=== PATIENT | male | born 1935 | race Caucasian/White ===

== ENCOUNTER 2022-02-28 15:23 | Emergency (ER) | payer OTHER, SELFPAY ==
[2022-02-28 15:36] VITALS: BP 168/76; PULSE 70; RESP 18; TEMP 36.5; O2SAT 95; BMI 22.2
--- NOTE | 2022-02-28 16:12 | ED.GENADULT ---
HPI - General Adult General Time Seen by Provider: 16:12 Date Seen: 02/28/22 Chief complaint: Hip Injury/Pain Stated complaint: SHARP PAIN IN LEFT HIP Time Seen by Provider: 02/28/22 15:57 Source: patient Mode of arrival: ambulatory History of Present Illness HPI narrative: Lior is a 86 year old male past medical histoyr of hypertension, diabetes, hyperlipidemia not on blood thinners presents emerged department via private car with left hip pain. Patient states he carried a ladder up some steps on Monday from the basement to the main level, he held on to it with his left arm by his side, when he got to the top of the stairs he felt a to the lateral aspect of his left hip, on Monday he states he felt well. Last night before going to bed pain progressively got worse, it is very sharp, nonradiating, worse with ambulation, pain is 10/10. Today pain has persisted worse in his left hip, he took 500 mg oral Tylenol with no relief, and then another 500 mg Tylenol. Patient denies any lower back pain, no weakness, paresthesia or tingling of his left lower extremity. No history of this in the past. No urinary or bowel incontinence or retention, he has had a cortisone shot in that left hip in the past. No other concerns at this time. Related Data Home Medications Medication Instructions Recorded Confirmed fluticasone 250 mcg-salmeterol 50 inhalation 02/28/22 mcg/dose blistr powdr for inhalation hydrochlorothiazide 25 mg tablet mg 02/28/22 levocetirizine 5 mg tablet mg 02/28/22 metformin 750 mg tablet,extended mg PO 02/28/22 release 24 hr simvastatin 40 mg tablet mg 02/28/22 Allergies Allergy/AdvReac Type Severity Reaction Status Date / Time No Known Drug Allergies Allergy Verified 02/28/22 15:41 Review of Systems Status of ROS: Reports: 10 or more systems reviewed and unremarkable except as noted in History and below [facility] Social History Smoking Status: Smoker, status unknown Second hand tobacco smoke exposure: No How often do you have a drink containing alcohol: never AUDIT-C Alcohol total score: 0 Non-prescribed substance use: denies use Exam Narrative: Exam Narrative: General: No obvious distress sitting comfortably HEENT: Pupils equal round reactive to light, extraocular muscles intact Neck: Supple full range of motion Lungs: Clear to auscultation bilaterally Heart: Normal sinus rhythm S1-S2 Abdomen: Bowel sounds present, soft nontender to palpation Muscle skeletal: Internal and external rotation of the hips normal bilaterally, +5 strength in lower extremities by, CMS intact, nontender to palpation the lower or spine, he has tenderness to palpation of the left anterior iliac crest, no step-off, no bruising or swelling. Neuro: Gait within normal limits, alert awake and oriented x3 Const: Vital Signs, click to edit/add: Vital Signs - 24 hr 02/28/22 15:36 Temperature 97.7 F Pulse Rate [Pulse Oximeter] 70 Respiratory Rate 18 Blood Pressure [Ri ght Upper Arm] 168/76 H Pulse Oximetry 95 Oxygen Delivery Me thod Room Air Course Course Hospital Course: 4:15 PM: AIDET performed. Workup will include IV peripheral, will start with the oral for his pain, which is minimal when at rest, will obtain a CT pelvis without IV contrast to rule out any occult fracture. Patient and daughter were in agreement. Differential diagnosis include fracture, dislocation, sprain, contusion, hematoma, tendinitis, diverticulitis, colitis, urolithiasis, nephrolithiasis, cancer as well as all etiologies. Reevaluation(s) Reevaluation #1: patient updated on his imaging results, No sign of acute injury to the left anterior iliac wing to do correspond to the pain in this region. No sign of any associated soft tissue injury.Decrease in size of large lobular soft tissue mass in the anterior pelvic wall extending to the left from midline consistent with the history of a desmoid tumor.Stable severe sigmoid and inferior descending colonic diverticulosis with no sign of diverticulitis. Stable changes of partial right colectomy with patent ileocolic,anastomosis.The prostate remains mildly enlarged. Patient is feeling better after above care given, he is able to ambulate to and from the bathroom, he will be given additional 1 g of Tylenol and a Lidoderm patch 5% applied to the area, he needs to continue with 1000 mg Tylenol every 4-6 hours, Lidoderm patch 4% applied to the area every 12 hours, ice alternating heat, and to follow-up with primary care provider over the next 5-7 days for ER followup and recheck. Time: 17:30 Vital Signs Vital signs: Initial Vital Signs Temperature 97.7 F 02/28/22 15:36 Temperature Source Temporal Artery Scan 02/28/22 15:36 Pulse Rate 70 02/28/22 15:36 Respiratory Rate 18 02/28/22 15:36 Blood Pressure 168/76 H 02/28/22 15:36 Blood Pressure Mean 106 02/28/22 15:36 Blood Pressure Position Supine 02/28/22 15:36 Pulse Oximetry 95 02/28/22 15:36 Oxygen Delivery Method 02/28/22 15:36 Vital Signs Temperature 97.7 F 02/28/22 15:36 Pulse Rate 70 02/28/22 15:36 Respiratory Rate 18 02/28/22 15:36 Blood Pressure 168/76 H 02/28/22 15:36 Pulse Oximetry 95 02/28/22 15:36 Oxygen Delivery Method 02/28/22 15:36 Temperature 97.7 F 02/28/22 15:36 Pulse Rate 70 02/28/22 15:36 Respiratory Rate 18 02/28/22 15:36 Blood Pressure 168/76 H 02/28/22 15:36 Pulse Oximetry 95 02/28/22 15:36 Oxygen Delivery Method 02/28/22 15:36 Discharge Plan Discharge Clinical Impression: Acute pain of left hip Patient Disposition: Home, Self-Care Condition: Improved Instructions: Hip Pain (ED), Warm Compress or Soak (ED) Additional Instructions: To apply Lidoderm patch 4% to the area every 12 hours, heat alternating with ice, Tylenol 1000 mg every 4-6 hours for pain, he should follow up with his primary care provider over the next 5-7 days for ER followup and recheck, reasons to return were given. Activity Level: Activity as Tolerated Discharge Diet: Regular Prescriptions: No Action fluticasone propion-salmeterol 250-50 mcg/dose blister with device INHALATION simvastatin 40 mg tablet hydrochlorothiazide 25 mg tablet metformin 750 mg tablet extended release 24 hr PO levocetirizine 5 mg tablet Follow Up/Referrals: Reagan Medina MD [Primary Care Provider] - Stand Alone Forms: [employer] Info Instructions
--- NOTE | 2022-02-28 16:20 | CRLHL7_ITS ---
For Patients: As a result of the 21st Century Cures Act, medical imaging exams and procedure reports are released immediately into your electronic medical record. You may view this report before your referring provider. If you have questions, please contact your health care provider. INDICATION: Left anterior iliac crest pain after lifting injury. COMPARISON: CT of the abdomen and pelvis with contrast from 08/21/2019. History of anterior abdominal wall desmoid tumor. TECHNIQUE: CT examination of the pelvis was performed with the uneventful intravenous administration of 100 cc of Omnipaque 350 while 3 mm thick axial sections were obtained from the superior iliac crest through the pubic symphysis. Oral contrast was not administered. Please note that all CT scans at this facility use dose modulation, iterative reconstruction, and/or weight-based dosing when appropriate to reduce radiation dose to as low as reasonably achievable. FINDINGS: : There has been a slight decrease in size of the lobulated mass within the central and left anterior pelvic wall in the periumbilical region, now measuring 6.8 x 9.3 centimeters in cross-section and 7.0 centimeters in length, previously 11.9 x 7.7 centimeters in cross-section and 8.8 centimeters in length. There is no sign of any abnormality of the left iliac wing, specifically with no sign of any fracture of the anterior iliac crest. There is no sign of any muscular injury or hematoma. Again seen are changes of resection of the cecum and ascending colon with a widely patent ileocolic anastomosis. There is stable severe sigmoid and inferior descending colonic diverticulosis without evidence of diverticulitis. The loops of small bowel and rectum in the pelvis are otherwise normal in appearance. The prostate remains mildly enlarged normal in appearance. The urinary bladder is normal in appearance. There is no sign of pelvic or inguinal mass or adenopathy. There is no sign of free fluid or free air in the pelvis. 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 There is no sign of fracture of the [place] osseous structures. Again seen is a lumbarized S1 segment with a well-defined, partially fused S1-2 disc space. There is no change in mild L4-5 and prominence L3-4 disc degenerative disease. There is stable grade 1 anterior subluxation of L5 on S1 from bilateral pars interarticularis defects. There is stable severe L5-S1 disc degenerative disease. IMPRESSION: No sign of acute injury to the left anterior iliac wing to do correspond to the pain in this region. No sign of any associated soft tissue injury. Decrease in size of large lobular soft tissue mass in the anterior pelvic wall extending to the left from midline consistent with the history of a desmoid tumor. Stable severe sigmoid and inferior descending colonic diverticulosis with no sign of diverticulitis. Stable changes of partial right colectomy with patent ileocolic anastomosis. The prostate remains mildly enlarged. Please note that all CT scans at this facility use dose modulation, iterative reconstruction, and/or weight-based dosing when appropriate to reduce radiation dose to as low as reasonably achievable. Dictated by Dylan Krishnan MD @ 02/28/2022 5:23:58 PM (Electronically Signed)
[2022-02-28] MEDS: KETOROLAC 15 MG/ML inj IVP (16:50)
--- OUTSIDE RECORDS SUMMARY | 2022-02-28 17:02 | XMS_ITS | Clinical Summary ---
:1935 Author Organization [employer] [facility] [place] [address] Care Team Providers Name Role Phone Stephanie De Santiago MD Unavailable Reagan Medina MD Primary Care Provider [phone] Allergies Active Allergy Reactions Severity Noted Date Comments Aspirin, Buffered Chest Pain 07/29/2009 Taking keren татьяна without concerns Tree Nut Edema 06/06/2008 Swelling in fac e Medications Medication Sig Dispensed Refills Start End Status Date Date PEAK FLOW use daily to 1 0 08/05/19 Active METERIndications: assess asthma 09 Unspecified tx. asthma(493.90) OCUVITE PRESERVISION take 2 in the 0 08/30/19 Active TAB morning and 2 09 at night lancetsIndications: As directed 2 1 box 2 11/12/19 Active Type II or unspecified times daily. 10 type diabetes mellitus without mention of complication, not stated as uncontrolled aspirin (ECOTRIN) 81 mg Take 1 tablet 0 03/08/20 Active enteric coated tablet by mouth once 17 daily with a meal. Blood-Glucose Sensor As directed. 1 Device 0 05/01/20 Active deviIndications: 18 Diabetes mellitus without complication (HC) Blood Glucose Control Use with 1 Bottle 0 08/07/19 Active High&Low glucometer 19 solnIndications: Diabetes mellitus without complication (HC) albuterol HFA (Ventolin INHALE 1 TO 2 1 Each 3 10/07/19 Active HFA) 90 mcg/actuation PUFFS EVERY 6 21 inhalerIndications: HOURS Moderate persistent NEEDED asthma without complication simvastatin (ZOCOR) 40 Take 1 Tablet 90 Tablet 3 05/19/20 Active mg tabletIndications: (40 mg) by 21 Hyperlipidemia, mouth at unspecified bedtime. hyperlipidemia type metFORMIN (GLUCOPHAGE Take 2 180 Tablet 3 05/19/20 Active XR) 750 mg Tablets 21 Extended-Release (1,500 mg) by tabletIndications: mouth once Diabetes mellitus daily with without complication evening meal. (HC) hydroCHLOROthiazide Take 1 Tablet 90 tablet. 3 05/19/20 Active (HCTZ) 25 mg (25 mg) by 21 tabletIndications: mouth once Essential hypertension daily. lancets (TRUEplus As directed. 100 Each 3 08/06/19 Active Lancets) 33 gauge Dispense 22 miscIndications: meter, test Diabetes mellitus strips, without complication lancets (HC) covered by pt ins. 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 - Test 1 time/day fluticasone Inhale 1 Puff 3 Each 2 08/25/19 Acti ve propion-salmeteroL by mouth 2 22 (Wixela Inhub) 250-50 times daily. mcg/Dose diskus inhalerIndications: Moderate persistent asthma without complication blood sugar diagnostic Dispense item 100 Each 3 11/09/19 Active (True Metrix Glucose covered by pt 22 Test Strip) ins. E11.9 stripIndications: NIDDM type II Diabetes mellitus - Test 1 without complication time/day (HC) blood-glucose Dispense 1 Each 0 11/18/19 Active meterIndications: meter covered 22 Diabetes mellitus by pt ins. 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 Patient without symptoms when taking advair once daily. Allergic rhinitis, cause unspecified 03/06/2008 Type II or unspecified type diabetes mellitus without mention of 07/21/2006 complication, not stated as uncontrolled Other and unspecified hyperlipidemia Unspecified essential hypertension Resolved Problems Problem Noted Date Resolved Date Anticoagulation management encounter 10/17/2018 Inguinal hernia without mention of obstruction or gangrene, 09/01/2005 01/01/2013 recurrent unilateral or unspecified Encounters Date Type Specialty Care Team Description 02/28/2022 Travel 02/28/2022 Nurse Triage VotelReagan MD 02/01/2022 Refill VotelReagan Refil yesy Mcqueen MD (Levocetirizine ) 12/09/2021 Orders Only Scanner <No scans attac hed> from Last 3 Months Immunizations Name Administration Dates Next Due COVID-19 vaccine ([facility] 11/23/2021 30mcg/0.3mL) 12YO+ JAYLON-SUCROSE PF, MDV COVID-19 vaccine ([facility] 05/19/2021, 08/06/2020, 30mcg/0.3mL) PF, MDV Influenza, High-dose Inactivated 05/12/2016, 05/18/2015, Influenza, IIV3 (Age >=3 years) 03/10/2009, 04/17/2007 Influenza, Inactivated AIIV4 (Age 65+ 05/19/2021, 05/14/2020 Years) Preserv Free Influenza, Inactivated IIV3 (Age 65+ 07/02/2019, 03/08/2017 Years) Preserv Free Pneumococcal Poly,23-Valent (Pneumovax) 11/11/2009 Pneumococcal conj 13-Valent (Prevnar 13) 05/18/2015, 014 Td (Age >=7 Years) 02/03/2004 Tdap 03/29/2013 Family History Medical History Relation Name Comments Stroke Father age 82 Diabetes Mother dementia. a t age 94 Allergies Son antwon allergies Relation Name Status Comments Father Mother Son Social History Tobacco Use Types Packs/Day Years Used Date Never Smoker Smokeless Tobacco: Never Used Tobacco Cessation: Counseling Given: Yes Alcohol Use Standard Drinks/Week Comments Yes 0 (1 standard drink = 0.6 oz pure alcoho l) one cocktail rarely Alcohol Habits Answer Date Recorded How often do you have a drink containing alcohol? Not asked How many drinks containing alcohol do you have on a Not aske d typical day when you are drinking? How often do you have six or more drinks on one Not asked occasion? Comment: one cocktail rarely 08/04/2008 Sex Assigned at Date Recorded Not on file COVID-19 Exposure Response Date Recorded In the last 10 days, have you been in contact with No / Unsu re 02/28/2022 1:30 PM CDT someone who was confirmed or suspected to have Coronavirus/COVID-19? 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 Oxygen Saturation 98% 11/23/2021 9:05 AM CDT Inhaled Oxygen Concentration - - Weight 70.9 kg (156 lb 3.2 oz) 11/23/2021 9:05 AM CDT Height 172.7 cm (5' 8) 11/23/2021 9:05 AM CDT Body Mass Index 23.75 11/23/2021 9:05 AM CDT Plan of Treatment Upcoming Encounters Date Type Specialty Care Team Description 05/03/2022 Office Visit Votel, Reagan delacruz MD [address] [phone] (Wo rk) Health Maintenance Due Date Last Done Comments Zoster (shingles) series for age 1003/18/1986 50+ (1 of 2) Medicare Wellness for age 65+ 03/08/2018 03/08/2017, 2015, 04/28/2014, Additional history exists Influenza for age 65+ 02/03/2022 05/19/2021, 05/14/2020, 07/02/2019, Additional history exists Depression screening for age 12+ 05/19/2022 05/19/2021, 04/2020, 05/14/2020, Additional history exists BMI (ht and wt on same day) for 11/23/2022 11/23/2021, 05/05, age 18+ 11/17/2020, Additional history exists Tetanus booster 03/29/2023 03/29/2013, 02/03/2004 Tdap Completed 03/29/2013 Pneumococcal series for age 65+ Completed 05/18/2015, 04/06, 11/11/2009 COVID-19 vaccine series Completed 11/23/2021, 05/19/2021, 08/06/2020, Additional history exists Procedures Procedure Name Priority Date/Time Associated Diagnosis Comme nts SCAN-EYE EXAM 12/09/2021 12:00 AM Results for this CDT procedure are i n the results section . from Last 3 Months Results SCAN-EYE EXAM (12/09/2021 12:00 AM CDT) Narrative This result has an attachment that is no t available. 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
--- OUTSIDE RECORDS SUMMARY | 2022-02-28 17:02 | XMS_ITS ---
:1935 Author Care Team Providers Name Role Phone Estelle Maki Primary Care Provider Unavailable Allergies None recorded. Medications Name Status Start Date Stop Date ? ? Accu-Chek Pebbles Control Soln solution Active ? Not available Accu-Chek Pebbles Plus test strips Active ? Not available albuterol sulfate Completed ? 09/23/2019 aspirin 81 mg tablet,delayed release Active ? Not available Take 1 tablet every day by oral route. ferrous sulfate 325 mg (65 mg iron) tablet Active ? Not available fluticasone 250 mcg-salmeterol 50 mcg/dose blistr powdr for inha lation Active ? Not available Inhale 1 puff twice a day by inhalation route. hydrochlorothiazide 25 mg tablet Active ? Not available levocetirizine 5 mg tablet Active ? Not a vailable metformin ER 750 mg tablet,extended release 24 hr Active ? Not available simvastatin 40 mg tablet Active ? Not deanne ilable Ventolin HFA 90 mcg/actuation aerosol inhaler Active ? Not available warfarin 2.5 mg tablet Completed ? 0 warfarin 3 mg tablet Completed ? 09/23/2019 Problems None recorded. Procedures None recorded. Results Lab Results None recorded. Past Encounters None recorded. Social History None recorded. Vaccine List None recorded. Plan of Care Reminders Provider Appointments None recorded. ? ? Lab None recorded. ? ? Referral None recorded. ? ? Procedures None recorded. ? ? Surgeries None recorded. ? ? Imaging None recorded. ? ? Vitals None recorded.
[2022-02-28] MEDS: ACETAMINOPHEN 500 MG TABLET 1000 MG PO (17:54)
[2022-02-28] MEDS: LIDOCAINE 5% PATCH 1 PATCH TRANSDERMA (18:05)
== END 2022-02-28 18:08 | disposition home or self-care (01) ==
PROVIDERS: Emergency Provider Student in an Organized Health Care Education/Training Program; PCP Family Medicine
DX: M25.552 Pain in left hip (principal)
CPT/HCPCS: 72192; 96374; 99283; 99284; A9270; J1885

== ENCOUNTER 2022-03-02 11:28 | Emergency (ER) | payer OTHER, SELFPAY ==
[2022-03-02 11:45] VITALS: BP 142/67; PULSE 69; RESP 16; TEMP 36.7; O2SAT 97; BMI 22.4
--- OUTSIDE RECORDS SUMMARY | 2022-03-02 16:31 | XMS_ITS | Encounter Summary ---
:1935 Author Organization [facility] Address [address] [place] [address] Care Team Providers Name Role Phone Unavailable Primary Care Provider Unavailable Reason for Referral Outpatient (Routine) - Closed Specialty Diagnoses / Procedures Referred By Contact Refer red To Contact Radiation Oncology Diego Ang M .D. [facility] [address] [address] Referral ID Status Reason Start Date Expiration Date Visits Requ ested Visits Authorized [id number] Closed 03/27/2020 03/27/2021 1 1 Reason for Visit Outpatient (Routine) - Closed Specialty Diagnoses / Procedures Referred By Contact Refer red To Contact [facility] [address] [address] Referral ID Status Reason Start Date Expiration Date Visits Requ ested Visits Authorized [id number] Closed 03/27/2020 03/27/2021 1 1 Encounter Details Date Type Department Care Team Description 10/09/2020 Hospital Encounter Department of Diego Ang Tumor Desmoid Radiation Oncology Irvin Ying (Primary Dx) in [address] [facility] [address] [place], [place] [phone] (Work) [phone] Social History Tobacco Use Types Packs/Day Years Used Date Smoking Tobacco: Never Assessed Sex Assigned at Date Recorded Male 09/04/2018 2:35 PM CDT documented as of this encounter Last Filed Vital Signs Vital Sign Reading Time Taken Comments Blood Pressure 112/56 10/09/2020 2:48 PM CDT Pulse 68 10/09/2020 2:48 PM CDT Temperature 36.1 ??C (97 ??F) 10/09/2020 2:48 PM CDT Respiratory Rate - - Oxygen Saturation - - Inhaled Oxygen Concentration - - Weight 72.4 kg (159 lb 9.8 oz) 10/09/2020 2:48 PM CDT Height - - Body Mass Index 23.37 03/06/2018 2:21 PM CDT documented in this encounter Medications at Time of Discharge Medication Sig Dispensed Refills Start Date End Date ADVAIR DISKUS 250-50 mcg/act 0 018 diskus inhaler albuterol (VENTOLIN HFA) 90 Inhale. 0 12/28/19 17 mcg/actuation inhaler aspirin [address] tablet Take 81 mg by 0 7 mouth. aspirin-caffeine (ANACIN) Take by mouth. 0 2007 400-32 mg per tablet blood glucose control Use with glucometer 0 08/06 high,low solution blood sugar diagnostic For Blood glucose 0 2015 strips testing once daily. blood-glucose meter kit Dispense meter, 0 019 test strips, lancets covered by pt ins. 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 fluticasone (FLONASE) 50 Administer 2 sprays 0 mcg/actuation nasal spray into affected nostril(s). hydroCHLOROthiazide 0 12/30/2017 (HYDRODIURIL) 25 mg tablet lancets As directed 2 times 0 11/11/2009 daily. levocetirizine (XYZAL) 5 mg Take by mouth. 0 02/04 tablet lisinopril Take 10 mg by 0 12/31/2015 (PRINIVIL,ZESTRIL) 10 mg mouth. tablet metFORMIN XR (GLUCOPHAGE-XR) Take 750 mg by 0 750 mg 24 hr tablet mouth. NaCl 0.9 % irrigation Irrigate 20 cc each 0 09/29 nostril QID X 2 month supply simvastatin (ZOCOR) 40 mg 0 12/30/2017 tablet vitamins A,C,F-gips-gmixbq Take by mouth. 0 08/29 (PRESERVISION AREDS) 7,160 Units-113 mg-100 Units per tablet documented as of this encounter Progress Notes Diego Ang M.D. - 10/09/2020 3:00 PM CDT PATIENT NAME: Lior Miranda [facility] #: [id number] Address: [address] [facility] [address] Age: 85 y.o. Date of Service: 10/09/20 Provider: Diego Ang M.D. 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 HISTORY OF PRESENT ILLNESS This 85 y.o. patient has the following significant history: 1. ??August 20, 2014: ??Screening colonoscopy was performed by Dr. Trey Hudson. ??There was 2 cm polyp in the proximal transverse colon with the semi pedunculated appearance with ulceration on the surface. ??Due to the broad base of the polyp in the risk of malignant invasion, the polyp was not removed. ??The polyp site was tattooed. ??The polyp was biopsied. ??There was a 3 mm polyp in the cecum, a 3 mm and a 5 mm polyp in the ascending colon, a 6 mm polyp in the descending colon, and a 4 mm polyp in the sigmoid colon that were removed. ??Pathology of the transverse colon polyp demonstrated a single focus of highly atypical glands associated with granulation tissue, suspicious for adenocarcinoma.??There was background tubulovillous adenoma with high-grade dysplasia. ??Pathology of 5 additional polyps demonstrated tubular adenoma, negative for high-grade dysplasia. 2. ??September 15, 2014: ??Laparoscopic assisted extended right colon resection was performed for multiple polyps and an unresectable polyp in the transverse colon by Dr. Hakan Foy at the [facility]. ??At the time of surgery the tattooed spot was identified in the right half of the transversecolon. ??There was no other evidence of disease in the??abdomen. ??A 5-6 cm epigastric midline incision was utilized and the bowel was exteriorized for the resection and anastomosis. 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 ??The extent of invasion was into the submucosa. ??Mucosal resection margins were free of involvement by adenoma and malignancy. ??There is no lymphovascular invasion. ??There is no evidence of malignancy in 35 mary- intestinal/pericolic lymph nodes. ??DNA mismatch repair enzymes are intact. ? ?pT1 pN0 3. ??June 22, 2015: ??Multiple abdominal wall incisional hernias from the epigastrium to the umbilicus were repaired with an open approach using a pre peritoneal/retrorectus Ventrio SR ??18 x [address] Foy. ??The fascia was closed over top of the mesh. 4. ??March 08, 2017: ??Appointment with Dr. Medina where the patient reported a lump below his midline abdominal wound. 5. ??March 08, 2017: ??CT scan of the abdomen and pelvis demonstrated a midline abdominal wall masswhich appeared to arise from the rectus sheath. ??The mass was solid in appearance measuring 7.1 x 5.7 x 5.2 cm. 6. ??March 27, 2017: ??Appointment with Dr. Will Charles who recommended proceeding with an ultrasound-guided core needle biopsy. 7. ??March 30, 2017: ??Needle core biopsy of the abdominal wall mass was performed by Dr. Charles [facility]. ??Ultrasound demonstrated a homogeneous hypoechoic mass in the abdominal wall measuring approximately 7 cm in greatest dimension. ??Eight core needle biopsy passages were obtained. ??Pathology demonstrated desmoid fibromatosis. ??Negative for malignancy. ??Observation was recommended. 8. ??Chest x-ray on January 17, 2018 shows no acute radiologic chest findings. ??The patient reportedthat he experienced reduced appetite and approximately a 10 lb weight loss. The abdominal mass has increased in size and it interferes with wearing of pants. 9. ??January 19, 2018: ??CT scan of the abdomen and pelvis demonstrated a large heterogeneous anterior abdominal wall soft tissue mass deep to the umbilicus measuring 15.8 x 11.9 x 8.7 cm. ??The mass appeared to arise from the region of the rectus muscles. ??The mass bulged anteriorly and posteriorly. ?? 10. ??January 30, 2018: ??Appointment with Dr. Foy who recommended further evaluation with a repeat ultrasound-guided core biopsy. 11. ??February 01, 2018: ??Ultrasound guided core biopsy of the anterior abdominal wall soft tissue was performed by Dr. Foy. ??Ultrasound demonstrated the abdominal wall mass was associated with therectus muscle. ??It was immediately in the subcutaneous tissue and extended down to but not through the rectus muscle. ??At least 5 passes with retrieval of satisfactory 14 gauge core specimens were obtained. ??Pathology demonstrated desmoid fibromatosis. 12. ??February 13, 2018: ??Appointment with Dr. Foy who did not feel that surgical resection was possible at this point given the large size and already performed abdominal wall hernia repair. ??Referral for medical oncology consultation. ??Repeat colonoscopy for surveillance of colorectal cancerwas scheduled. 13. ??February 21, 2018: ??Colonoscopy was performed by Dr. Foy. ??A 5 mm polyp at the ileocolonic anastomosis was identified. ??The exam was otherwise unremarkable. ??Pathology of a polyp at the ileocolonic anastomosis demonstrated an inflammatory polyp. 14. ??February 27, 2018: ??Medical Oncology consultation with Dr. Keys who would be willing to consider administration of a tyrosine kinase inhibitor/selective estrogen receptor modulator at a later stage if no other treatment options are available. ??Referral for radiation oncology consultation. ??If radiation is not an option, plan to schedule for surgical opinion at a tertiary care center after consultation with Dr. Foy. 15. ??March 19, 2018 through April 30, 2018: ??Intensity modulated radiotherapy to the abdominal wall mass to a dose of 5600 cGy in 28 fractions. 16.?August 14, 2018: ??CT scan of the abdomen and pelvis demonstrates the abdominal wall mass is reportedly stable compared to January 19, 2018. 17. ??February 15, 2019: ??CT scan of the abdomen and pelvis demonstrated decreased size of large macrolobulated soft tissue mass within the anterior abdominal wall now measuring 12.3 x 8.1 x 8.7 cm. ??No evidence of metastatic disease.? 18. ??August 21, 2019: ??CT scan of the abdomen and pelvis at [facility] shows a stable anterior abdominal wall mass with no other abnormalities. 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 This was performed by Dr. Ro on June 02, 2020. He also had an epidural steroid injection at L4-5 on June 16, 2020 for back pain which was very successful. Overall he is doing well. He thinks he is gaining weight. PATIENT REPORTED SYMPTOM SCREEN: FATIGUE (Scale: 0 = no fatigue; 10 = worst fatigue you can imagine): 0 PAIN (Scale: 0 = no pain; 10 = worst pain you can imagine): 0 OVERALL QUALITY OF LIFE (Scale: 0 = as bad as can be; 10 = as good as can be): 10 VITAL SIGNS BP 112/56 (BP Location: Left arm, Patient Position: Sitting, Cuff Size: Small) Pulse 68 Temp 36.1 ??C (Temporal) Wt 72.4 kg BMI 23.37 kg/m?? PHYSICAL EXAM Alert and oriented with no acute signs of distress. Skin: The skin of the lower abdomen has mild telangiectasia corresponding to the radiation field. Abdomen: There is an ill defined 12 x 12 cm firm soft tissue mass fixed to the abdominal wall in thelower midline of the abdomen that is nontender. The overlying skin is very mobile. 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 ??Intensity modulated radiotherapy to the abdominal wall tumor completed on April 30, 2018 Overall he is doing well at this time. On clinical exam the mass seems to be shrinking. He is havingno symptoms related to the residual mass. I recommend continued observation. I explained to the patient and his daughter that I will be retiring later this summer. We discussed options including regularly scheduled follow-up visits here or following up as needed based on self assessment. The patient prefers to follow up as needed based on self assessment. He will contact our office if he notices any change in the abdominal mass or is having any other difficulties related to the mass or his previous radiation. The patient and his daughter understand and agree with this plan. I personally spent 15 minutes in care of the patient today. Time includes both non face to face and face to face patient care. Signed by: Diego Ang M.D. 10/09/2020 3:02 PM CDT [facility] [address] [place] [address] FAX: [phone] documented in this encounter Plan of Treatment Scheduled Referrals Name Type Priority Associated Order Schedule Diagnoses Radiation Oncology Outpatient Referral Routine On ce for 1 office visit Occurrences sta rting (clinic) 10/09/2020 unti l 10/09/2020 documented as of this encounter Visit Diagnoses Diagnosis Tumor Desmoid - Primary documented in this encounter
--- OUTSIDE RECORDS SUMMARY | 2022-03-02 16:31 | XMS_ITS | Encounter Summary ---
:1935 Author Organization [facility] Address [address] [place] [address] Care Team Providers Name Role Phone Unavailable Primary Care Provider Unavailable Reason for Visit Radiation Therapy (Routine) - Closed Specialty Diagnoses / Procedures Referred By Contact Refer red To Contact Diagnoses Tumor Desmoid Diego Ang M.D. [facility] Procedures Prior Auth Rad Tx [place] IMRT COMPLEX [address] [place] [address] Referral ID Status Reason Start Date Expiration Date Visits Requ ested Visits Authorized [id number] Closed 03/06/2018 03/06/2019 30 30 Encounter Details Date Type Department Care Team Description 04/30/2018 Hospital Encounter Department of Diego Ang Tumor Desmoid Radiation Oncology Irvin Ying (Primary Dx) in [facility] [address] [place], [place] [address] [facility] [address] [place], [place] [phone] (Work) [phone] Social History Tobacco Use Types Packs/Day Years Used Date Smoking Tobacco: Never Assessed Sex Assigned at Date Recorded Male 09/04/2018 2:35 PM CDT documented as of this encounter Medications at Time of Discharge Medication Sig Dispensed Refills Start Date End Date ADVAIR DISKUS 250-50 mcg/act 0 018 diskus inhaler albuterol (VENTOLIN HFA) 90 Inhale. 0 12/28/19 17 mcg/actuation inhaler aspirin [address] tablet Take 81 mg by 0 7 mouth. aspirin-caffeine (ANACIN) Take by mouth. 0 2007 400-32 mg per tablet blood sugar diagnostic For Blood glucose 0 2015 strips testing once daily. famciclovir (FAMVIR) 500 mg 0 01/18/20 18 [...] (ZOCOR) 40 mg 0 12/30/2017 tablet vitamins A,C,F-cxyf-yfbtlx Take by mouth. 0 08/29 (PRESERVISION AREDS) 7,160 Units-113 mg-100 Units per tablet documented as of this encounter Progress Notes Umu Slater P.A.-C., M.S. - 04/30/2018 3:54 PM CST DIAGNOSIS: 1. Tumor Desmoid Attending Physician: Diego Ang M.D. ([id number]) Treatment Intent: Palliative Concomitant Therapy: None Treatment Dates: March 19, 2018 - April 30, 2018 Single Plan Course Summary 04/30/2018 Plan ID [id number] abdomen First treatment 03/19/2018 12:49 [employer] Last treatment 04/30/2018 15:37 [employer] Fractions treated to date 28 Planned total fractions 28 Dosage given to date cGy 5600 Planned dose in cGy 5600 CLINICAL SUMMARY The patient completed radiation treatment as planned. The course of treatment was tolerated well andwith anticipated side effects. Mr. Lior Miranda experienced toxicities of grade 1 diarrhea and grade 2 radiation dermatitis during radiation treatment. RECOMMENDED FOLLOW UP: Radiation Oncologist and Primary Medical Oncologist. He has an appointment with Dr. Keys tomorrow. He is scheduled for a return visit with Dr. Ang on May 28, 2018. Signed by: Umu Slater P.A.-C., M.S., 04/30/2018 3:54 PM [facility] [address] [place], [place] [id number] [place] [employer] documented in this encounter Plan of Treatment Not on filedocumented as of this encounter Visit Diagnoses Diagnosis Tumor Desmoid - Primary documented in this encounter
--- OUTSIDE RECORDS SUMMARY | 2022-03-02 16:31 | XMS_ITS | Encounter Summary ---
:1935 Author Organization [facility] Address [address] [place] [address] Care Team Providers Name Role Phone Unavailable Primary Care Provider Unavailable Reason for Referral Outpatient (Routine) - Closed Specialty Diagnoses / Procedures Referred By Contact Refer red To Contact Radiation Oncology Diego Ang M .D. [facility] [place] [facility] [address] [place] [address] Referral ID Status Reason Start Date Expiration Date Visits Requ ested Visits Authorized [id number] Closed 09/04/2018 09/04/2019 1 1 Outpatient (Routine) - Closed Specialty Diagnoses / Procedures Referred By Contact Refer red To Contact Radiation Oncology Diego Ang M .D. [facility] [place] [facility] [address] [place] [address] Referral ID Status Reason Start Date Expiration Date Visits Requ ested Visits Authorized [id number] Closed 05/28/2018 05/28/2019 1 1 Scheduling Instructions TKM pt Reason for Visit Outpatient (Routine) - Closed Specialty Diagnoses / Procedures Referred By Contact Tangela red To Contact Radiation Oncology [facility] M .D. [facility] [place] [facility] [address] [place] [address] Referral ID Status Reason Start Date Expiration Date Visits Requ ested Visits Authorized [id number] Closed 05/28/2018 05/28/2019 1 1 Encounter Details Date Type Department Care Team Description 09/04/2018 Hospital Encounter Department of Diego Ang Tumor Desmoid Radiation Oncology Irvin Ying (Primary Dx) in [address] [place] [address] [facility] [address] [place], [place] [phone] (Work) [phone] Social History Tobacco Use Types Packs/Day Years Used Date Smoking Tobacco: Never Assessed Sex Assigned at Date Recorded Male 09/04/2018 2:35 PM CDT documented as of this encounter Last Filed Vital Signs Vital Sign Reading Time Taken Comments Blood Pressure 125/51 09/04/2018 3:19 PM CDT Pulse 63 09/04/2018 3:19 PM CDT Temperature 36.5 ??C (97.7 ??F) 09/04/2018 3:19 PM CDT Respiratory Rate - - Oxygen Saturation - - Inhaled Oxygen Concentration - - Weight 68.4 kg (150 lb 12.7 oz) 09/04/2018 3:19 PM CDT Height - - Body Mass Index 22.08 03/06/2018 2:21 PM CDT documented in this [...] (ZOCOR) 40 mg 0 12/30/2017 tablet vitamins A,C,T-eqsw-escgqf Take by mouth. 0 08/29 (PRESERVISION AREDS) 7,160 Units-113 mg-100 Units per tablet blood glucose control Use with glucometer 0 08/06 high,low solution blood-glucose meter kit Dispense meter, 0 019 test strips, lancets covered by pt ins. 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 - 09/04/2018 3:48 PM CDT PATIENT NAME: Lior Miranda [facility] #: [id number] Address: [address] [place] [id number] Age: 83 y.o. Date of Service: 09/04/18 Provider: Diego Ang M.D. 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 HISTORY OF PRESENT ILLNESS This 83 y.o. patient has the following significant history: [...] colon by Dr. Hakan Foy at the [facility]. ??At the time of surgery the tattooed [...] [facility] ??[facility]trasound demonstrated a homogeneous hypoechoic [...] dose of 5600 cGy in 28 fractions. 16. August 14, 2018: CT scan of the abdomen and pelvis demonstrates the abdominal wall mass that is reportedly stable compared to January 19, 2018. To my review it is smaller. INTERVAL HISTORY This patient completed radiation therapy approximately 4 months ago. He thinks the abdominal wall mass has gotten smaller. He does not always need to wear suspenders to keep his pants up. He reports noabdominal pain. His appetite is good. He is averaging 1 bowel movement per day which is unchanged compared to prior to radiation. He saw Dr. Keys on August 21, 2018. The patient is here with his and daughter. PATIENT REPORTED SYMPTOM SCREEN: ?? FATIGUE (Scale: 0 = no fatigue; 10 = worst fatigue you can imagine): 0 ?? PAIN (Scale: 0 = no pain; 10 = worst pain you can imagine): 0 ?? OVERALL QUALITY OF LIFE (Scale: 0 = as bad as can be; 10 = as good as can be): 8 VITAL SIGNS BP (!) 125/51 (BP Location: Right arm, Patient Position: Sitting, Cuff Size: Regular) Pulse 63 Temp 36.5 ??C (Temporal) Wt 68.4 kg BMI 22.08 kg/m?? PHYSICAL EXAM There is the firm soft tissue mass in the lower midline abdomen measuring approximately 18 x 10 cm. The overlying skin is mobile and appears healthy. There is no desquamation. 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 ??Intensity modulated radiotherapy to the abdominal wall tumor completed on April 30, [address] scan of the abdomen and pelvis from August 14, 2018 and compared it to previous scans from March 08, 2018 and January 19, 2018 [id number], slice by slice. To my review the mass is slightly smaller. He is having no persistent side effects from radiation. Overall he is doing very well at this time. He will be following up with Dr. Keys in [address] Keys is planning onobtaining a CT scan of the abdomen and pelvis in 6 months. I will see him back in 6 months after theCT scan to review the results with the patient and his family and to evaluate for any persistent side effects of radiation. I instructed him to contact me in the meantime if you have any questions or concerns. The patient and his family understand and agree with this plan. I have spent 20 minutes with this patient today in which greater than 50% was spent counseling. Signed by: Diego Ang M.D. 09/04/2018 3:48 PM [facility] [address] [place] [address] FAX: [phone] PRIMARY CARE PROVIDER: Dr. Reagan Medina ?? REFERRING PROVIDERS: Dr. Keys [facility] documented in this encounter Plan of Treatment Scheduled Referrals Name Type Priority Associated Order Schedule Diagnoses Radiation Oncology Outpatient Referral Routine On ce for 1 office visit Occurrences sta rting (clinic) 09/04/2018 unti l 09/04/2018 Radiation Oncology Outpatient Referral Routine Ex pected: 03/06/2019 office visit (Approximate), (clinic) Expires: 2021 documented as of this encounter Visit Diagnoses Diagnosis Tumor Desmoid - Primary documented in this encounter
--- OUTSIDE RECORDS SUMMARY | 2022-03-02 16:31 | XMS_ITS | Encounter Summary ---
:1936 Author Organization [facility] Address [address] [place] [address] Care Team Providers Name Role Phone Unavailable Primary Care Provider Unavailable Encounter Details Date Type Department Care Team Description 02/12/2021 Orders Only RST PCP [facility] La Erickson M.D. [address] [place], [place] [phone] (Wo rk) Social History Tobacco Use Types Packs/Day Years Used Date Smoking Tobacco: Never Assessed Sex Assigned at Date Recorded Male 09/04/2018 2:35 PM CDT documented as of this encounter Plan of Treatment Not on filedocumented as of this encounter Visit Diagnoses Not on filedocumented in this encounter
--- OUTSIDE RECORDS SUMMARY | 2022-03-02 16:31 | XMS_ITS | Clinical Summary ---
:1935 Author Organization [facility] Address [address] [place] [address] Care Team Providers Name Role Phone Unavailable Primary Care Provider Unavailable Source Comments Patient records contain information from all sites at [facility]. For routine questions regarding patient records, call [phone] during business hours, M-F 8:00 AM - 5:00 PM Central Time. Record requests for emergency care only can be directed to [phone] at any time.[facility] Allergies Active Allergy Reactions Severity Noted Date Comments Aspirin Palpitations Medium 03/06/2018 Chest pain Aspirin, Buffered Other (see comments) 07/29/2009 Ta socrates anacin without concerns Pistachio Nut Anaphylaxis High 03/06/2018 Medications Medication Sig Dispensed Refills Start Date End Date Status aspirin-caffeine (ANACIN) Take by mouth. 0 8 Active 400-32 mg per tablet aspirin [address] tablet Take 81 mg by 0 03/08/2017 Active mouth. blood sugar diagnostic For Blood 0 02/12/2016 Active strips glucose testing once daily. famciclovir (FAMVIR) 500 0 01/17/2018 Active mg tablet ferrous sulfate 325 mg Take 325 mg by 0 05/10/2017 Active (65 mg iron) DR tablet mouth. fluticasone (FLONASE) 50 Administer 2 0 03/08/2017 Active mcg/actuation nasal spray sprays into affected nostril(s). ADVAIR DISKUS 250-50 0 03/06/2018 Active mcg/act diskus inhaler hydroCHLOROthiazide 0 12/30/2017 Active (HYDRODIURIL) 25 mg tablet lancets As directed 2 0 11/11/2009 Activ e times daily. levocetirizine (XYZAL) 5 Take by mouth. 0 02/22/2018 Active mg tablet lisinopril Take 10 mg by 0 12/31/2015 Acti ve (PRINIVIL,ZESTRIL) 10 mg mouth. tablet metFORMIN XR Take 750 mg by 0 02/01/2018 A ctive (GLUCOPHAGE-XR) 750 mg 24 mouth. hr tablet vitamins Take by mouth. 0 08/29/2008 Acti ve A,C,H-lcis-vdvhdq (PRESERVISION AREDS) 7,160 Units-113 mg-100 Units per tablet simvastatin (ZOCOR) 40 mg 0 12/30/2017 Active tablet NaCl 0.9 % irrigation Irrigate 20 cc 0 09/30/2011 Active each nostril QID X 2 month supply albuterol (VENTOLIN HFA) Inhale. 0 12/27/2016 Active 90 mcg/actuation inhaler blood-glucose meter kit Dispense meter, 0 08/01/2018 Active test strips, lancets covered by pt ins. 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 Social History Tobacco Use Types Packs/Day Years Used Date Smoking Tobacco: Never Assessed Sex Assigned at Date Recorded Male 09/04/2018 2:35 PM CDT Last Filed Vital Signs Vital Sign Reading Time Taken Comments Blood Pressure 112/56 10/09/2020 2:48 PM CDT Pulse 68 10/09/2020 2:48 PM CDT Temperature 36.1 ??C (97 ??F) 10/09/2020 2:48 PM CDT Respiratory Rate - - Oxygen Saturation - - Inhaled Oxygen Concentration - - Weight 72.4 kg (159 lb 9.8 oz) 10/09/2020 2:48 PM CDT Height 176 cm (5' 9.29) 03/06/2018 2:21 PM CDT Body Mass Index 23.37 03/06/2018 2:21 PM CDT Plan of Treatment Health Maintenance Due Date Last Done Comments Zoster Vaccines (1 of 2) 1986 Hepatitis B Vaccines (1 of 3 - 1996 Risk 3-dose series) Creatinine Level 05/14/2021 05/14/2020, 07/02/2019, 09/19/2018, Additional history exists Potassium Level 05/14/2021 05/14/2020, 07/02/2019, 09/19/2018, Additional history exists Sodium Level 05/14/2021 05/14/2020, 07/02/2019, 09/19/2018, Additional history exists Depression Screening (Annual 06/05/2021 PHQ-2) Fall Risk Screen (Annual) 06/05/2021 COVID-19 Vaccine (5 - Booster for 01/18/2022 11/23/2021, , Pfizer series) 08/06/2020, Additional history exists Influenza Vaccine (#1) 2022 05/19/2021, 05/14/2020, 07/02/2019, Additional history exists DTaP,Tdap,and Td Vaccines (2 - Td 03/29/2023 03/29/2013, or Tdap) Pneumococcal vaccine (65+ years) Completed 05/18/2015, , 11/11/2009
--- OUTSIDE RECORDS SUMMARY | 2022-03-02 16:31 | XMS_ITS | Encounter Summary ---
:1935 Author Organization [facility] Address [address] [place] [address] Care Team Providers Name Role Phone Unavailable Primary Care Provider Unavailable Reason for Referral Outpatient (Routine) - Closed Specialty Diagnoses / Procedures Referred By Contact Refer red To Contact Radiation Oncology Umu Slater P.A.-C., [facility].S [address] [place] [address] Referral ID Status Reason Start Date Expiration Date Visits Requ ested Visits Authorized [id number] Closed 03/04/2019 03/03/[address] abdomen/pelvis and lab work at [facility] on August 21, 2019, patient will also have an appointment with Dr. Quinones - l[facility] eduardo [facility] after imaging Outpatient (Routine) - Closed Specialty Diagnoses / Procedures Referred By Contact Refer red To Contact Radiation Oncology Diego Ang M .D. [facility] [address] [place] [address] Referral ID Status Reason Start Date Expiration Date Visits Requ ested Visits Authorized [id number] Closed 08/23/2019 08/22/2020 1 1 Reason for Visit Outpatient (Routine) - Closed Specialty Diagnoses / Procedures Referred By Contact Refer red To Contact Radiation Oncology Umu Slater P.A.-C., [facility] M.S [address] [place] [address] Referral ID Status Reason Start Date Expiration Date Visits Requ ested Visits Authorized [id number] Closed 03/04/2019 03/03/2020 1 1 Encounter Details Date Type Department Care Team Description 08/23/2019 Hospital Encounter Department of Umu Slater P.A.-C., M.S. [address] [place] [address] Tumor Desmoid Radiation Oncology Diego Ang M.D. [address] [place] [address] (Primary Dx) in [place], [place] [address] [place] [address] Social History Tobacco Use Types Packs/Day Years [...] (ZOCOR) 40 mg 0 12/30/2017 tablet vitamins A,C,F-qqcs-uwzqax Take by mouth. 0 08/29 (PRESERVISION AREDS) 7,160 Units-113 mg-100 Units per tablet documented as of this encounter Progress Notes Diego Ang M.D. - 08/23/2019 9:41 AM CDT PATIENT NAME: Lior Miranda [facility] #: [id number] Address: [address] [place] [id number] Age: 84 y.o. Date of Service: 08/23/19 Provider: Diego Ang M.D. Place of Service: [facility] Radiation Oncology [address] [place] [id number] CHIEF COMPLAINT/REASON FOR VISIT This is a telephone follow up. The patient was not seen in person. HISTORY OF PRESENT ILLNESS This 84 y.o. patient has the following significant history: [...] colon by Dr. Hakan Foy at the [facility]. ??At the time of surgery the [...] [facility] demonstrated a homogeneous hypoechoic mass in [...] stable compared to January 19, 2018. 17. February 15, 2019: CT scan of the abdomen and pelvis demonstrated decreased size of large macrolobulated soft tissue mass within the anterior abdominal wall now measuring 12.3 x 8.1 x 8.7 cm. No evidence of metastatic disease. 18. August 21, 2019: CT scan of the abdomen and pelvis at [facility] shows a stable anteriorabdominal wall mass with no other abnormalities. INTERVAL HISTORY: (Telephone follow up due to COVID-19 situation) He reports no problems with his abdomen. He thinks the abdominal mass is a little smaller. He deniesbowel problems. He reports the skin of the abdomen is normal. 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 He did not see a medical oncologist since his recent CT scan. 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 ??Intensity modulated radiotherapy to the abdominal wall tumor completed on April 30, 2018 I personally reviewed the CT images from August 21, 2019. To my review I think the mass is a little smaller compared to February 2019 scan. He is doing well at this time. He will return to see me in 6 months. I did not order a CT scan at this time. He may be seeing his medical oncologist who may ordera CT scan in the future. When I see him next time we can decide if he needs another CT scan if one has not been done. A history and physical exam may be adequate. 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 Signed by: Diego Ang M.D. 08/23/2019 8:54 AM CDT [facility] [address] [place] [address] FAX: [phone] documented in this encounter Plan of Treatment Scheduled Referrals Name Type Priority Associated Order Schedule Diagnoses Radiation Oncology Outpatient Referral Routine Ex pected: 02/23/2020 office visit (Approximate), (clinic) Expires: 2022 Radiation Oncology Outpatient Referral Routine On ce for 1 office visit Occurrences sta rting (clinic) 08/23/2019 unti l 08/23/2019 documented as of this encounter Visit Diagnoses Diagnosis Tumor Desmoid - Primary documented in this encounter
--- OUTSIDE RECORDS SUMMARY | 2022-03-02 16:31 | XMS_ITS | Encounter Summary ---
:1935 Author Organization [facility] Address [address] [place] [address] Care Team Providers Name Role Phone Unavailable Primary Care Provider Unavailable Reason for Visit Radiation Therapy (Routine) - Closed Specialty Diagnoses / Procedures Referred By Contact Refer red To Contact Diagnoses Tumor Desmoid Diego Ang M.D. [facility] Procedures Prior Auth Rad Tx [place] IMRT COMPLEX [address] [place] [address] Referral ID Status Reason Start Date Expiration Date Visits Requ ested Visits Authorized [id number] Closed 03/06/2018 03/06/2019 30 30 Encounter Details Date Type Department Care Team Description 04/25/2018 Hospital Encounter Department of Radiation Bernabe Ang, [facility] [place] [address] [facility] [address] [place] [address] [place], [place] [phone] (Wo rk) [address] [phone] Social History Tobacco Use Types Packs/Day Years [...] (ZOCOR) 40 mg 0 12/30/2017 tablet vitamins A,C,F-sfrd-wofrqn Take by mouth. 0 08/29 (PRESERVISION AREDS) 7,160 Units-113 mg-100 Units per tablet documented as of this encounter Plan of Treatment Not on filedocumented as of this encounter Visit Diagnoses Not on filedocumented in this encounter
--- OUTSIDE RECORDS SUMMARY | 2022-03-02 16:31 | XMS_ITS | Encounter Summary ---
:1935 Author Organization [facility] Address [address] [place] [address] Care Team Providers Name Role Phone Unavailable Primary Care Provider Unavailable Reason for Visit Radiation Therapy (Routine) - Closed Specialty Diagnoses / Procedures Referred By Contact Refer red To Contact Diagnoses Tumor Desmoid Diego Ang M.D. [facility] Procedures Prior Auth Rad Tx [place] IMRT COMPLEX [address] [place] [address] Referral ID Status Reason Start Date Expiration Date Visits Requ ested Visits Authorized [id number] Closed 03/06/2018 03/06/2019 30 30 Encounter Details Date Type Department Care Team Description 04/27/2018 Hospital Encounter Department of Radiation Bernabe Ang, [facility] [place] [address] [facility] [address] [place] [address] [place], [place] [phone] (Wo rk) [address] [phone] Social History Tobacco Use Types Packs/Day Years [...] (ZOCOR) 40 mg 0 12/30/2017 tablet vitamins A,C,B-tuqh-vumhwx Take by mouth. 0 08/29 (PRESERVISION AREDS) 7,160 Units-113 mg-100 Units per tablet documented as of this encounter Plan of Treatment Not on filedocumented as of this encounter Visit Diagnoses Not on filedocumented in this encounter
--- OUTSIDE RECORDS SUMMARY | 2022-03-02 16:31 | XMS_ITS | Clinical Summary ---
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 Respiratory Rate 24 06/29/2011 10:05 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 Oxygen Saturation 98% 11/23/2021 9:05 AM CDT [...] Type / Group WC WORKERS WC WORKERS [id number] 2013-Pres [phone] SUPERI OR COMP COMP ent [address] [place] [address] [employer] G[employer] CHOICE [id number] 2021-Presen [place] [id number] [place] [address] (Home) E [phone] [place] (Work) [id number] [employer]DA Workers Comp [address] (Home) E [phone] [place] (Work) [address] 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
--- OUTSIDE RECORDS SUMMARY | 2022-03-02 16:31 | XMS_ITS | Encounter Summary ---
:1935 Author Organization [facility] Address [address] [place] [address] Care Team Providers Name Role Phone Unavailable Primary Care Provider Unavailable Reason for Referral Outpatient (Routine) - Closed Specialty Diagnoses / Procedures Referred By Contact Refer red To Contact Radiation Oncology Umu Slater P.A.-C., [facility].S [address] [place] [address] Referral ID Status Reason Start Date Expiration Date Visits Requ ested Visits Authorized [id number] Closed 03/04/2019 03/03/[address] abdomen/pelvis and lab work at [facility] on August 21, 2019, patient will also have an appointment with Dr. Quinones - l[facility] after imaging Outpatient (Routine) - Closed Specialty Diagnoses / Procedures Referred By Contact Refer red To Contact Radiation Oncology Diego [facility] M .D. [facility] [place] [address] [place] [address] Referral ID Status Reason Start Date Expiration Date Visits Requ ested Visits Authorized [id number] Closed 09/04/2018 09/04/2019 1 1 Reason for Visit Outpatient (Routine) - Closed Specialty Diagnoses / Procedures Referred By Contact Refer red To Contact Radiation Oncology Diego Ang M .D. [facility] [place] [address] [place] [address] Referral ID Status Reason Start Date Expiration Date Visits Requ ested Visits Authorized [id number] Closed 09/04/2018 09/04/2019 1 1 Encounter Details Date Type Department Care Team Description 03/04/2019 Hospital Encounter Department of Diego Ang Tumor Desmoid Radiation Oncology Irvin Ying (Primary Dx) in [address] [facility] [address] [place], [place] [phone] [address] (Work) [phone] Social History Tobacco Use Types Packs/Day Years Used Date Smoking Tobacco: Never Assessed Sex Assigned at Date Recorded Male 09/04/2018 2:35 PM CDT documented as of this encounter Last Filed Vital Signs Vital Sign Reading Time Taken Comments Blood Pressure 131/60 03/04/2019 10:21 AM CDT Pulse 61 03/04/2019 10:21 AM CDT Temperature 36.4 ??C (97.5 ??F) 03/04/2019 10:21 AM CDT Respiratory Rate - - Oxygen Saturation - - Inhaled Oxygen Concentration - - Weight 71 kg (156 lb 8.4 oz) 03/04/2019 10:21 AM CDT Height - - Body Mass Index 22.92 03/06/2018 2:21 PM CDT documented in this [...] (ZOCOR) 40 mg 0 12/30/2017 tablet vitamins A,C,G-yydk-yuzkkb Take by mouth. 0 08/29 (PRESERVISION AREDS) 7,160 Units-113 mg-100 Units per tablet blood glucose control Use with glucometer 0 08/06 high,low solution blood-glucose meter kit Dispense meter, 0 019 test strips, lancets covered by pt ins. 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 - 03/04/2019 10:30 AM CDT SUBJECTIVE DIAGNOSIS 1. Tumor Desmoid SUPERVISED BY: Diego Ang M.D. ([id number]) HISTORY OF PRESENT ILLNESS Mr. Lior Miranda is an 83-year-old male with desmoid tumor. His oncologic history is as follows: 1. ??August 20, 2014: ??Screening colonoscopy was [...] colon by Dr. Hakan Foy at the [facility]. ??At the time of surgery [...] [facility]ound demonstrated a homogeneous hypoechoic mass in [...] reportedly stable compared to January 19, 2018. 17February 15, 2019: CT scan of the abdomen and pelvis demonstrated decreased size of large macrolobulated soft tissue mass within the anterior abdominal wall now measuring 12.3 x 8.1 x 8.7 cm. No evidence of metastatic disease. INTERVAL HISTORY The patient was seen and examined today with Dr. Ang. The patient reports doing well overall. He denies fatigue and reports good energy levels. He has noticed that the mass is getting smaller. He is now able to wear a belt. He is averaging one bowel movement per day. He denies rectal bleeding. He reports good urination. He denies urinary incontinence, dysuria, or hematuria. He denies any pain. He reports that his abdominal skin is well- healed. The patient had an appointment with Dr. Quinones on February 19, 2019. REVIEW OF SYSTEMS Review of systems was negative except as documented above. PATIENT REPORTED SYMPTOM SCREEN FATIGUE (Scale: 0 = no fatigue; 10 = worst fatigue you can imagine): 0 ?? PAIN (Scale: 0 = no pain; 10 = worst pain you can imagine): 0 ?? OVERALL QUALITY OF LIFE (Scale: 0 = as bad as can be; 10 = as good as can be): 10 OBJECTIVE There were no vitals taken for this visit. ?? PHYSICAL EXAM General: Patient is alert and oriented in no apparent distress. Abdomen: Abdominal mass is visually decreased in size. Abdominal skin has no desquamation. 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 ??Intensity modulated radiotherapy to the abdominal wall tumor completed on April 30, 2018 The patient is doing well overall following radiation treatment. His recent CT scan report and images were reviewed today showing decreased size of the abdominal mass. The patient is not experiencing any persistent side effects from radiation treatment at this time. The patient is scheduled for a CT scan of the abdomen and pelvis and lab work on August 21, 2019. He will have a follow-up appointment with Dr. Quinones at that time. We will also schedule a return visit here in six months. The patient was told to contact us sooner with questions or concerns. He verbally expressed his understanding of the plan. ?? EDUCATION Ready to learn, no apparent learning barriers were identified; learning preferences include listening. Explained diagnosis and treatment plan; patient expressed understanding of the content. ?? Signed by: Umu Slater P.A.-C., M.S. 03/04/2019 10:00 AM [facility] [address] [place] [address] Associated attestation - Diego Ang M.D. - 03/04/2019 11:37 AM CDT I personally met with the patient and agree with the evaluation documented by Umu Slater P.A.-C. On examination, the patient appears in no distress. The lower abdominal mass is firm and attached to theabdominal musculature. The overlying skin appears normal and is freely mobile. There is no skin erythema. Overall he is doing very well at this time. Time spent with patient was 10 minutes. Greater than 50% was spent in counseling. Diego Ang MD [facility] Radiation Therapy [place], [place] documented in this encounter Miscellaneous Notes Addendum Note - Ramila Pineda - 03/04/2019 10:30 AM CDT Encounter addended by: Ramila Pineda on: 03/04/2019 1:46 PM Actions taken: Letter saved documented in this encounter Plan of Treatment Scheduled Referrals Name Type Priority Associated Order Schedule Diagnoses Radiation Oncology Outpatient Referral Routine On ce for 1 office visit Occurrences sta rting (clinic) 03/04/2019 unti l 03/04/2019 Radiation Oncology Outpatient Referral Routine Ex pected: 09/02/2019 office visit (Approximate), (clinic) Expires: 2019 documented as of this encounter Visit Diagnoses Diagnosis Tumor Desmoid - Primary documented in this encounter
--- OUTSIDE RECORDS SUMMARY | 2022-03-02 16:31 | XMS_ITS | Encounter Summary ---
:1935 Author Organization [facility] Address [address] [place] [address] Care Team Providers Name Role Phone Unavailable Primary Care Provider Unavailable Reason for Visit Radiation Therapy (Routine) - Closed Specialty Diagnoses / Procedures Referred By Contact Refer red To Contact Diagnoses Tumor Desmoid Diego Ang M.D. [facility] Procedures Prior Auth Rad Tx [place] IMRT COMPLEX [address] [place] [address] Referral ID Status Reason Start Date Expiration Date Visits Requ ested Visits Authorized [id number] Closed 03/06/2018 03/06/2019 30 30 Encounter Details Date Type Department Care Team Description 04/16/2018 Hospital Encounter Department of Radiation Bernabe Ang, [facility] [place] [address] [facility] [address] [place] [address] [place], [place] [phone] (Wo rk) [address] [phone] Social History Tobacco Use Types Packs/Day Years [...] (ZOCOR) 40 mg 0 12/30/2017 tablet vitamins A,C,Y-wpsk-ooyskh Take by mouth. 0 08/29 (PRESERVISION AREDS) 7,160 Units-113 mg-100 Units per tablet documented as of this encounter Plan of Treatment Not on filedocumented as of this encounter Visit Diagnoses Not on filedocumented in this encounter
--- OUTSIDE RECORDS SUMMARY | 2022-03-02 16:31 | XMS_ITS | Encounter Summary ---
:1935 Author Organization [facility] Address [address] [place] [address] Care Team Providers Name Role Phone Unavailable Primary Care Provider Unavailable Reason for Referral Radiation Therapy (Routine) - Canceled Specialty Diagnoses / Procedures Referred By Contact Refer red To Contact Diagnoses Tumor Desmoid Diego Ang M.D. [facility] Procedures Management Visit [address] [place] [address] Referral ID Status Reason Start Date Expiration Date Visits V isits Requested Authorized [id number] Canceled 03/06/2018 03/06/2019 1 1 CE AIDE Reason for Visit Radiation Therapy (Routine) - Canceled Specialty Diagnoses / Procedures Referred By Contact Refer red To Contact Diagnoses Tumor Desmoid Diego Ang M.D. [facility] Procedures Management Visit [address] [place] [address] Referral ID Status Reason Start Date Expiration Date Visits V isits Requested Authorized [id number] Canceled 03/06/2018 03/06/2019 1 1 Encounter Details Date Type Department Care Team Description 04/18/2018 Hospital Encounter Department of Li Ang M.D. [address] [place] [address] Tumor Desmoid Radiation Oncology in Esteban Bahena M.D. [address] [place] [address] Muna Tian [address] [place] [address] Social History Tobacco Use Types Packs/Day Years Used Date Smoking Tobacco: Never Assessed Sex Assigned at Date Recorded Male 09/04/2018 2:35 PM CDT documented as of this encounter Last Filed Vital Signs Vital Sign Reading Time Taken Comments Blood Pressure - - Pulse - - Temperature 36.9 ??C (98.4 ??F) 04/18/2018 3:26 PM POLICE AIDE Respiratory Rate - - Oxygen Saturation - - Inhaled Oxygen Concentration - - Weight 69.9 kg (154 lb 1.6 oz) 04/18/2018 3:26 PM POLICE AIDE Height - - Body Mass Index 22.57 03/06/2018 2:21 PM CDT documented in this [...] (ZOCOR) 40 mg 0 12/30/2017 tablet vitamins A,C,B-isoj-ehpxjf Take by mouth. 0 08/29 (PRESERVISION AREDS) 7,160 Units-113 mg-100 Units per tablet documented as of this encounter Progress Notes Umu Slater P.A.-C., M.S. - 04/18/2018 3:51 PM CST SUBJECTIVE REASON FOR VISIT Evaluation for side effects while receiving radiation treatment for 1. Tumor Desmoid SUPERVISED BY: Esteban Bahena M.D. 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 ??He??is currently receiving radiation therapy to the abdominal wall mass??to a dose of 5600??cGy in 28??fractions. ??He??has received 21??of 28??fractions for a dose of 4200??cGy out of a planned total dose of 5600??cGy.??His??anticipated date of completion is April 30, 2018. He missed treatment on April 11 and due to the imaging on the treatment machine being down. The patient was seen and examined today with Dr. Bahena. The patient reports doing well overall. He rates his fatigue as 2/10 in severity. He reports increased skin redness. He denies peeling or blistering of the skin. He is applying Lubriderm lotion to the skin. He has not had recurrent diarrhea or abdominal discomfort. PATIENT REPORTED SYMPTOM SCREEN FATIGUE (Scale: 0 = no fatigue; 10 = worst fatigue you can imagine): 2 ?? PAIN (Scale: 0 = no pain; 10 = worst pain you can imagine): 0 ?? OVERALL QUALITY OF LIFE (Scale: 0 = as bad as can be; 10 = as good as can be): 8-9 OBJECTIVE Temp 36.9 ??C (Temporal) Wt 69.9 kg BMI 22.57 kg/m? PHYSICAL EXAM General: Alert and oriented in no apparent distress. Skin: Moderate erythema of the skin over the cephalad aspect of the abdominal mass. No desquamation. 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 ??Intensity modulated radiotherapy to the abdominal wall tumor initiated on March 19, 2018; anticipated completion on April 30, 2018 The patient is tolerating radiation treatment well overall. He will continue to apply Lubriderm lotion to the skin. He was also educated on the use of Aquaphor. He will contact us with any questions orconcerns. We will continue with radiation treatment as planned. Signed by: Umu Slater P.A.-C., M.S. 04/18/2018 3:51 PM CE AIDE Associated attestation - Esteban Bahena M.D. - 04/18/2018 6:07 PM POLICE AIDE I saw and evaluated the patient and participated in the eduardo portions of the service. I reviewed the documentation of Umu Slater P.A.-C. and agree with the findings and plan. The patient appears well onexam. He has moderate erythema in his abdomen in the area of the treatment field. No desquamation. He will continue with treatment as planned. documented in this encounter Plan of Treatment Scheduled Orders Name Type Priority Associated Diagnoses Order S chedule Management Visit Radiation Oncology Routine Tumor Desmoid Once for 1 Occurrences sta rting 04/18/2018 unti l 04/18/2018 documented as of this encounter Visit Diagnoses Diagnosis Tumor Desmoid documented in this encounter
--- OUTSIDE RECORDS SUMMARY | 2022-03-02 16:31 | XMS_ITS | Encounter Summary ---
:1935 Author Organization [facility] Address [address] [place] [address] Care Team Providers Name Role Phone Unavailable Primary Care Provider Unavailable Reason for Referral Outpatient (Routine) - Closed Specialty Diagnoses / Procedures Referred By Contact Refer red To Contact Radiation Oncology Diego Ang M .D. [facility] [address] [place] [address] Referral ID Status Reason Start Date Expiration Date Visits Requ ested Visits Authorized [id number] Closed 05/28/2018 05/28/2019 1 1 Scheduling Instructions TKM pt SMISSION TECHNICIAN Outpatient (Routine) - Closed Specialty Diagnoses / Procedures Referred By Contact Refer red To Contact Radiation Oncology Umu Slater P.A.-C., KENYA [facility]S [address] [place] [address] Referral ID Status Reason Start Date Expiration Date Visits Requ ested Visits Authorized [id number] Closed 04/25/2018 04/25/2019 1 1 SMISSION TECHNICIAN Reason for Visit Outpatient (Routine) - Closed Specialty Diagnoses / Procedures Referred By Contact Refer red To Contact Radiation Oncology Umu Slater P.A.-C., [facility] [place] [address] Referral ID Status Reason Start Date Expiration Date Visits Requ ested Visits Authorized [id number] Closed 04/25/2018 04/25/2019 1 1 Encounter Details Date Type Department Care Team Description 05/28/2018 Hospital Encounter Department of [place], Diego Tumor Desmoid Radiation Oncology Irvin Ying (Primary Dx) in [place], [facility] [place] [address] [facility], [place] [address] [facility] [id number] [place] [address] [phone] [address] (Work) [phone] Social History Tobacco Use Types Packs/Day Years Used Date Smoking Tobacco: Never Assessed Sex Assigned at Date Recorded Male 09/04/2018 2:35 PM CDT documented as of this encounter Last Filed Vital Signs Vital Sign Reading Time Taken Comments Blood Pressure 116/54 05/28/2018 9:44 AM TRANSMISSION TECHNICIAN Pulse 66 05/28/2018 9:44 AM TRANSMISSION TECHNICIAN Temperature 36.9 ??C (98.4 ??F) 05/28/2018 9:44 AM TRANSMISSION TECHNICIAN Respiratory Rate - - Oxygen Saturation - - Inhaled Oxygen Concentration - - Weight 68.3 kg (150 lb 9.2 oz) 05/28/2018 9:44 AM TRANSMISSION TECHNICIAN Height - - Body Mass Index 22.05 03/06/2018 2:21 PM CDT documented in this [...] (ZOCOR) 40 mg 0 12/30/2017 tablet vitamins A,C,L-ihjw-ksjtiw Take by mouth. 0 08/29 (PRESERVISION AREDS) 7,160 Units-113 mg-100 Units per tablet documented as of this encounter Progress Notes Diego Ang M.D. - 05/28/2018 10:19 AM CST SUBJECTIVE REASON FOR VISIT Follow up post radiation therapy 3 months ago to abdominal wall mass 1. ??Abdominal wall desmoid tumor SUPERVISED BY: Diego Ang M.D. ([id number]) HISTORY OF PRESENT ILLNES: ?? This 83-year-old??patient has the following significant history: 1. ??August [...] colon by Dr. Hakan Foy at the [facility]. ??At the time of surgery the [...] wall mass was performed by Dr. [facility]. ??Ultrasound demonstrated a homogeneous hypoechoic [...] dose of 5600 cGy in 28 fractions. Interval history by Promise Naranjo RN The patient reports doing well overall. He rates his fatigue as 3/10 in severity. He applies Lubriderm lotion to the skin within the treatment field on occasion. He is now averaging one to two bowel movements per day. He denies rectal bleeding, hematuria, abdominal cramping, excessive gas, fevers, chills, chest pain, shortness of breath, cough or hemoptysis. He denies diarrhea. He has only experienced diarrhea if he drinks 2% milk or is not mindful with his dietary intake. He has stopped drinking milk. PATIENT REPORTED SYMPTOM SCREEN FATIGUE (Scale: 0 = no fatigue; 10 = worst fatigue you can imagine): 3 ?? PAIN (Scale: 0 = no pain; 10 = worst pain you can imagine): 0 ?? OVERALL QUALITY OF LIFE (Scale: 0 = as bad as can be; 10 = as good as can be): 8 OBJECTIVE BP (!) 116/54 (BP Location: Right arm, Patient Position: Sitting, Cuff Size: Regular) Pulse 66 Temp 36.9 ??C (Temporal) Wt 68.3 kg BMI 22.05 kg/m? PHYSICAL EXAM General: Alert and oriented in no apparent distress. Skin: Dry flaking skin across mid abdominal area. Abdomen: abdominal tumor measuring 20 cm x 15 cm. 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 ??Intensity modulated radiotherapy to the abdominal wall tumor initiated on March 19, 2018; completed on April 30, 2018 3. Radiation dermatitis, grade 2, resolved 4. Radiation enteritis, improved Patient is doing well overall one month post completion of radiotherapy. Radiation can affect the lining of the bowel and digestive enzymes. This should improve over time. He can trial lactose free milk first but if no improvement is noted then he could also trial almond or soy milk. Lotion is to be applied a few times through out the day to help prevent radiation related dryness and pruritus. Skin around umbilicus appears to be looser. Dr. Keys has ordered ultrasound to be completed this coming July. Patient will return to Radiation Oncology in three months for another follow up visit. He will contact us sooner with any questions or concerns. He and his family verbally expressed an understanding of the plan. Signed by: Promise Naranjo R.N. 05/28/2018 2:57 PM I personally met with the patient and agree with the evaluation documented by Promise Naranjo RN. On examination, the patient appears in no distress. The abdominal wall mass appears slightly smaller thanit did prior to radiation. Time spent with patient was 15 minutes. Greater than 50% was spent in counseling. Diego Ang MD [facility] Radiation Therapy [place], [place] SMISSION TECHNICIAN documented in this encounter Miscellaneous Notes Addendum Note - Ramila Pineda - 05/28/2018 1:06 PM CSTEncounter addended by: Ramila Pineda on: 05/28/2018 1:16 PM
Actions taken: Letter status changed SMISSION TECHNICIAN documented in this encounter Plan of Treatment Scheduled Referrals Name Type Priority Associated Order Schedule Diagnoses Radiation Oncology Outpatient Referral Routine On ce for 1 office visit Occurrences sta rting (clinic) 05/28/2018 unti l 05/28/2018 Radiation Oncology Outpatient Referral Routine Ex pected: 08/26/2018 office visit (Approximate), (clinic) Expires: 2020 documented as of this encounter Visit Diagnoses Diagnosis Tumor Desmoid - Primary documented in this encounter
--- OUTSIDE RECORDS SUMMARY | 2022-03-02 16:31 | XMS_ITS | Encounter Summary ---
:1935 Author Organization [facility] Address [address] [place] [address] Care Team Providers Name Role Phone Unavailable Primary Care Provider Unavailable Reason for Referral Outpatient (Routine) - Closed Specialty Diagnoses / Procedures Referred By Contact Refer red To Contact Radiation Oncology Diego Ang M .D. [facility] [place] [facility] [address] [place] [address] Referral ID Status Reason Start Date Expiration Date Visits Requ ested Visits Authorized [id number] Closed 08/23/2019 08/22/2020 1 1 Reason for Visit Outpatient (Routine) - Closed Specialty Diagnoses / Procedures Referred By Contact Refer red To Contact Radiation Oncology Diego Ang M .D. [facility] [place] [facility] [address] [place] [address] Referral ID Status Reason Start Date Expiration Date Visits Requ ested Visits Authorized [id number] Closed 08/23/2019 08/22/2020 1 1 Encounter Details Date Type Department Care Team Description 02/21/2020 Hospital Encounter Department of Radiation Bernabe Ang, Oncology [place] [address] [id number] [place] [address] [place], [place] [phone] (Wo rk) [address] [phone] Social History Tobacco Use Types Packs/Day Years [...] (ZOCOR) 40 mg 0 12/30/2017 tablet vitamins A,C,B-auvh-uqsklk Take by mouth. 0 08/29 (PRESERVISION AREDS) 7,160 Units-113 mg-100 Units per tablet documented as of this encounter Progress Notes Diego Ang M.D. - 02/21/2020 11:00 AM CDT PATIENT NAME: Lior Miranda [facility] #: [id number] Address: [address] [facility] [address] Age: 84 y.o. Date of Service: 02/21/20 Provider: Diego Ang M.D. Place of Service: [facility] Radiation Oncology [address] [place] [address] CHIEF COMPLAINT/REASON FOR VISIT There were no encounter diagnoses. HISTORY OF PRESENT ILLNESS This patient was scheduled for a phone follow-up visit today. I tried calling him several times today however I did not receive an answer. I left a message for him to call back to reschedule a phone follow-up visit for March. Signed by: Diego Ang M.D. 02/21/2020 6:58 PM CDT [facility] [address] [place] [address] FAX: [phone] documented in this encounter Plan of Treatment Scheduled Referrals Name Type Priority Associated Order Schedule Diagnoses Radiation Oncology Outpatient Referral Routine On ce for 1 office visit Occurrences sta rting (clinic) 02/21/2020 unti l 02/21/2020 documented as of this encounter Visit Diagnoses Not on filedocumented in this encounter
--- OUTSIDE RECORDS SUMMARY | 2022-03-02 16:31 | XMS_ITS | Encounter Summary ---
:1935 Author Organization [facility] Address [address] [place] [address] Care Team Providers Name Role Phone Unavailable Primary Care Provider Unavailable Reason for Visit Radiation Therapy (Routine) - Closed Specialty Diagnoses / Procedures Referred By Contact Refer red To Contact Diagnoses Tumor Desmoid Diego Ang M.D. [facility] Procedures Prior Auth Rad Tx [place] IMRT COMPLEX [address] [place] [address] Referral ID Status Reason Start Date Expiration Date Visits Requ ested Visits Authorized [id number] Closed 03/06/2018 03/06/2019 30 30 Encounter Details Date Type Department Care Team Description 04/19/2018 Hospital Encounter Department of Radiation [facility]abe [facility] [place] [address] [place] [address] [place] [address] [place], [place] [phone] (Wo rk) [address] [phone] Social History Tobacco Use Types Packs/Day Years [...] (ZOCOR) 40 mg 0 12/30/2017 tablet vitamins A,C,L-ccqu-tppqwj Take by mouth. 0 08/29 (PRESERVISION AREDS) 7,160 Units-113 mg-100 Units per tablet documented as of this encounter Plan of Treatment Not on filedocumented as of this encounter Visit Diagnoses Not on filedocumented in this encounter
--- OUTSIDE RECORDS SUMMARY | 2022-03-02 16:31 | XMS_ITS | Encounter Summary ---
:1936 Author Organization [facility] Address [address] [place] [address] Care Team Providers Name Role Phone Unavailable Primary Care Provider Unavailable Reason for Visit Radiation Therapy (Routine) - Closed Specialty Diagnoses / Procedures Referred By Contact Refer red To Contact Diagnoses Tumor Desmoid Diego Ang M.D. [facility] Procedures Prior Auth Rad Tx [place] IMRT COMPLEX [address] [place] [address] Referral ID Status Reason Start Date Expiration Date Visits Requ ested Visits Authorized [id number] Closed 03/06/2018 03/06/2019 30 30 Encounter Details Date Type Department Care Team Description 04/20/2018 Hospital Encounter Department of Radiation Bernabe Ang, [facility] [place] [address] [facility] [address] [place] [address] [place], [place] [phone] (Wo rk) [address] [phone] Social History Tobacco Use Types Packs/Day Years [...] (ZOCOR) 40 mg 0 12/30/2017 tablet vitamins A,C,A-xume-nwpkzz Take by mouth. 0 08/29 (PRESERVISION AREDS) 7,160 Units-113 mg-100 Units per tablet documented as of this encounter Plan of Treatment Not on filedocumented as of this encounter Visit Diagnoses Not on filedocumented in this encounter
--- OUTSIDE RECORDS SUMMARY | 2022-03-02 16:31 | XMS_ITS | Encounter Summary ---
:1936 Author Organization [facility] Address [address] [place] [address] Care Team Providers Name Role Phone Unavailable Primary Care Provider Unavailable Reason for Visit Radiation Therapy (Routine) - Closed Specialty Diagnoses / Procedures Referred By Contact Refer red To Contact Diagnoses Tumor Desmoid Diego Ang M.D. [facility] Procedures Prior Auth Rad Tx [place] IMRT COMPLEX [address] [place] [address] Referral ID Status Reason Start Date Expiration Date Visits Requ ested Visits Authorized [id number] Closed 03/06/2018 03/06/2019 30 30 Encounter Details Date Type Department Care Team Description 04/18/2018 Hospital Encounter Department of Radiation Bernabe Ang, [facility] [place] [address] [facility] [address] [place] [address] [place], [place] [phone] (Wo rk) [address] [phone] Social History Tobacco Use Types Packs/Day Years [...] (ZOCOR) 40 mg 0 12/30/2017 tablet vitamins A,C,N-oebz-mwbgjm Take by mouth. 0 08/29 (PRESERVISION AREDS) 7,160 Units-113 mg-100 Units per tablet documented as of this encounter Plan of Treatment Not on filedocumented as of this encounter Visit Diagnoses Not on filedocumented in this encounter
--- OUTSIDE RECORDS SUMMARY | 2022-03-02 16:31 | XMS_ITS | Encounter Summary ---
:1936 Author Organization [facility] Address [address] [place] [address] Care Team Providers Name Role Phone Unavailable Primary Care Provider Unavailable Reason for Visit Radiation Therapy (Routine) - Closed Specialty Diagnoses / Procedures Referred By Contact Refer red To Contact Diagnoses Tumor Desmoid Diego Ang M.D. [facility] Procedures Prior Auth Rad Tx [place] IMRT COMPLEX [address] [place] [address] Referral ID Status Reason Start Date Expiration Date Visits Requ ested Visits Authorized [id number] Closed 03/06/2018 03/06/2019 30 30 Encounter Details Date Type Department Care Team Description 04/24/2018 Hospital Encounter Department of Radiation [facility]abe [facility] [place] [address] [facility] [address] [place] [address] [place], [place] [phone] (Wo rk) [address] [phone] Social History Tobacco Use Types Packs/Day Years [...] (ZOCOR) 40 mg 0 12/30/2017 tablet vitamins A,C,A-moyc-kivxtp Take by mouth. 0 08/29 (PRESERVISION AREDS) 7,160 Units-113 mg-100 Units per tablet documented as of this encounter Plan of Treatment Not on filedocumented as of this encounter Visit Diagnoses Not on filedocumented in this encounter
--- OUTSIDE RECORDS SUMMARY | 2022-03-02 16:31 | XMS_ITS | Encounter Summary ---
:1935 Author Organization [facility] Address [address] [place] [address] Care Team Providers Name Role Phone Unavailable Primary Care Provider Unavailable Reason for Referral Radiation Therapy (Routine) - Canceled Specialty Diagnoses / Procedures Referred By Contact Refer red To Contact Diagnoses Tumor Desmoid Diego Ang M.D. [facility] Procedures Management Visit [address] [place] [address] Referral ID Status Reason Start Date Expiration Date Visits V isits Requested Authorized [id number] Canceled 03/06/2018 03/06/2019 1 1 R TECH Reason for Visit Radiation Therapy (Routine) - Canceled Specialty Diagnoses / Procedures Referred By Contact Refer red To Contact Diagnoses Tumor Desmoid Diego Ang M.D. [facility] Procedures Management Visit [address] [place] [address] Referral ID Status Reason Start Date Expiration Date Visits V isits Requested Authorized [id number] Canceled 03/06/2018 03/06/2019 1 1 Encounter Details Date Type Department Care Team Description 04/30/2018 Hospital Encounter Department of Diego Ang Tu mor Desmoid Radiation Oncology in [facility] mau [address] [facility] [address] [place] [id number] [phone] Social History Tobacco Use Types Packs/Day Years Used Date Smoking Tobacco: Never Assessed Sex Assigned at Date Recorded Male 09/04/2018 2:35 PM CDT documented as of this encounter Last Filed Vital Signs Vital Sign Reading Time Taken Comments Blood Pressure 117/48 04/30/2018 2:39 PM FLOOR TECH Pulse 68 04/30/2018 2:39 PM FLOOR TECH Temperature 36.4 ??C (97.5 ??F) 04/30/2018 2:39 PM FLOOR TECH Respiratory Rate - - Oxygen Saturation - - Inhaled Oxygen Concentration - - Weight 68.9 kg (151 lb 14.4 oz) 04/30/2018 2:39 PM FLOOR TECH Height - - Body Mass Index 22.24 03/06/2018 2:21 PM CDT documented in this [...] (ZOCOR) 40 mg 0 12/30/2017 tablet vitamins A,C,X-llww-kepcbm Take by mouth. 0 08/29 (PRESERVISION AREDS) 7,160 Units-113 mg-100 Units per tablet documented as of this encounter Progress Notes Umu Slater P.A.-C., M.S. - 04/30/2018 2:57 PM CST SUBJECTIVE REASON FOR VISIT Evaluation for side effects while receiving radiation treatment for 1. Tumor Desmoid SUPERVISED BY: Diego Ang M.D. 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 ??He??completed radiation therapy to the abdominal wall mass??to a dose of 5600??cGy in 28??fractions on April 30, 2018. ??He missed treatment on April 11 and 2017 due to the imaging on the treatment machine being down. ?? This 83-year-old??patient has the following significant [...] colon by Dr. Hakan Foy at the [facility]. ??At the time of surgery the tattooed [...] wall mass was performed by Dr. Charles [facility]. ??Ultrasound demonstrated a homogeneous hypoechoic [...] dose of 5600 cGy in 28 fractions. The patient was seen and examined today with Dr. Ang. The patient reports doing well overall. He rates his fatigue as 1-2/10 in severity. He reports good energy. He is continuing to apply Lubriderm lotion to the skin within the treatment field. He is now averaging one bowel movement per day. He denies rectal bleeding. He has not had to take Imodium sinceSaturday. He has stopped drinking milk. PATIENT REPORTED SYMPTOM SCREEN FATIGUE (Scale: 0 = no fatigue; 10 = worst fatigue you can imagine): 1-2 ?? PAIN (Scale: 0 = no pain; 10 = worst pain you can imagine): 0 ?? OVERALL QUALITY OF LIFE (Scale: 0 = as bad as can be; 10 = as good as can be): 8-9 OBJECTIVE BP (!) 117/48 (BP Location: Right arm, Patient Position: Sitting, Cuff Size: Large) Pulse 68 Temp 36.4 ??C (Temporal) Wt 68.9 kg BMI 22.24 kg/m? PHYSICAL EXAM General: Alert and oriented in no apparent distress. Skin: Brisk erythema of the skin over the abdominal mass with patches of dry desquamation, especially over the cephalad and anterior aspects. 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 ??Intensity modulated radiotherapy to the abdominal wall tumor initiated on March 19, 2018; completed on April 30, 2018 3. Radiation dermatitis, grade 2 4. Radiation enteritis, improved The patient tolerated radiation treatment well overall. He experienced grade 1 diarrhea and grade 2 radiation dermatitis during treatment. His diarrhea has improved now, but he has Imodium available ifneeded should he experience diarrhea again. He has an appointment with Dr. Keys tomorrow. He is scheduled for a return visit with Dr. Ang on May 28, 2018. He will contact us sooner with any questions or concerns. He verbally expressed his understanding of the plan. Signed by: Umu Slater P.A.-C., M.S. 04/30/2018 2:57 PM R TECH Associated attestation - Diego Ang M.D. - 04/30/2018 3:50 PM FLOOR TECH I personally met with the patient and agree with the evaluation documented by Umu Slater P.A.-C. On examination, the patient appears in no distress. The abdominal wall mass is unchanged in size. The mass is slightly softer than it was prior to starting radiation. The skin over the abdominal mass has brisk erythema with dry desquamation. I explained to the patient that since this is a benign tumor, I would not expected to shrink quickly. I anticipate that this mass will either remains stable or gradually decrease in size over time. Diego Ang MD [facility] Radiation Therapy [place], [place] documented in this encounter Miscellaneous Notes Addendum Note - Ramila Pineda - 04/30/2018 3:50 PM CSTEncounter addended by: Ramila Pineda on: 05/01/2018 8:57 AM
Actions taken: Letter status changed R TECH documented in this encounter Plan of Treatment Scheduled Orders Name Type Priority Associated Diagnoses Order S chedule Management Visit Radiation Oncology Routine Tumor Desmoid Once for 1 Occurrences sta rting 04/30/2018 unti l 04/30/2018 documented as of this encounter Visit Diagnoses Diagnosis Tumor Desmoid documented in this encounter
--- OUTSIDE RECORDS SUMMARY | 2022-03-02 16:31 | XMS_ITS | Encounter Summary ---
:1935 Author Organization [facility] Address [address] [place] [address] Care Team Providers Name Role Phone Unavailable Primary Care Provider Unavailable Reason for Visit Radiation Therapy (Routine) - Closed Specialty Diagnoses / Procedures Referred By Contact Refer red To Contact Diagnoses Tumor Desmoid Diego Ang M.D. [facility] Procedures Prior Auth Rad Tx [place] IMRT COMPLEX [address] [place] [address] Referral ID Status Reason Start Date Expiration Date Visits Requ ested Visits Authorized [id number] Closed 03/06/2018 03/06/2019 30 30 Encounter Details Date Type Department Care Team Description 04/17/2018 Hospital Encounter Department of Radiation [facility] [place] [address] [facility] [address] [place] [address] [address], [place] [phone] (Wo rk) [id number] [phone] Social History Tobacco Use Types Packs/Day Years [...] (ZOCOR) 40 mg 0 12/30/2017 tablet vitamins A,C,M-cotl-sxlflo Take by mouth. 0 08/29 (PRESERVISION AREDS) 7,160 Units-113 mg-100 Units per tablet documented as of this encounter Plan of Treatment Not on filedocumented as of this encounter Visit Diagnoses Not on filedocumented in this encounter
--- OUTSIDE RECORDS SUMMARY | 2022-03-02 16:31 | XMS_ITS | Encounter Summary ---
:1935 Author Organization [facility] Address [address] [place] [address] Care Team Providers Name Role Phone Unavailable Primary Care Provider Unavailable Reason for Referral Radiation Therapy (Routine) - Canceled Specialty Diagnoses / Procedures Referred By Contact Refer red To Contact Diagnoses Tumor Desmoid Diego Ang M.D. [facility] Procedures Management Visit [address] [place] [address] Referral ID Status Reason Start Date Expiration Date Visits V isits Requested Authorized [id number] Canceled 03/06/2018 03/06/2019 1 1 R FLOOR Reason for Visit Radiation Therapy (Routine) - Canceled Specialty Diagnoses / Procedures Referred By Contact Refer red To Contact Diagnoses Tumor Desmoid Diego Ang M.D. [facility] Procedures Management Visit [address] [place] [address] Referral ID Status Reason Start Date Expiration Date Visits V isits Requested Authorized [id number] Canceled 03/06/2018 03/06/2019 1 1 Encounter Details Date Type Department Care Team Description 04/27/2018 Hospital Encounter Department of Diego Ang Tu mor Desmoid Radiation Oncology in [facility] mau [address] [facility] [address] [place] [id number] [phone] Social History Tobacco Use Types Packs/Day Years Used Date Smoking Tobacco: Never Assessed Sex Assigned at Date Recorded Male 09/04/2018 2:35 PM CDT documented as of this encounter Last Filed Vital Signs Vital Sign Reading Time Taken Comments Blood Pressure 115/56 04/27/2018 8:48 AM WAXER FLOOR Pulse 77 04/27/2018 8:48 AM [facility]AXER FLOOR Temperature 37 ??C (98.6 ??F) 04/27/2018 8:48 AM [facility]AXER FLOOR Respiratory Rate - - Oxygen Saturation - - Inhaled Oxygen Concentration - - Weight 69.3 kg (152 lb 12.5 oz) 04/27/2018 8:48 AM [facility]AX[facility] FLOOR Height - - Body Mass Index 22.37 03/06/2018 2:21 PM CDT documented in this [...] (ZOCOR) 40 mg 0 12/30/2017 tablet vitamins A,C,S-dnfc-rgvouq Take by mouth. 0 08/29 (PRESERVISION AREDS) 7,160 Units-113 mg-100 Units per tablet documented as of this encounter Progress Notes Diego Ang M.D. - 04/27/2018 9:00 AM CST SUBJECTIVE REASON FOR VISIT Evaluation for side effects while receiving radiation treatment for 1. Tumor Desmoid HISTORY OF PRESENT ILLNESS Mr. 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 ??He??is currently receiving radiation therapy to the abdominal wall mass??to a dose of 5600??cGy in 28??fractions. ??He??has received 27 of 28??fractions for a dose of 5400??cGy out of a planned total dose of 5600??cGy. ??His??anticipated date of completion is April 30, 2018. ??He missed treatment on April 11 and 2017 due to the imaging on the treatment machine being down. ?? This 82 y.o.??patient has the following significant history: 1. ??August [...] colon by Dr. Hakan Foy at the [facility]. ??At the time of surgery the [...] wall mass was performed by Dr. Charles [facility]. ??Ultrasound demonstrated a homogeneous hypoechoic mass [...] center after consultation with Dr. Foy. 15. March 19, 2018 anticipated through April 30, 2018: Intensity modulated radiotherapy to the abdominal wall mass to a dose of 5600 cGy in 28 fractions. He reports increase in stool frequency and abdominal cramps since Monday evening. He had at least3 loose stools yesterday associated with some abdominal cramping. He took 2 Imodium yesterday and 2 this morning he is also taking Pepto-Bismol twice a day. He is drinking a lot of milk. He denies vomiting. He currently denies any abdominal pain. PATIENT REPORTED SYMPTOM SCREEN FATIGUE (Scale: 0 = no fatigue; 10 = worst fatigue you can imagine): 8 ?? PAIN (Scale: 0 = no pain; 10 = worst pain you can imagine): 7 ?? OVERALL QUALITY OF LIFE (Scale: 0 = as bad as can be; 10 = as good as can be): 8-9 OBJECTIVE BP 115/56 (BP Location: Right arm, Patient Position: Sitting, Cuff Size: Small) Pulse 77 Temp 37??C (Temporal) Wt 69.3 kg BMI 22.37 kg/m? PHYSICAL EXAM General: Alert and oriented in no apparent distress. Abdomen: Soft and nontender. The abdominal mass is unchanged in size. Skin: Skin over the abdominal mass has brisk erythema with patches of dry desquamation. 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 ??Intensity modulated radiotherapy to the abdominal wall tumor initiated on March 19, 2018; anticipated completion on April 30, 2018 3. Radiation dermatitis 4. Radiation enteritis I instructed the patient to avoid dairy products for now since they might be exacerbating his diarrhea. I instructed him to increase his Imodium to 2 tablets in the morning followed by 1 tablet after each loose stool up to 10 per day. I stressed the importance of maintaining hydration with clear liquids. I instructed him to report to the emergency room if he develops vomiting and is unable to keep anything down. We will continue with radiation treatment as planned. I will see him after his last visit on Monday. Signed by: Diego Ang M.D. 04/27/2018 9:00 AM [facility] Radiation Therapy [facility] [address] [place] [address] FAX: [phone] R FLOOR documented in this encounter Plan of Treatment Scheduled Orders Name Type Priority Associated Diagnoses Order S chedule Management Visit Radiation Oncology Routine Tumor Desmoid Once for 1 Occurrences sta rting 04/27/2018 unti l 04/27/2018 documented as of this encounter Visit Diagnoses Diagnosis Tumor Desmoid documented in this encounter
--- OUTSIDE RECORDS SUMMARY | 2022-03-02 16:31 | XMS_ITS | Encounter Summary ---
:1935 Author Organization [facility] Address [address] [place] [address] Care Team Providers Name Role Phone Unavailable Primary Care Provider Unavailable Reason for Visit Radiation Therapy (Routine) - Closed Specialty Diagnoses / Procedures Referred By Contact Refer red To Contact Diagnoses Tumor Desmoid Diego Ang M.D. [facility] Procedures Prior Auth Rad Tx [place] IMRT COMPLEX [address] [place] [address] Referral ID Status Reason Start Date Expiration Date Visits Requ ested Visits Authorized [id number] Closed 03/06/2018 03/06/2019 30 30 Encounter Details Date Type Department Care Team Description 04/23/2018 Hospital Encounter Department of Radiation Bernabe Ang, [facility] [place] [facility] [place] [address] [facility] [address] [place] [address] [place], [place] [phone] (Wo rk) [phone] Social History Tobacco Use Types Packs/Day Years [...] (ZOCOR) 40 mg 0 12/30/2017 tablet vitamins A,C,V-nfqe-yumqvt Take by mouth. 0 08/29 (PRESERVISION AREDS) 7,160 Units-113 mg-100 Units per tablet documented as of this encounter Plan of Treatment Not on filedocumented as of this encounter Visit Diagnoses Not on filedocumented in this encounter
--- OUTSIDE RECORDS SUMMARY | 2022-03-02 16:31 | XMS_ITS | Encounter Summary ---
:[address] [facility] Address [address] [place] [address] Care Team Providers Name Role Phone Unavailable Primary Care Provider Unavailable Reason for Referral Outpatient (Routine) - Closed Specialty Diagnoses / Procedures Referred By Contact Refer red To Contact Radiation Oncology Diego Ang M .D. [facility] [place] [facility] [address] [place] [address] Referral ID Status Reason Start Date Expiration Date Visits Requ ested Visits Authorized [id number] Closed 03/27/2020 03/27/2021 1 1 Outpatient (Routine) - Closed Specialty Diagnoses / Procedures Referred By Contact Tangela red To Contact Diego Ang M .D. [facility] [place] [facility] [address] [place] [address] Referral ID Status Reason Start Date Expiration Date Visits Requ ested Visits Authorized [id number] Closed 02/25/2020 02/24/2021 1 1 Reason for Visit Outpatient (Routine) - Closed Specialty Diagnoses / Procedures Referred By Contact Refer red To Contact Diego Ang M .D. [facility] [place] [facility] [address] [place] [address] Referral ID Status Reason Start Date Expiration Date Visits Requ ested Visits Authorized [id number] Closed 02/25/2020 02/24/2021 1 1 Encounter Details Date Type Department Care Team Description 03/27/2020 Hospital Encounter Department of Diego Ang Tumor Desmoid Radiation Oncology [facility]vin Ying (Primary Dx) in [place] [address] [place], [place] [address] [facility] [address] [place], [place] [phone] (Work) [phone] Social History Tobacco Use Types Packs/Day Years [...] (ZOCOR) 40 mg 0 12/30/2017 tablet vitamins A,C,F-mkyo-ehgfuq Take by mouth. 0 08/29 (PRESERVISION AREDS) 7,160 Units-113 mg-100 Units per tablet documented as of this encounter Progress Notes Diego Ang M.D. - 03/27/2020 9:30 AM CDT PATIENT NAME: Lior Miranda [facility] #: [id number] Address: [address] [facility] [id number] Age: 85 y.o. Date of Service: 03/27/20 Provider: Diego Ang M.D. Place of Service: [facility] Radiation Oncology [address] [place] [id number] CHIEF COMPLAINT/REASON FOR VISIT The encounter diagnosis was Tumor Desmoid. Visit conducted via real-time audio technology by Diego Ang MD at [facility] Radiation Therapy in [place], [place] to the patient's home. HISTORY OF PRESENT ILLNESS This 85 y.o. [...] colon by Dr. Hakan Foy at the [facility]. ??At the time of surgery [...] ??March 27, 2017: ??Appointment with Dr. Will Chalres who recommended proceeding with an ultrasound-guided core needle biopsy. 7. ??March 30, 2017: ??Needle core biopsy of the abdominal wall mass was performed by Dr. Charles [facility]. ??Ultrasound demonstrated a homogeneous hypoechoic mass [...] x 8.7 cm. ??No evidence of metastatic disease. ?? 18. August 21, 2019: CT scan of the abdomen and pelvis at [facility] shows a stable anteriorabdominal wall mass with no other abnormalities. ?? INTERVAL HISTORY His daughter Lisa was on the phone today along with the patient. I had suggested earlier this week that the patient come in for a ihgo-yv-rasw visit today for a physical exam. The patient did not wantto come in for a aojo-os-icmi visit today. He prefer to phone follow-up visit. Since our last follow-up telephone visit in August he has done well. He is having no new problems. He denies pain. He does not think the lower abdominal mass has changed in size. He is wearing a belt or suspenders to hold his pants up and that does not seem to bother him. He is averaging 1 bowel movement per day with no abdominal cramps or rectal bleeding. He has nocturia x1 with no dysuria or hematuria. He has a slightly more fatigue now than he had prior to radiation. He thinks he has lost some strength. He has remainedactive. 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 ??Intensity modulated radiotherapy to the abdominal wall tumor completed on April 30, 2018 Overall he is doing well at this time. It sounds like the abdominal wall mass is stable. He is having no persistent side effects from radiation. I recommend a phone follow-up visit in 6 months. At thattime we can decide if we will obtain a CT scan of the abdomen and pelvis or of will continue to monitor him based on symptoms. I would like to do a physical exam at some point as well if he is willing. I personally spent a total of 9 minutes in non npyr-gn-gaon time performing a review of the record and/or discussion with the patient as described above. Signed by: Diego Ang M.D. 03/27/2020 9:[address] [facility] Radiation Therapy Center [address] [place], [place] [address] FAX: [phone] documented in this encounter Plan of Treatment Scheduled Referrals Name Type Priority Associated Order Schedule Diagnoses NonF2F phone visit Outpatient Referral Routine On ce for 1 Occurrences sta rting 03/27/2020 unti l 03/27/2020 Radiation Oncology Outpatient Referral Routine Ex pected: 09/25/2020 office visit (Approximate), (clinic) Expires: 2022 documented as of this encounter Visit Diagnoses Diagnosis Tumor Desmoid - Primary documented in this encounter
--- OUTSIDE RECORDS SUMMARY | 2022-03-02 16:31 | XMS_ITS | Encounter Summary ---
:1935 Author Organization [facility] Address [address] [place] [address] Care Team Providers Name Role Phone Unavailable Primary Care Provider Unavailable Reason for Referral Outpatient (Routine) - Closed Specialty Diagnoses / Procedures Referred By Contact Refer red To Contact Radiation Oncology Umu Slater P.A.-C., [facility] M[facility] [address] [place] [address] Referral ID Status Reason Start Date Expiration Date Visits Requ ested Visits Authorized [id number] Closed 04/25/2018 04/25/2019 1 1 GY ATTORNEY Radiation Therapy (Routine) - Canceled Specialty Diagnoses / Procedures Referred By Contact Refer red To Contact Diagnoses Tumor Desmoid Diego [facility]. [facility] Procedures Management Visit [address] [place] [address] Referral ID Status Reason Start Date Expiration Date Visits V isits Requested Authorized [id number] Canceled 03/06/2018 03/06/2019 1 1 GY ATTORNEY Reason for Visit Radiation Therapy (Routine) - Canceled Specialty Diagnoses / Procedures Referred By Contact Refer red To Contact Diagnoses Tumor Desmoid Diego [facility] M.D. [facility] Procedures Management Visit [address] [place] [address] Referral ID Status Reason Start Date Expiration Date Visits V isits Requested Authorized [id number] Canceled 03/06/2018 03/06/2019 1 1 Encounter Details Date Type Department Care Team Description 04/25/2018 Hospital Encounter Department of Diego Ang Tu mor Desmoid Radiation Oncology in M.[place]ah[place], [place] a [address] [facility] [address] [place] [id number] [phone] Social History Tobacco Use Types Packs/Day Years Used Date Smoking Tobacco: Never Assessed Sex Assigned at Date Recorded Male 09/04/2018 2:35 PM CDT documented as of this encounter Last Filed Vital Signs Vital Sign Reading Time Taken Comments Blood Pressure 129/57 04/25/2018 8:21 AM ENERGY ATTORNEY Pulse 74 04/25/2018 8:21 AM ENERGY ATTORNEY Temperature 36.8 ??C (98.2 ??F) 04/25/2018 8:21 AM ENERGY ATTORNEY Respiratory Rate - - Oxygen Saturation - - Inhaled Oxygen Concentration - - Weight 69.8 kg (153 lb 14.1 oz) 04/25/2018 8:21 AM ENERGY ATTORNEY Height - - Body Mass Index 22.53 03/06/2018 2:21 PM CDT documented in this [...] (ZOCOR) 40 mg 0 12/30/2017 tablet vitamins A,C,J-dyax-oacwdt Take by mouth. 0 08/29 (PRESERVISION AREDS) 7,160 Units-113 mg-100 Units per tablet documented as of this encounter Progress Notes Umu Slater P.A.-C., M.S. - 04/25/2018 8:35 AM CST SUBJECTIVE REASON FOR VISIT Evaluation for side effects while receiving radiation treatment for 1. Tumor Desmoid SUPERVISED BY: Diego Ang M.D. ([id number]) HISTORY OF PRESENT ILLNESS Mr. 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 ??He??is currently receiving radiation therapy to the abdominal wall mass??to a dose of 5600??cGy in 28??fractions. ??He??has received 26 of 28??fractions for a dose of 5200??cGy out of a planned total dose of 5600??cGy. ??His??anticipated date of completion is April 30, 2018. ??He missed treatment on April 11 and 2017 due to the imaging on the treatment machine being down. This 82 y.o. patient has the following significant history: 1. August 20, 2014: Screening colonoscopy was performed by Dr. Trey Hudson. There was 2 cm polyp in the proximal transverse colon with the semi pedunculated appearance with ulceration on the surface. Due to the broad base of the polyp in the risk of malignant invasion, the polyp was not removed. The polyp site was tattooed. The polyp was biopsied. There was a 3 mm polyp in the cecum, a 3 mm and a 5 mm polyp in the ascending colon, a 6 mm polyp in the descending colon, and a 4 mm polyp in the sigmoidcolon that were removed. Pathology of the transverse colon polyp demonstrated a single focus of highly atypical glands associated with granulation tissue, suspicious for adenocarcinoma. There was background tubulovillous adenoma with high-grade dysplasia. Pathology of 5 additional polyps demonstrated tubular adenoma, negative for high-grade dysplasia. 2. September 15, 2014: Laparoscopic assisted extended right colon resection was performed for multiple polyps and an unresectable polyp in the transverse colon by Dr. Hakan Foy at the [facility]. At the time of surgery the tattooed spot was identified in the right half of the transverse colon. There was no other evidence of disease in the abdomen. A 5-6 cm epigastric midline incision was utilized and the bowel was exteriorized for the resection and anastomosis. 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 The extent of invasion was into the submucosa. Mucosal resection margins were free of involvement by adenoma and malignancy. There is no lymphovascular invasion. There is no evidence of malignancy in 35 mary- intestinal/pericolic lymph nodes. DNA mismatch repair enzymes are intact. pT1 pN0 3. June 22, 2015: Multiple abdominal wall incisional hernias from the epigastrium to the umbilicus were repaired with an open approach using a pre peritoneal/retrorectus Ventrio SR 18 x [address] Foy. The fascia was closed over top of the mesh. 4. March 08, 2017: Appointment with Dr. Medina where the patient reported a lump below his midline abdominal wound. 5. March 08, 2017: CT scan of the abdomen and pelvis demonstrated a midline abdominal wall mass which appeared to arise from the rectus sheath. The mass was solid in appearance measuring 7.1 x 5.7 x 5.2 cm. 6. March 27, 2017: Appointment with Dr. Will Charles who recommended proceeding with an ultrasound-guided core needle biopsy. 7. March 30, 2017: Needle core biopsy of the abdominal wall mass was performed by Dr. Charles at [facility]. Ultrasound demonstrated a homogeneous hypoechoic mass in the abdominal wall measuring approximately 7 cm in greatest dimension. Eight core needle biopsy passages were obtained. Pathology demonstrated desmoid fibromatosis. Negative for malignancy. Observation was recommended. 8. Chest x-ray on January 17, 2018 shows no acute radiologic chest findings. The patient reported that he experienced reduced appetite and approximately a 10 lb weight loss. The abdominal mass has increased in size and it interferes with wearing of pants. 9. January 19, 2018: CT scan of the abdomen and pelvis demonstrated a large heterogeneous anterior abdominal wall soft tissue mass deep to the umbilicus measuring 15.8 x 11.9 x 8.7 cm. The mass appearedto arise from the region of the rectus muscles. The mass bulged anteriorly and posteriorly. 10. January 30, 2018: Appointment with Dr. Foy who recommended further evaluation with a repeat ultrasound-guided core biopsy. 11. February 01, 2018: Ultrasound guided core biopsy of the anterior abdominal wall soft tissue was performed by Dr. Foy. Ultrasound demonstrated the abdominal wall mass was associated with the rectus muscle. It was immediately in the subcutaneous tissue and extended down to but not through the rectus muscle. At least 5 passes with retrieval of satisfactory 14 gauge core specimens were obtained. Pathology demonstrated desmoid fibromatosis. 12. February 13, 2018: Appointment with Dr. Foy who did not feel that surgical resection was possible at this point given the large size and already performed abdominal wall hernia repair. Referral for medical oncology consultation. Repeat colonoscopy for surveillance of colorectal cancer was sche duled. 13. February 21, 2018: Colonoscopy was performed by Dr. Foy. A 5 mm polyp at the ileocolonic anastomosis was identified. The exam was otherwise unremarkable. Pathology of a polyp at the ileocolonic anastomosis demonstrated an inflammatory polyp. 14. February 27, 2018: Medical Oncology consultation with Dr. Keys who would be willing to consider administration of a tyrosine kinase inhibitor/selective estrogen receptor modulator at a laterstage if no other treatment options are available. Referral for radiation oncology consultation. If radiation is not an option, plan to [...] The patient reports doing well overall. He has good energy. He reports an occasional upset stomachthat he describes more as lower abdominal discomfort. He also experiences occasional diarrhea. Overall, he is averaging one to two bowel movements per day. He denies rectal bleeding. He is taking Pepto-Bismol and Imodium as needed. He reports that his symptoms are overall manageable. He is using Lubriderm and a thicker lotion on his skin. PATIENT REPORTED SYMPTOM SCREEN FATIGUE (Scale: 0 = no fatigue; 10 = worst fatigue you can imagine): 0 ?? PAIN (Scale: 0 = no pain; 10 = worst pain you can imagine): 0 ?? OVERALL QUALITY OF LIFE (Scale: 0 = as bad as can be; 10 = as good as can be): 8 OBJECTIVE BP 129/57 (BP Location: Right arm, Patient Position: Sitting, Cuff Size: Small) Pulse 74 Temp 36.8 ??C (Temporal) Wt 69.8 kg BMI 22.53 kg/m? PHYSICAL EXAM General: Alert and oriented in no apparent distress. Skin: Brisk erythema of the skin over the abdominal mass. Dry desquamation over the cephalad aspect. 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 ??Intensity modulated radiotherapy to the abdominal wall tumor initiated on March 19, 2018; anticipated completion on April 30, 2018 The patient is tolerating radiation treatment well overall. He will continue to apply lotion to his skin multiple times each day. He was educated on the use of Imodium and will continue to take that asneeded after an episode of diarrhea, up to six per day. He is scheduled for a return visit with Dr. Ang on May 28, 2018. He will contact us sooner with any questions or concerns. He verbally expressed his understanding of the plan. Signed by: Umu Slater P.A.-C., M.S. 04/25/2018 8:35 AM GY ATTORNEY Associated attestation - Diego Ang M.D. - 04/25/2018 10:20 AM ENERGY ATTORNEY I personally met with the patient and agree with the evaluation documented by Umu Slater P.A.-C. On examination, the patient appears in no distress. There is brisk erythema of the abdominal wall skin. The abdominal mass is essentially unchanged compared to prior to starting radiation. Diego Ang MD [facility] Radiation Therapy [place], [place] documented in this encounter Miscellaneous Notes Addendum Note - Ramila Pineda - 04/25/2018 10:20 AM CSTEncounter addended by: Ramila Pineda on: 04/27/2018 12:12 PM
Actions taken: Letter status changed GY ATTORNEY documented in this encounter Plan of Treatment Scheduled Orders Name Type Priority Associated Diagnoses Order S chedule Management Visit Radiation Oncology Routine Tumor Desmoid Once for 1 Occurrences sta rting 04/25/2018 unti l 04/25/2018 Scheduled Referrals Name Type Priority Associated Diagnoses Order S chedule Radiation Oncology Outpatient Referral Routine Ex pected: office visit 05/31/2018 (clinic) (Approximate), Expires: 04/25/2019 documented as of this encounter Visit Diagnoses Diagnosis Tumor Desmoid documented in this encounter
--- OUTSIDE RECORDS SUMMARY | 2022-03-02 16:32 | XMS_ITS | Encounter Summary ---
:1935 Author Organization [facility] Address [address] [place] [address] Care Team Providers Name Role Phone Unavailable Primary Care Provider Unavailable Reason for Visit Radiation Therapy (Routine) - Closed Specialty Diagnoses / Procedures Referred By Contact Refer red To Contact Diagnoses Tumor Desmoid Diego Ang M.D. [facility] Procedures Prior Auth Rad Tx [place] IMRT COMPLEX [address] [place] [address] Referral ID Status Reason Start Date Expiration Date Visits Requ ested Visits Authorized [id number] Closed 03/06/2018 03/06/2019 30 30 Encounter Details Date Type Department Care Team Description 04/02/2018 Hospital Encounter Department of Radiation [facility]abe [facility] [place] [address] [facility] [address] [place] [address] [place], [place] [phone] (Wo rk) [phone] Social History Tobacco Use Types Packs/Day Years [...] (ZOCOR) 40 mg 0 12/30/2017 tablet vitamins A,C,W-sxat-wtctxx Take by mouth. 0 08/29 (PRESERVISION AREDS) 7,160 Units-113 mg-100 Units per tablet documented as of this encounter Plan of Treatment Not on filedocumented as of this encounter Visit Diagnoses Not on filedocumented in this encounter
--- OUTSIDE RECORDS SUMMARY | 2022-03-02 16:32 | XMS_ITS | Encounter Summary ---
:1935 Author Organization [facility] Address [address] [place] [address] Care Team Providers Name Role Phone Unavailable Primary Care Provider Unavailable Reason for Visit Radiation Therapy (Routine) - Closed Specialty Diagnoses / Procedures Referred By Contact Refer red To Contact Diagnoses Tumor Desmoid Diego Ang M.D. [facility] Procedures Prior Auth Rad Tx [place] IMRT COMPLEX [address] [place] [address] Referral ID Status Reason Start Date Expiration Date Visits Requ ested Visits Authorized [id number] Closed 03/06/2018 03/06/2019 30 30 Encounter Details Date Type Department Care Team Description 03/22/2018 Hospital Encounter Department of Radiation Bernabe Ang, [facility] [place] [address] [facility] [address] [place] [address] [place], [place] [phone] (Wo rk) [phone] Social History Tobacco Use Types Packs/Day Years [...] (ZOCOR) 40 mg 0 12/30/2017 tablet vitamins A,C,D-ygsc-jxstnd Take by mouth. 0 08/29 (PRESERVISION AREDS) 7,160 Units-113 mg-100 Units per tablet documented as of this encounter Plan of Treatment Not on filedocumented as of this encounter Visit Diagnoses Not on filedocumented in this encounter
--- OUTSIDE RECORDS SUMMARY | 2022-03-02 16:32 | XMS_ITS | Encounter Summary ---
:1935 Author Organization [facility] Address [address] [place] [address] Care Team Providers Name Role Phone Unavailable Primary Care Provider Unavailable Reason for Visit Radiation Therapy (Routine) - Closed Specialty Diagnoses / Procedures Referred By Contact Refer red To Contact Diagnoses Tumor Desmoid Diego Ang M.D. [facility] Procedures Prior Auth Rad Tx [place] IMRT COMPLEX [address] [place] [address] Referral ID Status Reason Start Date Expiration Date Visits Requ ested Visits Authorized [id number] Closed 03/06/2018 03/06/2019 30 30 Encounter Details Date Type Department Care Team Description 04/09/2018 Hospital Encounter Department of Radiation Bernabe Ang, [facility] [place] [address] [facility] [address] [place] [address] [place], [place] [phone] (Wo rk) [phone] Social History Tobacco Use Types Packs/Day Years [...] (ZOCOR) 40 mg 0 12/30/2017 tablet vitamins A,C,O-nrxr-bzxmcf Take by mouth. 0 08/29 (PRESERVISION AREDS) 7,160 Units-113 mg-100 Units per tablet documented as of this encounter Plan of Treatment Not on filedocumented as of this encounter Visit Diagnoses Not on filedocumented in this encounter
--- OUTSIDE RECORDS SUMMARY | 2022-03-02 16:32 | XMS_ITS | Encounter Summary ---
:1935 Author Organization [facility] Address [address] [place] [address] Care Team Providers Name Role Phone Unavailable Primary Care Provider Unavailable Encounter Details Date Type Department Care Team Description 02/27/2018 Abstract DATA ABSTRACTION Provider, Historical Social History Tobacco Use Types Packs/Day Years Used Date Smoking Tobacco: Never Assessed Sex Assigned at Date Recorded Male 09/04/2018 2:35 PM CDT documented as of this encounter Plan of Treatment Not on filedocumented as of this encounter Visit Diagnoses Not on filedocumented in this encounter
--- OUTSIDE RECORDS SUMMARY | 2022-03-02 16:32 | XMS_ITS | Encounter Summary ---
:1935 Author Organization [facility] Address [address] [place] [address] Care Team Providers Name Role Phone Unavailable Primary Care Provider Unavailable Reason for Visit Radiation Therapy (Routine) - Closed Specialty Diagnoses / Procedures Referred By Contact Refer red To Contact Diagnoses Tumor Desmoid Diego Ang M.D. [facility] Procedures Prior Auth Rad Tx [place] IMRT COMPLEX [address] [place] [address] Referral ID Status Reason Start Date Expiration Date Visits Requ ested Visits Authorized [id number] Closed 03/06/2018 03/06/2019 30 30 Encounter Details Date Type Department Care Team Description 04/06/2018 Hospital Encounter Department of Radiation Bernabe Ang, [facility] [place] [address] [facility] [address] [place] [address] [place], [place] [phone] (Wo rk) [phone] Social History Tobacco Use Types Packs/Day Years [...] (ZOCOR) 40 mg 0 12/30/2017 tablet vitamins A,C,Q-aixg-xtjmat Take by mouth. 0 08/29 (PRESERVISION AREDS) 7,160 Units-113 mg-100 Units per tablet documented as of this encounter Plan of Treatment Not on filedocumented as of this encounter Visit Diagnoses Not on filedocumented in this encounter
--- OUTSIDE RECORDS SUMMARY | 2022-03-02 16:32 | XMS_ITS | Encounter Summary ---
:1935 Author Organization [facility] Address [address] [place] [address] Care Team Providers Name Role Phone Unavailable Primary Care Provider Unavailable Reason for Referral Outpatient (Routine) - Closed Specialty Diagnoses / Procedures Referred By Contact Refer red To Contact Diego Minor M .D. [facility] [address] [place] [address] Referral ID Status Reason Start Date Expiration Date Visits Requ ested Visits Authorized [id number] Closed 03/06/2018 03/06/2019 1 1 Reason for Visit Outpatient (Routine) - Closed Specialty Diagnoses / Procedures Referred By Contact Refer red To Contact Diego Minor M .D. [facility] [address] [place] [address] Referral ID Status Reason Start Date Expiration Date Visits Requ ested Visits Authorized [id number] Closed 03/06/2018 03/06/2019 1 1 Encounter Details Date Type Department Care Team Description 04/05/2018 Hospital Encounter Department of Diego Ang Tu mor Des[facility]oid [facility] [address] [facility] [address] [place] [id number] [phone] Social History Tobacco Use Types Packs/Day Years [...] (ZOCOR) 40 mg 0 12/30/2017 tablet vitamins A,C,O-pkxb-utmgce Take by mouth. 0 08/29 (PRESERVISION AREDS) 7,160 Units-113 mg-100 Units per tablet documented as of this encounter Consult Notes Paty Robbins - 04/05/2018 3:51 PM CDT Psychosocial Assessment SUBJECTIVE DEMOGRAPHIC INFORMATION Referral by: Diego Ang MD Person(s) present during interview: Patient Lior Miranda, unaccompanied. Primary care clinic and provider: No primary care provider on file. Primary Language: Grenadian REASON FOR CONSULT Initial social work consult for assessment of psychosocial strengths and concerns as this patient undergoes radiation therapy for an abdominal wall desmoid tumor. No past medical history on file. No past surgical history on file. SOCIAL HISTORY Early growth and development: The patient met social and developmental milestones as expected. Marital Status / Family / Household Status: Household information: Number of persons in household: 2 Relationships of persons in household: patient and spouse/SO Type of housing: [place], [place] Support Systems: Family, community. Primary caregiver: , Jana and adult children, Chanda Pandey, and Prem. We have received permission to contact them. 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 Psychosocial Risk Factors impacting the patient: None noted. Abuse, Neglect, Maltreatment, Trauma: Current: None reported. Past: None reported. ENVIRONMENTAL SUPPORTS Current Living Situation: Mr. Miranda and his Jana live on a farm outside of [place], [place]. Patient's Home Environment: No safety concerns. FUNCTIONAL STATUS (ADL's and IADL's) Patient is independent in all activities. FINANCES/INSURANCE Primary insurance: [employer] CHO[employer] Secondary insurance: N/A ADVANCE DIRECTIVES Patient states he has completed a health care directive. It is not currently on file with [facility]. OBJECTIVE MENTAL HEALTH Mental Health History: Patient reports no mental health history and no current concerns Mental Status Exam: Appearance: Dressed appropriately in street clothing. Well groomed. Good eye contact. Appears statedage. Behavior: Calm and interactive. Cooperation: Cooperative and forthcoming. Appears reliable. Consciousness/Orientation: Alert and oriented to person, place and time. Memory/Attention: Conversationally intact. Fund of knowledge: Consistent with education and experiences as evidenced by vocabulary. Insight: Good. Judgment: Good. Safety: Denies current suicidal or homicidal ideation. No safety concerns. Motivation to pursue treatment: Good. Other Mental Health Assessments PHQ 2 Score: 0 Current Stressors: Normal stressors associated with cancer diagnosis and treatment. 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 Lior Miranda met with this social services specialist today for an initial social work consult and psychosocial assessment. He shared his overall life context and current experience with radiation therapy. He and his Jana have lived on their farm near [place] for over 60 years. One of their adultchildren lives on the neighboring farm, another in [place], a third in [place] and a fourth in [place]. Mr. Miranda states he is well supported, is feeling as well as possible through his treatment, andis not currently in need of any additional resources or information. He was receptive to the packet of information offered and intends to review the materials. IMPRESSION Mr. Miranda understands his diagnosis, prognosis and recommended treatment, and demonstrates motivation to comply with his treatment plan. He is self-sufficient and able to communicate his own wishes, questions, and concerns. INTERVENTIONS Introduction to medical social work services and assessment of coping, support, and resources were provided. Patient is coping well with treatment, is well- supported by family and community resources, and identifies no gaps in resources or need for added services, assistance, or information. He is aware of the availability of social work assistance throughout radiation treatment, and is aware how to request this assistance if any needs or concerns arise. PLAN Written materials regarding medical social work services, online information and support resources, adjustment/coping with treatment, and caregiving were provided. Anticipated barriers: None Face to face time (for billing purposes) 10 minutes total time Paty Robbins 04/05/2018 documented in this encounter Plan of Treatment Scheduled Referrals Name Type Priority Associated Diagnoses Order S [facility] Social Work Outpatient Referral Routine Once for 1 office visit Occurrences sta rting (clinic) 04/05/2018 unti yesy 04/05/2018 documented as of this encounter Visit Diagnoses Diagnosis Tumor Desmoid documented in this encounter
--- OUTSIDE RECORDS SUMMARY | 2022-03-02 16:32 | XMS_ITS | Encounter Summary ---
:1935 Author Organization [facility] Address [address] [place] [address] Care Team Providers Name Role Phone Unavailable Primary Care Provider Unavailable Reason for Visit Radiation Therapy (Routine) - Closed Specialty Diagnoses / Procedures Referred By Contact Refer red To Contact Diagnoses Tumor Desmoid Diego Ang M.D. [facility] Procedures Prior Auth Rad Tx [place] IMRT COMPLEX [address] [place] [address] Referral ID Status Reason Start Date Expiration Date Visits Requ ested Visits Authorized [id number] Closed 03/06/2018 03/06/2019 30 30 Encounter Details Date Type Department Care Team Description 04/13/2018 Hospital Encounter Department of Radiation [facility] [place] [address] [facility] [address] [place] [address] [place], [place] [phone] (Wo rk) [phone] Social History Tobacco Use Types Packs/Day Years [...] (ZOCOR) 40 mg 0 12/30/2017 tablet vitamins A,C,O-epzu-ovemyn Take by mouth. 0 08/29 (PRESERVISION AREDS) 7,160 Units-113 mg-100 Units per tablet documented as of this encounter Plan of Treatment Not on filedocumented as of this encounter Visit Diagnoses Not on filedocumented in this encounter
--- OUTSIDE RECORDS SUMMARY | 2022-03-02 16:32 | XMS_ITS | Encounter Summary ---
:1935 Author Organization [facility] Address [address] [place] [address] Care Team Providers Name Role Phone Unavailable Primary Care Provider Unavailable Reason for Referral Radiation Therapy (Routine) - Canceled Specialty Diagnoses / Procedures Referred By Contact Refer red To Contact Diagnoses Tumor Desmoid Diego Ang M.D. [facility] Procedures Management Visit [address] [place] [address] Referral ID Status Reason Start Date Expiration Date Visits V isits Requested Authorized [id number] Canceled 03/06/2018 03/06/2019 1 1 Reason for Visit Radiation Therapy (Routine) - Canceled Specialty Diagnoses / Procedures Referred By Contact Refer red To Contact Diagnoses Tumor Desmoid Diego Ang M.D. [facility] Procedures Management Visit [address] [place] [address] Referral ID Status Reason Start Date Expiration Date Visits V isits Requested Authorized [id number] Canceled 03/06/2018 03/06/2019 1 1 Encounter Details Date Type Department Care Team Description 04/06/2018 Hospital Encounter Department of Diego Ang Tu mor Desmoid Radiation Oncology in [facility] mau [address] [facility] [address] [place] [phone] Social History Tobacco Use Types Packs/Day Years Used Date Smoking Tobacco: Never Assessed Sex Assigned at Date Recorded Male 09/04/2018 2:35 PM CDT documented as of this encounter Last Filed Vital Signs Vital Sign Reading Time Taken Comments Blood Pressure - - Pulse - - Temperature 37 ??C (98.6 ??F) 04/06/2018 3:09 PM CDT Respiratory Rate - - Oxygen Saturation - - Inhaled Oxygen Concentration - - Weight 69.9 kg (154 lb 1.6 oz) 04/06/2018 3:09 PM CDT Height - - Body Mass Index 22.57 [...] (ZOCOR) 40 mg 0 12/30/2017 tablet vitamins A,C,C-vzmu-ywikfz Take by mouth. 0 08/29 ([facility]) 7,160 Units-113 mg-100 Units per tablet documented as of this encounter Progress Notes Umu Slater P.A.-C., M.S. - 04/06/2018 3:05 PM CDT SUBJECTIVE REASON FOR VISIT Evaluation for side effects while receiving radiation treatment for 1. Tumor Desmoid HISTORY OF PRESENT ILLNESS Mr. 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 ??He??is currently receiving radiation therapy to the abdominal wall mass??to a dose of 5600??cGy in 28??fractions. ??He??has received 15??of 28??fractions for a dose of 3000??cGy out of a planned total dose of 5600??cGy.??His??anticipated date of completion is April 25, 2018. ?? The patient was asked to be seen today. He reports experiencing cramping and diarrhea last night around 8:30 pm. He reports that the cramping wasn't too bad and that it lasted for approximately 30 minutes and then resolved on its own. He had two episodes of diarrhea. He denies rectal bleeding. He reports drinking coffee and eating chicken wings earlier in the evening and he was wondering if his symptoms could be from the coffee. The cramping and diarrhea has not re-occurred today. He denies any other questions or concerns today. PATIENT REPORTED SYMPTOM SCREEN FATIGUE (Scale: 0 = no fatigue; 10 = worst fatigue you can imagine): 8 ?? PAIN (Scale: 0 = no pain; 10 = worst pain you can imagine): 0 ?? OVERALL QUALITY OF LIFE (Scale: 0 = as bad as can be; 10 = as good as can be): 8 OBJECTIVE Temp 37 ??C (Temporal) Wt 69.9 kg BMI 22.57 kg/m? PHYSICAL EXAM General: Alert and oriented in no apparent distress. 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 ??Intensity modulated radiotherapy to the abdominal wall tumor initiated on March 19, 2018; anticipated completion on April 25, 2018 The patient is tolerating radiation treatment well overall. He experienced cramping and diarrhea last night. I explained that it could be dietary related, but that it may also be a side effect of the radiation treatment. The patient reported that he was going to skip drinking coffee in the evening to see if that helps. Eating a more bland diet during treatment may also be beneficial. He was educated on pro-biotics for bowel regulation as well as Imodium, if needed, for diarrhea. He was recommended to start with a single dose of Imodium after an episode of diarrhea. I explained that his symptoms could potentially worsen as we continue with radiation treatment. He will contact us with any questions or concerns. We will continue with radiation treatment as planned. Signed by: Umu Slater P.A.-C., M.S. 04/06/2018 3:05 PM documented in this encounter Plan of Treatment Scheduled Orders Name Type Priority Associated Diagnoses Order S chedule Management Visit Radiation Oncology Routine Tumor Desmoid Once for 1 Occurrences sta rting 04/06/2018 unti l 04/06/2018 documented as of this encounter Visit Diagnoses Diagnosis Tumor Desmoid documented in this encounter
--- OUTSIDE RECORDS SUMMARY | 2022-03-02 16:32 | XMS_ITS | Encounter Summary ---
:1935 Author Organization [facility] Address [address] [place] [address] Care Team Providers Name Role Phone Unavailable Primary Care Provider Unavailable Reason for Visit Radiation Therapy (Routine) - Closed Specialty Diagnoses / Procedures Referred By Contact Refer red To Contact Diagnoses Tumor Desmoid Diego Ang M.D. [facility] Procedures Prior Auth Rad Tx [place] IMRT COMPLEX [address] [place] [address] Referral ID Status Reason Start Date Expiration Date Visits Requ ested Visits Authorized [id number] Closed 03/06/2018 03/06/2019 30 30 Encounter Details Date Type Department Care Team Description 03/23/2018 Hospital Encounter Department of Radiation Bernabe [facility] [place] [address] [email or web address] [address] [place] [address] [place], [place] [phone] (Wo rk) [phone] Social History Tobacco Use Types Packs/Day Years [...] (ZOCOR) 40 mg 0 12/30/2017 tablet vitamins A,C,Y-bgwe-akxear Take by mouth. 0 08/29 ([facility]) 7,160 Units-113 mg-100 Units per tablet documented as of this encounter Plan of Treatment Not on filedocumented as of this encounter Visit Diagnoses Not on filedocumented in this encounter
--- OUTSIDE RECORDS SUMMARY | 2022-03-02 16:32 | XMS_ITS | Encounter Summary ---
:1935 Author Organization [facility] Address [address] [place] [address] Care Team Providers Name Role Phone Unavailable Primary Care Provider Unavailable Reason for Visit Radiation Therapy (Routine) - Closed Specialty Diagnoses / Procedures Referred By Contact Refer red To Contact Diagnoses Tumor Desmoid Diego Ang M.D. [facility] Procedures Prior Auth Rad Tx [place] IMRT COMPLEX [address] [place] [address] Referral ID Status Reason Start Date Expiration Date Visits Requ ested Visits Authorized [id number] Closed 03/06/2018 03/06/2019 30 30 Encounter Details Date Type Department Care Team Description 03/26/2018 Hospital Encounter Department of Radiation [facility]abe [facility] [place] [address] [facility] [address] [place] [address] [place], [place] [phone] (Wo rk) [phone] Social History Tobacco Use Types Packs/Day Years [...] (ZOCOR) 40 mg 0 12/30/2017 tablet vitamins A,C,G-pdts-lepyxe Take by mouth. 0 08/29 ([facility]) 7,160 Units-113 mg-100 Units per tablet documented as of this encounter Plan of Treatment Not on filedocumented as of this encounter Visit Diagnoses Not on filedocumented in this encounter
--- OUTSIDE RECORDS SUMMARY | 2022-03-02 16:32 | XMS_ITS | Encounter Summary ---
:1935 Author Organization [facility] Address [address] [place] [address] Care Team Providers Name Role Phone Unavailable Primary Care Provider Unavailable Reason for Visit Radiation Therapy (Routine) - Closed Specialty Diagnoses / Procedures Referred By Contact Refer red To Contact Diagnoses Tumor Desmoid Diego Ang M.D. [facility] Procedures Prior Auth Rad Tx [place] IMRT COMPLEX [address] [place] [address] Referral ID Status Reason Start Date Expiration Date Visits Requ ested Visits Authorized [id number] Closed 03/06/2018 03/06/2019 30 30 Encounter Details Date Type Department Care Team Description 03/29/2018 Hospital Encounter Department of Radiation Bernabe Ang, [facility] [place] [address] [facility] [address] [place] [address] [place], [place] [phone] (Wo rk) [phone] Social History Tobacco Use Types Packs/Day Years [...] (ZOCOR) 40 mg 0 12/30/2017 tablet vitamins A,C,T-mfsg-caldle Take by mouth. 0 08/29 ([facility]) 7,160 Units-113 mg-100 Units per tablet documented as of this encounter Plan of Treatment Not on filedocumented as of this encounter Visit Diagnoses Not on filedocumented in this encounter
--- OUTSIDE RECORDS SUMMARY | 2022-03-02 16:32 | XMS_ITS | Encounter Summary ---
:1935 Author Organization [facility] Address [address] [place] [address] Care Team Providers Name Role Phone Unavailable Primary Care Provider Unavailable Reason for Visit Radiation Therapy (Routine) - Closed Specialty Diagnoses / Procedures Referred By Contact Refer red To Contact Diagnoses Tumor Desmoid Diego Ang M.D. [facility] Procedures Prior Auth Rad Tx [place] IMRT COMPLEX [address] [place] [address] Referral ID Status Reason Start Date Expiration Date Visits Requ ested Visits Authorized [id number] Closed 03/06/2018 03/06/2019 30 30 Encounter Details Date Type Department Care Team Description 03/20/2018 Hospital Encounter Department of Radiation Bernabe Ang, [facility] [place] [address] [facility] [address] [place] [address] [place], [place] [phone] (Wo rk) [phone] Social History Tobacco Use Types Packs/Day Years [...] (ZOCOR) 40 mg 0 12/30/2017 tablet vitamins A,C,T-udud-wzuwlo Take by mouth. 0 08/29 (PRESERVISION AR[facility]S) 7,160 Units-113 mg-100 Units per tablet documented as of this encounter Plan of Treatment Not on filedocumented as of this encounter Visit Diagnoses Not on filedocumented in this encounter
--- OUTSIDE RECORDS SUMMARY | 2022-03-02 16:32 | XMS_ITS | Encounter Summary ---
:1935 Author Organization [facility] Address [address] [place] [address] Care Team Providers Name Role Phone Unavailable Primary Care Provider Unavailable Reason for Referral Radiation Therapy (Routine) - Closed Specialty Diagnoses / Procedures Referred By Contact Refer red To Contact Diagnoses Tumor Desmoid Diego Ang M.D. [facility] Procedures Initial Rad Onc Treatment Planning CT Simulation [address] [place] [address] Referral ID Status Reason Start Date Expiration Date Visits Requ ested Visits Authorized [id number] Closed 03/06/2018 03/06/2019 1 1 Reason for Visit Radiation Therapy (Routine) - Closed Specialty Diagnoses / Procedures Referred By Contact Refer red To Contact Diagnoses Tumor Desmoid Diego Ang M.D. [facility] Procedures Initial Rad Onc Treatment Planning CT Simulation [address] [place] [address] Referral ID Status Reason Start Date Expiration Date Visits Requ ested Visits Authorized [id number] Closed 03/06/2018 03/06/2019 1 1 Encounter Details Date Type Department Care Team Description 03/08/2018 Hospital Encounter Department of Diego Ang Tu mor Desmoid Radiation Oncology in [facility] mau [address] [facility] [address] [place] [phone] [phone] Social History Tobacco Use Types Packs/Day Years [...] (ZOCOR) 40 mg 0 12/30/2017 tablet vitamins A,C,Z-saad-qgwwvm Take by mouth. 0 08/29 ([facility]) 7,160 Units-113 mg-100 Units per tablet documented as of this encounter Procedure Notes Diego Ang M.D. - 03/08/2018 3:59 PM CDTAssociated Order(s): INITIAL RAD ONC TREATMENT PLANNING CT SIMULATION Pre-Procedure Diagnose(s): Tumor Desmoid Post-Procedure Diagnose(s): Tumor Desmoid Initial Rad Onc Treatment Planning CT Simulation Date/Time: 03/08/2018 3:59 PM Performed by: DIEGO ANG Authorized by: DIEGO ANG SIMULATION NOTE: Simulation was initiated on March 08, 2018 based on my order, under my direct supervision in preparation for radiation therapy for desmoid tumor of the abdominal wall. The patient was placed in the treatment position using the necessary immobilization to ensure a reproducible treatment position. Set-up parameters to be used for daily treatment are outlined below. Reference patricio were placed on the patient to facilitate marking of isocenter. The procedure was performed under my personal supervision. Contrast used for the simulation procedure: None Patient position: He was initially simulated in the supine position. He was also simulated in the prone position on a belly board. Arm/Hand position: Supine position arms were above his head in a wing board and Vac-Melony immobilization device. Prone position arms were above his head adjacent to the prone pillow. Custom immobilization device: Vac-Melony immobilization devices were used for the supine position to mobilize the legs and the arms. Legs/feet position: Straight Motion management: 4D CT was performed in the supine position. In the prone position the mass did not move with respiration. Bolus: None Wires: None CT guidance: Following positioning of the patient, a series of 188 slices were obtained in a free breathing mode in the supine position through the treatment area to be utilized in treatment planning. It was noted that the abdominal wall mass did move with respiration. A 4D scan was also performed through this same volume of interest. He was then turned onto the prone position on a belly board. One hundred eighty-nine images was acquired in a free breathing mode through the same volume of interest. CT images were transferred to the Eclipse planning system, isocenter was determined and marked on thepatient with temporary patricio. Segmentation and treatment planning will take place prior to treatmentdelivery. Patient set up and imaging was appropriate and completed without incident. documented in this encounter Plan of Treatment Not on filedocumented as of this encounter Procedures Procedure Name Priority Date/Time Associated Comments Diagnosis INITIAL RAD ONC Routine 03/08/2018 3:59 PM Tumor Desmoid Resul ts for this TREATMENT PLANNING CDT procedure are in CT SIMULATION the results section. documented in this encounter Results PA NO CHARGE VISIT (03/08/2018 3:59 PM CDT) Specimen (Source) Anatomical Location Collection Method / Collectio n Time Received Time / Laterality Volume Narrative RHONDA SIMON - 03/08/2018 3:59 PM CDT Diego Ang M.D. ? 03/08/2018 ??4:02 PM Initial Rad Onc Treatment Planning CT Si mulation Date/Time: 03/08/2018 3:59 PM Performed by: DIEGO ANG Authorized by: DIEGO ANG Diego Ang M.D. RADIATION ONCOLOGY ORDERABLE S Performing Organization Address City/State/ZIP Code [facility]on [facility] Number [facility] annia documented in this encounter Visit Diagnoses Diagnosis Tumor Desmoid documented in this encounter
--- OUTSIDE RECORDS SUMMARY | 2022-03-02 16:32 | XMS_ITS | Encounter Summary ---
:1935 Author Organization [facility] Address [address] [place] [address] Care Team Providers Name Role Phone Unavailable Primary Care Provider Unavailable Reason for Visit Radiation Therapy (Routine) - Closed Specialty Diagnoses / Procedures Referred By Contact Refer red To Contact Diagnoses Tumor Desmoid Diego Ang M.D. [facility] Procedures Prior Auth Rad Tx [place] IMRT COMPLEX [address] [place] [address] Referral ID Status Reason Start Date Expiration Date Visits Requ ested Visits Authorized [id number] Closed 03/06/2018 03/06/2019 30 30 Encounter Details Date Type Department Care Team Description 03/30/2018 Hospital Encounter Department of Radiation Bernabe Ang, [facility] [place] [address] [facility] [address] [place] [address] [place], [place] [phone] (Wo rk) [phone] Social History Tobacco Use Types Packs/Day Years [...] (ZOCOR) 40 mg 0 12/30/2017 tablet vitamins A,C,L-cajg-sjhgvz Take by mouth. 0 08/29 ([facility]ERVISION AR[facility]S) 7,160 Units-113 mg-100 Units per tablet documented as of this encounter Plan of Treatment Not on filedocumented as of this encounter Visit Diagnoses Not on filedocumented in this encounter
--- OUTSIDE RECORDS SUMMARY | 2022-03-02 16:32 | XMS_ITS | Encounter Summary ---
:1935 Author Organization [facility] Address [address] [place] [address] Care Team Providers Name Role Phone Unavailable Primary Care Provider Unavailable Reason for Referral Outpatient (Routine) - Closed Specialty Diagnoses / Procedures Referred By Contact Refer red To Contact Social Work Diego Ang M .D. [facility] Region [address] [place] [address] Referral ID Status Reason Start Date Expiration Date Visits Requ ested Visits Authorized [id number] Closed 03/06/2018 03/06/2019 1 1 Radiation Therapy (Routine) - Closed Specialty Diagnoses / Procedures Referred By Contact Refer red To Contact Diagnoses Tumor Desmoid Diego Ang M.D. [facility] Procedures Prior Auth Rad Tx [place] IMRT COMPLEX [address] [place] [address] Referral ID Status Reason Start Date Expiration Date Visits Requ ested Visits Authorized [id number] Closed 03/06/2018 03/06/2019 30 30 Radiation Therapy (Routine) - Closed Specialty Diagnoses / Procedures Referred By Contact Refer red To Contact Diagnoses Tumor Desmoid Diego Ang M.D. [facility] Procedures Initial Rad Onc Treatment Planning CT Simulation [address] [place] [address] Referral ID Status Reason Start Date Expiration Date Visits Requ ested Visits Authorized [id number] Closed 03/06/2018 03/06/2019 1 1 Reason for Visit Appointment Request (Routine) - Closed Specialty Diagnoses / Procedures Referred By Contact Refer red To Contact Radiation Oncology Stoney Keys M.D. [address] [place] [address] Referral ID Status Reason Start Date Expiration Date Visits Requ ested Visits Authorized [id number] Closed 02/27/2018 02/27/2019 1 1 Encounter Details Date Type Department Care Team Description 03/06/2018 Hospital Encounter Department of [facility]Feder[facility]Diego gregg Tumor Desmoid Radiation Oncology Irvin Ying (Primary Dx) in [place] [address] [place], [place] [address] [facility] [address] [place], [place] [phone] (Work) [phone] Social History Tobacco Use Types Packs/Day Years Used Date Smoking Tobacco: Never Assessed Sex Assigned at Date Recorded Male 09/04/2018 2:35 PM CDT documented as of this encounter Last Filed Vital Signs Vital Sign Reading Time Taken Comments Blood Pressure 130/67 03/06/2018 2:21 PM CDT Pulse 73 03/06/2018 2:21 PM CDT Temperature 36.7 ??C (98.1 ??F) 03/06/2018 2:21 PM CDT Respiratory Rate - - Oxygen Saturation - - Inhaled Oxygen Concentration - - Weight 70.6 kg (155 lb 10.3 oz) 03/06/2018 2:21 PM CDT Height 176 cm (5' 9.29) 03/06/2018 2:21 PM CDT Body Mass Index 22.79 03/06/2018 2:21 PM CDT documented in this encounter Medications at Time of Discharge Medication Sig Dispensed Refills Start Date End Date albuterol (VENTOLIN HFA) 90 Inhale. 0 12/28/19 17 mcg/actuation inhaler aspirin [address] tablet Take 81 mg by 0 7 mouth. aspirin-caffeine (ANACIN) Take by mouth. 0 2007 400-32 mg per tablet blood sugar diagnostic For Blood glucose 0 2015 strips testing once daily. ferrous sulfate 325 mg (65 Take 325 mg by 0 05/10 mg iron) DR tablet mouth. fluticasone (FLONASE) 50 Administer 2 sprays 0 mcg/actuation nasal spray into affected nostril(s). lancets As directed 2 times 0 11/11/2009 daily. levocetirizine (XYZAL) 5 mg Take by mouth. 0 02/04 tablet lisinopril Take 10 mg by 0 12/31/2015 (PRINIVIL,ZESTRIL) 10 mg mouth. tablet metFORMIN XR (GLUCOPHAGE-XR) Take 750 mg by 0 750 mg 24 hr tablet mouth. NaCl 0.9 % irrigation Irrigate 20 cc each 0 09/29 nostril QID X 2 month supply vitamins A,C,X-gwpf-zxswed Take by mouth. 0 08/29 (PRESERVISION AREDS) 7,160 Units-113 mg-100 Units per tablet ADVAIR DISKUS 250-50 mcg/act 0 018 diskus inhaler famciclovir (FAMVIR) 500 mg 0 01/18/20 18 tablet hydroCHLOROthiazide 0 12/30/2017 (HYDRODIURIL) 25 mg tablet simvastatin (ZOCOR) 40 mg 0 12/30/2017 tablet documented as of this encounter Consult Notes Diego Ang M.D. - 03/06/2018 3:14 PM CDT PATIENT NAME: Lior Miranda [facility] #: [id number] Address: [address] [place] [address] Age: 82 y.o. Date of Service: 03/06/18 Provider: Diego Ang M.D. Place of Service: [facility] Radiation Oncology [address] [place] [address] REQUESTING PROVIDER Stoney Keys M.D. REASON FOR CONSULT The encounter diagnosis was Tumor Desmoid. HISTORY OF PRESENT ILLNESS This 82 y.o. patient has the following [...] colon by Dr. Hakan Foy at the [facility]. At the time of surgery the tattooed [...] mass was performed by Dr. Charles at [facility]. Ultrasound demonstrated a homogeneous hypoechoic mass in [...] care center after consultation with Dr. Foy. Was seen approximately 1 year ago for an abdominal wall mass. This has been evaluated as indicated above. He reports that the mast does not bother him other than the fact that he is unable to wear a belt. He has gone to wearing suspenders. He denies pain. He reports that his appetite now is good. He has been seen by Dr. Keys. I was asked to see the patient by Dr. Keys for consideration ofradiation therapy. The patient is here with his and 3 children. 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 Pulmonary: He denies cough or shortness of breath. Cardiac: He denies angina or palpitations. GI: He denies dysphagia, abdominal pain, melena, or hematochezia. : He denies dysuria or hematuria. Musculoskeletal: He denies bone pain. ECOG performance status: 0 PATIENT REPORTED SYMPTOM SCREEN: ?? FATIGUE (Scale: 0 = no fatigue; 10 = worst fatigue you can imagine): 0 ?? PAIN (Scale: 0 = no pain; 10 = worst pain you can imagine): 0 ?? OVERALL QUALITY OF LIFE (Scale: 0 = as bad as can be; 10 = as good as can be): 8 PAST MEDICAL HISTORY PRIOR SURGERIES: 1. Laparoscopic extended right colon resection, 2014 2. Incisional hernia repair, 2015 3. Ankle surgery, right, 1960s 4. Cataract removal, 2009 5. Hernia repair, 2005 6. Rotator cuff repair, right PAST MEDICAL HISTORY: 1. Diabetes mellitus, type 2 2. Hyperlipidemia 3. Hypertension 4. Asthma 5. Allergic rhinitis 6. Adenocarcinoma, right colon FAMILY HISTORY Brother had colorectal cancer. Maternal niece who also had a desmoid tumor in her 40s. There was genetic testing demonstrating CTNNB1 and pT41A. The niece has not had problematic colon polyps. There isno history of [place] syndrome or other soft tissue tumor abnormalities. SOCIAL HISTORY He lives in [place], [place]. He is a never smoker. 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 He drinks alcohol occasionally. PHYSICAL EXAM BP 130/67 (BP Location: Left arm, Patient Position: Sitting, Cuff Size: Regular) Pulse 73 Temp 36.7 ??C (Temporal) Ht 176 cm Wt 70.6 kg BMI 22.79 kg/m?? Neck: No neck masses. Lymphatic: No cervical, supraclavicular, axillary, or inguinal adenopathy. Heart: Normal S1 and S2 with no murmurs. Lungs: Clear to auscultation. Abdomen: Soft and nontender. There is a 10 X 20 X 11 cm mass deep to the umbilicus that is firm. Theabdominal wall skin is intact. IMPRESSION/PLAN: 1. Abdominal wall desmoid tumor I reviewed the natural history of desmoid tumors with the patient and his family. They are relatively slow growing tumors that do not metastasize. They cause morbidity by local extension. I reviewed the CT scans of the abdomen and pelvis from March 08, 2017 and January 19, 2018 with the patient and his family demonstrating the increase in size over the past year. I have discussed the case with Dr. Foy on the phone today. Options were discussed with the patient and his family including observation, surgical resection, radiation therapy, or for some form of systemic therapy. Pros and cons of various options were discussed. The morbidity of radiation would likely be significantly less then surgical resection. The family is concerned about possible prolonged recovery time if he were to have surgery. We talked about going to [place] for surgical opinion to get a better understanding of what surgery would entail in terms of extent of resection, reconstruction of the abdominal wall, and anticipated length of recovery. The proposed radiation dimas were reviewed using the January 19, 2018 CT scanas a guide. The goal of radiation is to prevent further growth of the tumor. Radiation would not likely resultant tumor shrinkage. It is possible that the tumor would continue to grow despite radiation. Side effects of radiation were reviewed including fatigue, skin burn, as well as possible bowel damage with diarrhea, cramps, scarring, or bleeding. I discussed the case with Dr. Neeraj Chappell. Weboth feel radiation would be a reasonable option. The patient and his family had questions were answered. I offered to schedule a surgical consultation in [place] however the patient declined. The patient would like to proceed with radiation therapy. His family is in agreement. He will return in thenear future for simulation. EDUCATION Ready to learn, no apparent learning barriers were identified; learning preferences include listening. Explained diagnosis and treatment plan; patient expressed understanding of the content. CONSENT Discussed the risks, benefits, alternatives, and the necessity of other members of the healthcare team participating in the procedure. All questions answered and consent given. I spent 45 minutes with the patient, greater than 50% was spent counseling. Signed by: Diego Ang M.D. 03/06/2018 3:14 PM [facility] [address] [place] [address] FAX: [phone] PRIMARY CARE PROVIDER: Dr. Reagan Medina REFERRING PROVIDERS: Dr. Keys [facility] Dr. Hakan Foy [facility] documented in this encounter Miscellaneous Notes Addendum Note - Ramila Pineda - 03/06/2018 3:39 PM CDTEncounter addended by: Ramila Pineda on: 03/07/2018 3:09 PM
Actions taken: Letter status changed documented in this encounter Plan of Treatment Scheduled Orders Name Type Priority Associated Diagnoses Order S chedule Prior Auth Rad Tx Radiation Oncology Routine Tumor Desmoid Ord ered: 03/06/2018 Scheduled Referrals Name Type Priority Associated Diagnoses Order S chedule Social Work Outpatient Referral Routine Expected : office visit 03/22/2018 (clinic) (Approximate), Expires: 03/06/2021 documented as of this encounter Results MA NO CHARGE VISIT (03/08/2018 3:59 PM CDT) [...] Organization Address City/State/ZIP Code Phon e Number [facility] documented in this encounter Visit Diagnoses Diagnosis Tumor Desmoid - Primary Tumor Desmoid documented in this encounter
--- OUTSIDE RECORDS SUMMARY | 2022-03-02 16:32 | XMS_ITS | Encounter Summary ---
:1935 Author Organization [facility] Address [address] [place] [address] Care Team Providers Name Role Phone Unavailable Primary Care Provider Unavailable Reason for Visit Radiation Therapy (Routine) - Closed Specialty Diagnoses / Procedures Referred By Contact Refer red To Contact Diagnoses Tumor Desmoid Diego Ang M.D. [facility] Procedures Prior Auth Rad Tx [place] IMRT COMPLEX [address] [place] [address] Referral ID Status Reason Start Date Expiration Date Visits Requ ested Visits Authorized [id number] Closed 03/06/2018 03/06/2019 30 30 Encounter Details Date Type Department Care Team Description 03/27/2018 Hospital Encounter Department of Radiation [facility]abe [facility] [place] [address] [facility] [address] [place] [address] [place], [place] [phone] (Wo rk) [phone] Social History Tobacco Use Types Packs/Day Years [...] (ZOCOR) 40 mg 0 12/30/2017 tablet vitamins A,C,M-mbsy-rwcjxx Take by mouth. 0 08/29 (PRESERVISION AREDS) 7,160 Units-113 mg-100 Units per tablet documented as of this encounter Plan of Treatment Not on filedocumented as of this encounter Visit Diagnoses Not on filedocumented in this encounter
--- OUTSIDE RECORDS SUMMARY | 2022-03-02 16:32 | XMS_ITS | Encounter Summary ---
:1935 Author Organization [facility] Address [address] [place] [address] Care Team Providers Name Role Phone Unavailable Primary Care Provider Unavailable Reason for Visit Radiation Therapy (Routine) - Closed Specialty Diagnoses / Procedures Referred By Contact Refer red To Contact Diagnoses Tumor Desmoid Diego Ang M.D. [facility] Procedures Prior Auth Rad Tx [place] IMRT COMPLEX [address] [place] [address] Referral ID Status Reason Start Date Expiration Date Visits Requ ested Visits Authorized [id number] Closed 03/06/2018 03/06/2019 30 30 Encounter Details Date Type Department Care Team Description 04/05/2018 Hospital Encounter Department of Radiation Bernabe Ang, [facility] [place] [address] [facility] [address] [place] [address] [place], [place] [phone] (Wo rk) [phone] Social History Tobacco Use Types Packs/Day Years [...] (ZOCOR) 40 mg 0 12/30/2017 tablet vitamins A,C,H-ncah-icpaew Take by mouth. 0 08/29 (PRESERVISION AREDS) 7,160 Units-113 mg-100 Units per tablet documented as of this encounter Plan of Treatment Not on filedocumented as of this encounter Visit Diagnoses Not on filedocumented in this encounter
--- OUTSIDE RECORDS SUMMARY | 2022-03-02 16:32 | XMS_ITS | Encounter Summary ---
:1935 Author Organization [facility] Address [address] [place] [address] Care Team Providers Name Role Phone Unavailable Primary Care Provider Unavailable Reason for Referral Radiation Therapy (Routine) - Canceled Specialty Diagnoses / Procedures Referred By Contact Refer red To Contact Diagnoses Tumor Desmoid Diego [facility] M.D. 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 [facility] Procedures Management Visit [address] [place] [address] Referral ID Status Reason Start Date Expiration Date Visits V isits Requested Authorized [id number] Canceled 03/06/2018 03/06/2019 1 1 Encounter Details Date Type Department Care Team Description 04/13/2018 Hospital Encounter Department of Radiation Kale Bahena, Tumor Desmoid [facility] [place] [address] [facility] [address] [place] [id number] [phone] Social History Tobacco Use Types Packs/Day Years Used Date Smoking Tobacco: Never Assessed Sex Assigned at Date Recorded Male 09/04/2018 2:35 PM CDT documented as of this encounter Last Filed Vital Signs Vital Sign Reading Time Taken Comments Blood Pressure 111/55 04/13/2018 3:11 PM 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 0 08/29 (PRESERVISION AREDS) 7,160 Units-113 mg-100 Units per tablet documented as of this encounter Progress Notes Umu Slater P.A.-C., M.S. - 04/13/2018 4:07 PM CST SUBJECTIVE REASON FOR VISIT Evaluation for side effects while receiving radiation treatment for 1. Tumor Desmoid SUPERVISED BY: Esteban Bahena M.D. ([id number]) HISTORY OF PRESENT ILLNESS Mr. 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 ??He??is currently receiving radiation therapy to the abdominal wall mass??to a dose of 5600??cGy in 28??fractions. ??He??has received 18??of 28??fractions for a dose of 3600??cGy out of a planned total dose of 5600??cGy.??His??anticipated date of completion is April 30, 2018. He missed treatment on April 11 and due to the imaging on the treatment machine being down. The patient was seen and examined today with Dr. Bahena. The patient reports doing well overall. He reports good energy. He experienced an upset stomach and diarrhea after eating too much soup. He took Imodium one tablet followed by a second tablet a few hours later with good benefit. He has not had recurrent diarrhea or abdominal discomfort. He reports increased skin redness. He is applying Lubriderm lotion twice daily. He denies peeling of the skin. Hewears suspenders at home instead of a belt to avoid extra pressure. He has not noticed a change in the size of the abdominal mass. PATIENT REPORTED SYMPTOM SCREEN FATIGUE (Scale: 0 = no fatigue; 10 = worst fatigue you can imagine): 0 ?? PAIN (Scale: 0 = no pain; 10 = worst pain you can imagine): 0 ?? OVERALL QUALITY OF LIFE (Scale: 0 = as bad as can be; 10 = as good as can be): 8 OBJECTIVE BP 111/55 (BP Location: Left arm, Patient Position: Sitting, Cuff Size: Regular) Pulse 68 Temp 36.5 ??C (Temporal) Wt 69.5 kg BMI 22.44 kg/m? PHYSICAL EXAM General: Alert and oriented in no apparent distress. Skin: Moderate erythema of the skin over the cephalad aspect of the abdominal mass. 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 ??Intensity modulated radiotherapy to the abdominal wall tumor initiated on March 19, 2018; anticipated completion on April 25, 2018 The patient is tolerating radiation treatment well overall. He does have increased radiation dermatitis. He will apply Lubriderm lotion twice daily and Vaseline prior to bed. He was recommended to eat smaller more frequent meals. He will contact us with any questions or concerns. We will continue withradiation treatment as planned. Signed by: Umu Slater P.A.-C., M.S. 04/13/2018 4:07 PM OLL AND BENEFITS MANAGER Associated attestation - Esteban Bahena M.D. - 04/13/2018 5:03 PM PAYROLL AND BENEFITS MANAGER I saw and evaluated the patient and participated in the eduardo portions of the service. I reviewed the documentation of Umu Slater P.A.-C. and agree with the findings and plan. The patient appears well onexam. He has moderate erythema in the area the treatment field. No desquamation. He will add topicalVaseline at bedtime and continue with twice daily Lubriderm applications. He will continue with treatment as planned. documented in this encounter Plan of Treatment Scheduled Orders Name Type Priority Associated Diagnoses Order S chedule Management Visit Radiation Oncology Routine Tumor Desmoid Once for 1 Occurrences sta rting 04/13/2018 unti l 04/13/2018 documented as of this encounter Visit Diagnoses Diagnosis Tumor Desmoid documented in this encounter
--- OUTSIDE RECORDS SUMMARY | 2022-03-02 16:32 | XMS_ITS | Encounter Summary ---
:1935 Author Organization [facility] Address [address] [place] [address] Care Team Providers Name Role Phone Unavailable Primary Care Provider Unavailable Reason for Visit Radiation Therapy (Routine) - Closed Specialty Diagnoses / Procedures Referred By Contact Refer red To Contact Diagnoses Tumor Desmoid Diego Ang M.D. [facility] Procedures Prior Auth Rad Tx [place] IMRT COMPLEX [address] [place] [address] Referral ID Status Reason Start Date Expiration Date Visits Requ ested Visits Authorized [id number] Closed 03/06/2018 03/06/2019 30 30 Encounter Details Date Type Department Care Team Description 04/03/2018 Hospital Encounter Department of Radiation [facility]abe Ang, [facility] [place] [address] [facility] [address] [place] [address] [place], [place] [phone] (Wo rk) [phone] Social History Tobacco Use Types Packs/Day Years [...] (ZOCOR) 40 mg 0 12/30/2017 tablet vitamins A,C,I-rgfx-lmepsn Take by mouth. 0 08/29 (PRESERVISION AREDS) 7,160 Units-113 mg-100 Units per tablet documented as of this encounter Plan of Treatment Not on filedocumented as of this encounter Visit Diagnoses Not on filedocumented in this encounter
--- OUTSIDE RECORDS SUMMARY | 2022-03-02 16:32 | XMS_ITS | Encounter Summary ---
:1935 Author Organization [facility] Address [address] [place] [address] Care Team Providers Name Role Phone Unavailable Primary Care Provider Unavailable Reason for Referral Radiation Therapy (Routine) - Canceled Specialty Diagnoses / Procedures Referred By Contact Refer red To Contact Diagnoses Tumor Desmoid Diego Ang M.D. [facility] Procedures Management Visit [address] [place] [address] Referral ID Status Reason Start Date Expiration Date Visits V isits Requested Authorized [id number] Canceled 03/06/2018 03/06/2019 1 1 Reason for Visit Radiation Therapy (Routine) - Canceled Specialty Diagnoses / Procedures Referred By Contact Refer red To Contact Diagnoses Tumor Desmoid [facility].D. [facility] Procedures Management Visit [address] [place] [address] Referral ID Status Reason Start Date Expiration Date Visits V isits Requested Authorized [id number] Canceled 03/06/2018 03/06/2019 1 1 Encounter Details Date Type Department Care Team Description 03/21/2018 Hospital Encounter Department of Li Ang M.D. [address] [place] [address] Tumor Desmoid Radiation Oncology in [place] M.D. [address] [place] [address] Muna Tian [address] [place] [address] Social History Tobacco Use Types Packs/Day Years Used Date Smoking Tobacco: Never Assessed Sex Assigned at Date Recorded Male 09/04/2018 2:35 PM CDT documented as of this encounter Last Filed Vital Signs Vital Sign Reading Time Taken Comments Blood Pressure 126/59 03/21/2018 5:11 PM CDT Pulse 62 03/21/2018 5:11 PM CDT Temperature 36.8 ??C (98.2 ??F) 03/21/2018 5:11 PM CDT Respiratory Rate - - Oxygen Saturation - - Inhaled Oxygen Concentration - - Weight 71 kg (156 lb 8.4 oz) 03/21/2018 5:11 PM CDT Height - - Body Mass Index 22.92 03/06/2018 2:21 PM CDT documented in this encounter Medications at Time of Discharge Medication Sig Dispensed Refills Start Date End Date ADVAIR DISKUS 250-50 mcg/act 0 018 diskus inhaler albuterol (VENTOLIN HFA) 90 Inhale. 0 12/28/19 17 mcg/actuation inhaler aspirin [address] tablet Take 81 mg by 0 7 mouth. blood sugar diagnostic For Blood glucose 0 [...] simvastatin (ZOCOR) 40 mg 0 12/30/2017 tablet aspirin-caffeine (ANACIN) Take by mouth. 0 2007 400-32 mg per tablet famciclovir (FAMVIR) 500 mg 0 01/18/20 18 tablet vitamins A,C,J-jwst-msbono Take by mouth. 0 08/29 (PRESERVISION AREDS) 7,160 Units-113 mg-100 Units per tablet documented as of this encounter Progress Notes Esteban Bahena M.D. - 03/21/2018 5:11 PM CDT SUBJECTIVE REASON FOR VISIT Evaluation for side effects while receiving radiation treatment for 1. 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 He is currently receiving radiation therapy to the abdominal wall mass to a dose of 5600 cGy in 28 fractions. He has received 3 of 28 fractions for a dose of 600 cGy out of a planned total dose of 5600 cGy. His anticipated date of completion is April 25, 2018. The patient reports that he is feeling well. He has no pain. His bowel movements are normal as is his urination. He denies any nausea or vomiting. He is not utilizing a lotion on his skin as yet. PATIENT REPORTED SYMPTOM SCREEN FATIGUE (Scale: 0 = no fatigue; 10 = worst fatigue you can imagine): 0 ?? PAIN (Scale: 0 = no pain; 10 = worst pain you can imagine): 0 ?? OVERALL QUALITY OF LIFE (Scale: 0 = as bad as can be; 10 = as good as can be): 8 OBJECTIVE BP 126/59 (BP Location: Right arm, Patient Position: Sitting, Cuff Size: Small) Pulse 62 Temp 36.8 ??C (Temporal) Wt 71 kg BMI 22.92 kg/m? PHYSICAL EXAM General: Alert and oriented in no apparent distress. He is here today with his , Jana. Abdomen: There is an approximately 20 cm mass in the umbilical region of the abdomen. Overlying skinhas no erythema or desquamation. ASSESSMENT / PLAN 1. Abdominal wall desmoid tumor 2. Intensity modulated radiotherapy to the abdominal wall tumor initiated on March 19, 2018; anticipated completion on April 25, 2018 The patient is tolerating radiation treatment well overall. I asked him to begin using topical moisturizing lotion on the treatment area twice daily. He agreed to do so. He will contact us with any questions or concerns. He will continue with radiation treatment as planned. Signed by: Esteban Bahena M.D. 03/21/2018 5:27 PM documented in this encounter Plan of Treatment Scheduled Orders Name Type Priority Associated Diagnoses Order S chedule Management Visit Radiation Oncology Routine Tumor Desmoid Once for 1 Occurrences sta rting 03/21/2018 unti l 03/21/2018 documented as of this encounter Visit Diagnoses Diagnosis Tumor Desmoid documented in this encounter
--- OUTSIDE RECORDS SUMMARY | 2022-03-02 16:32 | XMS_ITS | Encounter Summary ---
:1935 Author Organization [facility] Address [address] [place] [address] Care Team Providers Name Role Phone Unavailable Primary Care Provider Unavailable Reason for Visit Radiation Therapy (Routine) - Closed Specialty Diagnoses / Procedures Referred By Contact Refer red To Contact Diagnoses Tumor Desmoid Diego Ang M.D. [facility] Procedures Prior Auth Rad Tx [place] IMRT COMPLEX [address] [place] [address] Referral ID Status Reason Start Date Expiration Date Visits Requ ested Visits Authorized [id number] Closed 03/06/2018 03/06/2019 30 30 Encounter Details Date Type Department Care Team Description 03/28/2018 Hospital Encounter Department of Radiation [facility]abe [facility] [place] [address] [facility] [address] [place] [address] [place], [place] [phone] (Wo rk) [address] [phone] Social History Tobacco Use Types Packs/Day Years [...] (ZOCOR) 40 mg 0 12/30/2017 tablet vitamins A,C,E-mvqv-orzzws Take by mouth. 0 08/29 (PRESERVISION AREDS) 7,160 Units-113 mg-100 Units per tablet documented as of this encounter Plan of Treatment Not on filedocumented as of this encounter Visit Diagnoses Not on filedocumented in this encounter
--- OUTSIDE RECORDS SUMMARY | 2022-03-02 16:32 | XMS_ITS | Encounter Summary ---
:1935 Author Organization [facility] Address [address] [place] [address] Care Team Providers Name Role Phone Unavailable Primary Care Provider Unavailable Reason for Referral Radiation Therapy (Routine) - Canceled Specialty Diagnoses / Procedures Referred By Contact Refer red To Contact Diagnoses Tumor Desmoid Diego Ang M.D. [facility] Procedures Management Visit [address] [place] [address] Referral ID Status Reason Start Date Expiration Date Visits V isits Requested Authorized [id number] Canceled 03/06/2018 03/06/2019 1 1 Reason for Visit Radiation Therapy (Routine) - Canceled Specialty Diagnoses / Procedures Referred By Contact Refer red To Contact Diagnoses Tumor Desmoid Diego Ang M.D. [facility] Procedures Management Visit [address] [place] [address] Referral ID Status Reason Start Date Expiration Date Visits V isits Requested Authorized [id number] Canceled 03/06/2018 03/06/2019 1 1 Encounter Details Date Type Department Care Team Description 04/04/2018 Hospital Encounter Department of Diego Ang Tu mor Desmoid Radiation Oncology in [place] [facility] mau [address] [facility] [address] [place] [id number] [phone] Social History Tobacco Use Types Packs/Day Years Used Date Smoking Tobacco: Never Assessed Sex Assigned at Date Recorded Male 09/04/2018 2:35 PM CDT documented as of this encounter Last Filed Vital Signs Vital Sign Reading Time Taken Comments Blood Pressure 116/57 04/04/2018 3:17 PM CDT Pulse 76 04/04/2018 3:17 PM CDT Temperature 36.7 ??C (98.1 ??F) 04/04/2018 3:17 PM CDT Respiratory Rate - - Oxygen Saturation - - Inhaled Oxygen Concentration - - Weight 69.3 kg (152 lb 12.5 oz) 04/04/2018 3:17 PM CDT Height - - Body Mass Index 22.37 [...] mg Take by mouth. 0 02/04 tablet metFORMIN XR (GLUCOPHAGE-XR) Take 750 mg by 0 750 mg 24 hr tablet mouth. NaCl 0.9 % irrigation Irrigate 20 cc each 0 09/29 nostril QID X 2 month supply simvastatin (ZOCOR) 40 mg 0 12/30/2017 tablet vitamins A,C,M-hdss-vhivyh Take by mouth. 0 08/29 (PRESERVISION AREDS) 7,160 Units-113 mg-100 Units per tablet famciclovir (FAMVIR) 500 mg 0 01/18/20 18 tablet lisinopril Take 10 mg by 0 12/31/2015 (PRINIVIL,ZESTRIL) 10 mg mouth. tablet documented as of this encounter Progress Notes Nohemy, Umu R, P.A.-C., M.S. - 04/04/2018 3:35 PM CDT SUBJECTIVE REASON FOR VISIT Evaluation for side effects while receiving radiation treatment for 1. Tumor Desmoid SUPERVISED BY: Diego Ang M.D. ([id number]) HISTORY OF PRESENT ILLNESS Mr. 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 ??He??is currently receiving radiation therapy to the abdominal wall mass??to a dose of 5600??cGy in 28??fractions. ??He??has received 13??of 28??fractions for a dose of 2600??cGy out of a planned total dose of 5600??cGy.??His??anticipated date of completion is April 25, 2018. The patient was seen and examined today with Dr. Ang. The patient reports doing well overall. He reports good energy levels. He did have an upset stomach yesterday with nausea and diarrhea. He had three episodes of diarrhea. He reports feeling better today. He had a formed bowel movement today and he now denies nausea. He denies rectal bleeding. He reports eating well overall, but he does have decreased appetite. He reports increased redness of the skin. He is applying Lubriderm lotion twice daily. PATIENT REPORTED SYMPTOM SCREEN FATIGUE (Scale: 0 = no fatigue; 10 = worst fatigue you can imagine): 0 ?? PAIN (Scale: 0 = no pain; 10 = worst pain you can imagine): 0 ?? OVERALL QUALITY OF LIFE (Scale: 0 = as bad as can be; 10 = as good as can be): 8 OBJECTIVE BP 116/57 (BP Location: Right arm, Patient Position: Sitting, Cuff Size: Small) Pulse 76 Temp 36.7 ??C (Temporal) Wt 69.3 kg BMI 22.37 kg/m? PHYSICAL EXAM General: Alert and oriented in no apparent distress. Skin: Mild erythema of the skin over the cephalad aspect of the abdominal mass. 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 ??Intensity modulated radiotherapy to the abdominal wall tumor initiated on March 19, 2018; anticipated completion on April 25, 2018 The patient is tolerating radiation treatment well overall. He will continue applying lotion twice daily to his skin. We will continue to monitor for recurrent nausea or diarrhea. He will contact us with any questions or concerns. We will continue with radiation treatment as planned. Signed by: Umu Slater P.A.-C., M.S. 04/04/2018 3:35 PM Associated attestation - Diego Ang M.D. - 04/04/2018 5:50 PM CDT I personally met with the patient and agree with the evaluation documented by Umu Slater P.A.-C. On examination, the patient appears in no distress. Diego Ang MD [facility] Radiation Therapy [place], [place] documented in this encounter Plan of Treatment Scheduled Orders Name Type Priority Associated Diagnoses Order S chedule Management Visit Radiation Oncology Routine Tumor Desmoid Once for 1 Occurrences sta rting 04/04/2018 unti l 04/04/2018 documented as of this encounter Visit Diagnoses Diagnosis Tumor Desmoid documented in this encounter
--- OUTSIDE RECORDS SUMMARY | 2022-03-02 16:32 | XMS_ITS | Encounter Summary ---
:1935 Author Organization [facility] Address [address] [place] [address] Care Team Providers Name Role Phone Unavailable Primary Care Provider Unavailable Encounter Details Date Type Department Care Team Description 03/08/2018 Ancillary Procedure Department of Oncology Social History Tobacco Use Types Packs/Day Years Used Date Smoking Tobacco: Never Assessed Sex Assigned at Date Recorded Male 09/04/2018 2:35 PM CDT documented as of this encounter Plan of Treatment Not on filedocumented as of this encounter Procedures Procedure Name Priority Date/Time Associated Diagnosis Comme nts ONCOLOGY IMAGE EXAM Routine 03/08/2018 1:40 PM Re sults for this CDT procedure are i n the results section. documented in this encounter Results ONCOLOGY IMAGE EXAM (03/08/2018 1:40 PM CDT) Specimen (Source) Anatomical Collection Method Collection Time Re ceived Time Location / / Volume Laterality 03/08/2018 1:38 PM CDT Narrative [facility] - 03/08/2018 1:40 PM CDT This order has been created and auto-finalized to support the import of images acquired without order. The clini alta documentation to support these images can be found on the encounter siobhan t produced images. Provider Not In System IMG NON RAD IMAGING PROCEDUR ES Performing Organization Address City/State/ZIP Code Phon e Number [facility] NA documented in this encounter Visit Diagnoses Not on filedocumented in this encounter
--- OUTSIDE RECORDS SUMMARY | 2022-03-02 16:32 | XMS_ITS | Encounter Summary ---
:1935 Author Organization [facility] Address [address] [place] [address] Care Team Providers Name Role Phone Unavailable Primary Care Provider Unavailable Reason for Visit Radiation Therapy (Routine) - Closed Specialty Diagnoses / Procedures Referred By Contact Refer red To Contact Diagnoses Tumor Desmoid Diego Ang M.D. [facility] Procedures Prior Auth Rad Tx [place] IMRT COMPLEX [address] [place] [address] Referral ID Status Reason Start Date Expiration Date Visits Requ ested Visits Authorized [id number] Closed 03/06/2018 03/06/2019 30 30 Encounter Details Date Type Department Care Team Description 04/10/2018 Hospital Encounter Department of Radiation Brenabe Ang, [facility] [place] [address] [facility] [address] [place] [address] [place], [place] [phone] (Wo rk) [phone] [phone] Social History Tobacco Use Types Packs/Day Years [...] (ZOCOR) 40 mg 0 12/30/2017 tablet vitamins A,C,W-gtmo-wqciim Take by mouth. 0 08/29 (PRESERVISION AREDS) 7,160 Units-113 mg-100 Units per tablet documented as of this encounter Plan of Treatment Not on filedocumented as of this encounter Visit Diagnoses Not on filedocumented in this encounter
--- OUTSIDE RECORDS SUMMARY | 2022-03-02 16:32 | XMS_ITS | Encounter Summary ---
:1935 Author Organization [facility] Address [address] [place] [address] Care Team Providers Name Role Phone Unavailable Primary Care Provider Unavailable Reason for Visit Radiation Therapy (Routine) - Closed Specialty Diagnoses / Procedures Referred By Contact Refer red To Contact Diagnoses Tumor Desmoid Diego nAg M.D. [facility] Procedures Prior Auth Rad Tx [place] IMRT COMPLEX [address] [place] [address] Referral ID Status Reason Start Date Expiration Date Visits Requ ested Visits Authorized [id number] Closed 03/06/2018 03/06/2019 30 30 Encounter Details Date Type Department Care Team Description 03/19/2018 Hospital Encounter Department of Radiation Bernabe Ang, [facility] [place] [address] [facility] [address] [place] [address] [place], [place] [phone] (Wo rk) [phone] Social History Tobacco Use Types Packs/Day Years [...] (ZOCOR) 40 mg 0 12/30/2017 tablet vitamins A,C,W-dbpv-dgjzyx Take by mouth. 0 08/29 (PRESERVISION AREDS) 7,160 Units-113 mg-100 Units per tablet documented as of this encounter Plan of Treatment Not on filedocumented as of this encounter Visit Diagnoses Not on filedocumented in this encounter
--- OUTSIDE RECORDS SUMMARY | 2022-03-02 16:32 | XMS_ITS | Encounter Summary ---
:1935 Author Organization [facility] Address [address] [place] [address] Care Team Providers Name Role Phone Unavailable Primary Care Provider Unavailable Reason for Visit Radiation Therapy (Routine) - Closed Specialty Diagnoses / Procedures Referred By Contact Refer red To Contact Diagnoses Tumor Desmoid Diego Ang M.D. [facility] Procedures Prior Auth Rad Tx [place] IMRT COMPLEX [address] [place] [address] Referral ID Status Reason Start Date Expiration Date Visits Requ ested Visits Authorized [id number] Closed 03/06/2018 03/06/2019 30 30 Encounter Details Date Type Department Care Team Description 03/21/2018 Hospital Encounter Department of Radiation [facility]abe [facility] [place] [address] [facility] [address] [place] [address] [place], [place] [phone] (Wo rk) [phone] Social History Tobacco Use Types Packs/Day Years [...] (ZOCOR) 40 mg 0 12/30/2017 tablet vitamins A,C,L-dnwu-anvikz Take by mouth. 0 08/29 (PRESERVISION AREDS) 7,160 Units-113 mg-100 Units per tablet documented as of this encounter Plan of Treatment Not on filedocumented as of this encounter Visit Diagnoses Not on filedocumented in this encounter
--- OUTSIDE RECORDS SUMMARY | 2022-03-02 16:32 | XMS_ITS | Encounter Summary ---
:1935 Author Organization [facility] Address [address] [place] [address] Care Team Providers Name Role Phone Unavailable Primary Care Provider Unavailable Reason for Visit Radiation Therapy (Routine) - Closed Specialty Diagnoses / Procedures Referred By Contact Refer red To Contact Diagnoses Tumor Desmoid Diego Ang M.D. [facility] Procedures Prior Auth Rad Tx [place] IMRT COMPLEX [address] [place] [address] Referral ID Status Reason Start Date Expiration Date Visits Requ ested Visits Authorized [id number] Closed 03/06/2018 03/06/2019 30 30 Encounter Details Date Type Department Care Team Description 04/04/2018 Hospital Encounter Department of Radiation Bernabe Ang[facility] [place] [address] [facility] [address] [place] [address] [place], [place] [phone] (Wo rk) [phone] Social History Tobacco Use Types Packs/Day Years [...] (ZOCOR) 40 mg 0 12/30/2017 tablet vitamins A,C,G-jpul-fjftlj Take by mouth. 0 08/29 (PRESERVISION AREDS) 7,160 Units-113 mg-100 Units per tablet documented as of this encounter Plan of Treatment Not on filedocumented as of this encounter Visit Diagnoses Not on filedocumented in this encounter
--- OUTSIDE RECORDS SUMMARY | 2022-03-02 16:32 | XMS_ITS | Encounter Summary ---
:1935 Author Organization [facility] Address [address] [place] [address] Care Team Providers Name Role Phone Unavailable Primary Care Provider Unavailable Reason for Referral Radiation Therapy (Routine) - Canceled Specialty Diagnoses / Procedures Referred By Contact Refer red To Contact Diagnoses Tumor Desmoid Diego Ang M.D. [facility] Procedures Management Visit [address] [place] [address] Referral ID Status Reason Start Date Expiration Date Visits V isits Requested Authorized [id number] Canceled 03/06/2018 03/06/2019 1 1 Reason for Visit Radiation Therapy (Routine) - Canceled Specialty Diagnoses / Procedures Referred By Contact Refer red To Contact Diagnoses Tumor Desmoid Diego Ang M.D. [facility] Procedures Management Visit [address] [place] [address] Referral ID Status Reason Start Date Expiration Date Visits V isits Requested Authorized [id number] Canceled 03/06/2018 03/06/2019 1 1 Encounter Details Date Type Department Care Team Description 03/28/2018 Hospital Encounter Department of Diego Ang Tu mor Desmoid Radiation Oncology in [place] [facility] mau [address] [facility] [address] [place] [phone] [phone] Social History Tobacco Use Types Packs/Day Years Used Date Smoking Tobacco: Never Assessed Sex Assigned at Date Recorded Male 09/04/2018 2:35 PM CDT documented as of this encounter Last Filed Vital Signs Vital Sign Reading Time Taken Comments Blood Pressure 112/63 03/28/2018 9:56 AM CDT Pulse 60 03/28/2018 9:56 AM CDT Temperature 36.4 ??C (97.5 ??F) 03/28/2018 9:56 AM CDT Respiratory Rate - - Oxygen Saturation - - Inhaled Oxygen Concentration - - Weight 70.2 kg (154 lb 12.2 oz) 03/28/2018 9:56 AM CDT Height - - Body Mass Index 22.66 03/06/2018 2:21 PM CDT documented in this [...] (ZOCOR) 40 mg 0 12/30/2017 tablet vitamins A,C,C-uaot-eadatb Take by mouth. 0 08/29 (PRESERVISION AREDS) 7,160 Units-113 mg-100 Units per tablet documented as of this encounter Progress Notes Diego Ang M.D. - 03/28/2018 11:20 AM CDT SUBJECTIVE REASON FOR VISIT Evaluation for side effects while receiving radiation treatment for 1. 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 He is currently receiving radiation therapy to the abdominal wall mass to a dose of 5600 cGy in 28 fractions. He has received 7 of 28 fractions for a dose of 1400 cGy out of a planned total dose of 5600 cGy. His anticipated date of completion is April 25, 2018. He experienced diarrhea after eating a pickle on Monday. Other than that he has had no GI problems. He denies abdominal cramps. He is averaging 1 bowel movement per day. PATIENT REPORTED SYMPTOM SCREEN FATIGUE (Scale: 0 = no fatigue; 10 = worst fatigue you can imagine): 0 ?? PAIN (Scale: 0 = no pain; 10 = worst pain you can imagine): 0 ?? OVERALL QUALITY OF LIFE (Scale: 0 = as bad as can be; 10 = as good as can be): 8 OBJECTIVE BP 112/63 (BP Location: Right arm, Patient Position: Sitting, Cuff Size: Regular) Pulse 60 Temp 36.4 ??C (Temporal) Wt 70.2 kg BMI 22.66 kg/m? PHYSICAL EXAM General: Alert and oriented in no apparent distress. Abdomen: The abdominal soft tissue mass is unchanged. Skin: The skin of the abdomen has a hint of erythema over the cephalad aspect of the abdominal mass. 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 Intensity modulated radiotherapy to the abdominal wall tumor initiated on March 19, 2018; anticipated completion on April 25, 2018 The patient is tolerating radiation treatment well overall. He is having no significant acute toxicity. He will contact us with any questions or concerns. We will continue with radiation treatment as planned. Signed by: Diego Ang M.D. 03/28/2018 11:20 AM [facility] [address] [place] [address] FAX: [phone] documented in this encounter Plan of Treatment Scheduled Orders Name Type Priority Associated Diagnoses Order S chedule Management Visit Radiation Oncology Routine Tumor Desmoid Once for 1 Occurrences sta rting 03/28/2018 unti l 03/28/2018 documented as of this encounter Visit Diagnoses Diagnosis Tumor Desmoid documented in this encounter
--- NOTE | 2022-03-02 16:43 | ED.NURSE ---
dr zamora in room explaining plan.
[2022-03-02 17:07] VITALS: BP 182/92; PULSE 73; RESP 18; TEMP 36.6; O2SAT 97
--- NOTE | 2022-03-02 21:30 | ED.GENADULT ---
HPI - General Adult General Date Seen: 03/02/22 Chief complaint: Back Injury/Pain Stated complaint: sharp pain below ribs on left side Time Seen by Provider: 03/02/22 16:04 Source: patient and family History of Present Illness HPI narrative: Patient is an 86-year-old male who is here with his daughter for re-evaluation after being seen here few days ago with pain in the posterior left pelvic area. He was caring a ladder he says which rubbed against his pelvis posteriorly. Since then he has had pain in this 1 spot. He was seen here, had a CT scan which was unrevealing. He was given lidocaine patches and has been using Tylenol, but his daughter says he has been complaining of pretty severe pain. He tells me when he is standing or walking he really does not have a lot of pain at all but when he sitting it seems to hurt quite a bit. It is a very isolated spot of point tenderness. His daughter says that somebody mentioned that maybe it was a bladder infection so she thought she better come back and have him checked out, but he tells me that he does not have any bladder symptoms at all. No dysuria, frequency, urgency, no hematuria. No fevers, abdominal pain or flank pain. Related Data Home Medications Medication Instructions Recorded Confirmed fluticasone 250 mcg-salmeterol 50 1 inh inhalation Q12H 02/28/22 03/02/22 mcg/dose blistr powdr for inhalation hydrochlorothiazide 25 mg tablet 25 mg PO DAILY 02/28/22 03/02/22 levocetirizine 5 mg tablet 5 mg PO DAILY 02/28/22 03/02/22 metformin 750 mg tablet,extended 1,500 mg PO DAILY 02/28/22 03/02/22 release 24 hr simvastatin 40 mg tablet 40 mg PO DAILY 02/28/22 03/02/22 Allergies Allergy/AdvReac Type Severity Reaction Status Date / Time No Known Drug Allergies Allergy Verified 02/28/22 15:41 Review of Systems Status of ROS: Reports: 10 or more systems reviewed and unremarkable except as noted in History and below [facility] Social History Smoking Status: Smoker, status unknown Second hand tobacco smoke exposure: No How often do you have a drink containing alcohol: never AUDIT-C Alcohol total score: 0 Non-prescribed substance use: denies use service: No Exam Narrative: Exam Narrative: Vital signs reviewed In general, an alert, nontoxic elderly male. Looks comfortable at this time. Heart regular rate and rhythm Lungs clear. No CVA tenderness. Abdomen, soft nontender. Extremities: Well perfused. Point tenderness over the posterior aspect of the iliac spine on the left. No overlying erythema or rash. Does not seem to align exactly with the SI joint. Free range of motion of the hips. Gait is normal. No trochanteric bursa tenderness. Skin: Warm and dry. No rash or lesion. Const: Vital Signs, click to edit/add: Vital Signs - 24 hr 03/02/22 11:45 03/02/22 17:07 Temperature 98.1 F 97.8 F Pulse Rate [Right Pulse Oximeter] 69 73 Respiratory Rate 16 18 Blood Pressure [Ri ght Upper Arm] 142/67 H 182/92 H Pulse Oximetry 97 97 Oxygen Delivery Me thod Room Air Room Air Documenting provider has reviewed patient's vital signs: yes Course Course Hospital Course: Discussed with them that we could certainly do a urinalysis here but I think in all honesty that any abnormalities would be incidental and not related to his current symptoms. He has very easily reproducible pain in 1 spot right over the bony pelvis. He did have a lidocaine patch in place at the time of my exam, but I noted that it was well away from the spot of his pain, so not sure how much relief it would have been providing. He says that he put in place himself any really could not see where he was putting it. He lives at home with his , his daughter seems to suggest that she isn't entirely reliable in terms of helping with that sort of thing. They both seem to feel that Tylenol just is an adequately covering his pain and while they did not want to use narcotics last time they were here, seem to feel that he needs something more than what he has right now. In terms of the cause of his pain, this seems to be entirely musculoskeletal. There seems to be something inflammatory going on. I did review his CT scan, and I do not see anything wearing the abnormal over that part of the pelvis although there is 1 cut were there is a tiny chip which may be could represent some sort of avulsion. I am going to put him on a few days of prednisone, and I have given him oxycodone to be used for uncontrolled pain. I have asked him to continue with Tylenol, 1000 mg 3 times daily and then try a half tablet of oxycodone for uncontrolled pain. We reviewed how to take this, and if he is having significant side effects that he should not continue to take it. I wrote out clear instructions for both the prednisone and the oxycodone so that he does not get confused between the 2. If no improvement over the next few days to week, they could follow up with Orthopedics to see if there is any kind of injection that might be helpful. Vital Signs Vital signs: Initial Vital Signs Temperature 98.1 F 03/02/22 11:45 Temperature Source Temporal Artery Scan 03/02/22 11:45 Pulse Rate 69 03/02/22 11:45 Pulse Rhythm 03/02/22 11:45 Respiratory Rate 16 03/02/22 11:45 Blood Pressure 142/67 H 03/02/22 11:45 Blood Pressure Mean 92 03/02/22 11:45 Blood Pressure Position Sitting 03/02/22 11:45 Pulse Oximetry 97 03/02/22 11:45 Oxygen Delivery Method 03/02/22 11:45 Vital Signs Temperature 98.1 F 03/02/22 11:45 Pulse Rate 69 03/02/22 11:45 Respiratory Rate 16 03/02/22 11:45 Blood Pressure 142/67 H 03/02/22 11:45 Pulse Oximetry 97 03/02/22 11:45 Oxygen Delivery Method 03/02/22 11:45 Temperature 97.8 F 03/02/22 17:07 Pulse Rate 73 03/02/22 17:07 Respiratory Rate 18 03/02/22 17:07 Blood Pressure 182/92 H 03/02/22 17:07 Pulse Oximetry 97 03/02/22 17:07 Oxygen Delivery Method 03/02/22 17:07 Discharge Plan Discharge Clinical Impression: Bony pelvic pain Patient Disposition: Home, Self-Care Condition: Stable Instructions: Acute Low Back Pain (ED) Additional Instructions: Prednisone: 2 20 mg tablets once a day for 5 days Tylenol: 2 500 mg tablets 3 times daily Oxycodone: 1/2 of a 5 mg tablet up to 3 times daily as needed for uncontrolled pain. If you tolerate this does without significant symptoms, but continued to have uncontrolled pain, you can try taking a full 5 mg tablet. If you have significant symptoms of dizziness, lightheadedness, balance problems, confusion, excessive sleepiness with the 2.5 mg dose, you should not take this medication. In that case, follow-up with orthopedics or primary care for additional help. Prescriptions: No Action fluticasone propion-salmeterol 250-50 mcg/dose blister with device 1 inh INHALATION Q12H simvastatin 40 mg tablet 40 mg PO DAILY hydrochlorothiazide 25 mg tablet 25 mg PO DAILY metformin 750 mg tablet extended release 24 hr 1,500 mg PO DAILY levocetirizine 5 mg tablet 5 mg PO DAILY Follow Up/Referrals: Reagan Medina MD [Primary Care Provider] - Stand Alone Forms: [employer] Info Instructions
== END 2022-03-02 17:08 | disposition home or self-care (01) ==
PROVIDERS: Emergency Provider Emergency Medicine; PCP Family Medicine
DX: R10.2 Pelvic and perineal pain (principal)
CPT/HCPCS: 99283; 99284

== ENCOUNTER 2022-05-03 09:00 | Outpatient (RCR) | payer OTHER, SELFPAY | END 2022-09-23 09:55 | disposition home or self-care (01) | PROVIDERS: PCP Family Medicine; Visit Provider Family Medicine | DX: M25.552 Pain in left hip (principal); Z51.89 Encounter for other specified aftercare | CPT/HCPCS: 97110; 97140; 97162 ==

== ENCOUNTER 2024-01-04 12:42 | Emergency (ER) | payer MEDICARE, SELFPAY ==
[2024-01-04 12:47] VITALS: BP 124/74; PULSE 77; RESP 20; TEMP 36.4; O2SAT 96
--- NOTE | 2024-01-04 13:13 | ED_ITS ---
HPI - General Adult General Chief complaint: Fall/Minor Trauma Stated complaint: fell last night in bathroom, left eye irritated Time Seen by Provider: 01/04/24 12:46 History of Present Illness HPI narrative: This 88-year-old male comes in with his son. He states that he was harvesting some raspberries about a week ago and then developed irritation in his eyes. He has been taking Benadryl since then and now notices some episodes of dizziness. He did fall yesterday as a result of this. He states that he is taking 2 Benadryl tablets at a time and it makes him feel off balance temporarily. He does reports some purulent discharge from both eyes and has to clean his eyes in the morning in order to open them. Yesterday he fell but did not have loss of consciousness. He has an abrasion on the left side of his face and some skin tears on his left arm. He does not report any headache. He is able to get up and ambulate normally. He is not on any anticoagulants. Related Data Home Medications ?Medication ?Instructions ?Recorded ?Confirmed fluticasone 250 mcg-salmeterol 50 1 inh inhalation Q12H 02/28/22 03/02/22 mcg/dose blistr powdr for inhalation hydrochlorothiazide 25 mg tablet 25 mg PO DAILY 02/28/22 03/02/22 levocetirizine 5 mg tablet 5 mg PO DAILY 02/28/22 03/02/22 metformin 750 mg tablet,extended 1,500 mg PO DAILY 02/28/22 03/02/22 release 24 hr simvastatin 40 mg tablet 40 mg PO DAILY 02/28/22 03/02/22 Previous Rx's ?Medication ?Instructions ?Recorded Test Strips #1 ea 01/04/24 polymyxin B sulfate 10,000 1 drp ophthalmic (eye) Q3H 7 days 01/04/24 unit-trimethoprim 1 mg/mL eye drops #10 mL Allergies Allergy/AdvReac Type Severity Reaction Status Date / Time pistachio nut Allergy Unknown Verified 01/04/24 12:57 raspberry Allergy Unknown Verified 01/04/24 12:57 Review of Systems Status of ROS: Reports: 10 or more systems reviewed and unremarkable except as noted in History and below Narrative: Constitutional: No fevers, no weight gain or loss. Eyes: Bilateral eye discharge and irritation with blurry vision at times. HENT: No congestion, no sore throat, no ear pain. Cardiovascular: No chest pain, no palpitations. Respiratory: No shortness of breath, no wheezes, no cough. Gastrointestinal: No abdominal pain, no vomiting, no diarrhea. Genitourinary: No dysuria, no hematuria. Musculoskeletal: Normal range of motion. Skin: No rashes, no pruritis. Neurological: No weakness, sensory change, speech change. Dizziness episodes as described above. Endo/Heme/Allergies: No bruising or bleeding. No polydipsia. Pysch: no suicidality, no anxiety, no insomnia. All other systems reviewed and are negative. [facility] Social History Smoking Status: Smoker, status unknown Second hand tobacco smoke exposure: No How often do you have a drink containing alcohol: never AUDIT-C Alcohol total score: 0 Non-prescribed substance use: denies use service: No Exam Narrative: Exam Narrative: Constitutional: Well-developed, well-nourished, no acute distress. HEENT: Superficial abrasion on the left cheek. No swelling. Eyes bilaterally are injected with increased tearing and some purulence. Neck: Normal range of motion. Nontender. Supple. Heart: Regular. No murmurs. Normal rate. Intact distal pulses. Lungs: Clear to auscultation. No chest discomfort. No wheezes, rhonchi, or rales. Abdomen: Normal bowel sounds. Nontender. No rebound tenderness. Genitalia: Deferred. Back: No midline tenderness. Normal range of motion. Extremities: Normal range of motion. Two skin tears on the left forearm. Skin: Intact. No rash. Warm. No erythema or pallor. Neurologic: No altered sensation. No weakness. Alert and oriented. Psychiatric: No suicidality. No anxiety or depression. No insomnia. Nursing notes and vitals signs are reviewed. Const: Vital Signs, click to edit/add: Vital Signs - 24 hr 01/04/24 12:47 Temperature 97.6 F Pulse Rate [Pulse Oximeter] 77 Respiratory Rate 20 Blood Pressure [Le ft Upper Arm] 124/74 Pulse Oximetry 96 Oxygen Delivery Me thod Room Air Course Vital Signs Vital signs: Initial Vital Signs Temperature 97.6 F 01/04/24 12:47 Temperature Source Temporal Artery Scan 01/04/24 12:47 Pulse Rate 77 01/04/24 12:47 Respiratory Rate 20 01/04/24 12:47 Blood Pressure 124/74 01/04/24 12:47 Blood Pressure Mean 90 01/04/24 12:47 Blood Pressure Position Supine 01/04/24 12:47 Pulse Oximetry 96 01/04/24 12:47 Oxygen Delivery Method Room Air 01/04/24 12:47 Vital Signs Temperature 97.6 F 01/04/24 12:47 Pulse Rate 77 01/04/24 12:47 Respiratory Rate 20 01/04/24 12:47 Blood Pressure 124/74 01/04/24 12:47 Pulse Oximetry 96 01/04/24 12:47 Oxygen Delivery Method Room Air 01/04/24 12:47 Temperature 97.6 F 01/04/24 12:47 Pulse Rate 77 01/04/24 12:47 Respiratory Rate 20 01/04/24 12:47 Blood Pressure 124/74 01/04/24 12:47 Pulse Oximetry 96 01/04/24 12:47 Oxygen Delivery Method Room Air 01/04/24 12:47 Medical Decision Making MDM Narrative Medical decision making narrative: This patient is reporting some episodes of dizziness after taking Benadryl. He was thinking that he is having an allergic reaction to some encounter with raspberries about a week ago. He is having matting and purulent discharge from both eyes more typical of a bacterial conjunctivitis. The patient's exam is oth erwise reassuring except for some superficial abrasions on his left cheek and 2 skin tears on his forearm that are not in need of any repair. I advised him to discontinue Benadryl and use [id number] medicines such as Claritin, Zyrtec, or Betsey instead. He received a prescription for Polytrim ophthalmic solution. His son states that they switched insurance and are having a hard time filling prescriptions with delays involved so he has not had any test strips for about 3 weeks. His glucose reading today he is 218. Lab Data Labs: Lab Results 01/04/24 Range/Units 13:12 POC Glucose 218 H (60-115) mg/dl Discharge Plan Discharge Clinical Impression: Conjunctivitis, Skin tear of left upper extremity Patient Disposition: Home w/ Parent or Adult Condition: Stable Additional Instructions: Take medicine as prescribed. Follow up with MD or return if worsening. Prescriptions: New (DME) Test Strips Misc See Rx Instructions .Route Qty: 1 0RF Rx Instructions: As directed polymyxin B sulf-trimethoprim 10,000 unit- 1 mg/mL drops 1 drp ophthalmic (eye) Q3H 7 Days Qty: 10 0RF Rx Instructions: while awake; do not exceed 6 doses in 24 hours No Action fluticasone propion-salmeterol 250-50 mcg/dose blister with device 1 inh INHALATION Q12H simvastatin 40 mg tablet 40 mg PO DAILY hydrochlorothiazide 25 mg tablet 25 mg PO DAILY metformin 750 mg tablet extended release 24 hr 1,500 mg PO DAILY levocetirizine 5 mg tablet 5 mg PO DAILY Follow Up/Referrals: Reagan Medina MD [Primary Care Provider] - Stand Alone Forms: [employer] Info Instructions
[2024-01-04 13:26] LABS: Glucose, Point-of-Care* 218 mg/dl (60-115)
--- OUTSIDE RECORDS SUMMARY | 2024-01-04 14:02 | XMS_ITS | Clinical Summary ---
Author Organization [facility] Address [place], [place] [address] Care Team Providers Care [employer] Name Role Phone Stephanie De Santiago MD Unavailable VoReagan li MD Primary Care Provider + Allergies Active Allergy Reactions Criticality Noted Date Comments Aspirin, Buffered Chest Pain 07/29/2009 Taking anacin without concerns Tree Nut Edema 06/06/2008 Swelling in face Medications Medication Sig Dispensed Refills Start Date End Date Status PEAK FLOW METERIndications:Un specified asthma(493.90) use daily to assess asthma tx. 1 0 9 Active OCUVITE PRESERVISION TAB take 2 in the morning and 2 at night 0 9 Active aspirin (ECOTRIN) 81 mg enteric coated tablet Take 1 tablet by mouth once daily with a meal. 0 7 Active Blood-Glucose Sensor deviIndications:Ayaka betes mellitus without complication (HC) As directed. 1 Device 8 Active Blood Glucose Control High&Low solnIndications:Ayaka betes mellitus without complication (HC) Use with glucometer 1 Bottle 9 Active TRUEplus Lancets 33 gauge miscIndications:Ayaka betes mellitus without complication (HC) TEST BLOOD SUGAR ONE TIME DAILY DIRECTED 100 Each 3 3 Active True Metrix Air Glucose MeterIndications:Di abetes mellitus without complication (HC) USE DIRECTED 1 Kit 3 4 Active levocetirizine (XYZAL) 5 mg tab tabletIndications:N on-seasonal allergic rhinitis due to pollen,Intermittent asthma, unspecified asthma severity, unspecified whether complicated Take 1 Tablet (5 mg) by mouth once daily in the evening. 90 Tablet 1 4 Active metFORMIN (GLUCOPHAGE XR) 750 mg Extended-Release tabletIndications:D iabetes mellitus without complication (HC) TAKE 2 TABLETS (1,500 MG) ONE TIME DAILY WITH EVENING MEAL 180 Tablet 1 4 Active blood sugar diagnostic (True Metrix Glucose Test Strip) stripIndications:Di abetes mellitus without complication (HC) TEST BLOOD SUGAR ONE TIME DAILY 100 Each 3 4 Active albuterol HFA (PRO-AIR; VENTOLIN; PROVENTIL) 90 mcg/actuation inhalerIndications: Moderate persistent asthma without complication INHALE 1 TO 2 PUFFS EVERY 6 HOURS NEEDED 8.5 Each 4 Active simvastatin (ZOCOR) 40 mg tabletIndications:H yperlipidemia, unspecified hyperlipidemia type TAKE 1 TABLET BY MOUTH AT BEDTIME 30 Tablet 4 Active hydroCHLOROthiazide 25 mg tabletIndications:E ssential hypertension TAKE 1 TABLET BY MOUTH EVERY DAY 30 Tablet 4 Active fluticasone propion-salmeteroL (ADVAIR) 250-50 mcg/Dose diskus inhalerIndications: Moderate persistent asthma without complication INHALE 1 PUFF BY MOUTH TWO TIMES DAILY. 60 Each 4 Active simvastatin (ZOCOR) 40 mg tabletIndications:H yperlipidemia, unspecified hyperlipidemia type Take 1 Tablet (40 mg) by mouth at bedtime. 90 Tablet 4 12/27/19 24 Discontinued fluticasone propion-salmeteroL (ADVAIR) 250-50 mcg/Dose diskus inhalerIndications: Moderate persistent asthma without complication Inhale 1 Puff by mouth two times daily. 180 Each 4 01/01/20 24 Discontinued hydroCHLOROthiazide 25 mg tabletIndications:E ssential hypertension Take 1 Tablet (25 mg) by mouth once daily. 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 Patient without symptoms when taking advair once daily. Allergic rhinitis, cause unspecified 03/06/2008 Type II or unspecified type diabetes mellitus without mention of complication, not stated as uncontrolled 07/21/2006 Other and unspecified hyperlipidemia Unspecified essential hypertension Resolved Problems Problem Noted Date Diagnosed Date Resolved Date Anticoagulation management encounter 10/17/2018 11/17/2020 Inguinal hernia without ment ion of obstruction or gangrene, recurrent unilateral or unspecified 09/01/2005 01/01/2013 Encounters Date Type Department Care Team Description 01/04/2024 Nurse Triage [facility] [address] [place] [address] Reagan Medina MD Dizzy 12/30/2023 Refill [facility] [address] [place] [address] Reagan Medina MD Refill Request (Hydrochlorothiazide , Fluticasone Propion-salmeterol) 12/25/2023 Refill [facility] [address] [place] [address] Reagan Medina MD Refill Request (Simvastatin) 11/23/2023 Patient Outreach [facility] Care Management - Care Management Navigation/[facility] [address] [place] [id number] [address] [facility] (Care Guide Annual Medicare Wellness Visit outreach/) 10/26/2023 Refill [facility] [address] [place] [address] Reagan Medina MD Refill Request (Albuterol Hfa) 10/20/2023 Refill [facility] [address] [place] [address] Reagan Medina MD Refill Request (True Metrix Air Glucose Meter) from Last 3 Months Immunizations Name Administration Dates Next Due COVID-19 vaccine ([employer] NTech 30mcg/0.3mL) 12YO+ JAYLON-SUCROSE PF, MDV 11/23/2021 COVID-19 vaccine ([employer] NTech 30mcg/0.3mL) PF, MDV 05/19/2021,08/06/2020,07/16/2020 Influenza, High-dose Inactivated 05/12/2016,05/05,04/28/2014 Influenza, IIV3 (Age >=3 years) 03/10/2009,04/17 Influenza, Inactivated AIIV4 (Age 65+ Years) Preserv Free 05/19/2021,05/14/2020 Influenza, Inactivated IIV3 (Age 65+ Years) Preserv Free 07/02/2019,03/08/2017 Pneumococcal Poly,23-Valent (Pneumovax) 11/12/19 10 Pneumococcal conj 13-Valent (Prevnar 13) 015,04/28/2014 Td (Age >=7 Years) 02/03/2004 Tdap 03/29/2013 Family History Medical History Relation Name Comments Stroke Father age 82 Diabetes Mother dementia. at age 94 Allergies Son antwon jj s Relation Name Status Comments Father Mother Son Social History Tobacco Use Types Packs/Day Years Used Date Smoking Tobacco: Never Smokeless Tobacco: Never Tobacco Cessation:Counseling Given: Yes Alcohol Use Standard Drinks/Week Comments Yes 0 (1 standard drink = 0.6 oz pur e alcohol) one cocktail rarely PHQ-2 Answer Date Recorded PHQ-2 TOTAL SCORE 0 05/19/2021 Social Connections Answer Date Recorded Frequency of Communication with Friends and Fami ly 0 02/06/2023 Financial Resource Strain Answer Date R ecorded Difficulty of Paying Living Expenses 3 02/06/2023 Difficulty of Paying Living Expenses Not on file 02/06/2023 Food Insecurity Answer Date Recorded Worried About Running Out of Food in the Last Ye ar 1 02/06/2023 Transportation Needs Answer Date Record ed Lack of Transportation (Medical) 1 02/06/2023 Housing Stability Answer Date Recorded Unable to Pay for Housing in the Last Year 1 02/06/2023 Sex and Gender Information Value Date Recorded Sex Assigned at Not on file Gender Identity Not on file Sexual Orientation Not on file Obstetrics History Last Filed Vital Signs Vital Sign Reading Time Taken Comments Blood Pressure 125/54 02/07/2023 4:36 PM CDT Pulse 79 02/07/2023 4:36 PM CDT Temperature 37.7 ??C (99.8 ??F) 06/23/2022 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 Respiratory Rate 24 06/23/2022 10:5 9 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 Oxygen Saturation 96% 02/07/2023 4:36 PM CDT Inhaled Oxygen Concentration - - Weight 63.8 kg (140 lb 11.2 oz) 02/07/2023 4:36 PM CDT Height 172.7 cm (5' 8) 02/07/2023 4:36 PM CDT Body Mass Index 21.39 02/07/2023 4:36 PM CDT Plan of Treatment Upcoming Encounters Date Type Department Care Team (Late st Contact Info) Description 01/23/2024 4:10 PM CDT Office Visit [facility] [address] [place] [address] Reagan Medina MD [address] [place] [address] Health Maintenance Due Date Last Done Comments Zoster (shingles) series for age 50+ (1 of 2) 1986 Medicare Wellness for age 65+ 03/09/2018, 12/31/2015, 04/28/2014, Additional history exists Depression screening for age 12+ 05/19/2022 05/19/2021, 05/15/2020, 05/14/2020, Additional history exists COVID-19 vaccine series ( season) 2023 11/23/2021, 05/19/2021, 08/06/2020, Additional history exists Tetanus booster 03/29/2023 03/29/2013, 02/03/2004 Influenza for age 65+ 02/04/2024 05/19/2021 , 05/14/2020, 07/02/2019, Additional history exists BMI (ht and wt on same day) for age 18+ 02/08/2024 02/07/2023, 03/16/2022, 03/07/2022, Additional history exists Tdap Completed 03/29/2013 Pneumococcal series for age 65+ Completed 05/18/2015, 04/28/2014, 11/11/2009 Care Teams [employer] Relationship Specialty Start Date End Date Votel, Reagan Page MD [address] [place] [address] PCP - General Family Practice 12/25/12 Stephanie De Santiago MD Ophthalmology Surgery 12/28/11
== END 2024-01-04 14:07 | disposition home or self-care (01) ==
PROVIDERS: Emergency Provider Emergency Medicine Emergency Medical Services; PCP Family Medicine
DX: B30.9 Viral conjunctivitis, unspecified (principal); S51.812A Laceration without foreign body of left forearm, initial encounter; W19.XXXA Unspecified fall, initial encounter
CPT/HCPCS: 82947; 99283; 99284

== ENCOUNTER 2025-03-05 16:47 | Inpatient (IN) | payer MEDICARE, SELFPAY ==
[2025-03-05] VITALS (7 sets, daily range): BP systolic 108–145; BP diastolic 76–97; PULSE 72–98; RESP 16–18; TEMP 36.2–36.8; O2SAT 95–100; BMI 20.9; BMI 18.1
--- NOTE | 2025-03-05 | CRLHL7_ITS ---
For Patients: As a result of the Cures Act, medical imaging exams and procedure reports are released immediately into your electronic medical record. You may view this report before your referring provider. If you have questions, please contact your health care provider. INDICATION: Fall, chest injury-TODAY TECHNIQUE: Chest radiograph 1 view COMPARISON: None FINDINGS: Mediastinum: The mediastinum is normal in appearance. The heart silhouette is normal in size and morphology. Lung: Both lungs are unremarkable in appearance. No sign of pleural effusion seen. No pneumothorax is identified. Bone and Soft tissue: Unremarkable for age. IMPRESSION: 1. No acute cardiopulmonary disease is seen. If there is a high clinical index of suspicion for rib injury, dedicated rib series radiographs are recommended. Dictated by: Butch Qiu MD @ 03/05/2025 18:22:47 (Electronically Signed)
--- OUTSIDE RECORDS SUMMARY | 2025-03-05 16:55 | XMS_ITS | Clinical Summary ---
Author Organization [place] Address [facility] [place] [address] Care Team Providers Care Certified Substance Abuse Counselor Name Role Phone [facility], [facility] Primary Care Provider Allergies Active Allergy Reactions Criticality Noted Date Comments Nuts 07/19/2024 Social History Tobacco Use Types Packs/Day Years Used Date Smoking Tobacco: Never Assessed Sex and Gender Information Value Date Recorded Sex Assigned at Not on file Legal Sex Male 1:20 PM HEALTH AND SAFETY SPECIALIST Gender Identity Not on file Sexual Orientation Not on file Last Filed Vital Signs Vital Sign Reading Time Taken Comments Blood Pressure 124/72 07/19/2024 4:15 PM HEALTH AND SAFETY SPECIALIST Pulse 75 07/19/2024 4:15 PM HEALTH AND SAFETY SPECIALIST Temperature 36.3 C (97.4 F) 07/19/2024 11:43 AM HEALTH AND SAFETY SPECIALIST Respiratory Rate 18 07/19/2024 4:15 PM HEALTH AND SAFETY SPECIALIST Oxygen Saturation 95% 07/19/2024 4:15 PM HEALTH AND SAFETY SPECIALIST Inhaled Oxygen Concentration - - Weight 58.3 kg (128 lb 8.5 oz) 07/19/2024 11:43 AM HEALTH AND SAFETY SPECIALIST Height 180.3 cm (5' 11) 07/19/2024 11:43 AM HEALTH AND SAFETY SPECIALIST Body Mass Index 17.93 07/19/2024 11:43 AM HEALTH AND SAFETY SPECIALIST Plan of Treatment Health Maintenance Due Date Last Done Comments ADVANCE CARE PLANNING 1935 ANNUAL REVIEW OF HM ORDERS 1935 ZOSTER VACCINE (1 of 2) 1986 FALL RISK ASSESSMENT 2001 RSV VACCINE (1 - 1-dose 75+ series) 2011 DTAP/TDAP/TD VACCINE (2 - Td or Tdap) 03/29/2023 03/29/2013, 02/03/2004 PHQ-2 (once per calendar year) 2024 MEDICARE ANNUAL WELLNESS VISIT 01/22/2025 01/23/2024 COVID-19 VACCINE ( season) 2025 11/23/2021, 05/19/2021, 08/06/2020, Additional history exists INFLUENZA VACCINE (#1) 2025 , 05/14/2020, 07/02/2019, Additional history exists PNEUMOCOCCAL VACCINE 50+ YEARS Completed 05/18/2015, 04/28/2014, 11/11/2009 HPV VACCINE (No Doses Required) Completed MENINGITIS VACCINE Aged Out No longer eligible based on patient's age to complete this topic Insurance UCARE MEDICARE [facility] [place], [place] Address: [address] [address] MEDICARE Care Teams Certified Substance Abuse Counselor Relationship Specialty Start Date End Date [facility], [address] [address] PCP - General 07/19/24
--- OUTSIDE RECORDS SUMMARY | 2025-03-05 16:55 | XMS_ITS | Clinical Summary ---
Author Organization [facility] Address [address] [place] [id number] Care Team Providers Care Industrial Cafeteria Manager Name Role Phone Stephanie De Santiago MD Unavailable VotelReagan MD Primary Care Provider + Allergies Active Allergy Reactions Criticality Noted Date Comments Aspirin, Buffered Chest Pain 07/29/2009 Taking anacin without concerns Tree Nut Edema 06/06/2008 Swelling in face Medications PEAK FLOW METERIndications:U nspecified asthma(493.90) use daily to assess asthma tx. 1 0 9 Active OCUVITE PRESERVISION TAB take 2 in the morning and 2 at night 0 9 Active aspirin (ECOTRIN) 81 mg enteric coated tablet Take 1 tablet by mouth once daily with a meal. 0 7 Active Blood-Glucose Sensor deviIndications:Di abetes mellitus without complication (HC) As directed. 1 Device 8 Active Blood Glucose Control High&Low solnIndications:Di abetes mellitus without complication (HC) Use with glucometer 1 Bottle 9 Active TRUEplus Lancets 33 gauge miscIndications:Di abetes mellitus without complication (HC) TEST BLOOD SUGAR ONE TIME DAILY DIRECTED 100 Each 3 3 Active True Metrix Air Glucose MeterIndications:D iabetes mellitus without complication (HC) USE DIRECTED 1 Kit 3 4 Active metFORMIN (GLUCOPHAGE XR) 750 mg Extended-Release tabletIndications: Diabetes mellitus without complication (HC) TAKE 2 TABLETS (1,500 MG) ONE TIME DAILY WITH EVENING MEAL 180 Tablet 3 4 Active albuterol HFA (PRO-AIR; VENTOLIN; PROVENTIL) 90 mcg/actuation inhalerIndications :Moderate persistent asthma without complication (HC) INHALE 1 TO 2 PUFFS EVERY 6 HOURS NEEDED 8.5 Each 2 4 Active lancets (OneTouch Delica Plus Lancet) 30 gauge miscIndications:Di abetes mellitus without complication (HC) As directed. Dispense item covered by pt ins. 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 - Check blood sugar 1 time daily 200 Each 2 4 Active blood sugar diagnostic (True Metrix Glucose Test Strip) stripIndications:D iabetes mellitus without complication (HC) True Metrix test strips 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 - Test 1 time/day 100 Each 5 5 Active fluticasone propion-salmeteroL 250-50 mcg/Dose diskus inhalerIndications :Moderate persistent asthma without complication (HC) INHALE 1 PUFF BY MOUTH TWO TIMES DAILY. 180 Each 3 5 Active hydroCHLOROthiazid e 25 mg tabletIndications: Essential hypertension TAKE 1 TABLET BY MOUTH EVERY DAY 90 Tablet 5 Active simvastatin (ZOCOR) 40 mg tabletIndications: Hyperlipidemia, unspecified hyperlipidemia type TAKE 1 TABLET BY MOUTH AT BEDTIME 90 Tablet 5 Active levocetirizine (XYZAL) 5 mg tab tabletIndications: Non-seasonal allergic rhinitis due to pollen,Intermitten t asthma, unspecified asthma severity, unspecified whether complicated (HC) Take 0.5 Tablets (2.5 mg) by mouth once daily in the evening. 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 Patient without [...] Encounters Date Type Department Care Team Description 01/18/2025 Refill [facility] [address] [place] [address] Reagan Medina MD Refill Request (Hydrochlorothiazide, Simvastatin, Levocetirizine) 12/23/2024 Telephone [facility] [address] [place] [address] Reagan Medina MD from Last 3 Months Immunizations Immunization Administration Dates Next Due COVID-19 vaccine (DataSphere-Bio NTech 30mcg/0.3mL) 12YO+ JAYLON-SUCROSE AISHWARYA MDV 11/23/2021 COVID-19 vaccine (DataSphere-Bio NTech 30mcg/0.3mL) PF, MDV 05/19/2021,08/06/2020,07/16/2020 Influenza, High-dose [...] dementia. at age 89 Allergies Son antwon gaona Relation Name Status Comments Father Mother Son Social History Tobacco Use Types Packs/Day Years Used Date Smoking Tobacco: Never Smokeless Tobacco: Never Tobacco Cessation:Counseling Given: Yes Alcohol Use Standard Drinks/Week Comments Not Currently 0 (1 standard drink = 0.6 oz pur e alcohol) PHQ-2 Answer Date Recorded PHQ-2 TOTAL SCORE 0 01/23/2024 Social Connections Answer Date Recorded Do you often feel lonely or isolated from those around you? 4 07/19/2024 Financial Resource Strain Answer Date R ecorded Difficulty of Paying Living Expenses 3 07/19/2024 Difficulty of Paying Living Expenses Not on file 07/19/2024 Food Insecurity Answer Date Recorded Do you worry your food will run out before you are able to buy more? 1 07/19/2024 Transportation Needs Answer Date Record ed Does lack of transportation keep you from medica l appointments? 1 07/19/2024 Does lack of transportation keep you from work, meetings or getting things that you need? 1 07/19/2024 Housing Stability Answer Date Recorded What is your housing situation today? 1 07/19/2024 Utilities Answer Date Recorded Do you have trouble paying f or utilities (for example, heat, electricity, water, phone)? 1 07/19/2024 Sex and Gender Information Value Date Recorded Sex Assigned at Not on file Legal Sex Male 6:31 AM DOLL WIG MAKER Gender Identity Not on file Sexual Orientation Not on file Occupation Industry Job Start Date Job End Date [employer] Not on file Not on file Not on file Obstetrics History Last Filed Vital Signs Vital Sign Reading Time Taken Comments Blood Pressure 142/81 07/19/2024 10:23 AM DOLL WIG MAKER Pulse 80 07/19/2024 10:23 AM DOLL WIG MAKER Temperature 36.4 C (97.6 F) 07/19/2024 10:23 AM DOLL WIG MAKER Respiratory Rate 18 07/19/2024 10:23 AM DOLL WIG MAKER Oxygen Saturation 97% 07/19/2024 10:23 AM DOLL WIG MAKER Inhaled Oxygen Concentration - - Weight 58.7 kg (129 lb 6.4 oz) 01/23/2024 4:23 P M CDT Height 172.7 cm (5' 8) 01/23/2024 4:23 PM CDT Body Mass Index 19.68 01/23/2024 4:23 PM CDT Plan of Treatment Health Maintenance Due Date Last Done Comments Zoster (shingles) series for age 50+ (1 of 2) 1986 RSV vaccine for adults or (1 - 1-dose 75+ series) 2011 Tetanus booster 03/29/2023 03/29/2013, 02/03/2004 BMI (ht and wt on same day) for age 18+ 01/22/2025 01/23/2024, 02/07/2023, 03/16/2022, Additional history exists Depression screening for age 12+ 01/22/2025 01/23/2024, 05/19/2021, 05/15/2020, Additional history exists Medicare Wellness for age 65+ 01/23/2025 01/23/2024, 03/08/2017, 12/31/2015, Additional history exists COVID-19 vaccine series ( season) 2025 11/23/2021, 05/19/2021, 08/06/2020, Additional history exists Influenza Vaccine (#1) 2025 , 05/14/2020, 07/02/2019, Additional history exists Pneumococcal series for age 50+ Completed 05/18/2015, 04/28/2014, 11/11/2009 Hepatitis B series for 19+ Aged Out N o longer eligible based on patient's age to complete this topic Insurance [facility] MEDICARE ADVANTAGE MR * Guarantor: CHRISSIE MIRANDA Account Type Relation to Patient Date of Phone Billing Address [facility] 1935 [address] [place] [address] [employer] Care Teams Industrial Cafeteria Manager Relationship Specialty Start Date End Date VotelReagan MD [address] [place] [address] PCP - General Family Practice 12/25/12 Stephanie De Santiago MD Ophthalmology Surgery 12/28/11
--- NOTE | 2025-03-05 17:12 | CRLHL7_ITS ---
For Patients: As a result of the Cures Act, medical imaging exams and procedure reports are released immediately into your electronic medical record. You may view this report before your referring provider. If you have questions, please contact your health care provider. INDICATION: Pelvic hip injury from Fall TECHNIQUE: Pelvis radiograph, Hip radiograph 3 views left COMPARISON: 02/28/2022 FINDINGS: Bone: Severe diffuse osteopenia is noted. Heterotopic bone formation is seen along the superolateral aspect of the right hip joint. A comminuted fracture in the left intertrochanteric hip is present with severe varus angulation. Severe degenerative disc disease is seen at L4-5. Joint: A right hip arthroplasty is partially visualized. The visualized sacroiliac joints are unremarkable in appearance. The pubic symphysis is normal in appearance. Soft tissue: Unremarkable. No radiopaque foreign bodies are seen. IMPRESSION: 1. A comminuted fracture in the left intertrochanteric hip is present with severe varus angulation. Dictated by Butch Qiu MD @ 03/05/2025 6:17:39 PM Dictated by: Butch Qiu MD @ 03/05/2025 18:17:40 (Electronically Signed)
[2025-03-05] MEDS: ONDANSETRON 2 MG/ML inj 4 MG IVP (17:25)
[2025-03-05 18:02] LABS: Hematocrit* 37.8 % (37.0-53.0); Hemoglobin* 12.3 gm/dL (13.5-17.5); Immature Granulocytes Abs Auto 0.03 K/uL (0.00-0.30); Immature Granulocytes Pct Auto 0.3 %; Mean Corpuscular HGB Conc 33 gm/dL (32-36); Mean Corpuscular Hemoglobin 31 pg (26-34); Mean Corpuscular Volume 94 fL (80-100); RDW Coefficient of Variation % 13.5 % (11.5-15.5); Red Blood Count* 4.01 m/uL (4.30-5.90); White Blood Count* 8.74 K/uL (4.50-11.00)
[2025-03-05 18:09] LABS: Lymphocytes Absolute Auto 0.60 K/uL (0.90-2.90); Slide Review Reflex No
[2025-03-05 18:14] LABS: Albumin* 3.8 g/dL (3.3-5.0); Chloride* 100 mmol/L (96-114); Sodium* 135 mmol/L (135-149)
[2025-03-05 18:15] LABS: Potassium* 3.9 mmol/L (3.6-5.1)
[2025-03-05 18:16] LABS: INR 1.03 (0.91-1.10); Prothrombin Time 14.3 Seconds
[2025-03-05 18:17] LABS: Alanine Aminotransferase* 12 U/L (4-50); Alkaline Phosphatase* 138 U/L (40-150); Anion Gap 7 mEq/L (7-15); Aspartate Amino Transferase* 22 U/L (12-35); Bilirubin Total* 0.4 mg/dL (0.1-1.5); Blood Urea Nitrogen* 25 mg/dL (7-30); Carbon Dioxide* 28 mmol/L (20-32); Creatinine* 0.9 mg/dL (0.5-1.5); Est. Creatinine Clearance* 49.14; Estimated Glomerular Filt Rate 82 ml/min; Total Protein* 6.5 g/dL (6.0-8.3)
[2025-03-05 18:18] LABS: Calcium* 9.3 mg/dL (8.4-10.6); Glucose* 147 mg/dL (60-115)
--- NOTE | 2025-03-05 18:22 | ED_ITS ---
HPI - General Adult General Date Seen: 03/05/25 Chief complaint: Hip Injury/Pain Stated complaint: fell, injured hip Time Seen by Provider: 03/05/25 16:54 History of Present Illness HPI narrative: Patient is an 89-year-old brought in by his son after a fall at home. He says that he was working on his lawnmower, slipped on some loose gravel and fell landing on it sounds like a part of the lawnmower. He had a family member who was nearby and heard him calling for help. He says he was laying on the ground no for maybe 45 minutes. He denies hitting his head, has no neck or back pain. Was unable to bear any weight on his leg. Is unsure of his medications, reviewing the chart shows that he takes medications for diabetes and hypertension, may have mild COPD although he has never been a smoker. No anticoagulation. Related Data Home Medications ?Medication ?Instructions ?Recorded ?Confirmed fluticasone 250 mcg-salmeterol 50 1 inh inhalation Q12 H 02/28/22 03/05/25 mcg/dose blistr powdr for inhalation hydrochlorothiazide 25 mg tablet 25 mg PO DAILY 03/05/25 levocetirizine 5 mg tablet 5 mg PO DAILY 02/28/2206/29 metformin 750 mg tablet,extended 1,500 mg PO DAILY 03/05/25 release 24 hr simvastatin 40 mg tablet 40 mg PO DAILY 02/28/2206/29 Previous Rx's ?Medication ?Instructions ?Recorded Test Strips #1 ea 01/04/24 Allergies Allergy/AdvReac Type Severity Reaction Status Date / Time pistachio nut Allergy Unknown Verified 03/05/25 17:03 raspberry Allergy Unknown Verified 03/05/25 17:03 Review of Systems Status of ROS: Reports: 10 or more systems reviewed and unremarkable except as noted in History and below [facility] Medical History (Updated 03/05/25 @ 21:02 by Radha Dsouza MD) 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 - Desmoid tumor of other site (ICD-10) Underweight (BMI < 18.5) ?R63.6 - Underweight (ICD-10) ?Z68.1 - Body mass index [BMI] 19.9 or less, adult (ICD-10) Macular degeneration ?H35.30 - Unspecified macular degeneration (ICD-10) Cognitive impairment ?R41.89 - Other symptoms and signs involving cognitive functions and awareness (ICD-10) Hyperlipidemia ?E78.5 - Hyperlipidemia, unspecified (ICD-10) Moderate persistent asthma ?J45.40 - Moderate persistent asthma, uncomplicated (ICD-10) Colon cancer ?C18.9 - Malignant neoplasm of colon, unspecified (ICD-10) Essential hypertension ?I10 - Essential (primary) hypertension (ICD-10) Non-insulin dependent diabetes mellitus Surgical History (Updated 03/05/25 @ 20:20 by Radha Dsouza MD) History of ankle surgery ?Z98.890 - Other specified postprocedural states (ICD-10) Cataract (lens) fragments in eye following cataract surgery, unspecified eye ?H59.029 - Cataract (lens) fragments in eye following cataract surgery, unspecified eye (ICD-10) H/O ventral hernia repair ?Z98.890 - Other specified postprocedural states (ICD-10) ?Z87.19 - Personal history of other diseases of the digestive system (ICD-10) H/O right hemicolectomy ?Z90.49 - Acquired absence of other specified parts of digestive tract (ICD- 10) History of right hip replacement ?Z96.641 - Presence of right artificial hip joint (ICD-10) Social History (Updated 03/05/25 @ 21:00 by Radha Dsouza MD) Narrative: Currently [place] independently with [place] [address] [facility]; family believes he could use more assistance. Nonsmoker, no concerning ETOH use. Daughter Neelam would be MDM. DNR What is your current living situation?: I presently have a place to live Problems where you live: no known problems In the past 12 months, utilities in danger of being shut off: no In past 12 months, lack of transportation kept you from medical appts, meetings, work, or getting things needed for daily living: no In the past 12 mos, have been you worried that your food would run out before you had money to buy more?: never true In the past 12 mos, the food you bought just didn't last and you didn't have money to buy more?: never true Smoking Status: Never smoker Second hand tobacco smoke exposure: No How often do you have a drink containing alcohol: never AUDIT-C Alcohol total score: 0 Non-prescribed substance use: denies use How often does anyone, including family, friends and others, physically hurt you : never How often does anyone, including family, friends and others, insult or talk down to you: never How often does anyone, including family, friends and others, threaten you with harm: never How often does anyone, including family, friends and others, scream or curse at you: never service: No Exam Narrative: Exam Narrative: Vital signs reviewed In general, alert, nontoxic elderly male. Looks uncomfortable. Head: Normocephalic, atraumatic. Eyes: Sclera clear. Pupils equal and reactive. ENT: Mucous membranes moist. Neck: Supple without adenopathy. No posterior midline tenderness. Heart: Regular rate and rhythm without murmur. Lungs: Clear. No increased work of breathing, crackles or wheezes. Chest wall nontender. Abdomen: Soft, nontender to palpation. Extremities: Deformity noted at the left hip, no erythema, no bruising. No fluctuance. Distal CMS intact. Tenderness throughout. Upper extremities are atraumatic. Neurologic: Alert, conversant. Speech fluent, face symmetric. Moves all extremities equally. Skin: Warm, dry well perfused. Affect: Normal. Const: Vital Signs, click to edit/add: Vital Signs - 24 hr 03/05/25 16:55 Temperature 97.3 F L Pulse Rate [Pulse Oximeter] 82 Respiratory Rate 16 Blood Pressure [Le ft Upper Arm] 145/81 H Pulse Oximetry 98 Oxygen Delivery Me thod Room Air Course Course ED Course: Patient had an IV placed was given 0.5 mg of Dilaudid. X-rays by my review show a comminuted, angulated, fracture of the left hip. Radiology report reviewed in agreement. I ordered routine labs, an EKG was done which by my review shows a sinus rhythm, ventricular rate of 69, no acute ST segment changes, unremarkable indices and normal QT. labs pending at the time of discharge to the floor, subsequently reviewed and unremarkable. Reviewed with Orthopedics, admitted to hospitalist service with planned operative repair tomorrow. He had a 2nd dose of Dilaudid for pain control prior to leaving to floor. Vital Signs Vital signs: Initial Vital Signs Temperature 97.3 F L 03/05/25 16:55 Temperature Source Temporal Artery Scan 03/05/25 16:55 Pulse Rate 82 03/05/25 16:55 Respiratory Rate 16 03/05/25 16:55 Blood Pressure 145/81 H 03/05/25 16:55 Blood Pressure Mean 102 03/05/25 16:55 Blood Pressure Position Sitting 03/05/25 16:55 Pulse Oximetry 98 03/05/25 16:55 Oxygen Delivery Method Room Air 03/05/25 16:55 Vital Signs Temperature 97.3 F L 03/05/25 16:55 Pulse Rate 82 03/05/25 16:55 Respiratory Rate 16 03/05/25 16:55 Blood Pressure 145/81 H 03/05/25 16:55 Pulse Oximetry 98 03/05/25 16:55 Oxygen Delivery Method Room Air 03/05/25 16:55 Temperature 97.1 F L 03/05/25 20:09 Pulse Rate 98 03/05/25 20:09 Respiratory Rate 18 03/05/25 20:09 Blood Pressure 110/78 03/05/25 20:09 Pulse Oximetry 100 03/05/25 20:09 Oxygen Delivery Method Room Air 03/05/25 20:09 Medications Administered Medications: Generic Name Dose Route Start Last Admin Trade Name Freq PRN Reason Stop Dose Admin Acetaminophen 975 mg 03/05/25 21:00 03/05/25 20:39 Acetaminophen 325 Mg Tablet PO 975 mg Q6H DEBBY Administration Sodium Chloride 5 ml 03/05/25 21:00 03/05/25 20:40 Sodium Chloride 0.9 % (Flush) 10 Ml Syringe IVF 5 ml BID DEBBY Administration Discontinued Medications Generic Name Dose Route Start Last Admin Trade Name Freq PRN Reason Stop Dose Admin Hydromorphone HCl 0.5 mg 03/05/25 17:12 03/05/25 17:25 Hydromorphone 0.5 Mg/0.5 Ml Inj IVP 03/05/25 17:13 0.5 mg ONCE ONE Administration Ondansetron HCl 4 mg 03/05/25 17:12 03/05/25 17:25 Ondansetron 2 Mg/Ml Inj IVP 03/05/25 17:13 4 mg ONCE ONE Administration Medical Decision Making Lab Data Lab results reviewed: Yes I reviewed the patient's lab results Labs: Lab Results 03/05/25 Range/Units 17:20 WBC 8.74 (4.50-11.00) K/uL RBC 4.01 L (4.30-5.90) m/uL Hgb 12.3 L (13.5-17.5) gm/dL Hct 37.8 (37.0-53.0) % MCV 94 (80-100) fL MCH 31 (26-34) pg MCHC 33 (32-36) gm/dL RDW Coeff of Aisha 13.5 (11.5-15.5) % Plt Count 229 (140-440) K/uL Neut % (Auto) 83.7 H (42.0-72.0) % Lymph % (Auto) 7.3 L (20-44) % [place] % (Auto) 5.4 (0.0-11.0) % Eos % (Auto) 3.0 (0.0-7.0) % Baso % (Auto) 0.3 (0.0-3.0) % Neut # (Auto) 7.30 H (1.7-7.0) K/uL Lymph # (Auto) 0.60 L (0.90-2.90) K/uL [place] # (Auto) 0.50 (0.00-0.90) K/UL Eos # (Auto) 0.26 (0.00-0.50) K/uL Baso # (Auto) 0.03 (0.00-0.30) K/uL Abs Immat Gran (auto) 0.03 (0.00-0.30) K/uL Imm/Tot Granulo (auto) 0.3 % INR 1.03 (0.91-1.10) APTT 33 (23-33) Seconds Sodium 135 (135-149) mmol/L Potassium 3.9 (3.6-5.1) mmol/L Chloride 100 (96-114) mmol/L Carbon Dioxide 28 (20-32) mmol/L Anion Gap 7 (7-15) mEq/L BUN 25 (7-30) mg/dL Creatinine 0.9 (0.5-1.5) mg/dL Estimated Creat Clear 49.14 Estimated GFR 82 ml/min Glucose 147 H (60-115) mg/dL Hemoglobin A1c 6.6 H (0-5.6) % Calcium 9.3 (8.4-10.6) mg/dL Total Bilirubin 0.4 (0.1-1.5) mg/dL AST 22 (12-35) U/L ALT 12 (4-50) U/L Alkaline Phosphatase 138 (40-150) U/L Total Protein 6.5 (6.0-8.3) g/dL Albumin 3.8 (3.3-5.0) g/dL Imaging Data Hip x-ray: Attestation: I have reviewed the pertinent imaging results. Radiologist's impression: Patient: CHRISSIE CARTER Facility: [facility] RIS Site . Site : 1935 Study: XRay-Hip Left 2V WITH PELVIS-03/05/2025 5:42:32 PM Ordering Physician: Rj Moreland Final Report: INDICATION: Pelvic hip injury from Fall TECHNIQUE: Pelvis radiograph, Hip radiograph 3 views left COMPARISON: 02/28/2022 FINDINGS: Bone: Severe diffuse osteopenia is noted. Heterotopic bone formation is seen along the superolateral aspect of the right hip joint. A comminuted fracture in the left intertrochanteric hip is present with severe varus angulation. Severe degenerative disc disease is seen at L4-5. Joint: A right hip arthroplasty is partially visualized. The visualized sac roiliac joints are unremarkable in appearance. The pubic symphysis is normal in appearance. Soft tissue: Unremarkable. No radiopaque foreign bodies are seen. IMPRESSION: 1. A comminuted fracture in the left intertrochanteric hip is present with severe varus angulation. Dictated by Butch Qiu MD @ 03/05/2025 6:17:39 PM Discharge Plan Discharge Clinical Impression: Closed fracture of left hip Patient Disposition: Admitted As Inpatient Condition: Stable
--- NOTE | 2025-03-05 19:34 | PM.IMHP1 ---
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 - last colonoscopy was in 2017, has deferred since then Status: Acute (4) Moderate persistent asthma: Problem comment: - quiescent, reassuring exam and CXR 03/05/25 - never hospitalized or intubated Status: Acute (5) Underweight (BMI < 18.5): Problem comment: - lost approximately 30 pounds from 2022->2023; has remained relatively stable since then with baseline appetite per his report - PCP had ordered a C/A/P CT to evaluate weight loss in 2023, patient did not have the test Status: Acute (6) Cognitive impairment: Problem comment: - possible; Mini-Cog score of 0 during annual exam 01/2024 Status: Acute (7) Normocytic anemia: Problem comment: - Hgb 12.3 03/05/25 (was 14.8 in July 2024), MCV normal - no evidence of acute bleeding, will follow Hgb during stay Status: Acute Plan - per above - will likely require SNF placement postoperatively - daughter and son updated bedside, questions answered Hospitalist- H&P: HPI History of Present Illness Date Seen: 03/05/25 Chief complaint: fell, injured hip Narrative: Lior Miranda is a 89 year old male who presented to the ER this evening after a mechanical fall at home. He was outside working on his zero turn lawnmower, slipped and fell onto the mower, had pain in L hip immediately. No preceding dizziness or lightheadedness, didn't hit his head. Not anticoagulated. Wasn't able to get up on his own. Son-in-law happened to be outside and found Ray. ER: - L intertrochanteric hip fracture - reassuring labs, CXR, and EKG - Orthopedic Surgery consulted from ER; plan to take Ray to OR in the morning - given IV Dilaudid for pain with + relief Upon arrival to the floor, Ray has no concerns for hospitalist team. Son and daughter in room for H&P. Histories reviewed and updated below, Dr. Medina at [facility] is PCP. Adonis has had multiple surgeries, no history of operative or anesthetic complications. 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 - Desmoid tumor of other site (ICD-10) Underweight (BMI < 18.5) ?R63.6 - Underweight (ICD-10) ?Z68.1 - Body mass index [BMI] 19.9 or less, adult (ICD-10) Macular degeneration ?H35.30 - Unspecified macular degeneration (ICD-10) Cognitive impairment ?R41.89 - Other symptoms and signs involving cognitive functions and awareness (ICD-10) Hyperlipidemia ?E78.5 - Hyperlipidemia, unspecified (ICD-10) Moderate persistent asthma ?J45.40 - Moderate persistent asthma, uncomplicated (ICD-10) Colon cancer ?C18.9 - Malignant neoplasm of colon, unspecified (ICD-10) Essential hypertension ?I10 - Essential (primary) hypertension (ICD-10) Non-insulin dependent diabetes mellitus Surgical History (Updated 03/05/25 @ 20:20 by Radha Dsouza MD) History of ankle surgery ?Z98.890 - Other specified postprocedural states (ICD-10) Cataract (lens) fragments in eye following cataract surgery, unspecified eye ?H59.029 - Cataract (lens) fragments in eye following cataract surgery, unspecified eye (ICD-10) H/O ventral hernia repair ?Z98.890 - Other specified postprocedural states (ICD-10) ?Z87.19 - Personal history of other diseases of the digestive system (ICD-10) H/O right hemicolectomy ?Z90.49 - Acquired absence of other specified parts of digestive tract (ICD-10) History of right hip replacement ?Z96.641 - Presence of right artificial hip joint (ICD-10) Social History (Updated 03/05/25 @ 21:00 by Radha Dsouza MD) Narrative: Currently [place] independently with [place]; family believes he could use more assistance. Nonsmoker, no concerning ETOH use. Daughter Neelam would be MDM. DNR What is your current living situation?: I presently have a place to live Problems where you live: no known problems In the past 12 months, utilities in danger of being shut off: no In past 12 months, lack of transportation kept you from medical appts, meetings, work, or getting things needed for daily living: no In the past 12 mos, have been you worried that your food would run out before you had money to buy more?: never true In the past 12 mos, the food you bought just didn't last and you didn't have money to buy more?: never true Smoking Status: Never smoker Second hand tobacco smoke exposure: No How often do you have a drink containing alcohol: never AUDIT-C Alcohol total score: 0 Non-prescribed substance use: denies use How often does anyone, including family, friends and others, physically hurt you: never How often does anyone, including family, friends and others, insult or talk down to you: never How often does anyone, including family, friends and others, threaten you with harm: never How often does anyone, including family, friends and others, scream or curse at you: never service: No Meds Home Medications and Allergies Home Medications ?Medication ?Instructions ?Recorded ?Confirmed ?Type fluticasone 250 mcg-salmeterol 50 1 inh inhalation Q12H 02/28/22 03/05/25 History mcg/dose blistr powdr for inhalation hydrochlorothiazide 25 mg tablet 25 mg PO DAILY 02/28/22 03/05/25 History levocetirizine 5 mg tablet 5 mg PO DAILY 02/28/22 03/05/25 History metformin 750 mg tablet,extended 1,500 mg PO DAILY 02/28/22 03/05/25 History release 24 hr simvastatin 40 mg tablet 40 mg PO DAILY 02/28/22 03/05/25 History Test Strips #1 ea 08/01/24 02/22/25 Rx Allergies Allergy/AdvReac Type Severity Reaction Status Date / Time pistachio nut Allergy Unknown Verified 03/05/25 17:03 raspberry Allergy Unknown Verified 03/05/25 17:03 Exam Narrative: Exam Narrative: GEN: Alert and laying comfortably in bed HEENT: EOMIs bilaterally, no scleral icterus CV: RRR, No concerning murmurs, rubs, or gallops R: LCTA bilaterally without concerning wheezing Ab: Soft and nontender, tolerates palpation. Desmoid tumor palpated in left lower quadrant, slightly larger than a golf ball Ext: No concerning ankle edema Skin: Scattered AKs and SKs of extremities Neuro: No focal deficits Psych: Appropriate, answering questions appropriately Const: Vital Signs, click to edit/add: Vital Signs - 24 hr 03/05/25 16:55 03/05/25 18:46 03/05/25 18:50 Temperature 97.3 F L 98 F 98.3 F Pulse Rate [Pulse Oximeter] 82 Pulse Rate [Right Pulse Oximeter] 91 72 Respiratory Rate 16 18 18 Blood Pressure [Le ft Upper Arm] 145/81 H Blood Pressure [Ri ght Arm] 135/81 126/97 H Pulse Oximetry 98 96 95 Oxygen Delivery Me thod Room Air Room Air Room Air Hospitalist - H&P: Result Labs Labs: Short CBC 03/05/25 Range/Units 17:20 WBC 8.74 (4.50-11.00) K/uL Hgb 12.3 L (13.5-17.5) gm/dL Hct 37.8 (37.0-53.0) % Plt Count 229 (140-440) K/uL BMP 03/05/25 17:20 Sodium 135 Potassium 3.9 Chloride 100 Carbon Dioxide 28 BUN 25 Creatinine 0.9 Glucose 147 H Calcium 9.3 Liver Function 03/05/25 Range/Units 17:20 Total Bilirubin 0.4 (0.1-1.5) mg/dL AST 22 (12-35) U/L ALT 12 (4-50) U/L Alkaline Phosphatase 138 (40-150) U/L Albumin 3.8 (3.3-5.0) g/dL
[2025-03-05] MEDS: ACETAMINOPHEN 325 MG TABLET 975 MG PO (20:39)
[2025-03-05] MEDS: SODIUM CHLORIDE 0.9 % (FLUSH) 10 ML SYRINGE 5 ML IVF (20:40)
[2025-03-06] VITALS (23 sets, daily range): BP systolic 81–132; BP diastolic 41–90; PULSE 51–115; RESP 12–18; TEMP 35.9–36.7; O2SAT 94–99
[2025-03-06] MEDS: ACETAMINOPHEN 325 MG TABLET 975 MG PO ×3 (03:28→21:21)
--- NOTE | 2025-03-06 06:36 | PC.NURSE ---
End of shift: Pt pleasant, alert and oriented. NPO at midnight. Uses bedside urinal. Pain rated 2-3/10, tolerated with scheduled Tylenol. Pt bedrest tolerated it well. Denies nausea. Pt in bed, appears to be resting call light within reach. ?
[2025-03-06] MEDS: SODIUM CHLORIDE 0.9 % (FLUSH) 10 ML SYRINGE 5 ML IVF (09:20)
--- NOTE | 2025-03-06 09:53 | PM.IMPN1 ---
Assessment and Plan Assessment and plan (1) Closed fracture of left hip: Problem comment: - mechanical fall 03/05/25 - no history of previous anesthetic or surgical complications in the past - comorbidities currently optimized for urgent repair - to OR 03/06 - PT/OT postoperatively. 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 - last colonoscopy was in 2017, has deferred since then Status: Acute (4) Moderate persistent asthma: Problem comment: - quiescent, reassuring exam and CXR 03/05/25 - never hospitalized or intubated - encourage perioperative pulmonary hygiene, incentive spirometry Status: Acute (5) Underweight (BMI < 18.5): Problem comment: - lost approximately 30 pounds from 2022->2023; has remained relatively stable since then with baseline appetite per his report - PCP had ordered a C/A/P CT to evaluate weight loss in 2023, patient did not have the test Status: Acute (6) Cognitive impairment: Problem comment: - possible; Mini-Cog score of 0 during annual exam 01/2024 Status: Acute (7) Normocytic anemia: Problem comment: - Hgb 12.3 03/05/25 (was 14.8 in July 2024), MCV normal - no evidence of acute bleeding, will follow Hgb during stay Status: Acute Plan To OR on 03/06/2025 late afternoon, PT OT to follow tomorrow, social services designee to assist with placement needs Total Time Spent Total Time Spent: Today I spent 45 minutes seeing the patient, reviewing Expanse and EPIC notes/diagnostics, discussing the care plan with our care time that includes social work, PT/OT, pharmacy, RT, [place] [facility] and documenting my impressions and plan in the medical record. Subjective Date Seen: 03/06/25 Interval history: Admitted last night with left hip fracture following mechanical fall. Reports pain is currently appropriately managed with Tylenol and rest. Denies headache or dizziness. Denies chest pain or shortness of breath. No nausea. Remains NPO for surgery today. Will likely need SNF placement following surgery. Previously at [facility] in [place] and would not mind going back there. He and his live on their farm. Exam Narrative: Exam Narrative: PHYSICAL EXAM General: Pleasant, conversant, NAD HEENT: Normocephalic, atraumatic, sclera white, EOMI, oral mucosa moist Cardiovascular: RRR, S1S2. No pitting edema Pulmonary: CTA bilaterally without rhonchi, rales, expiratory wheezes. No dyspnea on room air Abdominal: Soft, nondistended, NTTP Neurological: Alert, answering questions appropriately, cranial nerves intact, no focal findings Extremities: LLE shortened, externally rotated, good pulses Skin: Warm, dry. Const: Vital Signs, click to edit/add: Vital Signs - 24 hr 03/05/25 16:55 03/05/25 18:46 03/05/25 18:50 Temperature 97.3 F L 98 F 98.3 F Pulse Rate [Pulse Oximeter] 82 Pulse Rate [Right Pulse Oximeter] 91 72 Respiratory Rate 16 18 18 Blood Pressure [Le ft Upper Arm] 145/81 H Blood Pressure [Ri ght Arm] 135/81 126/97 H Pulse Oximetry 98 96 95 Oxygen Delivery Me thod Room Air Room Air Room Air 03/05/25 20:01 03/05/25 20:09 03/05/25 23:00 Temperature 97.1 F L Pulse Rate [Pulse Oximeter] Pulse Rate [Right Pulse Oximeter] 98 79 Respiratory Rate 18 18 16 Blood Pressure [Le ft Upper Arm] Blood Pressure [Ri ght Arm] 110/78 Pulse Oximetry 95 100 Oxygen Delivery Me thod Room Air Room Air 03/05/25 23:21 03/06/25 03:27 03/06/25 07:38 Temperature 97.9 F 98.1 F 98.1 F Pulse Rate [Pulse Oximeter] Pulse Rate [Right Pulse Oximeter] 79 60 76 Respiratory Rate 16 18 18 Blood Pressure [Le ft Upper Arm] Blood Pressure [Ri ght Arm] 108/76 108/76 115/70 Pulse Oximetry 95 98 94 Oxygen Delivery Me thod Room Air Room Air Room Air Labs Labs: Laboratory Results - last 24 hr 03/05/25 03/05/25 17:20 18:56 WBC 8.74 RBC 4.01 L Hgb 12.3 L Hct 37.8 MCV 94 MCH 31 MCHC 33 RDW Coeff of Aisha 13.5 Plt Count 229 Neut % (Auto) 83.7 H Lymph % (Auto) 7.3 L Borden % (Auto) 5.4 Eos % (Auto) 3.0 Baso % (Auto) 0.3 Neut # (Auto) 7.30 H Lymph # (Auto) 0.60 L Borden # (Auto) 0.50 Eos # (Auto) 0.26 Baso # (Auto) 0.03 Abs Immat Gran (auto) 0.03 Imm/Tot Granulo (auto) 0.3 INR 1.03 APTT 33 Sodium 135 Potassium 3.9 Chloride 100 Carbon Dioxide 28 Anion Gap 7 BUN 25 Creatinine 0.9 Estimated Creat Clear 49.14 Estimated GFR 82 Glucose 147 H Hemoglobin A1c 6.6 H Calcium 9.3 Total Bilirubin 0.4 AST 22 ALT 12 Alkaline Phosphatase 138 Total Protein 6.5 Albumin 3.8 Lab Acknowledgement Test Added
--- NOTE | 2025-03-06 12:09 | PC.SOCIAL ---
Addendum entered by VICKI Delacruz 03/06/25 16:18: Discharge planning: hair worker heard from Kennedi at [facility] that the pt actually has [employer] for insurance, which she will still need to submit the prior authorization for. Kennedi has placed the prior auth. Social work to follow-up as needed. Addendum entered by VICKI Delacruz 03/06/25 15:36: Discharge planning: hair worker spoke with Kennedi Sterling in admissions at [facility] and she stated she has male TCU availability. hair worker secure emailed the referral over to Kennedi without the PT/OT notes. Kennedi replied back stating she could take him and would start the prior authorization process with [employer], which she said can sometimes take 1-4 days. Social work to follow-up as needed. Original Note: Discharge planning: hair worker met with the pt to discuss early discharge planning before his surgery today at 2pm. hair worker explained that it is anticipated that the pt will need short-term rehab after this hospital stay. Pt states that he has been to [facility] in [place] before and would like to return there if able. Pt also lives in [place]. hair worker reached out to Jsoy in admissions at [facility] and they will not have any TCU beds until Monday or Monday of next week. Pt has a Medicare Advantage Plan with [facility]. hair worker provided the pt with the list of [facility] that are contracted with [facility]. Pt stated that this worker could check on availability with [facility]. hair worker sent an email to Kennedi in admissions at [facility] on availability. Social work to follow-up as needed.
--- NOTE | 2025-03-06 14:00 | CRLHL7_ITS ---
For Patients: As a result of the Cures Act, medical imaging exams and procedure reports are released immediately into your electronic medical record. You may view this report before your referring provider. If you have questions, please contact your health care provider. Indication: ORIF Technique: Three fluoroscopic images of the left proximal femur. Fluoroscopic time 1 minute 17 seconds. IMPRESSION: Fluoroscopic guidance for open reduction internal fixation of proximal left femoral fracture. Dictated by Antwan Barrera MD @ 03/07/2025 11:06:23 AM (Electronically Signed)
[2025-03-06] MEDS: LACTATED RINGERS 1000 ML 1,000 ML 100 ML IV ×3 (14:44→17:11)
[2025-03-06] MEDS: TRANEXAMIC ACID 100 MG/ML INJ 1000 MG IV (15:16)
--- NOTE | 2025-03-06 15:22 | W.PM.NB ---
Nerve Block Nerve Block Time Seen by Provider: 15:15 Date Seen: 03/06/25 Type of block requested by surgeon for post-operative analgesia: interscalene and RUDDY/LFCN Side: left Time out performed: Yes Verification of patient name: Yes Verification of date of : Yes Site marking: site marked Name of person performing procedure: Alex Continuous monitoring Was continuous monitoring of O2 sat, B/P, satellite project site monitor, recorded every 15 minutes?: Yes Procedure Checklist: sterile prep, needles and gloves Ultrasound guided. Images saved: Yes Medications given in 5ml increments after negative aspiration: Ropivicaine %: 0.5 mL: 30 Needle gauge: 20 Precedex (mcg): 25 Patient tolerated procedure well: Yes Additional comments: Needle noted below psoas tendon needle noted adjacent to LFCN Block Charges Block Charge (with Pro Fee): Other Periph Nerve Block Use of Ultrasound Machine for Block: Yes- US Guidance/pain block
--- NOTE | 2025-03-06 15:29 | PC.NURSE ---
End of shift [id number]: Pt AxOx3, cooperative, and pleasant with cares. Repo q2h. Pt continent of the bladder, using urinal at bedside. Pain well managed with scheduled medication and inactivity. Scheduled sx at 1400, Pt off the unit at 1405.
--- NOTE | 2025-03-06 16:21 | P.ANES_ITS ---
Anesthesia Charges Start Date/Time Anesthesia Start Date: 03/06/25 Anesthesia Start Time: 14:44 Stop Date/Time Anesthesia Stop Date: 03/06/25 Anesthesia Stop Time: 16:50 Summary Extremes of Age - Over 70 or under 1: MDA Coding CPT Codes CPT Codes: ANESTH SURGERY OF FEMUR - 91806 ([id number]) P3 - PATIENT W/SEVERE SYS DISEASE, QK - PLAYER DEVELOPMENT MANAGER 2-4 CNCRNT ANES PROC, QX - INSPECTOR TOYS SVC W/ MD MED DIRECTION Additional Codes: Summary - Extremes of Age - Over 70 or under 1: MDA ([id number])
--- NOTE | 2025-03-06 16:21 | W.ANESCHARGE ---
Anesthesia Charges Start Date/Time Anesthesia Start Date: 03/06/25 Anesthesia Start Time: 14:44 Stop Date/Time Anesthesia Stop Date: 03/06/25 Anesthesia Stop Time: 16:50 Summary Extremes of Age - Over 70 or under 1: MDA Coding CPT Codes CPT Codes: ANESTH SURGERY OF FEMUR - 05453 ([id number]) P3 - PATIENT W/SEVERE SYS DISEASE, QK - SANDBLAST OPERATOR 2-4 CNCRNT ANES PROC, QX - FINANCIAL SPECIALIST SVC W/ MD MED DIRECTION Additional Codes: Summary - Extremes of Age - Over 70 or under 1: MDA ([id number])
--- NOTE | 2025-03-06 16:25 | PM.ORCN ---
History of Present Illness HPI Date Seen: 03/06/25 Chief complaint: fell, injured hip Narrative: Patient is an 89-year-old community ambulator, without assist. He fell sustaining a left hip intertrochanteric fracture. He has never injured this hip had surgery on it previously. He has been medically cleared for surgery. 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 - Desmoid tumor of other site (ICD-10) Underweight (BMI < 18.5) ?R63.6 - Underweight (ICD-10) ?Z68.1 - Body mass index [BMI] 19.9 or less, adult (ICD-10) Macular degeneration ?H35.30 - Unspecified macular degeneration (ICD-10) Cognitive impairment ?R41.89 - Other symptoms and signs involving cognitive functions and awareness (ICD-10) Hyperlipidemia ?E78.5 - Hyperlipidemia, unspecified (ICD-10) Moderate persistent asthma ?J45.40 - Moderate persistent asthma, uncomplicated (ICD-10) Colon cancer ?C18.9 - Malignant neoplasm of colon, unspecified (ICD-10) Essential hypertension ?I10 - Essential (primary) hypertension (ICD-10) Non-insulin dependent diabetes mellitus Surgical History History of ankle surgery ?Z98.890 - Other specified postprocedural states (ICD-10) Cataract (lens) fragments in eye following cataract surgery, unspecified eye ?H59.029 - Cataract (lens) fragments in eye following cataract surgery, unspecified eye (ICD-10) H/O ventral hernia repair ?Z98.890 - Other specified postprocedural states (ICD-10) ?Z87.19 - Personal history of other diseases of the digestive system (ICD-10) H/O right hemicolectomy ?Z90.49 - Acquired absence of other specified parts of digestive tract (ICD-10) History of right hip replacement ?Z96.641 - Presence of right artificial hip joint (ICD-10) Social History Narrative: Currently [place] independently [place]; family believes he could use more assistance. Nonsmoker, no concerning ETOH use. Daughter Neelam would be MDM. DNR What is your current living situation?: I presently have a place to live Problems where you live: no known problems In the past 12 months, utilities in danger of being shut off: no In past 12 months, lack of transportation kept you from medical appts, meetings, work, or getting things needed for daily living: no In the past 12 mos, have been you worried that your food would run out before you had money to buy more?: never true In the past 12 mos, the food you bought just didn't last and you didn't have money to buy more?: never true Smoking Status: Never smoker Second hand tobacco smoke exposure: No How often do you have a drink containing alcohol: never AUDIT-C Alcohol total score: 0 Non-prescribed substance use: denies use How often does anyone, including family, friends and others, physically hurt you: never How often does anyone, including family, friends and others, insult or talk down to you: never How often does anyone, including family, friends and others, threaten you with harm: never How often does anyone, including family, friends and others, scream or curse at you: never service: No Meds Home Medications and Allergies Home Medications ?Medication ?Instructions ?Recorded ?Confirmed ?Type fluticasone 250 mcg-salmeterol 50 1 inh inhalation BID 02/28/22 03/06/25 History mcg/dose blistr powdr for inhalation hydrochlorothiazide 25 mg tablet 25 mg PO DAILY 02/28/22 03/05/25 History levocetirizine 5 mg tablet 2.5 mg PO HS 02/28/22 03/06/25 History metformin 750 mg tablet,extended 1,500 mg PO QPM 02/28/22 03/06/25 History release 24 hr simvastatin 40 mg tablet 40 mg PO HS 02/28/22 03/06/25 History Test Strips #1 ea 01/04/24 07/27/24 Rx albuterol sulfate 90 mcg/actuation 1 - 2 puff inhalation Q6H PRN 03/06/25 03/06/25 History aerosol inhaler aspirin 81 mg tablet,delayed 81 mg PO DAILY 03/06/25 03/06/25 History release ([place] Low Dose Aspirin) vitamins A,C,N-ncpj-ymtehd 2,148 1 - 2 tab PO BID 03/06/25 03/06/25 History mcg-113 mg-45 mg-17.4 mg tablet (Eye Multivitamin) Allergies Allergy/AdvReac Type Severity Reaction Status Date / Time pistachio nut Allergy Unknown Verified 03/05/25 17:03 raspberry Allergy Unknown Verified 03/05/25 17:03 Ortho Exam Narrative Exam Narrative: The patient is alert and oriented x3, in no acute distress, they are able to converse in a normal speaking voice without obvious hearing loss and with nonlabored breathing. The patient is examined supine in a hospital bed. The skin about the hip is intact, no surgical scars, no swelling or ecchymosis. CMS to the foot is normal. Const Vital Signs, click to edit/add: Vital Signs - 24 hr 03/05/25 16:55 03/05/25 18:46 03/05/25 18:50 Temperature 97.3 F L 98 F 98.3 F Pulse Rate [Pulse Oximeter] 82 Pulse Rate [Right Pulse Oximeter] 91 72 Respiratory Rate 16 18 18 Blood Pressure [Left Upper Arm] 145/81 H Blood Pressure [Right Arm] 135/81 126/97 H Pulse Oximetry 98 96 95 Oxygen Delivery Method Room Air Room Air Room Air 03/05/25 20:01 03/05/25 20:09 03/05/25 23:00 Temperature 97.1 F L Pulse Rate [Pulse Oximeter] Pulse Rate [Right Pulse Oximeter] 98 79 Respiratory Rate 18 18 16 Blood Pressure [Left Upper Arm] Blood Pressure [Right Arm] 110/78 Pulse Oximetry 95 100 Oxygen Delivery Method Room Air Room Air 03/05/25 23:21 03/06/25 03:27 03/06/25 07:38 Temperature 97.9 F 98.1 F 98.1 F Pulse Rate [Pulse Oximeter] Pulse Rate [Right Pulse Oximeter] 79 60 76 Respiratory Rate 16 18 18 Blood Pressure [Left Upper Arm] Blood Pressure [Right Arm] 108/76 108/76 115/70 Pulse Oximetry 95 98 94 Oxygen Delivery Method Room Air Room Air Room Air 03/06/25 10:26 Temperature 98 F Pulse Rate [Pulse Oximeter] Pulse Rate [Right Pulse Oximeter] 72 Respiratory Rate 16 Blood Pressure [Left Upper Arm] Blood Pressure [Right Arm] 106/68 Pulse Oximetry 96 Oxygen Delivery Method Room Air Results Labs Labs: Laboratory Results - last 48 hr 03/05/25 03/05/25 17:20 18:56 WBC 8.74 RBC 4.01 L Hgb 12.3 L Hct 37.8 MCV 94 MCH 31 MCHC 33 RDW Coeff of Aisha 13.5 Plt Count 229 Neut % (Auto) 83.7 H Lymph % (Auto) 7.3 L [place] % (Auto) 5.4 Eos % (Auto) 3.0 Baso % (Auto) 0.3 Neut # (Auto) 7.30 H Lymph # (Auto) 0.60 L [place] # (Auto) 0.50 Eos # (Auto) 0.26 Baso # (Auto) 0.03 Abs Immat Gran (auto) 0.03 Imm/Tot Granulo (auto) 0.3 INR 1.03 APTT 33 Sodium 135 Potassium 3.9 Chloride 100 Carbon Dioxide 28 Anion Gap 7 BUN 25 Creatinine 0.9 Estimated Creat Clear 49.14 Estimated GFR 82 Glucose 147 H Hemoglobin A1c 6.6 H Calcium 9.3 Total Bilirubin 0.4 AST 22 ALT 12 Alkaline Phosphatase 138 Total Protein 6.5 Albumin 3.8 Lab Acknowledgement Test Added Diagnostic results Additional Comments: An AP pelvis, AP and cross-table lateral view of the left hip show a 2 part intertrochanteric fracture with marked varus malalignment. There is no pre-existing hip joint arthritis. There is no obvious fracture or pathologic lesion. There is a cemented bipolar hemiarthroplasty on the right. Assessment and Plan Assessment and plan (1) Closed fracture of left hip: Problem comment: - mechanical fall 03/05/25 - no history of previous anesthetic or surgical complications in the past - comorbidities currently optimized for urgent repair - to OR 03/06 - PT/OT postoperatively. 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 - last colonoscopy was in 2018, has deferred since then Status: Acute Total time spent: Total time spent is greater than 50% in coordination of care (as documented) at patient's floor/unit and/or counseling patient: (4) Moderate persistent asthma: Problem comment: - quiescent, reassuring exam and CXR 03/05/25 - never hospitalized or intubated - encourage perioperative pulmonary hygiene, incentive spirometry Status: Acute Total time spent: Total time spent is greater than 50% in coordination of care (as documented) at patient's floor/unit and/or counseling patient: (5) Underweight (BMI < 18.5): Problem comment: - lost approximately 30 pounds from 2022->2023; has remained relatively stable since then with baseline appetite per his report - PCP had ordered a C/A/P CT to evaluate weight loss in 2023, patient did not have the test Status: Acute Total time spent: Total time spent is greater than 50% in coordination of care (as documented) at patient's floor/unit and/or counseling patient: (6) Cognitive impairment: Problem comment: - possible; Mini-Cog score of 0 during annual exam 01/2024 Status: Acute Total time spent: Total time spent is greater than 50% in coordination of care (as documented) at patient's floor/unit and/or counseling patient: (7) Normocytic anemia: Problem comment: - Hgb 12.3 03/05/25 (was 14.8 in July 2024), MCV normal - no evidence of acute bleeding, will follow Hgb during stay Status: Acute Total time spent: Total time spent is greater than 50% in coordination of care (as documented) at patient's floor/unit and/or counseling patient: Plan Assessment: Two part left hip intertrochanteric fracture Plan: He has been medically cleared for surgery. Therefore, we will plan to take him to the operating today for ORIF.
--- NOTE | 2025-03-06 16:28 | PM.ORPRC ---
Procedure Note Date of procedure: 03/06/25 Procedure: PREOPERATIVE DIAGNOSIS: Left hip 2 part intertrochanteric fracture POSTOPERATIVE DIAGNOSIS: Left hip 2 part intertrochanteric fracture NAME OF OPERATION: Left hip fracture ORIF SURGEON: Migue De Santiago MD CHIEF DIGITAL MEDIA OFFICER: Arlet Gomez PA-C IMPLANTS: Synthes intramedullary hip screw 10 mm x 170 mm with a 100 mm lag screw and a 36 mm distal interlocking screw ANESTHESIA: Spinal ESTIMATED BLOOD LOSS: 25 mL COMPLICATIONS: None SPECIMENS: None DRAINS: None PREOPERATIVE ANTIBIOTICS: Ancef 1 gram INDICATIONS: The patient is a 89-year-old who fell yesterday sustaining a 2 part intertrochanteric fracture of the left hip. They were admitted for workup and care. They have been medically cleared for surgery. The risks, benefits and expected outcomes were discussed in detail. These included but were not limited to: Infection, bleeding, injury to blood vessel or nerve, venous thromboembolism. All questions were answered to their satisfaction. Use of an bindery library technical assistant was necessary for patient positioning and safety, soft tissue retraction and closure, dressing application, and transfer of the patient to and from the hospital bed to the fracture table. PROCEDURE: Spinal anesthesia was administered. The patient was placed supine on the fracture table. The left lower extremity was prepped and draped in the usual sterile fashion. The limb was placed in longitudinal traction. Our provisional reduction was confirmed with the C-arm. The guide pin was placed percutaneously to the tip of the greater trochanter. It was advanced into the canal. Its placement was confirmed with the image intensifier in both AP and lateral views. We then made a stab incision around the guide pin. The soft tissue sleeve was advanced to the tip of the trochanter. The opening reamer was used. The intramedullary nail was placed. The guide pin was taken to the subchondral bone of the femoral head on both the AP and lateral views. It was placed in the posterior, inferior aspect of the head. The drill and the tap were used. We placed the 100 mm lag screw. Our reduction remains anatomic. Traction was released. The fracture was compressed. The lag screw was set to dynamic mode. That is it was not locked. We placed the distal interlocking screw. This construct was imaged in the AP and lateral views and was felt to be well placed with an anatomic reduction. The wounds were irrigated with normal saline. They were closed with Vicryl deep and Monocryl in the skin. A dry dressing was applied. Sponge and needle counts were correct x2. The patient tolerated the procedure well. There were no apparent complications. They were carefully transferred to the hospital bed and taken to the postanesthesia care unit in satisfactory condition. PLAN: The patient will be mobilized with physical therapy. They [may weightbear as tolerates on the left lower extremity. Xarelto will be used for DVT prophylaxis. They will be discharged to a senior living once medically appropriate.
--- NOTE | 2025-03-06 16:33 | SUR.OPER ---
Patient has red/raised area on l buttock/glute with slight exudate drainage. 3 x 3 mepilex in placed. Patient was incontinent of urine, gown and complete bed change done and skin cleansed.
--- NOTE | 2025-03-06 17:03 | P.ANES_ITS ---
Anesthesia Charges Start Date/Time Anesthesia Start Date: 03/06/25 Anesthesia Start Time: 14:44 Stop Date/Time Anesthesia Stop Date: 03/06/25 Anesthesia Stop Time: 16:50 Summary Extremes of Age - Over 70 or under 1: CYCLE LIAISON Coding CPT Codes CPT Codes: ANESTH SURGERY OF FEMUR - 33289 ([id number]) P3 - PATIENT W/SEVERE SYS DISEASE, QX - CYCLE LIAISON SVC W/ MD MED DIRECTION, QK - BREAD SUPERVISOR 2-4 CNCRNT ANES PROC Additional Codes: Summary - Extremes of Age - Over 70 or under 1: CYCLE LIAISON ([id number])
--- NOTE | 2025-03-06 17:03 | W.ANESCHARGE ---
Anesthesia Charges Start Date/Time Anesthesia Start Date: 03/06/25 Anesthesia Start Time: 14:44 Stop Date/Time Anesthesia Stop Date: 03/06/25 Anesthesia Stop Time: 16:50 Summary Extremes of Age - Over 70 or under 1: TURBINE INSPECTOR Coding CPT Codes CPT Codes: ANESTH SURGERY OF FEMUR - 63002 ([id number]) P3 - PATIENT W/SEVERE SYS DISEASE, QX - TURBINE INSPECTOR SVC W/ MD MED DIRECTION, QK - POOL ATTENDANT 2-4 CNCRNT ANES PROC Additional Codes: Summary - Extremes of Age - Over 70 or under 1: TURBINE INSPECTOR ([id number])
[2025-03-06] MEDS: PHENYLEPHRINE 100 MCG/ML SYRINGE IVP (17:12)
--- NOTE | 2025-03-06 18:06 | CRLHL7_ITS ---
For Patients: As a result of the Century Cures Act, medical imaging exams and procedure reports are released immediately into your electronic medical record. You may view this report before your referring provider. If you have questions, please contact your health care provider. INDICATION: mass RUE, swelling/lump of posterior right forearm, check for hematoma TECHNIQUE: TECHNIQUE:Sonographic images of the right upper extremity were obtained using corona-scale and color Doppler images. COMPARISON: None. FINDINGS: Targeted ultrasound of the right upper extremity demonstrates a predominantly anechoic collection with internal debris at the site of concern measuring 4.9 x 1.5 x 3.3 cm. There is no internal vascularity. Differential includes evolving hematoma versus a cystic mass. If clinically warranted, fluid sampling can be performed for further evaluation versus short interval follow-up in 4-6 weeks. Dictated by Carlie Leroy MD @ 03/06/2025 7:10:24 PM (Electronically Signed)
[2025-03-06] MEDS: 0.9 % SODIUM CHLORIDE 500 ML IV (18:18)
[2025-03-06] MEDS: SIMVASTATIN 40 MG TABLET PO (21:22)
[2025-03-06] MEDS: INSULIN ASPART 100 UNIT/ML SUBCUT (21:22)
[2025-03-06] MEDS: SENNOSIDES 1 TAB TABLET 2 TAB PO (21:22)
[2025-03-06] MEDS: CEFAZOLIN 1 GM in 0.9 % SODIUM CHLORIDE Mini-bag 100 ML IVPB (22:02)
--- NOTE | 2025-03-07 00:01 | PC.NURSE ---
end of shift: Pt. AOx4. Hypotensive, notified; see orders. Fluids given; see EMAR. O2 on RA. Tolerated dinner and oral fluids. Up to commode x2 assist; weak. Urinal bedside. Denies N/V. Three dressings on hip C/D/I. Denies dizziness and lightheadedness.
[2025-03-07 03:23] VITALS: BP 113/70; PULSE 90; RESP 20; TEMP 36.8; O2SAT 97
[2025-03-07] MEDS: ACETAMINOPHEN 325 MG TABLET 975 MG PO ×3 (03:41→14:42)
[2025-03-07] MEDS: CEFAZOLIN 1 GM in 0.9 % SODIUM CHLORIDE Mini-bag 100 ML IVPB (06:50)
--- NOTE | 2025-03-07 06:54 | PC.NURSE ---
End of shift ([id number]): Pt pleasant, alert and oriented to self, though not place or situation. Pt impulsive, bed alarm in use. VSS. Uses bedside urinal. Pain unable to be rated, seemingly tolerated with scheduled Tylenol, though did provide pt with oxy because behavior indicated.?Unsteady gait, 2a. Pt discontinued IV in LAC, replaced for antibiotic in RAC, staff stayed with pt to complete infusion. Pt in bed, appears to be resting call light within reach.??
[2025-03-07 07:00] VITALS: RESP 20; O2SAT 91
[2025-03-07 07:50] LABS: Hemoglobin* 10.7 gm/dL (13.5-17.5)
--- NOTE | 2025-03-07 07:51 | P.ORPN_ITS ---
Subjective Subjective Time Seen by Provider: 07:51 Date Seen: 03/07/25 Principal diagnosis: Status post left IM nail for intertrochanteric fracture Interval history: Lior is comfortable. No nausea or vomiting. He is eating breakfast. He will be discharging to a retirement Ortho Exam Narrative Exam Narrative: Alert and oriented x3. Patient is in no acute distress. Converses without labored breathing. Hearing is grossly intact. Examination of the left hip shows no significant edema. Dressings are intact. No erythema or warmth or sign of infection. He is sitting on the edge of the bed, having breakfast without nausea or vomiting. He is able to straight leg raise while sitting. CMS intact left lower extremity. Calves are soft and nontender. Const Vital Signs, click to edit/add: Vital Signs - 24 hr 03/06/25 10:26 03/06/25 16:45 03/06/25 16:50 Temperature 98 F 97.7 F Pulse Rate 57 L 59 L Pulse Rate [Right Pulse Oximeter] 72 Respiratory Rate 16 14 14 Blood Pressure 83/56 L 115/80 Blood Pressure [Right Arm] 106/68 Pulse Oximetry 96 98 96 Oxygen Delivery Method Room Air Room Air Room Air 03/06/25 16:55 03/06/25 17:00 03/06/25 17:05 Temperature Pulse Rate 53 L 54 L 55 L Pulse Rate [Right Pulse Oximeter] Respiratory Rate 12 12 14 Blood Pressure 112/76 96/55 L 90/57 L Blood Pressure [Right Arm] Pulse Oximetry 98 98 96 Oxygen Delivery Method Room Air Room Air Room Air 03/06/25 17:10 03/06/25 17:12 03/06/25 17:17 Temperature Pulse Rate 60 59 L 51 L Pulse Rate [Right Pulse Oximeter] Respiratory Rate 12 12 12 Blood Pressure 81/55 L 107/75 124/68 Blood Pressure [Right Arm] Pulse Oximetry 94 95 94 Oxygen Delivery Method Room Air Room Air Room Air 03/06/25 17:25 03/06/25 17:25 03/06/25 17:40 Temperature 96.8 F L 96.8 F L Pulse Rate Pulse Rate [Right Pulse Oximeter] 54 L Respiratory Rate 12 12 12 Blood Pressure Blood Pressure [Right Arm] 86/54 L 91/41 L Pulse Oximetry 94 94 Oxygen Delivery Method Room Air Room Air 03/06/25 18:05 03/06/25 18:20 03/06/25 18:35 Temperature 96.8 F L 97.0 F L 96.9 F L Pulse Rate Pulse Rate [Right Pulse Oximeter] 53 L 62 77 Respiratory Rate 12 14 16 Blood Pressure Blood Pressure [Right Arm] 96/55 L 104/62 103/71 Pulse Oximetry 96 96 Oxygen Delivery Method Room Air Room Air 03/06/25 19:00 03/06/25 19:30 03/06/25 20:30 Temperature 97.0 F L 96.7 F L 97.8 F Pulse Rate Pulse Rate [Right Pulse Oximeter] 78 65 63 Respiratory Rate 16 18 18 Blood Pressure Blood Pressure [Right Arm] 119/87 91/61 120/68 Pulse Oximetry 99 98 Oxygen Delivery Method Room Air Room Air 03/06/25 21:30 03/06/25 22:30 03/06/25 23:00 Temperature 98.1 F Pulse Rate Pulse Rate [Right Pulse Oximeter] 78 115 H Respiratory Rate 18 18 Blood Pressure Blood Pressure [Right Arm] 124/49 L 132/90 H Pulse Oximetry 98 98 95 Oxygen Delivery Method Room Air Room Air Room Air 03/06/25 23:00 03/06/25 23:30 03/07/25 03:23 Temperature 98.1 F 98.2 F Pulse Rate Pulse Rate [Right Pulse Oximeter] 87 87 90 Respiratory Rate 18 18 20 Blood Pressure Blood Pressure [Right Arm] 117/71 113/70 Pulse Oximetry 96 97 Oxygen Delivery Method Room Air Room Air Assessment and Plan Assessment and plan (1) Status post-operative repair of closed fracture of left hip: Problem details: IM rodding for intertrochanteric fracture on 03/06/2025, Dr. De Santiago Status: Acute Assessment and Plan: Plan for discharge is to a retirement facility when they meets discharge criteria. DVT prophylaxis upon discharge includes Xarelto 10mg daily for a total of 35 days, Remove dressings in 2 weeks. Observe wound and phone Orthopedics with any questions or concerns Use Ice on operative hip unrestricted. Return to clinic in 6 weeks with surgeon Minimize narcotic use. Wean off and discontinue soon as possible. Weightbear as tolerated left lower extremity Attend occupational therapy and physical therapy at retirement [facility]
[2025-03-07] MEDS: SENNOSIDES 1 TAB TABLET 2 TAB PO (07:54)
[2025-03-07] MEDS: RIVAROXABAN 10 MG TABLET PO (07:54)
[2025-03-07] MEDS: LACTATED RINGERS 1000 ML 1,000 ML 75 ML IV (07:54)
[2025-03-07 08:15] VITALS: BP 93/80; PULSE 92; RESP 20; TEMP 36.6; O2SAT 91
--- NOTE | 2025-03-07 10:20 | P.DS_ITS ---
DS: Providers Provider Date Seen: 03/07/25 Date of admission: 03/05/25 18:36 Primary care physician: Reagan Medina MD Admitting Clinician: Radha Dsouza MD Consults: 03/05/25 21:13 Consult to Occupational Therapy [CONS] Routine Comment: Reason(s) for OT Consult:: Evaluate and Treat Any Restrictions?:: No Restrictions Comment: having hip surgery 03/06 Consult to Physical Therapy [CONS] Routine Comment: Reason(s) for PT Consult:: Evaluate and Treat Any Restrictions?:: No Restrictions 03/05/25 21:14 Consult to Replenishment Associate [CONS] Routine Comment: Reason for Consult:: Discharge Planning Needs 03/06/25 17:44 Consult to Occupational Therapy [CONS] Routine Comment: Reason(s) for OT Consult:: Evaluate and Treat Any Restrictions?:: See Comment Comment: evaluate and treat Consult to Physical Therapy [CONS] Routine Comment: Reason(s) for PT Consult:: Evaluate and Treat Any Restrictions?:: See Comment Comment: Weightbear as tolerates Consult to Replenishment Associate [CONS] Routine Comment: Reason for Consult:: Discharge Planning Needs Attending Physician on discharge: Radha Dsouza MD DS: Diagnosis Discharge Diagnosis (1) Closed fracture of left hip: Status: Acute Problem details: - mechanical fall 03/05/25 - no history of previous anesthetic or surgical complications in the past - comorbidities currently optimized for urgent repair - to OR 03/06 - PT/OT postoperatively. consulting services manager to assist with discharge needs/placement (2) Status post-operative repair of closed fracture of left hip: Status: Acute Problem details: IM rodding for intertrochanteric fracture on 03/06/2025, Dr. De Santiago (3) Non-insulin dependent diabetes mellitus: Status: Acute Problem details: - controlled on metformin, current A1C 6.6 (4) Colon cancer: Status: Acute Problem details: - s/p R hemicolectomy for moderately differentiated adenocarcinoma in 2015 with tumor invasion into submucosa - last colonoscopy was in 2018, has deferred since then (5) Moderate persistent asthma: Status: Acute Problem details: - quiescent, reassuring exam and CXR 03/05/25 - never hospitalized or intubated - encourage perioperative pulmonary hygiene, incentive spirometry (6) Underweight (BMI < 18.5): Status: Acute Problem details: - lost approximately 30 pounds from 2022->2023; has remained relatively stable since then with baseline appetite per his report - PCP had ordered a C/A/P CT to evaluate weight loss in 2023, patient did not have the test (7) Cognitive impairment: Status: Acute Problem details: - possible; Mini-Cog score of 0 during annual exam 01/2024 (8) Normocytic anemia: Status: Acute Problem details: - Hgb 12.3 03/05/25 (was 14.8 in July 2024), MCV normal - no evidence of acute bleeding, will follow Hgb during stay DS: Summary Hospital Course Hospital Course: Pt w/ PMHx of dementia and DM presents w/ Lt hip fracture after a fall. ORIF on 03/06. PT/OT postoperatively , DC to a SNF. F/up w/ ortho and PCP. Time Spent with Patient Time attestation: Total time spent providing and/or coordinating discharge services: Exam Narrative: Exam Narrative: Physical exam GENERAL: Comfortable, no acute distress. HEAD AND NECK: Atraumatic, normocephalic CARDIOVASCULAR: RRR. Normal S1, S2. No murmurs. RESPIRATORY: Clear to auscultation B/L. Good air entry B/L. No wheezes or rhonchi. NEUROLOGY: Alert, awake. Normal speech. PSYCH: Normal mood, normal affect. Const: Vital Signs, click to edit/add: Vital Signs - 24 hr 03/06/25 10:26 03/06/25 16:45 03/06/25 16:50 Temperature 98 F 97.7 F Pulse Rate 57 L 59 L Pulse Rate [Right Pulse Oximeter] 72 Respiratory Rate 16 14 14 Blood Pressure 83/56 L 115/80 Blood Pressure [Ri ght Arm] 106/68 Pulse Oximetry 96 98 96 Oxygen Delivery Me thod Room Air Room Air Room Air 03/06/25 16:55 03/06/25 17:00 03/06/25 17:05 Temperature Pulse Rate 53 L 54 L 55 L Pulse Rate [Right Pulse Oximeter] Respiratory Rate 12 12 14 Blood Pressure 112/76 96/55 L 90/57 L Blood Pressure [Ri ght Arm] Pulse Oximetry 98 98 96 Oxygen Delivery Me thod Room Air Room Air Room Air 03/06/25 17:10 03/06/25 17:12 03/06/25 17:17 Temperature Pulse Rate 60 59 L 51 L Pulse Rate [Right Pulse Oximeter] Respiratory Rate 12 12 12 Blood Pressure 81/55 L 107/75 124/68 Blood Pressure [Ri ght Arm] Pulse Oximetry 94 95 94 Oxygen Delivery Me thod Room Air Room Air Room Air 03/06/25 17:25 03/06/25 17:25 03/06/25 17:40 Temperature 96.8 F L 96.8 F L Pulse Rate Pulse Rate [Right Pulse Oximeter] 54 L Respiratory Rate 12 12 12 Blood Pressure Blood Pressure [Ri ght Arm] 86/54 L 91/41 L Pulse Oximetry 94 94 Oxygen Delivery Me thod Room Air Room Air 03/06/25 18:05 03/06/25 18:20 03/06/25 18:35 Temperature 96.8 F L 97.0 F L 96.9 F L Pulse Rate Pulse Rate [Right Pulse Oximeter] 53 L 62 77 Respiratory Rate 12 14 16 Blood Pressure Blood Pressure [Ri ght Arm] 96/55 L 104/62 103/71 Pulse Oximetry 96 96 Oxygen Delivery Me thod Room Air Room Air 03/06/25 19:00 03/06/25 19:30 03/06/25 20:30 Temperature 97.0 F L 96.7 F L 97.8 F Pulse Rate Pulse Rate [Right Pulse Oximeter] 78 65 63 Respiratory Rate 16 18 18 Blood Pressure Blood Pressure [Ri ght Arm] 119/87 91/61 120/68 Pulse Oximetry 99 98 Oxygen Delivery Me thod Room Air Room Air 03/06/25 21:30 03/06/25 22:30 03/06/25 23:00 Temperature 98.1 F Pulse Rate Pulse Rate [Right Pulse Oximeter] 78 115 H Respiratory Rate 18 18 Blood Pressure Blood Pressure [Ri ght Arm] 124/49 L 132/90 H Pulse Oximetry 98 98 95 Oxygen Delivery Me thod Room Air Room Air Room Air 03/06/25 23:00 03/06/25 23:30 03/07/25 03:23 Temperature 98.1 F 98.2 F Pulse Rate Pulse Rate [Right Pulse Oximeter] 87 87 90 Respiratory Rate 18 18 20 Blood Pressure Blood Pressure [Ri ght Arm] 117/71 113/70 Pulse Oximetry 96 97 Oxygen Delivery Me thod Room Air Room Air 03/07/25 08:15 Temperature 97.9 F Pulse Rate Pulse Rate [Right Pulse Oximeter] 92 Respiratory Rate 20 Blood Pressure Blood Pressure [Ri ght Arm] 93/80 Pulse Oximetry 91 Oxygen Delivery Me thod Room Air DS: Data Data Completed and Pending Labs on day of discharge: Labs from last 24 hours 03/07/25 07:40 Hgb 10.7 L Discharge Plan Discharge Disposition: [facility] Date of Admission: 03/05/25 18:36 Attending Provider on Discharge: Fátima Cristina Primary Care Provider: Reagan Medina Condition: Stable Discharge Medications: New sennosides [Senna Lax] 8.6 mg Tablet 17.2 mg PO BID PRN (Reason: constipation) Qty: 100 0RF acetaminophen 500 mg capsule 500 - 1,000 mg PO Q6H MDD 4000mg per day PRN (Reason: pain) Qty: 100 0RF oxycodone 5 mg Tablet 2.5 - 5 mg PO Q4-6H MDD 6 tabs per day PRN (Reason: Pain) Qty: 40 0RF Rx Instructions: Minimize. Discontinue as soon as possible Xarelto 10 mg tablet 10 mg PO DAILY Qty: 34 0RF Rx Instructions: for 34 days Continued albuterol sulfate 90 mcg/actuation HFA aerosol inhaler 1 - 2 puff inhalation Q6H PRN Eye Multivitamin 2,148 mcg-113 mg-45 mg-17.4mg tablet 1 - 2 tab PO BID Rx Instructions: administer with AM and PM meals 2 IN AM 1 IN PM fluticasone propion-salmeterol 250-50 mcg/dose blister with device 1 inh INHALATION BID simvastatin 40 mg tablet 40 mg PO HS metformin 750 mg tablet extended release 24 hr 1,500 mg PO QPM levocetirizine 5 mg tablet 2.5 mg PO HS (DME) Test Strips Misc See Rx Instructions .Route Qty: 1 0RF Rx Instructions: As directed Held aspirin [Abbey Low Dose Aspirin] 81 mg tablet,delayed release (DR/EC) 81 mg PO DAILY Hold Instructions: Resume on 04/10/25. Hold aspirin while you are on Xarelto, resume after 34 days hydrochlorothiazide 25 mg tablet 25 mg PO DAILY Hold Instructions: Resume on 03/21/25. Resume after meeting with your primary care physician as your blood pressure was low during admission Discharge Orders: Discharge Order (Routine); Ordered 03/07/25 Ordered By: Fátima Cristina Additional Instructions: Make appointment with Dr. De Santiago 4-6 weeks post surgery, [facility] Appointment with primary care physician to follow up his chronic medical conditions and re-evaluate the need for hypertension medications. Activity Detail: Weightbear as tolerated left lower extremity Keep dressings on for 2 weeks. Change if needed. Dressings are waterproof. May shower. Attend physical therapy and occupational therapy. Ice and elevate operative extremity without restriction. Swelling and bruising will worsen within the first week. When swelling occurs, elevate the extremity above heart level several times a day and gently massage/pull soft tissue swelling toward hip. This allows gravity to assist in eliminating the swelling/edema. Wear compression stockings/hakan bandages as needed for swelling. If you drive, Do not drive while taking narcotic pain medication. Do not drink alcohol while taking narcotic pain medication. May drive when safe to do so and have full function of the extremities, this may take 6 weeks or more. Notify Orthopedics with any questions or concerns. (phone: [phone]) Discharge Diet: Diabetic Follow Up Appointments: Reagan Medina MD [Primary Care Provider, [facility]] Referral Note: Forms: Patient Belongings, [facility] Info Instructions Admit to: SNF Discharge Potential: Fair Length of Stay: <30 days Can use facility standing orders?: Yes Code Status: DNR/DNI Rehab Potential: Fair Therapy: Physical Therapy and Occupational Therapy Therapy Orders: Evaluate and Treat Oxygen: No
--- NOTE | 2025-03-07 11:46 | PC.SOCIAL ---
Addendum entered by VICKI Delacruz 03/07/25 15:50: Discharge planning: telephone worker spoke to pt's daughter, Neelam, over the phone and discussed The Important Message from Medicare and the right to appeal pt's discharge and she had no concerns or plans to appeal. Social work to follow-up as needed. Addendum entered by VICKI Delacruz 03/07/25 14:03: Discharge planning: Pt's discharge orders with diagnosis for each medication were secure emailed to Kennedi in admissions at [facility] at 12:49pm. Social work to follow-up as needed. Addendum entered by VICKI Delacruz 03/07/25 12:15: Discharge planning: [id number]. Social work to follow-up as needed. Addendum entered by VICKI Delacruz 03/07/25 12:10: Discharge planning/addition to original note: PT notes were secure emailed to Kennedi in admissions at [facility] earlier this morning to confirm that the pt indeed needed short-term rehab. Social work to follow-up as needed. Original Note: Discharge planning: Pt has been accepted to [facility] for short-term rehab today. Pt's daughter can transport him at 4-4:30pm. Pt needs to be to [facility] by no later than 7pm. [facility] needs the orders by 2pm at the latest. telephone worker notified the charge nurse on duty of this time frame. Pre-admission screening was completed and sent to Kennedi Sterling in admissions at [facility] via secure email. Social work to follow-up as needed.
[2025-03-07 12:00] VITALS: BP 111/67; PULSE 78; RESP 18; TEMP 36.6; O2SAT 97
[2025-03-07] MEDS: INSULIN ASPART 100 UNIT/ML SUBCUT (12:00)
[2025-03-07 14:57] VITALS: RESP 18; O2SAT 98
[2025-03-07 15:45] VITALS: BP 107/66; PULSE 91; RESP 18; TEMP 36.3; O2SAT 98
--- NOTE | 2025-03-07 18:35 | PC.NURSE ---
Discharge - Pt alert, oriented to self only. Pleasant and redirectable. Noted to be impulsive r/t getting up from bed and chair without assistance and without using call light. RN provided frequent reminders and reoriented often. Pt comprehension not shown. Up with x1 assist, needed verbal directions to ambulate safely. Tolerating RA and regular diet/fluids. Reported pain in surgical hip but was unable to rate 1-10. Refused medication and ice pack offered by RN. Pt behavior indicated comfort. Nurse to Nurse report given to Eliud at [facility]. IV removed with catheter intact, pt d/c to [facility] via family transport with daughter at approximately 1740.
== END 2025-03-07 17:40 | DRG 481 ==
LOC: ED 18:26 → MEDSURG 18:37
PROVIDERS: Orthopaedic Surgery; Student in an Organized Health Care Education/Training Program; Admitting Provider Family Medicine; Emergency Provider Emergency Medicine; PCP Family Medicine; Visit Provider Family Medicine
PROC: 0QS706Z Reposition Left Upper Femur with Intramedullary Internal Fixation Device, Open Approach (ICD-10-PCS; CPT 27245; principal; 2025-03-06 14:00)
DX: S72.142A Displaced intertrochanteric fracture of left femur, initial encounter for closed fracture (principal); C18.9 Malignant neoplasm of colon, unspecified; Z68.1 Body mass index [BMI] 19.9 or less, adult; G89.18 Other acute postprocedural pain; W01.198A Fall on same level from slipping, tripping and stumbling with subsequent striking against other object, initial encounter; Y93.H9 Activity, other involving exterior property and land maintenance, building and construction; Y92.018 Other place in single-family (private) house as the place of occurrence of the external cause; R63.6 Underweight; J45.40 Moderate persistent asthma, uncomplicated; G31.84 Mild cognitive impairment of uncertain or unknown etiology; E11.9 Type 2 diabetes mellitus without complications; Z79.84 Long term (current) use of oral hypoglycemic drugs; D64.9 Anemia, unspecified; I10 Essential (primary) hypertension; Z96.641 Presence of right artificial hip joint; E78.5 Hyperlipidemia, unspecified
CPT/HCPCS: 01230; 36415; 64450; 71045; 73502; 73551; 76882; 76942; 80053; 82962; 83036; 85018; 85025; 85610; 85730; 93005; 97110; 97116; 97161; 97165; 97535; 99100; 99284; 99285; A9270; C1713; J0690; J1100; J1171; J2250; J2371; J2405; J2704; J2795; J3010; J7030; J7120

== ENCOUNTER 2025-04-17 13:24 | Emergency (ER) | payer MEDICARE, SELFPAY ==
--- OUTSIDE RECORDS SUMMARY | 2025-03-10 10:30 | XMS_ITS | Encounter Summary ---
Author Organization [facility] Address [address] [place] [id number] Care Team Providers Care Cap Sewer Name Role Phone Selene, Katherine Tian Primary Care Provider Promise Latif PA-C Unavailable [phone] TcShakila lopez [facility] Unavailable Reason for Visit * Reason Comments Hospital F/U Encounter Details Date Type Department Care Team (Latest Contact Info) Description 03/10/2025 11:30 AM CDT Transitional Care Unit Visit [facility] [address] [place] [phone] Promise Latif PA-C [address] [place] [id number] Closed displaced intertrochanteric fracture of left femur with routine healing, subsequent encounter (Primary Dx); Diabetes mellitus without complication (H); ABLA (acute blood loss anemia); History of hypertension; Cognitive impairment; Delirium; Uncomplicated asthma, unspecified asthma severity, unspecified whether persistent; Mixed hyperlipidemia Social History Tobacco Use Types Packs/Day Years Used Date Smoking Tobacco: Never Assessed Sex and Gender Information Value Date Recorded Sex Assigned at Not on file Legal 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 Gender Identity Not on file Sexual Orientation Not on file documented as of this encounter Last Filed Vital Signs Vital Sign Reading Time Taken Comments Blood Pressure 119/63 03/10/2025 2:44 PM CDT Pulse 66 03/10/2025 2:44 PM CDT Temperature 36.2 C (97.2 F) 03/10/2025 2:44 PM CDT Respiratory Rate 17 03/10/2025 2:44 PM CDT Oxygen Saturation 96% 03/10/2025 2:44 PM CDT Inhaled Oxygen Concentration - - Weight 57.6 kg (127 lb) 03/10/2025 2:44 PM CDT Height 180.3 cm (5' 11) 03/10/2025 2:44 PM CDT Body Mass Index 17.71 03/10/2025 2:44 PM CDT documented in this encounter Progress Notes * Promise Latif PA-C - 03/10/2025 11:30 AM CDT Images from the original note were not included. [facility] PRIMARY CARE PROVIDER AND CLINIC: [facility], [address] [place] [address] Chief Complaint Patient presents with Hospital F/U [facility] of Service where encounter took place: [facility]) [[id number]] Lior Miranda is a 89 year old (1935), admitted to the above facility from [facility] . Hospital stay 03/05/25 through 03/07/25.. HPI: Notes from hospitalization reviewed including H&P Ortho consult and D/c summary Lior Miranda is a very pleasant 89-year-old male with a past medical history of colon cancer, type 2 diabetes, hypertension, cognitive impairment with recent hospitalization in [facility]. Presented after evaluation of a fall. Found to have a left intertrochanteric hip fracture. Underwent operative repair. Now discharged to [facility] Facility notes reviewed and spoke with nursing staff. Increase restlessness/agitation over the weekend. Trialed hydroxyzine with some improvement. Did intermittently require 1:1. Seems much improved today Lior is evaluated in his room. Overall doing well. Denies significant pain related to left hip fracture. Notes it is getting much better. Does recall being in the hospital. States he fell off of his lawnmower. Lives independently with his . Does not use an assistive device at baseline. Denies constipation. No dizziness or lightheadedness. His hydrochlorothiazide was discontinued in the hospital due to soft BPs. Does note some mild GI upset. Mentions he takes his metformin twice a day individed doses versus once daily. Daughter updated via phone x 10 min. Introduced self and role. Discussed delirium and plan of care CODE STATUS/ADVANCE DIRECTIVES DISCUSSION: No Order DNR / DNI ALLERGIES: Allergies Allergen Reactions Pistachio Nut Extract Anaphylaxis Aspirin Other (See Comments) Taking anacin without concerns Pistachios [Nuts] Raspberry PAST MEDICAL HISTORY: Past Medical History: Diagnosis Date Acquired absence of other specified parts of digestive tract Allergic rhinitis due to pollen Anemia, unspecified Constipation, unspecified Displaced intertrochanteric fracture of left femur, subsequent encounter for closed fracture with routine healing Encounter for change or removal of surgical wound dressing Encounter for prophylactic measures, unspecified DVI Encounter for screening for respiratory tuberculosis Essential (primary) hypertension Hyperlipidemia, unspecified Insomnia, unspecified FDC (current) use of aspirin FDC (current) use of oral hypoglycemic drugs 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 SOCIAL HISTORY: Patient's living condition: Lives with spouse but per daughter spouse has own impairments and is not able to assist patient Post Discharge Medication Reconciliation Status: MED REC REQUIRED Post Medication Reconciliation Status: discharge medications reconciled and changed, per note/orders Current Outpatient Medications Medication Sig Dispense Refill acetaminophen 500 MG CAPS Take 1,000 mg by mouth 3 times daily. pain albuterol (PROAIR HFA/PROVENTIL HFA/VENTOLIN HFA) 108 (90 Base) MCG/ACT inhaler Inhale 1-2 puffs into the lungs every 6 hours as needed for shortness of breath or wheezing. aspirin (ASA) 81 MG EC tablet Take 81 mg by mouth daily. Special Instructions: Hold instructions: Resume on 04/10/25. Hold aspirin while you are on Xarelto, resume after 34 days Monitor for bruising/bleeding, notify MD/HOOP CUTTER of concerns. cholecalciferol (RA VITAMIN D-3) 50 MCG (2000 UT) CAPS Take 1 tablet by mouth daily. fluticasone-salmeterol (ADVAIR) 250-50 MCG/ACT inhaler Inhale 1 puff into the lungs 2 times daily. hydrochlorothiazide (HYDRODIURIL) 25 MG tablet Take 25 mg by mouth daily. Special Instructions: Hold instructions: resume on 03/21/25. Resume after meeting with your primary care physician as your blood pressure was low during admission. levocetirizine (XYZAL) 5 MG tablet Take 2.5 mg by mouth every evening. melatonin 3 MG tablet Take 3 mg by mouth at bedtime. metFORMIN (GLUCOPHAGE-XR) 750 MG 24 hr tablet Take 750 mg by mouth 2 times daily (with meals). Withmeals Multiple Vitamins-Minerals (EYE MULTIVITAMIN/SODIUM) TABS Take 1-2 tablets by mouth 2 times daily. Special Instructions: administer with AM and PM meals, 2 in AM, 1 in PM oxyCODONE (ROXICODONE) 5 MG tablet Take 2.5 mg by mouth every 6 hours as needed for severe pain. rivaroxaban ANTICOAGULANT (XARELTO ANTICOAGULANT) 10 MG TABS tablet Take 10 mg by mouth daily. senna (SENOKOT) 8.6 MG tablet Take 1 tablet by mouth daily. constipation simvastatin (ZOCOR) 40 MG tablet Take 40 mg by mouth at bedtime. No current facility-administered medications for this visit. ROS: 10 point ROS of systems including Constitutional, Eyes, Respiratory, Cardiovascular, Gastroenterology, Genitourinary, Integumentary, Musculoskeletal, Psychiatric were all negative except for pertinent positives noted in my HPI. Vitals: BP 119/63 Pulse 66 Temp 97.2 ??F (36.2 ??C) Resp 17 Ht 1.803 m (5' 11) Wt 57.6 kg (127 lb) SpO2 96% BMI 17.71 kg/m?? Exam: Physical Exam Vitals (In facility EMR) reviewed. HENT: Head: Normocephalic and atraumatic. Eyes: General: No scleral icterus. Cardiovascular: Rate and Rhythm: Normal rate and regular rhythm. Pulmonary: Effort: Pulmonary effort is normal. Abdominal: General: There is no distension. Musculoskeletal: Right lower leg: No edema. Left lower leg: No edema. Comments: Dressing in place to left hip Skin: General: Skin is warm and dry. Findings: No rash. Neurological: Mental Status: He is alert. Mental status is at baseline. Psychiatric: Behavior: Behavior normal. Lab/Diagnostic data: Labs in CareEverywhere reviewed ASSESSMENT/PLAN: Acute left intertrochanteric hip fracture: Status post surgical repair 03/06 Adjust Tylenol to 1000 mg 3 times daily scheduled Oxycodone 2.5 mg available every 6 hours as needed start vitamin D 2000 units daily Check vitamin D level Xarelto for DVT prophylaxis WBAT PT/OT Follow-up with orthopedics ABLA: Discharge Hgb 10.7 CBC 03/11 Cognitive impairment Delirium, improved: Some baseline cognitive impairment. Had what sounds like delirium over the weekend and required 1:1. Now improved. UA negative Minimize narcotics Continue melatonin Discontinue hydroxyzine OT/social work consulted H/o HTN: Historically on hydrochlorothiazide. SBPs soft throughout hospital stay so discontinued onhospital discharge Monitor blood pressure Resume as indicated Type 2 diabetes, A1C 6.6: Metformin adjusted to 75 mg twice daily versus 150 mg daily per patient request to limit GI AE Monitor blood glucoses twice daily Asthma Allergic rhinitis Continue Advair and albuterol Continue Xyzal Hyperlipidemia Continue simvastatin This note was completed in part using [employer] voice recognition software. Although reviewed after completion, some word and grammatical errors may occur. A total 48 min were spent on this hospital follow up visit including review of outside records, medication reconciliation, evaluating patient discussing plan of care, coordinating with facility staff, separate phone call to patient's family member, writing orders and documenting. All services performed on day of visit. Electronically signed by: Promise Latif PA-C documented in this encounter Plan of Treatment Not on file documented as of this encounter Visit Diagnoses Diagnosis Closed displaced intertrochanteric fracture of left femur with routine healing, subsequent encounter- Primary Diabetes mellitus without complication (H) Type II or unspecified type diabetes mellitus without mention of complication, not stated as uncontrolled ABLA (acute blood loss anemia) History of hypertension Personal history of other diseases of circulatory system Cognitive impairment Unspecified persistent mental disorders due to conditions classified elsewhere Delirium Other alteration of consciousness Uncomplicated asthma, unspecified asthma severity, unspecified whether persistent Mixed hyperlipidemia documented in this encounter Care Teams Cap Sewer Relationship Specialty Start Date End Date [facility], [address] [address] ([place]gny) PCP - General 07/19/24 03/19/25 Promise Latif PA-C [address] [place] [address] Physician High Lead Yarder Physician High Lead Yarder - Medical 03/10/25 04/15/25 Shakila Fajardo [address] [phone] 03/10/25 04/15/25 documented as of this encounter
--- OUTSIDE RECORDS SUMMARY | 2025-03-13 07:30 | XMS_ITS | Encounter Summary ---
Author Organization [place] Address [address] [place] [address] Care Team Providers Care Polls Or Surveys Interviewer Name Role Phone Selene, Katherine Tian Primary Care Provider Promise Latif PA-C Unavailable [phone] [facility] Unavailable Reason for Visit * Reason Comments Retirement Acute Encounter Details Date Type Department Care Team (Latest Contact Info) Description 03/13/2025 8:30 AM CDT Transitional Care Unit Visit [facility] [address] [place] [phone] Promise Latif PA-C [address] [place] [phone] Closed displaced intertrochanteric fracture of left femur with routine healing, subsequent encounter (Primary Dx); ABLA (acute blood loss anemia); Cognitive impairment; Diabetes mellitus without complication (H); History of hypertension; Vitamin D deficiency Social History Tobacco Use Types Packs/Day Years Used Date Smoking Tobacco: Never Assessed Sex and Gender Information Value Date Recorded Sex Assigned at Not on file 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 Gender Identity Not on file Sexual Orientation Not on file documented as of this encounter Last Filed Vital Signs Vital Sign Reading Time Taken Comments Blood Pressure 125/56 03/13/2025 6:30 AM CDT Pulse 73 03/13/2025 6:30 AM CDT Temperature 36.6 C (97.8 F) 03/13/2025 6:30 AM CDT Respiratory Rate 17 03/13/2025 6:30 AM CDT Oxygen Saturation 96% 03/13/2025 6:30 AM CDT Inhaled Oxygen Concentration - - Weight 61.1 kg (134 lb 9.6 oz) 03/13/2025 6:30 A M CDT Height 180.3 cm (5' 11) 03/13/2025 6:30 AM CDT Body Mass Index 18.77 03/13/2025 6:30 AM CDT documented in this encounter Progress Notes * Promise Latif PA-C - 03/13/2025 8:30 AM CDT Images from the original note were not included. Chief Complaint Patient presents with Retirement Acute HPI: Lior Miranda is a 89 year old (1935), who is being seen today for an episodic care visit at: [facility] [[id number]]. Brief summary: Lior Miranda is a very pleasant 89-year-old male with a past medical historyof colon cancer, type 2 diabetes, hypertension, cognitive impairment with recent hospitalization [facility]. Presented after evaluation of a fall. Found to have a left intertrochanteric hip fracture. Underwent operative repair. Now discharged to [facility] Today's concern is Spoke with therapy. Doing well. Walking up to 45 feet with a 4 wheeled walker. SLUMS Lior is evaluated in his room. Doing well. Does note some mild ache in his hip. Tolerable. Participating with therapy. No constipation. Review of alf EMR:SBP 116-125, Wt 134, BG 143-239 Allergies, and PMH/PSH reviewed in EPIC today. REVIEW OF SYSTEMS: 4 point ROS including Respiratory, CV, GI and , other than that noted in the HPI, is negative Objective: BP 125/56 Pulse 73 Temp 97.8 ??F (36.6 ??C) Resp 17 Ht 1.803 m (5' 11) Wt 61.1 kg (134 lb 9.6 oz) SpO2 96% BMI 18.77 kg/m?? Physical Exam Vitals (In facility EMR) reviewed. HENT: Head: Normocephalic and atraumatic. Eyes: General: No scleral icterus. Cardiovascular: Rate and Rhythm: Normal rate and regular rhythm. Pulmonary: Effort: Pulmonary effort is normal. Abdominal: General: There is no distension. Musculoskeletal: Right lower leg: No edema. Left lower leg: No edema. Skin: General: Skin is warm and dry. Findings: No rash. Neurological: Mental Status: He is alert. Mental status is at baseline. Psychiatric: Behavior: Behavior normal. MED REC REQUIRED Post Medication Reconciliation Status: discharge medications reconciled and changed, per note/orders Recent labs in [facility] reviewed by me today. and Most Recent 3 CBC's: Recent Labs Lab Test 03/11/25 0546 07/19/24 1156 10/11/18 0545 WBC 5.83 8.3 5.2 HGB 8.4* 14.8 11.1* MCV 95.7 95 98 PLT 216 242 330 Most Recent 3 BMP's: Recent Labs Lab Test 03/11/25 0546 07/19/24 1156 10/11/18 0545 NA 138 140 139 POTASSIUM 4.1 4.1 4.4 CHLORIDE 104 100 103 CO2 23 28 28 BUN 20.5 17.2 21 CR 0.65* 0.82 0.74 ANIONGAP 11 12 8 KAYLA 9.6 10.3 10.0 GLC 120* 131* 100 Most Recent 2 LFT's:No lab results found. Component Ref Range & Units 3 d ago Vitamin D, Total (25-Hydroxy) 20 - 50 ng/mL 11 Low Assessment/Plan: Acute left intertrochanteric hip fracture Vitamin D deficiency: Status post surgical repair 03/06 Continue scheduled Tylenol No oxycodone usage over the past week. Family had previously requested they be discontinued. Will discontinue today Vitamin D level low at TCU. Start D3 50,000 units weekly Follow-up with PCP Broderick for DVT prophylaxis WBAT PT/OT Follow-up with orthopedics 4-6 weeks from surgical date ABLA: Discharge Hgb 10.7 CBC 03/11 with Hgb 8.4 No active signs of bleeding. Does Chems continue on Xarelto for DVT prophylaxis Repeat CBC 03/17 Cognitive impairment Delirium, improved: Some baseline cognitive impairment. Had what sounds like delirium over the weekend and required 1:1. Now improved. UA negative Continue melatonin OT/social work following. SLUMS 13/30 H/o HTN: Historically on hydrochlorothiazide. SBPs soft throughout hospital stay so discontinued onhospital discharge BP reviewed and appropriate. Continue off hydrochlorothiazide Resume as indicated Type 2 diabetes, A1C 6.6: Metformin 750 mg twice daily Blood glucoses reviewed and appropriate Asthma Allergic rhinitis Continue Advair and albuterol Continue Xyzal Hyperlipidemia Continue simvastatin Orders: As above Electronically signed by: Promise Latif PA-C documented in this encounter Plan of Treatment Not on file documented as of this encounter Visit Diagnoses Diagnosis Closed displaced intertrochanteric fracture of left femur with routine healing, subsequent encounter- Primary ABLA (acute blood loss anemia) Cognitive impairment Unspecified persistent mental disorders due to conditions classified elsewhere Diabetes mellitus without complication (H) Type II or unspecified type diabetes mellitus without mention of complication, not stated as uncontrolled History of hypertension Personal history of other diseases of circulatory system Vitamin D deficiency Unspecified vitamin D deficiency documented in this encounter Care Teams Polls Or Surveys Interviewer Relationship Specialty Start Date End Date [facility], [address] [address] PCP - General 07/19/24 03/19/25 Promise Latif PA-C [address] [place] [address] Physician Multimedia Project Manager Physician Multimedia Project Manager - Medical 03/10/25 04/15/[address] [facility] [id number] [place] [phone] 03/10/25 04/15/25 documented as of this encounter
--- OUTSIDE RECORDS SUMMARY | 2025-03-18 07:30 | XMS_ITS | Encounter Summary ---
Author Organization [place] Address [address] [place] [address] Care Team Providers Care Senior Ssis Developer Name Role Phone Selene, Katherine Tian Primary Care Provider Promise Latif PA-C Unavailable [phone] TcShakila lopez [facility] Unavailable Reason for Visit * Reason Comments Fpc Acute Encounter Details Date Type Department Care Team (Latest Contact Info) Description 2025 8:30 AM CDT Transitional Care Unit Visit [facility] [address] [place] [phone] Promise Latif PA-C [address] [place] [address] Closed displaced intertrochanteric fracture of left femur with routine healing, subsequent encounter (Primary Dx); Diabetes mellitus without complication (H); ABLA (acute blood loss anemia); History of hypertension Social History Tobacco Use Types Packs/Day Years Used Date Smoking Tobacco: Never Assessed Sex and Gender Information Value Date Recorded Sex Assigned at Not on file 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 Gender Identity Not on file Sexual Orientation Not on file documented as of this encounter Last Filed Vital Signs Vital Sign Reading Time Taken Comments Blood Pressure 123/57 2025 7:12 AM CDT Pulse 78 2025 7:12 AM CDT Temperature 36.9 C (98.4 F) 2025 7:12 AM CDT Respiratory Rate 17 2025 7:12 AM CDT Oxygen Saturation 92% 2025 7:12 AM CDT Inhaled Oxygen Concentration - - Weight 61.2 kg (135 lb) 2025 7:12 AM CDT Height 180.3 cm (5' 11) 2025 7:12 AM CDT Body Mass Index 18.83 2025 7:12 AM CDT documented in this encounter Progress Notes * Promise Latif PA-C - 2025 8:30 AM CDT Chief Complaint Patient presents with Fpc Acute HPI: Lior Miranda is a 89 year old (1935), who is being seen today for an episodic care visit at: [facility] [[id number]]. Brief summary: Lior Miranda is a very pleasant 89-year-old male with a past medical historyof colon cancer, type 2 diabetes, hypertension, cognitive impairment with recent hospitalization [facility]. Presented after evaluation of a fall. Found to have a left intertrochanteric hip fracture. Underwent operative repair. Now discharged to [facility] Today's concern is: Doing well. Left lower extremity pain improving. Still feels weak. Denies dizziness No constipation Review of care home EMR:SBP 105-123, Wt 135, BG 107-234 Allergies, and PMH/PSH reviewed in [facility] today. REVIEW OF SYSTEMS: 4 point ROS including Respiratory, CV, GI and , other than that noted in the HPI, is negative Objective: BP 123/57 Pulse 78 Temp 98.4 ??F (36.9 ??C) Resp 17 Ht 1.803 m (5' 11) Wt 61.2 kg (135 lb) SpO2 92% BMI 18.83 kg/m?? Physical Exam Vitals (In facility EMR) reviewed. HENT: Head: Normocephalic and atraumatic. Eyes: General: No scleral icterus. Cardiovascular: Rate and Rhythm: Normal rate and regular rhythm. Pulmonary: Effort: Pulmonary effort is normal. Breath sounds: No wheezing. Abdominal: General: There is no distension. Musculoskeletal: Right lower leg: No edema. Left lower leg: No edema. Comments: Left hip surgical dressings removed today. Incisions well-healed. Skin: General: Skin is warm and dry. Findings: No rash. Neurological: Mental Status: He is alert. Mental status is at baseline. Psychiatric: Behavior: Behavior normal. MED REC REQUIRED Post Medication Reconciliation Status: discharge medications reconciled and changed, per note/orders Recent labs in [facility] reviewed by me today. Assessment/Plan: Acute left intertrochanteric hip fracture Vitamin D deficiency: Status post surgical repair 03/06 Continue scheduled Tylenol Surgical dressings removed today. Incision healing well. Okay to leave open to air. Vitamin D level low at TCU. Start D3 50,000 units weekly and follow up with PCP Broderick for DVT prophylaxis WBAT PT/OT Follow-up with orthopedics 4-6 weeks from surgical date ABLA: Discharge Hgb 10.7 CBC 03/11 with Hgb 8.4 No active signs of bleeding. Does continue on Xarelto for DVT prophylaxis CBC 03/17 improved to 9.0 Monitor as clinically appropriate Cognitive impairment Delirium, improved: Some baseline cognitive impairment. Increased confusion at TCU admission, now improved. Continue melatonin OT/social work following. BRIANNE CPT 3.9/5.6 H/o HTN: Historically on hydrochlorothiazide. SBPs soft throughout hospital stay so discontinued onhospital discharge BP reviewed and appropriate. Continue off hydrochlorothiazide Resume as indicated Type 2 diabetes, A1C 6.6: Metformin 750 mg twice daily Blood glucoses reviewed and appropriate Asthma Allergic rhinitis Continue Advair and albuterol Continue Xyzal Hyperlipidemia Continue simvastatin Orders: NNO Electronically signed by: Promise Latif PA-C documented [...] history of other diseases of circulatory system documented in this encounter Care Teams Senior Ssis Developer Relationship Specialty Start Date End Date [facility], [address] [address] PCP - General 07/19/24 03/19/25 Promise Latif PA-C [address] [place] [address] Physician Landscape Architecture Professor Physician Landscape Architecture Professor - Medical 03/10/25 04/15/25 Shakila Fajardo [facility] [id number] [place] [phone] 03/10/25 04/15/25 documented as of this encounter
--- OUTSIDE RECORDS SUMMARY | 2025-03-24 07:00 | XMS_ITS | Encounter Summary ---
Author Organization [facility] Address [facility] [place] [address] Care Team Providers Care Utility Hand Name Role Phone Promise Latif PA-C Unavailable [phone] Shakila Fajardo [facility] Unavailable Reagan Infante Primary Care Provider [phone] Reason for Visit * Reason Comments Hospital F/U Encounter Details Date Type Department Care Team (Latest Contact Info) Description 03/24/2025 8:00 AM CDT Transitional Care Unit Visit [facility] [address] [place] [phone] Mallory Suggs, [address] [address] Fall, subsequent encounter (Primary Dx); Closed displaced intertrochanteric fracture of left femur with routine healing, subsequent encounter; Osteoporosis, unspecified osteoporosis type, unspecified pathological fracture presence; Vitamin D deficiency; ABLA (acute blood loss anemia); History of delirium; Cognitive impairment; Diabetes mellitus without complication (H); Malignant neoplasm of colon, unspecified part of colon (H) Social History Tobacco Use Types Packs/Day Years Used Date Smoking Tobacco: Never Assessed Sex and Gender Information Value Date Recorded Sex Assigned at Not on file 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 Gender Identity Not on file Sexual Orientation Not on file documented as of this encounter Last Filed Vital Signs Vital Sign Reading Time Taken Comments Blood Pressure 104/55 03/24/2025 9:29 AM CDT Pulse 76 03/24/2025 9:29 AM CDT Temperature 36.6 C (97.8 F) 03/24/2025 9:29 AM CDT Respiratory Rate 17 03/24/2025 9:29 AM CDT Oxygen Saturation 95% 03/24/2025 9:29 AM CDT Inhaled Oxygen Concentration - - Weight 62.1 kg (137 lb) 03/24/2025 9:29 AM CDT Height 180.3 cm (5' 11) 03/24/2025 9:29 AM CDT Body Mass Index 19.11 03/24/2025 9:29 AM CDT documented in this encounter Progress Notes * Mallory Suggs, DO - 03/24/2025 8:00 AM CDT [facility] PHYSICIAN NOTE PRIMARY CARE PROVIDER AND CLINIC: [facility], [address] [place] [address] / [facility] [id number] Chief Complaint Patient presents with Hospital F/U [facility] where encounter took [facility]: [facility]) [[id number]] Lior Miranda is a 89 year old (1935), admitted to the above facility from [facility]. Hospital stay 03/05/25 through 03/07/25. Admitted to this facility for rehab, medical management, and nursing care. HPI: HPI information obtained from: facility chart records, facility staff, patient report, and [facility] chart review. 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 Per facility scanned in H&P, he did not have prodromal symptoms prior to fall nor head injury or LOC. Was a slip and fall and family was able to get him help quite quickly. Does have underlying h/o cognitive impairment with outpatient MiniCog 0/5 per notes during annual visit in Jan 2024 as well as h/o DM2 on Metformin, frailty, asthma and colon cancer s/p R hemicolectomy in 2014 with colonoscopy in 2017 and per notes he's deferred since then. Discharged to [facility] for rehab/care postoperatively with new Xarelto for VTE prophy per ortho. Updates on status since [facility] admission: Recent vitals: Afebrile, BP 96-123/50-70, HR 60-80 and weight in 120-130# range. Cognitive scores: SLUMS 13/30 and CPT 3.9/5.6. Adonis is seen in his room today and welcome to visit. He had therapy earlier today including walking in the hallway and using the NuStep. Per nursing staff he's been in good spirits and no longer has the delirium that he had when he first came to the TCU. Adonis says that he occasionally has some mild pain and aches but that's to be expected - he actually says that he likes to walk as it feels good. Otherwise no symptoms of acute concern. He's previously had his sutures removed and allows a wound check today. CODE STATUS/ADVANCE DIRECTIVES DISCUSSION: DNR / DNI Patient's living condition: lives with spouse ALLERGIES: Pistachio nut extract, Aspirin, Pistachios [nuts], and Raspberry Past Medical History: Diagnosis Date Allergic rhinitis due to pollen Anemia, unspecified Cognitive impairment Constipation, unspecified Displaced intertrochanteric fracture of left femur, subsequent encounter for closed fracture with routine healing Encounter for prophylactic measures, unspecified DVI Essential (primary) hypertension Hyperlipidemia, unspecified Insomnia, unspecified Moderate persistent asthma, uncomplicated Personal history of fall 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 pain albuterol (PROAIR HFA/PROVENTIL HFA/VENTOLIN HFA) 108 (90 Base) MCG/ACT inhaler Inhale 1-2 puffs into the lungs every 6 hours as needed for shortness of breath or wheezing. cholecalciferol (VITAMIN D3) 1.25 MG (04561 UT) capsule Take 1,250 mcg by mouth every 7 days. fluticasone-salmeterol (ADVAIR) 250-50 MCG/ACT inhaler Inhale 1 puff into the lungs 2 times daily. levocetirizine (XYZAL) 5 MG tablet Take 2.5 [...] meals, 2 in AM, 1 in PM rivaroxaban ANTICOAGULANT (XARELTO ANTICOAGULANT) 10 MG TABS tablet Take 10 mg by mouth daily. senna (SENOKOT) 8.6 MG tablet Take 1 tablet by mouth daily. constipation simvastatin (ZOCOR) 40 MG tablet Take 40 mg by mouth at bedtime. aspirin (ASA) 81 MG EC tablet Take 81 mg by mouth daily. Special Instructions: Hold instructions: Resume on 04/10/25. Hold aspirin while you are on Xarelto, resume after 34 days Monitor for bruising/bleeding, notify MD/SUPERVISOR WOOD ROOM of concerns. (Patient not taking: Reported on 03/24/2025) ROS: Limited secondary to cognitive impairment but today pt reports as above in HPI Exam: BP 104/55 Pulse 76 Temp 97.8 ??F (36.6 ??C) Resp 17 Ht 1.803 m (5' 11) Wt 62.1 kg (137 lb) SpO2 95% BMI 19.11 kg/m?? Alert, pleasant, casually dressed, sitting up in a wheelchair in no acute distress No scleral icterus Heart tones regular without murmur rub or gallop Breathing nonlabored on room air, no cough, clear posteriorly Abdomen thin Able to stand up easily with assist of one and hold on to a walker to examine his left hip Left lateral hip with 2 incisions that are clean dry and intact without any erythema or drainage with sutures previously removed Left buttock has Mepilex in place that was removed noting a small superficial abrasion without signs of infection Normal speech, no tremor Mood euthymic and motivated Lab/Diagnostic data: Most Recent 3 CBC's: Recent Labs Lab Test 03/17/25 0447 03/11/25 0546 07/19/24 1156 10/11/18 0545 WBC -- 5.83 8.3 5.2 HGB 9.0* 8.4* 14.8 11.1* MCV 100.0 95.7 95 98 PLT -- 216 242 330 Most Recent 3 BMP's: Recent Labs Lab Test 03/11/25 0546 07/19/24 1156 10/11/18 0545 NA 138 140 139 POTASSIUM 4.1 4.1 4.4 CHLORIDE 104 100 103 CO2 23 28 28 BUN 20.5 17.2 21 CR 0.65* 0.82 0.74 ANIONGAP 11 12 8 KAYLA 9.6 10.3 10.0 GLC 120* 131* 100 Jan 2024 HgbA1c 6.7% per CareEverywhere Mar 2025: Vitamin D low at 11 subsequently started on high dose weekly Vitamin D supplementation here at [facility] Recent imagin03/05/25 Xray L hip and pelvis: A comminuted fracture in the left intertrochanteric hip is present with severe varus angulation. ASSESSMENT/PLAN: Fall, subsequent encounter Closed displaced intertrochanteric fracture of left femur with routine healing, subsequent encounter Osteoporosis, unspecified osteoporosis type, unspecified pathological fracture presence Vitamin D deficiency ABLA (acute blood loss anemia) Continue on site nursing, therapy and criminal justice social worker support He's coming along nicely well with rehab and is motivated Can WBAT LLE Pain well controlled without opiate therapy Incisions healing well Hgb low but trending up when last checked 8.4 --> 9.0 On Xarelto for VTE prophy per ortho; then back to ASA 81 mg maintenance per PCP Due to vitamin D deficiency is on high dose weekly supplementation appropriately; future osteoporosis management per PCP To follow up with Jaylan Velez 4-6 weeks postop History of delirium Cognitive impairment H/o outpatient MiniCog 0/5 per notes during annual visit in Jan 2024 Cognitive scores: SLUMS 13/30 and CPT 3.9/5.6 here at [facility] concerning for dementia Had some delirium initially as transitioned to TCU but now lifted Keep in mind with care conferences and dispo planning; does sound to have family involved in life and considering [facility] Diabetes mellitus without complication (H) Jan 2024 HgbA1c 6.7% per CareEverywhere BID POC glucose range 100 in AM and 100-200 in PM on Metformin alone which is satisfactory Malignant neoplasm of colon, unspecified part of colon (H) H/o colon cancer s/p R hemicolectomy in 2014 with colonoscopy in 2017 and per notes he's deferred since then Keep in mind if Hgb slow to recover documented in this encounter Plan of Treatment Not on file documented as of this encounter Visit Diagnoses Diagnosis Fall, subsequent encounter- Primary Closed displaced intertrochanteric fracture of left femur with routine healing, subsequent encounter Osteoporosis, unspecified osteoporosis type, unspecified pathological fracture presence Vitamin D deficiency Unspecified vitamin D deficiency ABLA (acute blood loss anemia) History of delirium Cognitive impairment Unspecified persistent mental disorders due to conditions classified elsewhere Diabetes mellitus without complication (H) Type II or unspecified type diabetes mellitus without mention of complication, not stated as uncontrolled Malignant neoplasm of colon, unspecified part of colon (H) documented in this encounter Care Teams Utility Hand Relationship Specialty Start Date End Date [facility] [address] [place] [address] PCP - General Family Medicine 03/20/25 Promise Latif PA-C [address] [place] [phone] Physician Mobile Solutions Architect Physician Mobile Solutions Architect - Medical 03/10/25 04/15/25 Shakila Fajardo [facility] [address] [place] [phone] 03/10/25 04/15/25 documented as of this encounter
--- OUTSIDE RECORDS SUMMARY | 2025-04-01 09:30 | XMS_ITS | Encounter Summary ---
Author Organization [facility] Address [address] [place] [address] Care Team Providers Care Senior Tax Manager Name Role Phone Promise Latif PA-C Unavailable [phone] Shakila Fajardo [facility] Unavailable Reagan Medina Primary Care Provider [phone] Reason for Visit * Reason Comments Prison Acute Encounter Details Date Type Department Care Team (Latest Contact Info) Description 04/01/2025 10:30 AM CDT Transitional Care Unit Visit [facility] [address] [place] [phone] Promise Latif PA-C [address] [place] [phone] Closed displaced intertrochanteric fracture of left femur with routine healing, subsequent encounter (Primary Dx); Cognitive impairment; Diabetes mellitus without complication (H); History of hypertension Social History Tobacco Use Types Packs/Day Years Used Date Smoking Tobacco: Never Assessed Sex and Gender Information Value Date Recorded Sex Assigned at Not on file Legal Sex Male 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 Gender Identity Not on file Sexual Orientation Not on file documented as of this encounter Last Filed Vital Signs Vital Sign Reading Time Taken Comments Blood Pressure 112/56 04/01/2025 8:57 AM CDT Pulse 70 04/01/2025 8:57 AM CDT Temperature 36.4 C (97.5 F) 04/01/2025 8:57 AM CDT Respiratory Rate 17 04/01/2025 8:57 AM CDT Oxygen Saturation 94% 04/01/2025 8:57 AM CDT Inhaled Oxygen Concentration - - Weight 62.4 kg (137 lb 9.6 oz) 04/01/2025 8:57 A M CDT Height 180.3 cm (5' 11) 04/01/2025 8:57 AM CDT Body Mass Index 19.19 04/01/2025 8:57 AM CDT documented in this encounter Progress Notes * Promise Latif PA-C - 04/01/2025 10:30 AM CDT Chief Complaint Patient presents with Prison Acute HPI: Lior Miranda is a 89 year old (1935), who is being seen today for an episodic care visit at: [facility] ([facility]) [[id number]]. Brief summary: Lior Miranda is a very pleasant 89-year-old male with a past medical historyof colon cancer, type 2 diabetes, hypertension, cognitive impairment with recent hospitalization [facility]. Presented after evaluation of a fall. Found to have a left intertrochanteric hip fracture. Underwent operative repair. Now discharged to [facility] Today's concern is: Doing well Denies pain. Left LE still feels weak Denies dizziness SW following. Referrals out to [facility] Review of [facility]itentiary EMR:SBP 99-120, Wt 137 Allergies, and PMH/PSH reviewed in [facility] today. REVIEW OF SYSTEMS: 4 point ROS including Respiratory, CV, GI and , other than that noted in the HPI, is negative Objective: BP 112/56 Pulse 70 Temp 97.5 ??F (36.4 ??C) Resp 17 Ht 1.803 m (5' 11) Wt 62.4 kg (137 lb 9.6 oz) SpO2 94% BMI 19.19 kg/m?? Physical Exam Vitals (In facility EMR) reviewed. HENT: Head: Normocephalic and atraumatic. Eyes: General: No scleral icterus. Cardiovascular: Rate and Rhythm: Normal rate and regular rhythm. Pulmonary: Effort: Pulmonary effort is normal. Breath sounds: No wheezing. Abdominal: General: There is no distension. Musculoskeletal: Comments: Mild LE edema Skin: General: Skin is warm and dry. Findings: No rash. Neurological: Mental Status: He is alert. Mental status is at baseline. Psychiatric: Behavior: Behavior normal. MED REC REQUIRED Post Medication Reconciliation Status: discharge medications reconciled and changed, per note/orders Recent labs in [facility] reviewed by me today. and Most Recent [...] Most Recent 2 LFT's:No lab results found. Assessment/Plan: Acute left intertrochanteric hip fracture Vitamin D deficiency: Status post surgical repair 03/06 Continue scheduled Tylenol Vitamin D level low at TCU. Start D3 50,000 units weekly and follow up with PCP Broderick for DVT prophylaxis through 04/09 WBAT PT/OT Follow-up with orthopedics 4-6 weeks from surgical date ABLA: Discharge Hgb 10.7 CBC 03/11 with Hgb 8.4 No active signs of bleeding. Does continue on Xarelto for DVT prophylaxis CBC 03/17 improved to 9.0 Monitor as clinically appropriate Cognitive impairment Delirium, improved: Some baseline cognitive impairment. Increased confusion at TCU admission, now improved. Continue melatonin OT/social work following. SLUMS CPT 3.9/5.6. Looking into [facility] H/o HTN: Historically on hydrochlorothiazide. SBPs soft [...] femur with routine healing, subsequent encounter- Primary Cognitive impairment Unspecified persistent mental disorders due to conditions classified elsewhere Diabetes mellitus without complication (H) Type II or unspecified type diabetes mellitus without mention of complication, not stated as uncontrolled History of hypertension Personal history of other diseases of circulatory system documented in this encounter Care Teams Senior Tax Manager Relationship Specialty Start Date End Date Votel, Reagan Chaney [address] [place] [address] PCP - General Family Medicine 03/20/25 Promise Latif PA-C [address] [place] [phone] Physician Fixer Supervisor Physician Fixer Supervisor - Medical 03/10/25 04/15/25 Shakila Fajardo [facility] [address] [place] [phone] 03/10/25 04/15/25 documented as of this encounter
--- OUTSIDE RECORDS SUMMARY | 2025-04-07 10:00 | XMS_ITS | Encounter Summary ---
Author Organization [facility] Address [facility] [place] [address] Care Team Providers Care Last Scourer Name Role Phone Salomon Promisejudi Rivas PA-C Unavailable [phone] Shakila Fajardo [facility] Unavailable Reagan Medina Primary Care Provider [phone] Reason for Visit * Reason Comments [facility] Acute Encounter Details Date Type Department Care Team (Latest Contact Info) Description 04/07/2025 10:00 AM TILE AND MARBLE SETTER Transitional Care Unit Visit [facility] [address] [place] [phone] Mallory Suggs, DO [address] [place] [phone] Urinary frequency (Primary Dx); Acute cystitis without hematuria; Closed displaced intertrochanteric fracture of left femur with routine healing, subsequent encounter; Cognitive impairment Social History Tobacco Use Types Packs/Day Years Used Date Smoking Tobacco: Never Assessed Sex and Gender Information Value Date Recorded Sex Assigned at Not on file Legal Sex Male 1:20 PM TILE AND MARBLE 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 Gender Identity Not on file Sexual Orientation Not on file documented as of this encounter Last Filed Vital Signs Vital Sign Reading Time Taken Comments Blood Pressure 116/63 04/07/2025 10:07 AM TILE AND MARBLE SETTER Pulse 86 04/07/2025 10:07 AM TILE AND MARBLE SETTER Temperature 36.4 C (97.6 F) 04/07/2025 10:07 AM TILE AND MARBLE SETTER Respiratory Rate 18 04/07/2025 10:07 AM TILE AND MARBLE SETTER Oxygen Saturation 94% 04/07/2025 10:07 AM TILE AND MARBLE SETTER Inhaled Oxygen Concentration - - Weight 60.5 kg (133 lb 6.4 oz) 04/07/2025 10:07 AM TILE AND MARBLE SETTER Height 180.3 cm (5' 11) 04/07/2025 10:07 AM TILE AND MARBLE SETTER Body Mass Index 18.61 04/07/2025 10:07 AM TILE AND MARBLE SETTER documented in this encounter Progress Notes * Ifeanyi Mallory Linda, DO - 04/07/2025 10:00 AM CST [facility] PHYSICIAN NOTE Chief Complaint Patient presents with [facility] Acute HPI: Lior Miranda is a 89 year old (1935), who is being seen today for an acute TCU visit at [facility]. Seen today regarding urine sample collected over theeke. Adonis is seen today in his room prior to going to therapy and welcome to visit. It is noted over the weekend that he had complained of some urinary frequency getting up to use the restroom several times in the morning by nursing staff. Staff noted his urine looked cloudy. A UA was collected he says via clean catch. However, today he denies any symptoms at all. He recalls the urinary frequency that occurred yesterday but verifies its resolved. Denies any abdominal pain, fever or symptoms of feeling generally unwell. Is willing to participate in therapy. We did discuss that his UA looked positivebut we're still awaiting culture. He does have an appointment for orthopedic follow-up this afternoon that he plans to attend with his daughter Neelam. Past Medical History: Diagnosis Date Allergic rhinitis [...] without complications (H) Underweight Unspecified macular degeneration CODE STATUS: DNR/I ALLERGIES: Pistachio nut extract, Aspirin, Nuts, and Raspberry MEDICATIONS: Reviewed and updated in [facility] according to facility MAR Current Outpatient Medications Medication Sig Dispense Refill [...] after 34 days Monitor for bruising/bleeding, notify MD/MOLD FILLER of concerns. (Patient not taking: Reported on 03/24/2025) cholecalciferol (VITAMIN D3) 1.25 MG (48455 UT) capsule Take 1,250 mcg by mouth [...] Take 40 mg by mouth at bedtime. ROS: 4 point ROS including Respiratory, CV, GI and , other than that noted in the HPI, is negative Exam: BP 116/63 Pulse 86 Temp 97.6 ??F (36.4 ??C) Resp 18 Ht 1.803 m (5' 11) Wt 60.5 kg (133 lb 6.4 oz) SpO2 94% BMI 18.61 kg/m?? Alert, pleasant, casually dressed, no acute distress, sitting up in a wheelchair that he's able to self propel No diaphoresis Breathing non labored on room air Mood euthymic, normal speech Lab/Diagnostic Data: Most Recent 3 CBC's: Recent Labs Lab [...] 9.6 10.3 10.0 GLC 120* 131* 100 Estimated Creatinine Clearance: 65.9 mL/min (A) (based on SCr of 0.65 mg/dL (L)). Most Recent Urinalysis: Recent Labs Lab Test 04/06/25 1014 COLOR Yellow APPEARANCE Slightly Cloudy* URINEGLC Negative URINEBILI Negative URINEKETONE Negative SG 1.025 UBLD Moderate* URINEPH 6.0 PROTEIN 100* NITRITE Negative LEUKEST Large* RBCU 25* WBCU >182* UCx >100K Gram negative bacilli (Proteus) ASSESSMENT/PLAN: Urinary frequency Had self-limited urinary frequency with some nursing report of cloudy urine over the weekend for which UA as noted above is positive Today he denies any symptoms at all however UA very positive and UCx growing preliminary >100K Gram negative bacilli (Proteus) He does not have any antibiotic allergies His creatinine had recently been satisfactory when last checked At risk for delirium if progressive infection and was indeed seemingly quite symptomatic yesterday so will elect to treat Start Keflex 500 mg BID x 5 days; BMP and CBC tomorrow 04/08/25 ADDENDUM: Was able to share this information with daughter Neelam on the phone too the subsequent day and re: stable Cr and improving ABLA; she is glad he was on antibiotics as recognized over the weekend the very symptomatic symptoms he had with urinary frequency Closed displaced intertrochanteric fracture of left femur with routine healing, subsequent encounter Outpatient follow up at [facility] this afternoon at 1 o'clock Continue therapies and nursing support here at TCU ADDENDUM: Spoke with him and his daughter Neelam; this appointment went well showing signs of healing Continues to work with on site therapy to gain strength and stability as he recovers as is still frail and at risk for falls (in fact did have a non- injurious fall today too after his ortho appointment attempting self transfer forgetting to lock his WC brakes) Cognitive impairment H/o outpatient MiniCog 0/5 per notes during annual visit in Jan 2024 Cognitive scores: SLUMS 13/30 and CPT 3.9/5.6 here at TCU concerning for dementia Had some delirium initially as transitioned to TCU but now lifted Spoke with his daughter Neelam who is aware of his memory loss; as TCU wraps up may stay here for LTC a few days or so while awaiting eventual transition to a new RODNEY AND MARBLE SETTER documented in this encounter Plan of Treatment Not on file documented as of this encounter Visit Diagnoses Diagnosis Urinary frequency- Primary Acute cystitis without hematuria Acute cystitis Closed displaced intertrochanteric fracture of left femur with routine healing, subsequent encounter Cognitive impairment Unspecified persistent mental disorders due to conditions classified elsewhere documented in this encounter Care Teams Last Scourer Relationship Specialty Start Date End Date VotelReagan [address] [place] [address] PCP - General Family Medicine 03/20/25 Promise Latif PA-C [address] [place] [phone] Physician 2Nd Pressman Physician 2Nd Pressman - Medical 03/10/25 04/15/25 Shakila lopez [facility] [id number] [place] [phone] 03/10/25 04/15/25 documented as of this encounter
--- OUTSIDE RECORDS SUMMARY | 2025-04-11 11:30 | XMS_ITS | Encounter Summary ---
Author Organization [facility] Address [address] [place] [address] Care Team Providers Care Land Economist Name Role Phone Promise Latif PA-C Unavailable [phone] Shakila Fajardo [facility] Unavailable Reagan Infante Primary Care Provider [phone] Reason for Visit * Reason Comments Discharge Summary Prison Encounter Details Date Type Department Care Team (Late st Contact Info) Description 04/11/2025 11:30 AM U.S. COMMISSIONER Discharge Summary Prison [facility] [address] [place] [phone] Promise Latif PA-C [address] [place] [phone] Discharge Summary Prison Social History Tobacco Use Types Packs/Day Years Used Date Smoking Tobacco: Never Assessed Sex and Gender Information Value Date Recorded Sex Assigned at Not on file Legal Sex Male 1:20 PM U.S. COMMISSIONER Gender Identity Not on file Sexual Orientation Not on file documented as of this encounter Last Filed Vital Signs Vital Sign Reading Time Taken Comments Blood Pressure 116/65 04/11/2025 12:13 PM U.S. COMMISSIONER Pulse 71 04/11/2025 12:13 PM U.S. COMMISSIONER Temperature 36.6 C (97.9 F) 04/11/2025 12:13 PM U.S. COMMISSIONER Respiratory Rate 18 04/11/2025 12:13 PM U.S. COMMISSIONER Oxygen Saturation 92% 04/11/2025 12:13 PM U.S. COMMISSIONER Inhaled Oxygen Concentration - - Weight 60.5 kg (133 lb 6.4 oz) 04/11/2025 12:13 PM U.S. COMMISSIONER Height 180.3 cm (5' 11) 04/11/2025 12:13 PM U.S. COMMISSIONER Body Mass Index 18.61 04/11/2025 12:13 PM U.S. COMMISSIONER documented in this encounter Progress Notes * Promise Latif PA-C - 04/11/2025 11:30 AM CST Images from the original note were not included. [facility] DISCHARGE SUMMARY PATIENT'S NAME: Lior Miranda DATE OF : 1935 Place of Service where encounter took place: [facility] [[id number]] PRIMARY CARE PROVIDER AND CLINIC RESPONSIBLE AFTER TRANSFER: [facility] [address] [place] [address] / [facility] [id number] [facility] Provider Transferring providers: Promise Latif PA-C, Dr. Mallory Suggs MD Recent Hospitalization/ED: [facility] stay 03/05/25 to 03/07/25. Date of SNF Admission: March 07, 2025 Date of SNF (anticipated) Discharge: April 15, 2025 Discharged to: [facility] Cognitive Scores: SLUMS: and CPT: 3.9/5.6 Physical Function: Ambulating 150 ft with FWW DME: NNO CODE STATUS/ADVANCE DIRECTIVES DISCUSSION: No Order Tanika ruth but that ALLERGIES: Pistachio nut extract, Aspirin, Nuts, and Raspberry NURSING FACILITY COURSE Lior Miranda is a very pleasant 89-year-old male with a past medical history of colon cancer, type 2 diabetes, hypertension, cognitive impairment with recent hospitalization in [facility]. Presented after evaluation of a fall. Found to have a left intertrochanteric hip fracture. Underwent operative repair. Now discharged to U Admitted to U. Participated with therapies. Cognition scores low. Family has elected to transition patient discussed to more supportive living environment. Will be discharged to [facility]. Adonis is evaluated in his room. Doing well. Understands plan for discharge next week. Started on antibiotics for UTI earlier this week. Denies urgency, frequency or burning. No GI symptoms related to p.o. antibiotic Acute left intertrochanteric hip fracture Vitamin D deficiency: Status post surgical repair 03/06 Continue scheduled Tylenol Vitamin D level low at TCU. Start D3 50,000 units weekly and follow up with PCP WBAT Proteus UTI: Continue Keflex to 04/12 Urinary symptoms resolved ABLA: Discharge Hgb 10.7 CBC 04/08 stable at 9.6 Cognitive impairment Delirium, improved: Some baseline cognitive impairment. Increased confusion at TCU admission, now improved. Continue melatonin OT/social work following. SLUMS CPT 3.9/5.6. Looking into [facility] H/o HTN: Historically on hydrochlorothiazide. SBPs soft throughout hospital stay so discontinued onhospital discharge BP reviewed and appropriate. Continue off hydrochlorothiazide Resume as indicated Type 2 diabetes, A1C 6.6: Metformin 750 mg twice daily Blood glucoses reviewed and appropriate Asthma Allergic rhinitis Continue Advair and albuterol Continue Xyzal Hyperlipidemia Continue simvastatin Discharge Medications: MED REC REQUIRED Post Medication Reconciliation Status: [...] after 34 days Monitor for bruising/bleeding, notify MD/EFFERVESCENT SALTS COMPOUNDER of concerns. cephALEXin (KEFLEX) 500 MG capsule Take 1 capsule (500 mg) by mouth 2 times daily for 5 days. 10 capsule 0 cholecalciferol (VITAMIN D3) 1.25 MG (05828 UT) capsule Take 1,250 mcg by mouth [...] meals, 2 in AM, 1 in PM senna (SENOKOT) 8.6 MG tablet Take 1 tablet by mouth daily. constipation simvastatin (ZOCOR) 40 MG tablet Take 40 mg by mouth at bedtime. Controlled medications: not applicable/none Past Medical History: Past Medical History: Diagnosis Date Allergic rhinitis [...] without complications (H) Underweight Unspecified macular degeneration Physical Exam: Vitals: BP 116/65 Pulse 71 Temp 97.9 ??F (36.6 ??C) Resp 18 Ht 1.803 m (5' 11) Wt 60.5 kg (133 lb 6.4 oz) SpO2 92% BMI 18.61 kg/m?? BMI: Body mass index is 18.61 kg/m??. Physical Exam Vitals (In facility EMR) reviewed. HENT: Head: Normocephalic and atraumatic. Eyes: General: No scleral icterus. Cardiovascular: Rate and Rhythm: Normal rate and regular rhythm. Pulmonary: Effort: Pulmonary effort is normal. Abdominal: General: There is no distension. Musculoskeletal: Comments: Trace edema Skin: General: Skin is warm and dry. Findings: No rash. Neurological: Mental Status: He is alert. Mental status is at baseline. Gait: Gait normal. Psychiatric: Behavior: Behavior normal. SNF labs: Recent labs in [facility] reviewed by me today. and Most Recent 3 CBC's: Recent Labs Lab Test 04/08/2544803/17/25 0447 03/11/2546 07/19/24 1156 WBC 6.28 -- 5.83 8.3 HGB 9.6* 9.0* 8.4* 14.8 MCV 99.4 100.0 95.7 95 PLT 227 -- 216 242 Most Recent 3 BMP's: Recent Labs Lab Test 04/08/2544803/11/25 0546 07/19/24 1156 NA 140 138 140 POTASSIUM 4.1 4.1 4.1 CHLORIDE 105 104 100 CO2 25 23 28 BUN 25.2* 20.5 17.2 CR 0.73 0.65* 0.82 ANIONGAP 10 11 12 KAYLA 9.6 9.6 10.3 GLC 97 120* 131* Order Tracking Lab Initiated 04/06 3:49 PM Collected 04/06 10:14 AM Received in Lab 04/06 4:34 PM UUIDLB Final Result 04/07 9:41 PM Contains abnormal data Urine Culture Order: [id number] Collected 04/06/2025 10:14 AM Status: Final result Dx: Frequency of micturition Test Result Released: No (inaccessible in orangutrans) Specimen Information: Urine, NOS 4 Result Notes View Follow-Up Encounter Culture >100,000 CFU/mL Proteus mirabilis Abnormal Resulting Agency: [facility] Susceptibility Proteus mirabilis SID Ampicillin <=2 ug/mL Susceptible Ampicillin/ Sulbactam <=2 ug/mL Susceptible Cefazolin 4 ug/mL Susceptible Cefepime <=0.12 ug/mL Susceptible Ceftazidime <=0.5 ug/mL Susceptible Ceftriaxone <=0.25 ug/mL Susceptible Ciprofloxacin <=0.06 ug/mL Susceptible Gentamicin <=1 ug/mL Susceptible Levofloxacin <=0.12 ug/mL Susceptible Nitrofurantoin 128 ug/mL Resistant 1 Piperacillin/Tazobactam <=4 ug/mL Susceptible Trimethoprim/Sulfamethoxazole <=1/19 ug/mL Susceptible Most Recent 2 LFT's:No lab results found. Most Recent TSH and T4:No lab results found. Most Recent Hemoglobin A1c:No lab results found. DISCHARGE PLAN: Follow up labs: No labs orders/due Medical Follow Up: Follow up with primary care provider in 1 weeks Current [facility] scheduled appointments: Appointments in Next Year No future appts. Discharge Services: Home Care: Occupational Therapy and Physical Therapy Discharge Instructions Verbalized to Patient at Discharge: Weight bearing restrictions: Weight bearing as tolerated. TOTAL DISCHARGE TIME: Greater than 30 minutes Electronically signed by: Promise Latif PA-C Documentation of Face to Face and Certification for Home Health Services I certify that services are/were furnished while this patient was under the care of a physician andthat a physician or an allowed non-physician practitioner (NPP), had a uuzy-ke-jjic encounter that meets the physician [id number] encounter requirements. The encounter was in whole, or in part, related to the primary reason for home health. The patient is confined to his/her home and needs intermittent chcf, physical therapy, speech-language pathology, or the continued need for occupational therapy. A plan of care has been established by a physician and is periodically reviewed by a physician. Date of [id number]-[id number] Encounter: 04/11/2025. I certify that, based on my findings, the following services are medically necessary home health services: Occupational Therapy and Physical Therapy. My clinical findings support the need for the above skilled services because: Requires assistance of another person or specialized equipment to access medical services because patient: Requires supervision of another for safe transfer... Patient to re-establish plan of care with their PCP within 7-10 days after leaving the facility to reestablish care. Medicare certified [place] provider: Promise Latif PA-C Date: April 11, 2025 U.S. COMMISSIONER documented in this encounter Plan of Treatment Not on file documented as of this encounter Visit Diagnoses Diagnosis Acute cystitis without hematuria- Primary Acute cystitis Closed displaced intertrochanteric fracture of left femur with routine healing, subsequent encounter Cognitive impairment Unspecified persistent mental disorders due to conditions classified elsewhere Diabetes mellitus without complication (H) Type II or unspecified type diabetes mellitus without mention of complication, not stated as uncontrolled Vitamin D deficiency Unspecified vitamin D deficiency ABLA (acute blood loss anemia) documented in this encounter Care Teams Land Economist Relationship Specialty Start Date End Date VotelReagan [address] [place] [address] PCP - General Family Medicine 03/20/25 Promise Latif PA-C [address] [place] [phone] Physician Conference Specialist Physician Conference Specialist - Medical 03/10/25 04/15/[address] [phone] 03/10/25 04/15/25 documented as of this encounter
[2025-04-17 13:27] VITALS: BP 142/73; PULSE 86; RESP 18; TEMP 36.8; O2SAT 98
--- OUTSIDE RECORDS SUMMARY | 2025-04-17 13:27 | XMS_ITS | Continuity of Care Document ---
Author Organization [facility] Address [address] [place] [id number] Care Team Providers Care Tissue Specialist Name Role Phone Mallory Suggs DO Attending Physician [phone] Medications Medication Frequency Instructions Diagnosis Start Date End Date Last Administered acetaminophen 500 mg tablet Three Times A Day 1,000 mg, oral, Three Times A Day, not to exceed 4000 mg per day R52 : Pain, unspecified 202403/18/2025 08:32 AM albuterol sulfate 90 mcg/actuation HFA aerosol inhaler Every 6 Hours - PRN 1-2 puffs, inhalation, Every 6 Hours - PRN J45.40 : Moderate persistent asthma, uncomplicated 2024 Eye Multivitamin (vitamins a,c,m-zjax-dacbt r) 2,148 mcg-113 mg-45 mg-17.4mg tablet Twice A Day 1-2 tabs, oral, Twice A Day, administer with AM and PM meals, 2 in AM, 1 in PM H35.30 : Unspecified macular degeneration 202403/18/2025 08:32 AM fluticasone propion-salmeter ol 250-50 mcg/dose blister with device Twice A Day 1 inhalation, inhalation, Twice A Day, *Rinse mouth after use to prevent thrush* J45.40 : Moderate persistent asthma, uncomplicated 202403/18/2025 08:32 AM levocetirizine 5 mg tablet Once A Day 2.5 mg, oral, Once A Day J30.1 : Allergic rhinitis due to pollen 202403/17/2025 07:07 PM melatonin 3 mg tablet Once A Day 3 mg, oral, Once A Day G47.00 : Insomnia, unspecified 202403/17/2025 07:07 PM metformin 750 mg tablet Twice A Day 750 mg, oral, Twice A Day, with meals E11.9 : Type 2 diabetes mellitus without complications 202403/18/2025 08:32 AM sennosides 8.6 mg tablet Once A Day 1 tablet, oral, Once A Day K59.00 : Constipation, unspecified 202403/17/2025 07:07 PM simvastatin 40 mg tablet Once A Day 40 mg, oral, Once A Day E78.5 : Hyperlipidemia, unspecified 202403/17/2025 07:07 PM Vitamin D3 (cholecalciferol (vitamin d3)) 50,000 units tablet Once A Day on Mon 50,000 units, oral, Once A Day on Mon, x 8 weeks E55.9 : Vitamin D deficiency, unspecified 05/0203/14/2025 08:06 AM Xarelto (rivaroxaban) 10 mg tablet Once A Day 10 mg, oral, Once A Day, Monitor for bruising/bleedi ng, notify MD/VIDEOTAPE SALES REPRESENTATIVE of concerns. Z29.9 : Encounter for prophylactic measures, unspecified 04/0903/18/2025 08:32 AM acetaminophen 500 mg tablet Every 6 Hours 500-1,000 mg, oral, Every 6 Hours, not to exceed 4000 mg per day N.O. Non-Pharmacolog ical Interventions: 1=Warm blanket 2=Re-position 3=Ice pack 4=Warm pack. R52 : Pain, unspecified 03/1003/10/2025 06:04 AM fluticasone propion-salmeter ol 250-50 mcg/dose blister with device Twice A Day 1 inhalation, inhalation, Twice A Day J45.40 : Moderate persistent asthma, uncomplicated 03/1103/11/2025 04:00 PM hydroxyzine HCl 25 mg tablet Every 6 Hours - PRN 25, oral, Every 6 Hours - PRN, For anxiety 03/10 metformin 750 mg tablet Once A Day 1,500 mg, oral, Once A Day E11.9 : Type 2 diabetes mellitus without complications 03/1003/09/2025 03:54 PM oxycodone 5 mg tablet Every 6 Hours - PRN 2.5-5 mg, oral, Every 6 Hours - PRN, Q 4-6 hours not to exceed 6 tabs per day N.O. Non-Pharmacolog ical Interventions: 1=Warm blanket 2=Re-position 3=Ice pack 4=Warm pack. R52 : Pain, unspecified 03/1003/07/2025 10:46 PM oxycodone 5 mg tablet Every 6 Hours - PRN 2.5 mg, oral, Every 6 Hours - PRN, Q 6 hours not to exceed 6 tabs per day N.O. Non-Pharmacolog ical Interventions: 1=Warm blanket 2=Re-position 3=Ice pack 4=Warm pack. R52 : Pain, unspecified 03/13 sennosides 8.6 mg tablet Twice A Day - PRN 17.2 mg, oral, Twice A Day - PRN, N.O. Non-Pharmacolog ical Interventions 1=Additional fluids 2=Prune Juice 3=Increase exercise K59.00 : Constipation, unspecified 03/10 Vitamin D3 (cholecalciferol (vitamin d3)) 50 mcg (2,000 unit) capsule Once A Day 2,000 units, oral, Once A Day S72.142D : Displaced intertrochanteric fracture of left femur, subsequent encounter for closed fracture with routine healing 03/1103/11/2025 08:25 AM Problems Code Type Problem ICD Code Effective Date Status ICD-10 Displaced intertroch anteric fracture of left femur, subsequent encounter for closed fracture with routine healing S72.142D 03/07/2025 Active ICD-10 Unspecified protein-calorie malnutrition E46 03/12/2025 Active ICD-10 Vitamin D deficiency, unspecified E55.9 Active ICD-10 Insomnia, unspecified G47.00 03/10/2025 Act nyasia ICD-10 Urinary tract infection, site not specified N39 .0 03/08/2025 Active ICD-10 Encounter for change or removal of surgical wound dressing Z48.01 03/07/2025 Active ICD-10 Underweight R63.6 03/07/2025 Active ICD-10 Unspecified macular degeneration H35.30 08/2024 Active ICD-10 Other symptoms and s igns involving cognitive functions and awareness R41.89 03/07/2025 Active ICD-10 Hyperlipidemia, unspecified E78.5 03/07/20 25 Active ICD-10 Moderate persistent asthma, uncomplicated J45.4 0 03/07/2025 Active ICD-10 Essential (primary) hypertension I10 08/2024 Active ICD-10 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 03/07/2025 Active ICD-10 History of falling Z91.81 03/07/2025 Active ICD-10 Type 2 diabetes pippa itus without complications E11.9 03/07/2025 Active ICD-10 Acquired absence of other specified parts of digestive tract Z90.49 03/07/2025 Active ICD-10 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 03/07/2025 Active ICD-10 Anemia, unspecified D64.9 03/07/2025 Activ e ICD-10 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 Z79.0 1 03/07/2025 Active ICD-10 termite exterminator (current) use of oral hypoglycemic drugs Z79.84 03/07/2025 Active ICD-10 prison (current) use of aspirin Z79.82 1 Active ICD-10 Encounter for screen ing for respiratory tuberculosis Z11.1 03/07/2025 Active ICD-10 Pain, unspecified R52 03/07/2025 Active ICD-10 Encounter for prophy lactic measures, unspecified Z29.9 03/07/2025 Active ICD-10 Constipation, unspecified K59.00 03/07/2025 Active ICD-10 Allergic rhinitis due to pollen J30.1 1008/2024 Active Current Allergies and Intolerances Category Substance Type Reaction Severity Begin Date Status Food allergy Pistachios Allergy 03/07/2025 Activ e Vital Signs Height: 71.0 in Date / Time Temperature Pulse (per minute) Respirations (per minute) Systolic BP (mmHg) Diastolic BP (mmHg) O2 Saturation (%) Weight BMI 2024 09:16 AM 97.7 F 72 17 111 76 95.0 2024 09:25 AM 98.4 F 78 17 123 57 92.0 2024 01:27 PM 135.0 lbs 18.8 3 2024 10:50 AM 97.8 F 68 15 108 59 97.0 2024 12:17 PM 97.8 F 69 14 105 62 99.0 2024 09:12 AM 97.5 F 71 17 131 62 95.0 2024 08:57 AM 97.5 F 71 18 115 62 92.0 2024 08:16 AM 97.8 F 73 17 125 56 96.0 2024 01:50 PM 98.0 F 69 17 121 68 95.0 2024 10:17 AM 134.6 lbs 18.7 7 2024 01:09 AM 98.2 F 65 17 117 62 96.0 2024 09:55 PM 97.8 F 62 18 116 68 98.0 2024 02:13 PM 127.0 lbs 17.7 1 2024 01:38 PM 127.0 lbs 17.7 1 2024 01:25 PM 128.1 lbs 17.8 6 Advance Directives Directive Note Do Not Resuscitate (DNR) Do Not Intubate (DNI) Insurance Providers Payer Policy type Group Name Group number Policy ID Address Ph one [employer] Med Adv + 2% Like Medicare Part A [id number] Phone: Fax: Part B Insurance - [employer] Like Medicare Part B [id number] Phone: Fax: Private Pay Coins A Private Phon e: Fax: Private Pay Coins B Private Phon e: Fax: Private Pay Private Phone: Fax: Immunizations Vaccine Converter Operator Date Status Dose Series Complete COVID-19 Vaccine Sharypic 11/23/2021 Completed [place] [facility] 2 - Monovalent COVID-19 Vaccine Pfizer-BioNTech 05/19/2021 Completed [place] ster 1 - Monovalent COVID-19 Vaccine Pfizer-BioNTech 08/06/2020 Completed 2 COVID-19 Vaccine Pfizer-BioNTech 07/16/2020 Completed 1 COVID-19 Vaccine 03/10/2025 Refused Influenza Vaccine 03/10/2025 Refused Pneumococcal Vaccine 05/18/2015 Completed Pneumococcal Vaccine 04/28/2014 Completed Pneumococcal Vaccine 11/11/2009 Completed Pneumococcal Vaccine 03/10/2025 Refused RSV Vaccine 03/10/2025 Refused Tetanus Vaccine 03/29/2013 Completed Procedures Not available for this record Results Name Date Time Positive/Negative Value Unit Range Blood Sugar 2025 08:26 AM 113.0 mg/dL Blood Sugar 03/17/2025 05:00 PM 162.0 mg/dL Blood Sugar 03/17/2025 07:41 AM 119.0 mg/dL Blood Sugar 03/16/2025 05:53 PM 234.0 mg/dL Blood Sugar 03/16/2025 07:46 AM 120.0 mg/dL Blood Sugar 03/15/2025 05:18 PM 162.0 mg/dL Blood Sugar 03/15/2025 08:36 AM 107.0 mg/dL Blood Sugar 03/14/2025 04:47 PM 189.0 mg/dL Blood Sugar 03/14/2025 09:27 AM 136.0 mg/dL Blood Sugar 03/13/2025 05:26 PM 155.0 mg/dL Blood Sugar 03/13/2025 08:25 AM 135.0 mg/dL Blood Sugar 03/12/2025 05:43 PM 158.0 mg/dL Blood Sugar 03/11/2025 09:57 PM 239.0 mg/dL Blood Sugar 03/11/2025 04:35 PM 195.0 mg/dL Blood Sugar 03/11/2025 01:50 PM 155.0 mg/dL Blood Sugar 03/11/2025 09:45 AM 143.0 mg/dL Blood Sugar 03/11/2025 08:25 AM 143.0 mg/dL Blood Sugar 03/10/2025 09:52 PM 240.0 mg/dL Blood Sugar 03/10/2025 05:27 PM 234.0 mg/dL Blood Sugar 03/10/2025 10:10 AM 181.0 mg/dL Blood Sugar 03/09/2025 08:57 PM 201.0 mg/dL Blood Sugar 03/09/2025 08:56 PM 174.0 mg/dL Blood Sugar 03/09/2025 08:00 PM 201.0 mg/dL Goals Goal Date Resident will participate in activities of choice. 05/10/2025 Pt. will remain safe when go ing outdoors evidenced by no accidents or injuries in the process. 05/10/2025 Skin will remain intact through 90 days. 06/07/2025 The left hip incision will show signs of healing by 90 days. 06/07/2025 Resident will regain ability to complete ADLs. 06/07/2025 Resident will be free from injury due to falls through the next 90 days 06/07/2025 Will remain safe and free from abuse thr ough 90 days. 06/07/2025 Resident will remain free from behaviora l symptoms for the next 90 days. 06/07/2025 Resident will maintain highest level of cognition for the next 90 days. 06/07/2025 Resident will remain free from mood symp toms over the next 90 days. 06/07/2025 Establish discharge plan with resident a nd sales representative trainee 06/07/2025 Encounters Admission Date Discharge Date Description MRN Visit Count 03/07/2025 18:20 LTPAC Admission [id number]
--- OUTSIDE RECORDS SUMMARY | 2025-04-17 13:28 | XMS_ITS | Encounter Summary ---
Author Organization [facility] Address [facility] [place] [address] Care Team Providers Care Quarter Lining Smoother Name Role Phone Promise Latif PA-C Unavailable [phone] Shakila Fajardo [facility] Unavailable VoteReagan hayward Primary Care Provider [phone] Encounter Details Date Type Department Care Team (Latest Contact Info) Description 04/01/2025 Travel Social History Tobacco Use Types Packs/Day Years Used Date Smoking Tobacco: Never Assessed Sex and Gender Information Value Date Recorded Sex Assigned at Not on file Legal Sex Male 1:20 PM OUTSIDE ENERGY SALES REPRESENTATIVES Gender Identity Not on file Sexual Orientation Not on file documented as of this encounter Plan of Treatment Not on file documented as of this encounter Visit Diagnoses Not on filedocumented in this encounter Care Teams Quarter Lining Smoother Relationship Specialty Start Date End Date VoteReagan hayward [address] [place] [address] PCP - General Family Medicine 03/20/25 Promise Latif PA-C [address] [place] [address] Physician Superintendent Electric Power Physician Superintendent Electric Power - Medical 03/10/25 04/15/25 Shakila Fajardo [facility] [address] [place] [phone] 03/10/25 04/15/25 documented as of this encounter
--- OUTSIDE RECORDS SUMMARY | 2025-04-17 13:28 | XMS_ITS | Encounter Summary ---
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 Gender Identity Not on file Sexual Orientation Not on file documented as of this encounter Plan of Treatment Not on file documented as of this encounter Visit Diagnoses Not on filedocumented in this encounter Care Teams Storm Sash Maker Relationship Specialty Start Date End Date VoteReagan hayward [address] [place] [address] PCP - General Family Medicine 03/20/25 Promise Latif PA-C [address] [place] [address] Physician Rn Care Manager Physician Rn Care Manager - Medical 03/10/25 04/15/25 Shakila Fajardo [facility] [address] [place] [phone] 03/10/25 04/15/25 documented as of this encounter
--- OUTSIDE RECORDS SUMMARY | 2025-04-17 13:28 | XMS_ITS | Encounter Summary ---
Author Organization [facility] Address [facility] [place] [address] Care Team Providers Care Switchboard And Control Room Operator Name Role Phone Promise Latif PA-C Unavailable [phone] Shakila Fajardo [facility] Unavailable VoteReagan hayward Primary Care Provider [phone] Encounter Details Date Type Department Care Team (Latest Contact Info) Description 04/07/2025 Travel Social History Tobacco Use Types Packs/Day Years Used Date Smoking Tobacco: Never Assessed Sex and Gender Information Value Date Recorded Sex Assigned at Not on file Legal Sex Male 1:20 PM FOUNDER Gender Identity Not on file Sexual Orientation Not on file documented as of this encounter Plan of Treatment Not on file documented as of this encounter Visit Diagnoses Not on filedocumented in this encounter Care Teams Switchboard And Control Room Operator Relationship Specialty Start Date End Date VoteReagan hayward [address] [place] [address] PCP - General Family Medicine 03/20/25 Promise Latif PA-C [address] [place] [address] Physician Shoe Stitcher Odd Physician Shoe Stitcher Odd - Medical 03/10/25 04/15/25 Shakila Fajardo [facility] [address] [place] [phone] 03/10/25 04/15/25 documented as of this encounter
--- OUTSIDE RECORDS SUMMARY | 2025-04-17 13:28 | XMS_ITS | Encounter Summary ---
Author Organization [facility] Address [address] [place] [address] Care Team Providers Care Kinder Teacher Name Role Phone Promise Latif PA-C Unavailable [phone] Shakila Fajardo [facility] Unavailable VoteReagan hayward Primary Care Provider [phone] Encounter Details Date Type Department Care Team (Late st Contact Info) Description 04/07/2025 Results Follow-Up [facility] Geriatrics [address] [place] [phone] April Julien, KARAN Social History Tobacco Use Types Packs/Day Years Used Date Smoking Tobacco: Never Assessed Sex and Gender Information Value Date Recorded Sex Assigned at Not on file Legal Sex Male 1:20 PM DIRECTOR STYLE Gender Identity Not on file Sexual Orientation Not on file documented as of this encounter Plan of Treatment Not on file documented as of this encounter Visit Diagnoses Not on filedocumented in this encounter Care Teams Kinder Teacher Relationship Specialty Start Date End Date BishnuteReagan hayward [address] [place] [address] PCP - General Family Medicine 03/20/25 Promise Latif PA-C [address] [place] [address] Physician Retail Sales Merchandiser Physician Retail Sales Merchandiser - Medical 03/10/25 04/15/25 Shakila Fajardo [facility] [address] [place] [address] 03/10/25 04/15/25 documented as of this encounter
--- OUTSIDE RECORDS SUMMARY | 2025-04-17 13:28 | XMS_ITS | Encounter Summary ---
Author Organization [place] Address [facility] [place] [address] Care Team Providers Care Planimeter Operator Name Role Phone Promise Latif PA-C Unavailable [phone] Shakila Fajardo [facility] Unavailable VoteReagan hayward Primary Care Provider [phone] Encounter Details Date Type Department Care Team (Latest Contact Info) Description 04/15/2025 Travel Social History Tobacco Use Types Packs/Day Years Used Date Smoking Tobacco: Never Assessed Sex and Gender Information Value Date Recorded Sex Assigned at Not on file Legal Sex Male 1:20 PM APPLICATION INTEGRATOR Gender Identity Not on file Sexual Orientation Not on file documented as of this encounter Plan of Treatment Not on file documented as of this encounter Visit Diagnoses Not on filedocumented in this encounter Care Teams Planimeter Operator Relationship Specialty Start Date End Date VoteReagan hayward [address] [place] [address] PCP - General Family Medicine 03/20/25 Promise Latif PA-C [address] [place] [address] Physician Glue Wheel Operator Physician Glue Wheel Operator - Medical 03/10/25 04/15/25 Shakila Fajardo [facility] [address] [place] [address] 03/10/25 04/15/25 documented as of this encounter
--- OUTSIDE RECORDS SUMMARY | 2025-04-17 13:29 | XMS_ITS | Encounter Summary ---
Author Organization [facility] Address [facility] [place] [address] Care Team Providers Care Digital Media Intern Name Role Phone [facility], [facility] Primary Care Provider Reason for Visit * Reason Onset Date Comments Agitation 03/08/2025 Encounter Details Date Type Department Care Team (Late st Contact Info) Description 03/08/2025 Telephone [facility] [address] [place] [phone] Sandra Giron APRN CNP [address] [place] [address] Agitation Social History Tobacco Use Types Packs/Day Years Used Date Smoking Tobacco: Never Assessed Sex and Gender Information Value Date Recorded Sex Assigned at Not on file Legal Sex Male 1:20 PM 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 Very agitated and can hear him in the background and argumentive. Gave orders for Hydroxyzine 25mg po every 6 hours prn for anxiety. If not effective can call back for lorazepam. Sandra Giron APRN CNP documented in this encounter Plan of Treatment Not on file documented as of this encounter Visit Diagnoses Not on filedocumented in this encounter Care Teams Digital Media Intern Relationship Specialty Start Date End Date [facility], [place] [phone] PCP - General 07/19/24 03/19/25 documented as of this encounter
--- OUTSIDE RECORDS SUMMARY | 2025-04-17 13:29 | XMS_ITS | Encounter Summary ---
Author Organization [facility] Address [address] [place] [address] Care Team Providers Care Analytical Chemistry Teacher Name Role Phone [facility] Primary Care Provider Promise Latif PA-C Unavailable [phone] Shakila Fajardo [facility] Unavailable Reagan Medina Primary Care Provider [phone] Reason for Visit * Reason Comments Geriatrics Tracker Encounter Details Date Type Department Care Team (Late st Contact Info) Description 03/07/2025 Documentation Only [facility] Geriatrics [address] [place] [phone] Rosie Lizarraga MA [address] [place] [address] Geriatrics Tracker Social History Tobacco Use Types Packs/Day Years Used Date Smoking Tobacco: Never Assessed Sex and Gender Information Value Date Recorded Sex Assigned at Not on file Legal Sex Male 1:20 PM ACTIVITY MANAGER Gender Identity Not on file Sexual Orientation Not on file documented as of this encounter Plan of Treatment Not on file documented as of this encounter Visit Diagnoses Not on filedocumented in this encounter Care Teams Analytical Chemistry Teacher Relationship Specialty Start Date End Date [facility], [facility] [address] [place] [address] PCP - General 07/19/24 03/19/25 Reagan Medina [address] [place] [phone] PCP - General Family Medicine 03/20/25 Promise Latif PA-C [address] [place] [address] Physician Operater Physician Operater - Medical 03/10/25 04/15/25 Shakila Fajardo [facility] [id number] [place] [phone] 03/10/25 04/15/25 documented as of this encounter
--- OUTSIDE RECORDS SUMMARY | 2025-04-17 13:30 | XMS_ITS | Encounter Summary ---
Author Organization [facility] Address [address] [place] [address] Care Team Providers Care Franchise Sales Representative Name Role Phone [facility] Provider Promise Latif PA-C Unavailable [phone] Shakila Fajardo [facility] Unavailable Reagan Medina Primary Care Provider [phone] Encounter Details Date Type Department Care Team (Late st Contact Info) Description 03/11/2025 Results Follow-Up [facility] Geriatrics [address] [place] [address] Promise Latif PA-C [address] [place] [address] Social History Tobacco Use Types Packs/Day Years Used Date Smoking Tobacco: Never Assessed Sex and Gender Information Value Date Recorded Sex Assigned at Not on file Legal Sex Male 1:20 PM MEDIC TECHNICIAN Gender Identity Not on file Sexual Orientation Not on file documented as of this encounter Plan of Treatment Not on file documented as of this encounter Visit Diagnoses Not on filedocumented in this encounter Care Teams Franchise Sales Representative Relationship Specialty Start Date End Date [facility] [place] [address] [place] [address] PCP - General 07/19/24 03/19/25 Reagan eMdina [address] [place] [address] PCP - General Family Medicine 03/20/25 Promise Latif PA-C [address] [place] [address] Physician Parking Inspector Physician Parking Inspector - Medical 03/10/25 04/15/25 Shakila Fajardo [facility] [address] [place] [phone] 03/10/25 04/15/25 documented as of this encounter
--- OUTSIDE RECORDS SUMMARY | 2025-04-17 13:30 | XMS_ITS | Encounter Summary ---
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 Gender Identity Not on file Sexual Orientation Not on file documented as of this encounter Plan of Treatment Not on file documented as of this encounter Visit Diagnoses Not on filedocumented in this encounter Care Teams Inventory Control Planner Relationship Specialty Start Date End Date [facility], [address] [address] PCP - General 07/19/24 03/19/25 Promise Latif PA-C [address] [place] [address] Physician Metal Fabricator Welder Physician Metal Fabricator Welder - Medical 03/10/25 04/15/25 Shakila Fajardo [facility] [address] [place] [phone] 03/10/25 04/15/25 documented as of this encounter
--- OUTSIDE RECORDS SUMMARY | 2025-04-17 13:30 | XMS_ITS | Encounter Summary ---
Author Organization [place] Address [facility] [place] [address] Care Team Providers Care Cane Cutter Name Role Phone [facility] Primary Care Provider Promise Latif PA-C Unavailable [phone] Shakila Fajardo [facility] Unavailable Encounter Details Date Type Department Care Team (Latest Contact Info) Description 03/10/2025 Travel Social History Tobacco Use Types Packs/Day Years Used Date Smoking Tobacco: Never Assessed Sex and Gender Information Value Date Recorded Sex Assigned at Not on file Legal Sex Male 1:20 PM CHHA Gender Identity Not on file Sexual Orientation Not on file documented as of this encounter Plan of Treatment Not on file documented as of this encounter Visit Diagnoses Not on filedocumented in this encounter Care Teams Cane Cutter Relationship Specialty Start Date End Date [facility], [address] [address] PCP - General 07/19/24 03/19/25 Promise Latif PA-C [address] [place] [id number] Physician Instructor Dramatic Arts Physician Instructor Dramatic Arts - Medical 03/10/25 04/15/25 Shakila Fajardo [facility] [address] [place] [phone] 03/10/25 04/15/25 documented as of this encounter
--- OUTSIDE RECORDS SUMMARY | 2025-04-17 13:30 | XMS_ITS | Encounter Summary ---
Author Organization [place] Address [facility] [place] [address] Care Team Providers Care Dam Tender Assistant Name Role Phone [facility] Primary Care Provider Promise Latif PA-C Unavailable [phone] Shakila Fajardo 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 [address] [place] [phone] 03/10/25 04/15/25 documented as of this encounter
--- OUTSIDE RECORDS SUMMARY | 2025-04-17 13:30 | XMS_ITS | Encounter Summary ---
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 Gender Identity Not on file Sexual Orientation Not on file documented as of this encounter Plan of Treatment Not on file documented as of this encounter Visit Diagnoses Not on filedocumented in this encounter Care Teams Corner Former Relationship Specialty Start Date End Date VoteReagan hayward [address] [place] [address] PCP - General Family Medicine 03/20/25 Promise Latif PA-C [address] [place] [address] Physician Digital Forensics Investigator Physician Digital Forensics Investigator - Medical 03/10/25 04/15/25 Shakila Fajardo [facility] [address] [place] [address] 03/10/25 04/15/25 documented as of this encounter
--- OUTSIDE RECORDS SUMMARY | 2025-04-17 13:34 | XMS_ITS | Data Portability ---
Author Organization [facility], Main Office Address [address] [place] [address] Assessment Encounter Date Assessment Date Assessment LastModified by Organization Details LastModified Time 09/23/2019 09/23/2019 1. Large basal carcinoma right lower eyelid. Here for Mohs surgery. We discussed the goals of cure, maintaining functionality minimizing any risk of ectropion, and then cosmetics in that order. He understands if there may be some cosmetic compromise to maintain functionality. Discussed bleeding, bruising, the swelling that will be incurred, 2% to 3% chance of infection, pain, sutures, and scarring. We originally had reviewed the potential of an advancement flap based laterally, but is a defect approached more of the medial canthus this would be almost unviable without extension to the lateral face in my experience. Written and verbal informed consent obtained. Mohs case number [id number] Cleansed with Betadine followed by alcohol. Anesthetized 1% lidocaine with epinephrine. Stage I: Curette debulking performed. 2 mm margins taken down to the subcutis revealing basaloid islands in the deep area and what would be the inferior lateral aspect approximately 6:00 in reference to the notch. Stage II: No debulking. Entire subcutis and part of the muscularis was taken including the epidermis from 4:00 to 8:00 through 6:00. No residual basal carcinoma. Total stages 2, total sections 2 final defect measured over 3.2 x 1.8 cm. See photograph. Because of the oblong tangential nature and advancement flap would be difficult. We chose to perform an island pedicle flap inferior based, taking advantage of the large facial artery and the upper labial artery and its branches. The flap was excised along the nasal sidewall cosmetic line into the alar crease. Advanced superiorly. Hemostasis obtained electrocautery. Secondary defect closed advancing the flap upward. Sutured in place with 4-0 Vicryl and 4-0 nylon. With undermined primary secondary defect flap encompassed almost 17 squared centimeters. Pressure dressing applied cell phone numbers given wound care instructions given. Recommend ice on and off for 24 hours. Hand written and verbal instructions given to him and his son. Follow-up in [place] in 8 days. [email or web address] Not available 09/23/2019 23:03:10 Plan of Treatment Reminders Order Date Submit Date Provider Last Modified By Organization Details Last Modified Time Details Appointments None record ed. Lab None record ed. Referral None record ed. Procedures None record ed. Surgeries None record ed. Imaging None record ed. Medication Orders None record ed. Patient TargetsNo targets recorded. Patient InstructionsNo instructions recorded. Reason for Referral None Reported. Medical Equipment None Reported. Medications Name Sig Start Date Stop Date Status Note LastModified by Organization Details LastModified Time fluticasone 250 mcg-salmete rol 50 mcg/dose blistr powdr for inhalation Inhale 1 puff twice a day by inhalatio n route. active Not Available Not Available No t Available warfarin 2.5 mg tablet 09/22 completed Not Available Not Available Not Available aspirin 81 mg tablet,zuleyka yed release Take 1 tablet every day by oral route. active Not Available Not Available No t Available simvastatin 40 mg tablet active Not Available Not Available Not Available warfarin 3 mg tablet 09/22 completed Not Available Not Available Not Available ferrous sulfate 325 mg (65 mg iron) tablet active Not Available Not Available Not Available hydrochloro thiazide 25 mg tablet active Not Available Not Available No t Available Ventolin HFA 90 mcg/actuati on aerosol inhaler active Not Available Not Available Not Available metformin ER 750 mg tablet,exte nded release 24 hr active Not Available Not Available Not Available Accu-Chek Pebbles Control Soln solution active Not Available Not Available Not Available albuterol sulfate 09/22 completed Not Available Not Available Not Available levocetiriz ine 5 mg tablet active Not Available Not Available Not Available Accu-Chek Pebbles Plus test strips active Not Available Not Available Not Available Vitals None Recorded Social History None recorded. Functional Status None recorded. Mental Status None recorded. Family History Nothing Reported. Medical History No medical history recorded. Past Encounters Encounter ID Performer Location Encounter Start Date Encounter Closed Date Diagnosis/Indication Diagnosis SNOMED-CT Code Diagnosis ICD10 Code Diagnosis IMO Codes Diagnosis Note [id number] Estelle Maki MD Main Office [address] [place] [address] 09/23/2019 11:58:10 10/02/2019 23:42:26 Basal cell carcinoma of lower eyelid 454406831 C44.111 Health Concerns Section Related Observation LastModified by Organization Detai ls LastModified Time None Recorded Concern Status LastModified by Organization Details LastModified Time None Recorded Advance Directives Directive None Recorded Payers Insurance Date Sequence Insurance Name Policy Number Policy Lawrence Covered Member ID Lawrence Member ID Guarantor Name 10/03/2019 1 [employer] (MEDICARE REPLACEMENT/A DVANTAGE - PPO) Lior Miranda [id number] Lior Miranda Notes Date Note Type Note Provider Name and Address Organization Details Recorded Time 09/23/2019 text/html ROS as noted in the HPI 84-year-old patient presents today with his son for evaluation and Mohs treatment of a biopsy-proven large basal carcinoma right lower eyelid. His past medical history social history and family history are reviewed from prior notes in [place]. He did stop his aspirin but only 2 days ago. His review of systems reveals no fevers no chills no cough no shortness of breath. No difficulty healing, no bleeding or clotting issues. Estelle Maki MD [address] [place], [address], [facility] 11/17/2019 09:15:11
--- OUTSIDE RECORDS SUMMARY | 2025-04-17 13:37 | XMS_ITS | Clinical Summary ---
Author Organization [place] Address [address] [place] [address] Care Team Providers Care Pole Framer Machine Name Role Phone Adam Reagan Chaney Primary Care Provider [phone] Allergies Active Allergy Reactions Criticality Noted Date Comments Aspirin Other (See Comments) 07/29/2009 Taking anacin without concerns Nuts 06/06/2008 Other Reaction(s): Edema Swelling in face Pistachio Nut Extract Anaphylaxis High 03/06/2018 Raspberry 03/07/2025 Medications acetaminophen 500 MG CAPS Take 1,000 mg by mouth 3 times daily. pain Active albuterol (PROAIR HFA/PROVENTIL HFA/VENTOLIN HFA) 108 (90 Base) MCG/ACT inhaler Inhale 1-2 puffs into the lungs every 6 hours as needed for shortness of breath or wheezing. Active aspirin (ASA) 81 MG EC tablet Take 81 mg by mouth daily. Special Instructions: Hold instructions: Resume on 04/10/25. Hold aspirin while you are on Xarelto, resume after 34 days Monitor for bruising/bleedi rolan, notify MD/FINGERNAIL TECHNICIAN of concerns. Active Multiple Vitamins-Mineral s (EYE MULTIVITAMIN/SOD IUM) TABS Take 1-2 tablets by mouth 2 times daily. Special Instructions: administer with AM and PM meals, 2 in AM, 1 in PM Active fluticasone-salm eterol (ADVAIR) 250-50 MCG/ACT inhaler Inhale 1 puff into the lungs 2 times daily. 025 Active levocetirizine (XYZAL) 5 MG tablet Take 2.5 mg by mouth every evening. Active melatonin 3 MG tablet Take 3 mg by mouth at bedtime. Active metFORMIN (GLUCOPHAGE-XR) 750 MG 24 hr tablet Take 750 mg by mouth 2 times daily (with meals). With meals Active senna (SENOKOT) 8.6 MG tablet Take 1 tablet by mouth daily. constipation Active simvastatin (ZOCOR) 40 MG tablet Take 40 mg by mouth at bedtime. Active cholecalciferol (VITAMIN D3) 1.25 MG (64765 UT) capsule Take 1,250 mcg by mouth every 7 days. Active rivaroxaban ANTICOAGULANT (XARELTO ANTICOAGULANT) 10 MG TABS tablet Take 10 mg by mouth daily. 2024 Discontinued cephALEXin (KEFLEX) 500 MG capsuleIndicatio ns:Acute cystitis without hematuria Take 1 capsule (500 mg) by mouth 2 times daily for 5 days. 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 Encounters Date Type Department Care Team Description 04/15/2025 Travel 04/11/2025 11:30 AM BARREL RIBS SOLDERER [facility] [address] [place] [phone] Promise Latif PA-C Discharge Summary Custodial 04/11/2025 Travel 04/07/2025 10:00 AM BARREL RIBS SOLDERER Transitional Care Unit Visit [address] [address] Mallory Suggs DO Urinary frequency (Primary Dx); Acute cystitis without hematuria; Closed displaced intertrochanteric fracture of left femur with routine healing, subsequent encounter; Cognitive impairment 04/07/2025 Travel 04/07/2025 Results Follow-Up [address] [phone] April Julien RN 04/01/2025 10:30 AM CDT Transitional Care Unit Visit [address] [address] Promise Latif PA-C Closed displaced intertrochanteric fracture of left femur with routine healing, subsequent encounter (Primary Dx); Cognitive impairment; Diabetes mellitus without complication (H); History of hypertension 04/01/2025 Travel 03/24/2025 8:00 AM CDT Transitional Care Unit Visit [address] [phone] Mallory Suggs, DO Fall, subsequent encounter (Primary Dx); Closed displaced intertrochanteric fracture of left femur with routine healing, subsequent encounter; Osteoporosis, unspecified osteoporosis type, unspecified pathological fracture presence; Vitamin D deficiency; ABLA (acute blood loss anemia); History of delirium; Cognitive impairment; Diabetes mellitus without complication (H); Malignant neoplasm of colon, unspecified part of colon (H) 03/24/2025 Travel 2025 8:30 AM CDT Transitional Care Unit Visit [address] [phone] Promise Latif PA-C Closed displaced intertrochanteric fracture of left femur with routine healing, subsequent encounter (Primary Dx); Diabetes mellitus without complication (H); ABLA (acute blood loss anemia); History of hypertension 2025 Travel 03/13/2025 8:30 AM CDT Transitional Care Unit Visit [address] [phone] Promise Latif PA-C Closed displaced intertrochanteric fracture of left femur with routine healing, subsequent encounter (Primary Dx); ABLA (acute blood loss anemia); Cognitive impairment; Diabetes mellitus without complication (H); History of hypertension; Vitamin D deficiency 03/13/2025 Travel 03/11/2025 Results Follow-Up [facility] [address] [phone] Promise Latif PA-C 03/10/2025 11:30 AM CDT Transitional Care Unit Visit [address] [address] Promise Latif PA-C Closed displaced intertrochanteric fracture of left femur with routine healing, subsequent encounter (Primary Dx); Diabetes mellitus without complication (H); ABLA (acute blood loss anemia); History of hypertension; Cognitive impairment; Delirium; Uncomplicated asthma, unspecified asthma severity, unspecified whether persistent; Mixed hyperlipidemia 03/10/2025 Travel 03/08/[address] [phone] Sandra Giron, BRAKE RIDER JOINER Agitation 03/07/2025 Documentation Only [address] [phone] Rosie Lizarraga, FRANK Geriatrics Tracker from Last 3 Months Immunizations Immunization Administration Dates Next Due COVID-19 Vaccine, Unspecified 11/23/2021 ,11/23/2021,05/19/2021,05/19/2021,,08/06/2020,07/16/2020,07/16/2020 Influenza Vaccine 65+ (FLUAD) 05/19/2021, 020 Pneumo Conj 13-V (2010&after) 05/18/2015, 014 Pneumococcal 23 valent 11/11/2009 TDAP (Adacel,Boostrix) 03/29/2013 Family History Relation Status Comments Son Alive Social History Tobacco Use Types Packs/Day Years Used Date Smoking Tobacco: Never Assessed Sex and Gender Information Value Date Recorded Sex Assigned at Not on file Legal Sex Male 1:20 PM BARREL RIBS SOLDERER Gender Identity Not on file Sexual Orientation Not on file Last Filed Vital Signs Vital Sign Reading Time Taken Comments Blood Pressure 116/65 04/11/2025 12:13 PM BARREL RIBS SOLDERER Pulse 71 04/11/2025 12:13 PM BARREL RIBS SOLDERER Temperature 36.6 C (97.9 F) 04/11/2025 12:13 PM BARREL RIBS SOLDERER Respiratory Rate 18 04/11/2025 12:13 PM BARREL RIBS SOLDERER Oxygen Saturation 92% 04/11/2025 12:13 PM BARREL RIBS SOLDERER Inhaled Oxygen Concentration - - Weight 60.5 kg (133 lb 6.4 oz) 04/11/2025 12:13 PM BARREL RIBS SOLDERER Height 180.3 cm (5' 11) 04/11/2025 12:13 PM BARREL RIBS SOLDERER Body Mass Index 18.61 04/11/2025 12:13 PM BARREL RIBS SOLDERER Plan of Treatment Health Maintenance Due Date Last Done Comments A1C 1936 ADVANCE CARE PLANNING 1936 ANNUAL REVIEW OF HM ORDERS 1936 ASTHMA ACTION PLAN 1936 ASTHMA CONTROL TEST 1936 DIABETIC FOOT EXAM 1936 EYE EXAM 1936 LIPID 1936 MICROALBUMIN 1936 ZOSTER VACCINE (1 of 2) 1986 FALL RISK ASSESSMENT 2001 RSV VACCINE (1 - 1-dose 75+ series) 2011 DTAP/TDAP/TD VACCINE (2 - Td or Tdap) 03/29/2023 03/29/2013 PHQ-2 (once per calendar year) 2024 MEDICARE ANNUAL WELLNESS VISIT 01/22/2025 01/23/2024 COVID-19 VACCINE ( - 2024- season) 2025 INFLUENZA VACCINE (#1) 2025 05/19/2021, 2019 BMP 04/08/2026 04/08/2025, 1012/2024, 07/19/2024, Additional history exists PNEUMOCOCCAL VACCINE 50+ YEARS Completed 05/18/2015, 04/28/2014, 11/11/2009 HPV VACCINE (No Doses Required) Completed MENINGITIS VACCINE Aged Out No longer eligible based on patient's age to complete this topic Procedures Procedure Name Priority Date/Time Associated Diagnosis Comments BASIC METABOLIC PANEL (OUTREACH) Routine 04/08/2025 4:49 AM BARREL RIBS SOLDERER Urinary tract infection, site not specified TRIP CHARGE - LAB ONLY Routine 04/08/2025 4:49 AM BARREL RIBS SOLDERER Urinary tract infection, site not specified BASIC METABOLIC PANEL NO GLUCOSE (OUTREACH) Routine 04/08/2025 4:49 AM BARREL RIBS SOLDERER Urinary tract infection, site not specified GLUCOSE (OUTREACH) Routine 04/08/2025 4: 49 AM BARREL RIBS SOLDERER Urinary tract infection, site not specified CBC WITH PLATELETS Routine 04/08/2025 4: 49 AM BARREL RIBS SOLDERER Urinary tract infection, site not specified URINE CULTURE Routine 04/06/2025 10:14 AM BARREL RIBS SOLDERER Frequency of micturition ROUTINE UA WITH MICROSCOPIC REFLEX TO CULTURE Routine 04/06/2025 10:14 AM BARREL RIBS SOLDERER Frequency of micturition TRIP CHARGE - LAB ONLY Routine 03/17/2025 4:47 AM CDT Anemia, unspecified HEMOGLOBIN Routine 03/17/2025 4:47 AM CDT Anemia, unspecified BASIC METABOLIC PANEL (OUTREACH) Routine 03/11/2025 5:46 AM CDT Displaced intertrochanteric fracture of left femur, subsequent encounter for closed fracture with routine healing Type 2 diabetes mellitus without complications (H) Anemia, unspecified TRIP CHARGE - LAB ONLY Routine 03/11/2025 5:46 AM CDT Displaced intertrochanteric fracture of left femur, subsequent encounter for closed fracture with routine healing Type 2 diabetes mellitus without complications (H) Anemia, unspecified BASIC METABOLIC PANEL NO GLUCOSE (OUTREACH) Routine 03/11/2025 5:46 AM CDT Displaced intertrochanteric fracture of left femur, subsequent encounter for closed fracture with routine healing Type 2 diabetes mellitus without complications (H) Anemia, unspecified GLUCOSE (OUTREACH) Routine 03/11/2025 5: 46 AM CDT Displaced intertrochanteric fracture of left femur, subsequent encounter for closed fracture with routine healing Type 2 diabetes mellitus without complications (H) Anemia, unspecified CBC WITH PLATELETS Routine 03/11/2025 5: 46 AM CDT Displaced intertrochanteric fracture of left femur, subsequent encounter for closed fracture with routine healing Type 2 diabetes mellitus without complications (H) Anemia, unspecified VITAMIN D DEFICIENCY SCREENING Routine 03/11/2025 5:46 AM CDT Displaced intertrochanteric fracture of left femur, subsequent encounter for closed fracture with routine healing Type 2 diabetes mellitus without complications (H) Anemia, unspecified QUANTIFERON-TB GOLD PLUS Routine 03/10/2025 4:46 AM CDT Encounter for screening for respiratory tuberculosis TRIP CHARGE - LAB ONLY Routine 03/10/2025 4:46 AM CDT Encounter for screening for respiratory tuberculosis QUANTIFERON TB GOLD PLUS Routine 03/10/2025 4:46 AM CDT Encounter for screening for respiratory tuberculosis QUANTIFERON TB GOLD PLUS PURPLE TUBE Routine 03/10/2025 4:46 AM CDT Encounter for screening for respiratory tuberculosis QUANTIFERON TB GOLD PLUS YELLOW TUBE Routine 03/10/2025 4:46 AM CDT Encounter for screening for respiratory tuberculosis QUANTIFERON TB GOLD PLUS GREEN TUBE Routine 03/10/2025 4:46 AM CDT Encounter for screening for respiratory tuberculosis QUANTIFERON TB GOLD PLUS JACKSON TUBE Routine 03/10/2025 4:46 AM CDT Encounter for screening for respiratory tuberculosis QUANTIFERON TB GOLD PLUS PRIMARY Routine 03/10/2025 4:46 AM CDT Encounter for screening for respiratory tuberculosis QUANTIFERON TB GOLD PLUS COLLECTION Routine 03/10/2025 4:46 AM CDT Encounter for screening for respiratory tuberculosis ROUTINE UA WITH MICROSCOPIC REFLEX TO CULTURE Routine 03/08/2025 12:15 PM CDT Urinary tract infection, site not specified from Last 3 Months Results * Trip Charge - LAB ONLY (04/08/2025 4:49 AM BARREL RIBS SOLDERER) Only the most recent of4 resultswithin the time period is included. Other TOPOGRAPHY UNKNOWN / Unknown Billing only / Unknown 04/08/2025 4:49 AM BARREL RIBS SOLDERER 04/08/2025 7:35 AM BARREL RIBS SOLDERER us Promise Latif PA-C LAB CHARGE PERFORMABLES Final Result [facility] [address] * (ABNORMAL) Basic Metabolic Panel No Glucose (OUTREACH) (04/08/2025 4:49 AM BARREL RIBS SOLDERER) Only the most recent of2 resultswithin the time period is included. Sodium 140 135 - 145 mmol/L 04/08/2025 10:21 AM BARREL RIBS SOLDERER [facility] Potassium 4.1 3.4 - 5.3 mmol/L 04/08/2025 10:21 AM BARREL RIBS SOLDERER [facility] Chloride 105 98 - 107 mmol/L 04/08/2025 10:21 AM BARREL RIBS SOLDERER [facility] Carbon Dioxide (CO2) 25 22 - 29 mmol/L 04/08/2025 10:21 AM BARREL RIBS SOLDERER [facility] Anion Gap 10 7 - 15 mmol/L 04/08/2025 10:21 AM BARREL RIBS SOLDERER [facility] Urea Nitrogen 25.2(H) 8.0 - 23.0 mg/dL 04/08/2025 10:21 AM BARREL RIBS SOLDERER [facility] Creatinine 0.73 0.67 - 1.17 mg/dL 04/08/2025 10:21 AM BARREL RIBS SOLDERER [facility] GFR Estimate 87 >60 mL/min/1.7 3m2 04/08/2025 10:21 AM BARREL RIBS SOLDERER [facility] Comment:eGFR calculated 2020 CKD-EPI equation. Calcium 9.6 8.8 - 10.4 mg/dL 04/08/2025 10:21 AM BARREL RIBS SOLDERER [facility] Blood STRUCTURE OF RIGHT UPPER LIMB / Unknown Venipuncture / Unknown 04/08/2025 4:49 AM BARREL RIBS SOLDERER 04/08/2025 7:35 AM BARREL RIBS SOLDERER us Promise Latif PA-C LAB - BLOOD ORDERABLES F inal Result [facility] [place] [facility] [address] [facility] [address], [address] [phone] * Glucose (OUTREACH) (04/08/2025 4:49 AM BARREL RIBS SOLDERER) Only the most recent of2 resultswithin the time period is included. Glucose 97 70 - 99 mg/dL 04/08/2025 10:35 AM BARREL RIBS SOLDERER [facility] Blood STRUCTURE OF RIGHT UPPER LIMB / Unknown Venipuncture / Unknown 04/08/2025 4:49 AM BARREL RIBS SOLDERER 04/08/2025 7:35 AM BARREL RIBS SOLDERER us Promise Latif PA-C LAB - BLOOD ORDERABLES F inal Result [facility] [place] [facility] [address] [facility], [address] [place] [address] * (ABNORMAL) CBC with platelets (04/08/2025 4:49 AM BARREL RIBS SOLDERER) Only the most recent of2 resultswithin the time period is included. WBC Count 6.28 4.00 - 11.00 10e3/uL 04/08/2025 10:24 AM BARREL RIBS SOLDERER [facility] RBC Count 3.22(L) 4.40 - 5.90 10e6/uL 04/08/2025 10:24 AM BARREL RIBS SOLDERER [facility] Hemoglobin 9.6(L) 13.3 - 17.7 g/dL 04/08/2025 10:24 AM BARREL RIBS SOLDERER [facility] Hematocrit 32.0(L) 40.0 - 53.0 % 04/08/2025 10:24 AM BARREL RIBS SOLDERER [facility] MCV 99.4 78.0 - 100.0 fL 04/08/2025 10:24 AM BARREL RIBS SOLDERER [facility] MCH 29.8 26.5 - 33.0 pg 04/08/2025 10:24 AM BARREL RIBS SOLDERER [facility] MCHC 30.0(L) 31.5 - 36.5 g/dL 04/08/2025 10:24 AM BARREL RIBS SOLDERER [facility] RDW 14.5 10.0 - 15.0 % 04/08/2025 10:24 AM BARREL RIBS SOLDERER [facility] Platelet Count 227 150 - 450 10e3/uL 04/08/2025 10:24 AM BARREL RIBS SOLDERER [facility] Blood STRUCTURE OF RIGHT UPPER LIMB / Unknown Venipuncture / Unknown 04/08/2025 4:49 AM BARREL RIBS SOLDERER 04/08/2025 7:35 AM BARREL RIBS SOLDERER us Promise Latif PA-C LAB - BLOOD ORDERABLES F inal Result [facility] [place] [facility] [address] [facility] [address], [address] [phone] * (ABNORMAL) UA with Microscopic reflex to Culture (04/06/2025 10:14 AM BARREL RIBS SOLDERER) Only the most recent of2 resultswithin the time period is included. Color Urine Yellow Colorless, Straw, Light Yellow, Yellow 04/06/2025 3:49 PM BARREL RIBS SOLDERER [facility] Appearance Urine Slightly Cloudy(A) Clear 04/06/2025 3:49 PM BARREL RIBS SOLDERER [facility] Glucose Urine Negative Negative mg/dL 04/06/2025 3:49 PM BARREL RIBS SOLDERER [facility] Bilirubin Urine Negative Negative 3:49 PM BARREL RIBS SOLDERER [facility] Ketones Urine Negative Negative mg/dL 04/06/2025 3:49 PM BARREL RIBS SOLDERER [facility] Specific Ephraim Urine 1.025 1.003 - 1.035 04/06/2025 3:49 PM BARREL RIBS SOLDERER [facility] Blood Urine Moderate(A) Negative 04/06/2025 3:49 PM BARREL RIBS SOLDERER [facility] pH Urine 6.0 5.0 - 7.0 04/06/2025 3:49 PM BARREL RIBS SOLDERER [facility] Protein Albumin Urine 100(A) Negative mg/dL 04/06/2025 3:49 PM BARREL RIBS SOLDERER [facility] Urobilinogen Urine Normal Normal mg/dL 04/06/2025 3:49 PM BARREL RIBS SOLDERER [facility] Nitrite Urine Negative Negative 04/06/2025 3:49 PM BARREL RIBS SOLDERER [facility] Leukocyte Esterase Urine Large(A) Negative 04/06/2025 3:49 PM BARREL RIBS SOLDERER [facility] Bacteria Urine Few(A) None Seen /HPF 04/06/2025 3:49 PM BARREL RIBS SOLDERER [facility] WBC Clumps Urine Present(A) None Seen /HPF 04/06/2025 3:49 PM BARREL RIBS SOLDERER [facility] Mucus Urine Present(A) None Seen /LPF 04/06/2025 3:49 PM BARREL RIBS SOLDERER [facility] RBC Urine 25(H) <=2 /HPF 04/06/2025 3:49 PM BARREL RIBS SOLDERER [facility] WBC Urine >182(H) <=5 /HPF 04/06/2025 3:49 PM BARREL RIBS SOLDERER [facility] Urine URINE SPECIMEN / Unknown Non-blood Collection / Unknown 04/06/2025 10:14 AM BARREL RIBS SOLDERER 04/06/2025 2:59 PM BARREL RIBS SOLDERER Narrative [facility] - 04/06/2025 3:49 PM BARREL RIBS SOLDERER Urine Culture ordered based on laboratory criteria us Mallory Suggs DO LAB - URINE ORDERABLES Final Result [facility] [place] [facility] [address] [facility], [address] [place] [phone] * (ABNORMAL) Urine Culture (04/06/2025 10:14 AM BARREL RIBS SOLDERER) Culture >100,000 CFU/mL Proteus mirabilis(A) 04/07/2025 9:41 PM BARREL RIBS SOLDERER [facility] Urine URINE SPECIMEN / Unknown Non-blood Collection / Unknown 04/06/2025 10:14 AM BARREL RIBS SOLDERER 04/06/2025 3:49 PM BARREL RIBS SOLDERER Narrative Organism Antibiotic Method Susceptibility Proteus mirabilis Ampicillin SID <=2 ug/mL: Susceptible Proteus mirabilis Ampicillin/ Sulbactam SID <=2 ug/mL: Susceptible Proteus mirabilis Piperacillin/Tazobactam SID <=4 ug/mL: Susceptible Proteus mirabilis Cefazolin SID 4 ug/mL: Susceptible Proteus mirabilis Ceftazidime SID <=0.5 ug/mL: Susceptible Proteus mirabilis Ceftriaxone SID <=0.25 ug/mL: Susceptible Proteus mirabilis Cefepime SID <=0.12 ug/mL: Susceptible Proteus mirabilis Gentamicin SID <=1 ug/mL: Susceptible Proteus mirabilis Ciprofloxacin SID <=0.06 ug/mL: Susceptible Proteus mirabilis Levofloxacin SID <=0.12 ug/mL: Susceptible Proteus mirabilis Nitrofurantoin SID 128 ug/mL: Resistant Comment:Intrinsicall y Resistant Proteus mirabilis Trimethoprim/Sulfamethoxazole SID <=1/19 ug/mL: Susceptible us Mallory Suggs DO LAB - MICRO GENERAL ORDERABL ES Final Result [facility] Inf. Diseases Diag. Lab [address] [facility], [address] [place] [phone] * (ABNORMAL) Hemoglobin (03/17/2025 4:47 AM CDT) Hemoglobin 9.0(L) 13.3 - 17.7 g/dL 03/17/2025 9:51 AM CDT [facility] MCV 100.0 78.0 - 100.0 fL 03/17/2025 9:51 AM CDT [facility] Blood STRUCTURE OF RIGHT UPPER LIMB / Unknown Venipuncture / Unknown 03/17/2025 4:47 AM CDT 03/17/2025 8:25 AM CDT us Mallory Suggs DO LAB - BLOOD ORDERABLES Final Result Performing Organization Address City/[facility]/ZIP Co de Phone Number [facility] [place] [facility] [address] [facility], [address] [place] [phone] [place] [address] * (ABNORMAL) Vitamin D Deficiency (03/11/2025 5:46 AM CDT) Vitamin D, Total (25-Hydroxy) 11(L) 20 - 50 ng/mL 03/11/2025 10:39 AM CDT [facility] Comment:mild to moderate def iciency Blood STRUCTURE OF RIGHT UPPER LIMB / Unknown Venipuncture / Unknown 03/11/2025 5:46 AM CDT 03/11/2025 8:22 AM CDT Narrative [facility] - 03/11/2025 10:39 AM CDT Season, race, dietary intake, and treatment affect the concentration of [id number] D. Values may decrease during winter months and increase during summer months. Vitamin D determination is routinely performed by an immunoassay specific for 25 hydroxyvitamin D3. If an individual is on vitamin D2(ergocalciferol) supplementation, please specify 25 [place] vitamin D2 and D3 level determination by LCMSMS test [id number]. us Promise Latif PA-C LAB - BLOOD ORDERABLES F inal Result [facility] [place] [facility] [address] [facility] [address], [address] [place] [address], [facility] * Quantiferon TB Gold Plus (03/10/2025 4:46 AM CDT) Pathologist [facility] Quantiferon-TB Gold Plus Negative Negative 03/11/2025 2:14 PM CDT SPECIALTY CORE/PROT/END O Comment: No interferon gamma response to M.tuberculosis antigens was detected. Infection with M.tuberculosis is unlikely, however a single negative result does not exclude infection. In patients at high risk for infection, a second test should be considered in accordance with the 2017 ATS/IDSA/CDC Clinical Pract ice Guidelines for Diagnosis of Tuberculosis in Adults and Children TB1 Ag minus Nil Value 0.00 IU/mL 03/11/2025 2:14 PM CDT SPECIALTY CORE/PROT/END O TB2 Ag minus Nil Value 0.00 IU/mL 03/11/2025 2:14 PM CDT SPECIALTY CORE/PROT/END O Mitogen minus Nil Result 9.97 IU/mL 03/11/2025 2:14 PM CDT SPECIALTY CORE/PROT/END O Nil Result 0.03 IU/mL 03/11/2025 2:14 PM CDT SPECIALTY CORE/PROT/END O Blood STRUCTURE OF RIGHT UPPER LIMB / Unknown Venipuncture / Unknown 03/10/2025 4:46 AM CDT 03/10/2025 10:43 AM CDT us Promise Latif PA-C LAB - MICRO GENERAL ORDE RABLES Final Result SPECIALTY CORE/PROT/ENDO Specialty Core/Prot/Endo [address] [facility] [address] Building, [address] * Quantiferon TB Gold Plus Purple Tube (03/10/2025 4:46 AM CDT) Quantiferon Mitogen 10.00 IU/mL 03/11/2025 11:49 AM CDT [facility] SPECIALTY CORE/PROT/ENDO Blood STRUCTURE OF RIGHT UPPER LIMB / Unknown Venipuncture / Unknown 03/10/2025 4:46 AM CDT 03/10/2025 10:43 AM CDT Promise Latif PA-C LAB - MICRO GENERAL ORDE RABGALO Final Result [facility] SPECIALTY CORE/PROT/ENDO [facility] Specialty Core/Prot/Endo [address] [facility], [address] * Quantiferon TB Gold Plus Yellow Tube (03/10/2025 4:46 AM CDT) Quantiferon TB2 Tube 0.03 03/11/2025 11:50 AM CDT SPECIALTY CORE/PROT/ENDO Blood STRUCTURE OF RIGHT UPPER LIMB / Unknown Venipuncture / Unknown 03/10/2025 4:46 AM CDT 03/10/2025 10:43 AM CDT Promise Latif PA-C LAB - MICRO GENERAL ORDE ANNEMARIE Final Result Performing Organization Address City/[facility] Co de Phone Number SPECIALTY CORE/PROT/ENDO Specialty Core/Prot/Endo [address] [facility], [address] * Quantiferon TB Gold Plus Green Tube (03/10/2025 4:46 AM CDT) Quantiferon TB1 Tube 0.03 IU/mL 03/11/2025 11:50 AM CDT [facility] SPECIALTY CORE/PROT/ENDO Blood STRUCTURE OF RIGHT UPPER LIMB / Unknown Venipuncture / Unknown 03/10/2025 4:46 AM CDT 03/10/2025 10:43 AM CDT Promise Latif PA-C LAB - MICRO GENERAL ORDE RABGALO Final Result [facility] SPECIALTY CORE/PROT/ENDO [facility] Specialty Core/Prot/Endo [address] [facility] [address] [facility], [address] * Quantiferon TB Gold Plus Jackson Tube (03/10/2025 4:46 AM CDT) Quantiferon Nil Tube 0.03 IU/mL 03/11/2025 11:52 AM CDT [facility] SPECIALTY CORE/PROT/ENDO Blood STRUCTURE OF RIGHT UPPER LIMB / Unknown Venipuncture / Unknown 03/10/2025 4:46 AM CDT 03/10/2025 10:43 AM CDT us Promise Latif PA-C LAB - MICRO GENERAL ORDE ANNEMARIE Final Result Performing Organization Address City/[facility]/ZIP Co de Phone Number UM SPECIALTY CORE/PROT/ENDO UM Specialty Core/Prot/Endo [address] [facility] [address] [facility], [address] * Quantiferon TB Gold Plus Collection (03/10/2025 4:46 AM CDT) Blood STRUCTURE OF RIGHT UPPER LIMB / Unknown Venipuncture / Unknown 03/10/2025 4:46 AM CDT 03/10/2025 8:49 AM CDT us Promise Latif PA-C LAB - MICRO GENERAL ORDE ANNEMARIE Final Result UM SPECIALTY CORE/PROT/ENDO UM Specialty Core/Prot/Endo [address] [facility] [address] [facility], [address] * Quantiferon TB Gold Plus Primary (03/10/2025 4:46 AM CDT) Blood STRUCTURE OF RIGHT UPPER LIMB / Unknown Venipuncture / Unknown 03/10/2025 4:46 AM CDT 03/10/2025 10:43 AM CDT us Promise Latif PA-C LAB - MICRO GENERAL ORDE ANNEMARIE Final Result UM SPECIALTY CORE/PROT/ENDO UM Specialty Core/Prot/Endo [address] [facility] [address], [address] [place] [address], [facility] from Last 3 Months Insurance [employer] MED[employer]ARE [facility] MEDICARE [employer]ARE Care Teams Pole Framer Machine Relationship Specialty Start Date End Date Votel, Reagan Chaney [address] [place] [address] PCP - General Family Medicine 03/20/25
--- OUTSIDE RECORDS SUMMARY | 2025-04-17 13:37 | XMS_ITS | Continuity of Care Document ---
Author Organization [facility] Address [address] [place] [address] Insurance Providers Payer Plan Claims Address Claims Phone Policy Number Group Number Relation Employer Guarantor Name Guarantor Guarantor Address Guarantor Phone Human mau Knapp [id number] Self Lior Miranda [birth year] [address] [place] [address] Ucare Medic are Plans Retired Self Lior Miranda 1935 [address] [place] [address] [employer] ARE ADVAN [address]UPAMA MR [address], [place] [address] [id number] Self Lior Miranda [birth year] [address] [place] [address] Problems Condition ICD9 code ICD10 code SNOMED code Start Date End Date S tatus Displaced intertrochanteric fracture of left femur, subsequent encounter for closed fracture with routine healing S72.142D 03/07/2025 Active Encounter for change or removal of surgical wound dressing Z48.01 03/07/2025 Active Underweight R63.6 03/07/2025 Active Unspecified macular degeneration H35.30 03/07/2025 Active Other symptoms and signs involving cognitive functions and awareness R41.89 03/07/2025 A ctive Hyperlipidemia, unspecified E78.5 03/07/2025 Active Moderate persistent asthma, uncomplicated J45.40 03/07/2025 Act nyasia Essential (primary) hypertension I10 03/07/2025 Active 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 03/07/2025 Active History of falling Z91.81 03/07/2025 Ac tive Type 2 diabetes mellitus without complications E11.9 03/07/2025 Act nyasia Acquired absence of other specified parts of digestive tract Z90.49 03/07/2025 Active 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 03/07/2025 Acti ve Anemia, unspecified D64.9 03/07/2025 A ctive ferry terminal agent (current) use of anticoagulants Z79.01 03/07/2025 Active ferry terminal agent (current) use of oral hypoglycemic drugs Z79.84 03/07/2025 Active nursing home (current) use of aspirin Z79.82 03/07/2025 Active Encounter for screening for respiratory tuberculosis Z11.1 03/07/2025 Active Pain, unspecified R52 03/07/2025 Act nyasia Encounter for prophylactic measures, unspecified Z29.9 03/07/2025 Active Constipation, unspecified K59.00 03/07/2025 Active Allergic rhinitis due to pollen J30.1 03/07/2025 Active Urinary tract infection, site not specified N39.0 03/08/2025 Active Insomnia, unspecified G47.00 03/10/2025 Active Vitamin D deficiency, unspecified E55.9 03/11/2025 Active Unspecified protein-calorie malnutrition E46 03/12/2025 Active Delusional disorders F22 03/07/2025 Active Urinary tract infection, site not specified N39.0 03/07/2025 Active Cataract (lens) fragments in eye following cataract surgery, unspecified eye H59.029 03/07/2025 Active 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 Refere nce Range Blood chemistry[[id number]] Glucose [Mass/volume] in Serum or Plasma [2345-7] 04/15/2025 02:49 PM 120 mg/dL N Blood chemistry[[id number]] Glucose [Mass/volume] in Serum or Plasma [2345-7] 04/14/2025 11:56 AM 140 mg/dL N Blood chemistry[[id number]] Glucose [Mass/volume] in Serum or Plasma [2345-7] 04/14/2025 02:05 PM 129 mg/dL N Blood chemistry[[id number]] Glucose [Mass/volume] in Serum or Plasma [2345-7] 04/13/2025 02:12 PM 156 mg/dL N Blood chemistry[[id number]] Glucose [Mass/volume] in Serum or Plasma [2345-7] 04/13/2025 02:48 PM 163 mg/dL N Blood chemistry[[id number]] Glucose [Mass/volume] in Serum or Plasma [2345-7] 04/12/2025 11:43 AM 250 mg/dL N Blood chemistry[[id number]] Glucose [Mass/volume] in Serum or Plasma [2345-7] 04/12/2025 02:22 PM 150 mg/dL N Blood chemistry[[id number]] Glucose [Mass/volume] in Serum or Plasma [2345-7] 04/11/2025 12:22 PM 165 mg/dL N Blood chemistry[[id number]] Glucose [Mass/volume] in Serum or Plasma [2345-7] 04/11/2025 01:34 PM 107 mg/dL N Blood chemistry[[id number]] Glucose [Mass/volume] in Serum or Plasma [2345-7] 04/10/2025 11:09 AM 182 mg/dL N Blood chemistry[[id number]] Glucose [Mass/volume] in Serum or Plasma [2345-7] 04/10/2025 01:26 PM 113 mg/dL N Blood chemistry[[id number]] Glucose [Mass/volume] in Serum or Plasma [2345-7] 04/09/2025 11:34 AM 278 mg/dL N Blood chemistry[[id number]] Glucose [Mass/volume] in Serum or Plasma [2345-7] 04/09/2025 02:04 PM 113 mg/dL N Blood chemistry[[id number]] Glucose [Mass/volume] in Serum or Plasma [2345-7] 04/08/2025 10:56 AM 152 mg/dL N Blood chemistry[[id number]] Glucose [Mass/volume] in Serum or Plasma [2345-7] 04/08/2025 01:57 PM 110 mg/dL N Blood chemistry[[id number]] Glucose [Mass/volume] in Serum or Plasma [2345-7] 04/07/2025 11:07 AM 191 mg/dL N Blood chemistry[[id number]] Glucose [Mass/volume] in Serum or Plasma [2345-7] 04/07/2025 01:42 PM 113 mg/dL N Blood chemistry[[id number]] Glucose [Mass/volume] in Serum or Plasma [2345-7] 04/06/2025 11:03 AM 156 mg/dL N Blood chemistry[[id number]] Glucose [Mass/volume] in Serum or Plasma [2345-7] 04/06/2025 01:43 PM 103 mg/dL N Blood chemistry[[id number]] Glucose [Mass/volume] in Serum or Plasma [2345-7] 04/05/2025 11:00 AM 120 mg/dL N Blood chemistry[[id number]] Glucose [Mass/volume] in Serum or Plasma [2345-7] 04/05/2025 01:21 PM 104 mg/dL N Blood chemistry[[id number]] Glucose [Mass/volume] in Serum or Plasma [2345-7] 04/04/2025 10:53 AM 187 mg/dL N Blood chemistry[[id number]] Glucose [Mass/volume] in Serum or Plasma [2345-7] 04/04/2025 01:11 PM 118 mg/dL N Blood chemistry[[id number]] Glucose [Mass/volume] in Serum or Plasma [2345-7] 04/03/2025 10:54 AM 199 mg/dL N Blood chemistry[[id number]] Glucose [Mass/volume] in Serum or Plasma [2345-7] 04/03/2025 12:27 PM 117 mg/dL N Blood chemistry[[id number]] Glucose [Mass/volume] in Serum or Plasma [2345-7] 04/02/2025 10:12 AM 134 mg/dL N Blood chemistry[[id number]] Glucose [Mass/volume] in Serum or Plasma [2345-7] 04/02/2025 12:25 PM 112 mg/dL N Blood chemistry[[id number]] Glucose [Mass/volume] in Serum or Plasma [2345-7] 04/01/2025 09:44 AM 145 mg/dL N Blood chemistry[[id number]] Glucose [Mass/volume] in Serum or Plasma [2345-7] 04/01/2025 12:54 PM 120 mg/dL N Blood chemistry[[id number]] Glucose [Mass/volume] in Serum or Plasma [2345-7] 03/31/2025 11:04 AM 194 mg/dL N Blood chemistry[[id number]] Glucose [Mass/volume] in Serum or Plasma [2345-7] 03/31/2025 12:40 PM 116 mg/dL N Blood chemistry[[id number]] Glucose [Mass/volume] in Serum or Plasma [2345-7] 03/30/2025 09:22 AM 180 mg/dL N Blood chemistry[[id number]] Glucose [Mass/volume] in Serum or Plasma [2345-7] 03/30/2025 12:29 PM 113 mg/dL N Blood chemistry[[id number]] Glucose [Mass/volume] in Serum or Plasma [2345-7] 03/29/2025 11:02 AM 190 mg/dL N Blood chemistry[[id number]] Glucose [Mass/volume] in Serum or Plasma [2345-7] 03/29/2025 01:03 PM 113 mg/dL N Blood chemistry[[id number]] Glucose [Mass/volume] in Serum or Plasma [2345-7] 03/28/2025 12:06 PM 166 mg/dL N Blood chemistry[[id number]] Glucose [Mass/volume] in Serum or Plasma [2345-7] 03/28/2025 12:07 PM 112 mg/dL N Blood chemistry[[id number]] Glucose [Mass/volume] in Serum or Plasma [2345-7] 03/27/2025 10:43 AM 147 mg/dL N Blood chemistry[[id number]] Glucose [Mass/volume] in Serum or Plasma [2345-7] 03/27/2025 12:32 PM 108 mg/dL N Blood chemistry[[id number]] Glucose [Mass/volume] in Serum or Plasma [2345-7] 03/26/2025 09:27 AM 130 mg/dL N Blood chemistry[[id number]] Glucose [Mass/volume] in Serum or Plasma [2345-7] 03/26/2025 12:51 PM 113 mg/dL N Blood chemistry[[id number]] Glucose [Mass/volume] in Serum or Plasma [2345-7] 03/25/2025 07:59 AM 219 mg/dL N Blood chemistry[[id number]] Glucose [Mass/volume] in Serum or Plasma [2345-7] 03/25/2025 11:52 AM 118 mg/dL N Blood chemistry[[id number]] Glucose [Mass/volume] in Serum or Plasma [2345-7] 03/24/2025 09:02 AM 236 mg/dL N Blood chemistry[[id number]] Glucose [Mass/volume] in Serum or Plasma [2345-7] 03/24/2025 01:02 PM 125 mg/dL N Blood chemistry[[id number]] Glucose [Mass/volume] in Serum or Plasma [2345-7] 03/23/2025 09:27 AM 185 mg/dL N Blood chemistry[[id number]] Glucose [Mass/volume] in Serum or Plasma [2345-7] 03/23/2025 12:49 PM 110 mg/dL N Blood chemistry[[id number]] Glucose [Mass/volume] in Serum or Plasma [2345-7] 03/22/2025 10:37 AM 177 mg/dL N Blood chemistry[[id number]] Glucose [Mass/volume] in Serum or Plasma [2345-7] 03/22/2025 12:34 PM 143 mg/dL N Blood chemistry[[id number]] Glucose [Mass/volume] in Serum or Plasma [2345-7] 03/21/2025 10:33 AM 166 mg/dL N Blood chemistry[[id number]] Glucose [Mass/volume] in Serum or Plasma [2345-7] 03/21/2025 12:15 PM 143 mg/dL N Blood chemistry[[id number]] Glucose [Mass/volume] in Serum or Plasma [2345-7] 03/20/2025 11:20 AM 169 mg/dL N Blood chemistry[[id number]] Glucose [Mass/volume] in Serum or Plasma [2345-7] 03/20/2025 12:46 PM 112 mg/dL N Blood chemistry[[id number]] Glucose [Mass/volume] in Serum or Plasma [2345-7] 03/19/2025 09:14 AM 155 mg/dL N Blood chemistry[[id number]] Glucose [Mass/volume] in Serum or Plasma [2345-7] 03/19/2025 01:30 PM 121 mg/dL N Blood chemistry[[id number]] Glucose [Mass/volume] in Serum or Plasma [2345-7] 2025 10:19 AM 184 mg/dL N Tuberculosis reaction wheal[ 66888-9] Tuberculosis reaction wheal [39501-7] 03/10/2025 05:00 PM See note NEG TB test Blood chemistry[[id number]] Glucose [Mass/volume] in Serum or Plasma [2345-7] 2025 01:26 PM 113 mg/dL N Blood chemistry[[id number]] Glucose [Mass/volume] in Serum or Plasma [2345-7] 03/17/2025 10:00 AM 162 mg/dL N Blood chemistry[[id number]] Glucose [Mass/volume] in Serum or Plasma [2345-7] 03/17/2025 12:41 PM 119 mg/dL N Blood chemistry[[id number]] Glucose [Mass/volume] in Serum or Plasma [2345-7] 03/16/2025 10:53 AM 234 mg/dL N Blood chemistry[[id number]] Glucose [Mass/volume] in Serum or Plasma [2345-7] 03/16/2025 12:46 PM 120 mg/dL N Blood chemistry[[id number]] Glucose [Mass/volume] in Serum or Plasma [2345-7] 03/15/2025 10:18 AM 162 mg/dL N Blood chemistry[[id number]] Glucose [Mass/volume] in Serum or Plasma [2345-7] 03/15/2025 01:36 PM 107 mg/dL N Blood chemistry[[id number]] Glucose [Mass/volume] in Serum or Plasma [2345-7] 03/14/2025 09:47 AM 189 mg/dL N Blood chemistry[[id number]] Glucose [Mass/volume] in Serum or Plasma [2345-7] 03/14/2025 02:27 PM 136 mg/dL N Blood chemistry[[id number]] Glucose [Mass/volume] in Serum or Plasma [2345-7] 03/13/2025 10:26 AM 155 mg/dL N Blood chemistry[[id number]] Glucose [Mass/volume] in Serum or Plasma [2345-7] 03/13/2025 01:25 PM 135 mg/dL N Blood chemistry[[id number]] Glucose [Mass/volume] in Serum or Plasma [2345-7] 03/12/2025 10:43 AM 158 mg/dL N Blood chemistry[[id number]] Glucose [Mass/volume] in Serum or Plasma [2345-7] 03/11/2025 02:57 PM 239 mg/dL N Blood chemistry[[id number]] Glucose [Mass/volume] in Serum or Plasma [2345-7] 03/11/2025 09:35 AM 195 mg/dL N Blood chemistry[[id number]] Glucose [Mass/volume] in Serum or Plasma [2345-7] 03/11/2025 06:50 AM 155 mg/dL N Blood chemistry[[id number]] Glucose [Mass/volume] in Serum or Plasma [2345-7] 03/11/2025 02:45 PM 143 mg/dL N Blood chemistry[[id number]] Glucose [Mass/volume] in Serum or Plasma [2345-7] 03/11/2025 01:25 PM 143 mg/dL N Blood chemistry[[id number]] Glucose [Mass/volume] in Serum or Plasma [2345-7] 03/10/2025 02:52 PM 240 mg/dL N Blood chemistry[[id number]] Glucose [Mass/volume] in Serum or Plasma [2345-7] 03/10/2025 10:27 AM 234 mg/dL N Blood chemistry[[id number]] Glucose [Mass/volume] in Serum or Plasma [2345-7] 03/10/2025 03:10 PM 181 mg/dL N Blood chemistry[[id number]] Glucose [Mass/volume] in Serum or Plasma [2345-7] 03/09/2025 01:57 PM 201 mg/dL N Blood chemistry[[id number]] Glucose [Mass/volume] in Serum or Plasma [2345-7] 03/09/2025 01:56 PM 174 mg/dL N Blood chemistry[[id number]] Glucose [Mass/volume] in Serum or Plasma [2345-7] 03/09/2025 01:00 PM 201 mg/dL N Allergies, adverse reactions, alerts Substance Reaction Date Status Type No allergies have been recorded Non Drug Raspberries 03/07/2025 Non Drug Pistachios 03/07/2025 Non Drug Immunizations Vaccine Route Date Status COVID-19 Vaccine Unassigned Route of Administration Completed COVID-19 Vaccine Unassigned Route of Administration Completed COVID-19 Vaccine Unassigned Route of Administration Completed COVID-19 Vaccine Unassigned Route of Administration Completed Pneumococcal Vaccine Unassigned Route of Administratio n 11/11/2009 Completed Pneumococcal Vaccine Unassigned Route of Administratio n 04/28/2014 Completed Pneumococcal Vaccine Unassigned Route of Administratio n 05/18/2015 Completed Tetanus Vaccine Unassigned Route of Administration Completed COVID-19 Vaccine Unassigned Route of Administration Refused Medications Medication Instructions Route Dosage Frequency Start Date Stop Date Indications Status acetaminophen 500 mg tablet (acetaminophen ) 500-1,000 mg, oral, Every 6 Hours, not to exceed 4000 mg per dayN.O. Non-Pharmacol ogical Interventions :1=Warm blanket 2=Re-position 3=Ice pack 4=Warm pack. oral 1.0 6.0 h 03/10 Pain, unspecified Active albuterol sulfate 90 mcg/actuation HFA aerosol inhaler (albuterol sulfate) 1-2 puffs, inhalation, Every 6 Hours - PRN inhalatio n 1.0 6.0 h 04/15 Moderate persistent asthma, uncomplicated Active Eye Multivitamin (vitamins a,c,e-zinc-endoscopy specialty technician per) 2,148 mcg-113 mg-45 mg-17.4mg tablet (Eye Multivitamin (vitamins a,c,e-zinc-endoscopy specialty technician per)) 1-2 tabs, oral, Twice A Day, administer with AM and PM meals, 2 in AM, 1 in PM oral 1.0 12.0 h 04/15 Unspecified macular degeneration Active fluticasone propion-salmet mima 250-50 mcg/dose blister with device (fluticasone propion-salmet mima) 1 inhalation, inhalation, Twice A Day inhalatio n 1.0 12.0 h 03/11 Moderate persistent asthma, uncomplicated Active levocetirizine 5 mg tablet (levocetirizin e) 2.5 mg, oral, Once A Day oral 1.0 1.0 d 04/15 Allergic rhinitis due to pollen Active metformin 750 mg tablet (metformin) 1,500 mg, oral, Once A Day oral 1.0 1.0 d 03/10 Type 2 diabetes mellitus without complications Active oxycodone 5 mg tablet (oxycodone) 2.5-5 mg, oral, Every 6 Hours - PRN, Q 4-6 hours not to exceed 6 tabs per dayN.O. Non-Pharmacol ogical Interventions :1=Warm blanket 2=Re-position 3=Ice pack 4=Warm pack. oral 1.0 6.0 h 03/10 Pain, unspecified Active sennosides 8.6 mg tablet (sennosides) 17.2 mg, oral, Twice A Day - PRN, N.O. Non-Pharmacol ogical Interventions 1=Additional fluids 2=Prune Juice 3=Increase exercise oral 1.0 12.0 h 03/10 Constipation, unspecified Active simvastatin 40 mg tablet (simvastatin) 40 mg, oral, Once A Day oral 1.0 1.0 d 04/15 Hyperlipidemia , unspecified Active Xarelto (rivaroxaban) 10 mg tablet (Xarelto (rivaroxaban)) 10 mg, oral, Once A Day, Monitor for bruising/blee ryan, notify MD/AUTOBODY TECHNICIAN of concerns. oral 1.0 1.0 d 04/09 Encounter for prophylactic measures, unspecified Active hydroxyzine HCl 25 mg tablet (hydroxyzine HCl) 25, oral, Every 6 Hours - PRN, For anxiety oral 1.0 6.0 h 03/10 Active oxycodone 5 mg tablet (oxycodone) 2.5 mg, oral, Every 6 Hours - PRN, Q 6 hours not to exceed 6 tabs per dayN.O. Non-Pharmacol ogical Interventions :1=Warm blanket 2=Re-position 3=Ice pack 4=Warm pack. oral 1.0 6.0 h 03/13 Pain, unspecified Active acetaminophen 500 mg tablet (acetaminophen ) 1,000 mg, oral, Three Times A Day, not to exceed 4000 mg per day oral 1.0 8.0 h 04/15 Pain, unspecified Active melatonin 3 mg tablet (melatonin) 3 mg, oral, Once A Day oral 1.0 1.0 d 04/15 Insomnia, unspecified Active metformin 750 mg tablet (metformin) 750 mg, oral, Twice A Day, with meals oral 1.0 12.0 h 04/15 Type 2 diabetes mellitus without complications Active sennosides 8.6 mg tablet (sennosides) 1 tablet, oral, Once A Day oral 1.0 1.0 d 04/15 Constipation, unspecified Active Vitamin D3 (cholecalcifer ol (vitamin d3)) 50 mcg (2,000 unit) capsule (Vitamin D3 (cholecalcifer ol (vitamin d3))) 2,000 units, oral, Once A Day oral 1.0 1.0 d 03/11 Displaced intertrochante korin fracture of left femur, subsequent encounter for closed fracture with routine healing Active Vitamin D3 (cholecalcifer ol (vitamin d3)) 50,000 units tablet (Vitamin D3 (cholecalcifer ol (vitamin d3))) 50,000 units, oral, Once A Day on Mon, x 8 weeks oral 1.0 1.0 d 05/02 Vitamin D deficiency, unspecified Active fluticasone propion-salmet mima 250-50 mcg/dose blister with device (fluticasone propion-salmet mima) 1 inhalation, inhalation, Twice A Day, *Rinse mouth after use to prevent thrush* inhalatio n 1.0 12.0 h 04/15 Moderate persistent asthma, uncomplicated Active hydrochlorothi azide 25 mg tablet (hydrochloroth iazide) 25 mg, oral, Hold instructions: resume on 03/21/25. Resume after meeting with your primary care physician as your blood pressure was low during admission. oral 1.0 04/01 Essential (primary) hypertension Active cephalexin 500 mg capsule (cephalexin) 500 mg, oral, Twice A Day oral 1.0 12.0 h 04/12 Urinary tract infection, site not specified Active Abbey Low Dose Aspirin (aspirin) 81 mg tablet,delayed release (DR/EC) (Abbey Low Dose Aspirin (aspirin)) 81 mg, oral, Hold instructions: Resume on 04/10/25. Hold aspirin while you are on Xarelto, resume after 34 daysMonitor for bruising/blee ryan, notify MD/AUTOBODY TECHNICIAN of concerns. oral 1.0 04/15 ferry terminal agent (current) use of anticoagulants Active Vitamin D3 (cholecalcifer ol (vitamin d3)) 50,000 units tablet (Vitamin D3 (cholecalcifer ol (vitamin d3))) 50,000 units, oral, Once A Day on Mon, x 8 weeks oral 1.0 1.0 d 04/15 Vitamin D deficiency, unspecified Active cephalexin 500 mg capsule (cephalexin) 500 mg, oral, Twice A Day oral 1.0 12.0 h 04/15 Urinary tract infection, site not specified Active Xarelto (rivaroxaban) 10 mg tablet (Xarelto (rivaroxaban)) 10 mg, oral, Once A Day, Monitor for bruising/blee ryan, notify MD/AUTOBODY TECHNICIAN of concerns. oral 1.0 1.0 d 04/15 Encounter for prophylactic measures, unspecified Active Vital Signs Date Vital Result Comment 03/08/2025 01:13 AM Temperature (8310-5) 98.3 [degF] Oxygen Saturation (20906-3) 97 % Respiratory Rate (9279-1) 18 /min Heart Rate (8867-4) 96 /min Blood Pressure Systolic (8480-6) 117 mm[Hg] Blood Pressure Diastolic (8462-4) 71 mm[Hg] 03/07/2025 10:52 PM Temperature (8310-5) 98.2 [degF] Oxygen Saturation (06905-0) 95 % Respiratory Rate (9279-1) 20 /min Heart Rate (8867-4) 97 /min Blood Pressure Systolic (8480-6) 149 mm[Hg] Blood Pressure Diastolic (8462-4) 79 mm[Hg] 03/08/2025 10:36 AM Temperature (8310-5) 97.5 [degF] Oxygen Saturation (49205-1) 98 % Respiratory Rate (9279-1) 17 /min Heart Rate (8867-4) 86 /min Blood Pressure Systolic (8480-6) 118 mm[Hg] Blood Pressure Diastolic (8462-4) 63 mm[Hg] 03/08/2025 01:25 PM Body Height (8302-2) 71 [in_us] Body Weight (85972-7) 128.1 [lb_av] Body Mass Index (19823-5) 17.86 kg/m2 03/08/2025 01:15 PM Temperature (8310-5) 97.6 [degF] Oxygen Saturation (46859-8) 98 % Respiratory Rate (9279-1) 17 /min Heart Rate (8867-4) 88 /min Blood Pressure Systolic (8480-6) 105 mm[Hg] Blood Pressure Diastolic (8462-4) 67 mm[Hg] 03/08/2025 09:10 PM Temperature (8310-5) 97 [degF] Oxygen Saturation (70182-4) 95 % Respiratory Rate (9279-1) 18 /min Heart Rate (8867-4) 84 /min Blood Pressure Systolic (8480-6) 112 mm[Hg] Blood Pressure Diastolic (8462-4) 65 mm[Hg] 03/08/2025 09:12 PM Temperature (8310-5) 96.9 [degF] Oxygen Saturation (08183-6) 96 % Respiratory Rate (9279-1) 16 /min Heart Rate (8867-4) 80 /min Blood Pressure Systolic (8480-6) 110 mm[Hg] Blood Pressure Diastolic (8462-4) 62 mm[Hg] 03/08/2025 11:54 PM Temperature (8310-5) 97.8 [degF] Oxygen Saturation (79998-9) 98 % Respiratory Rate (9279-1) 18 /min Heart Rate (8867-4) 65 /min Blood Pressure Systolic (8480-6) 115 mm[Hg] Blood Pressure Diastolic (8462-4) 58 mm[Hg] 03/09/2025 09:42 AM Temperature (8310-5) 97.3 [degF] Oxygen Saturation (33324-9) 96 % Respiratory Rate (9279-1) 17 /min Heart Rate (8867-4) 89 /min Blood Pressure Systolic (8480-6) 112 mm[Hg] Blood Pressure Diastolic (8462-4) 60 mm[Hg] 03/09/2025 01:38 PM Body Weight (57869-6) 127 [lb_av] Body Mass Index (40880-5) 17.71 kg/m2 03/09/2025 08:58 PM Temperature (8310-5) 97.4 [degF] Oxygen Saturation (80267-5) 97 % Respiratory Rate (9279-1) 18 /min Heart Rate (8867-4) 91 /min Blood Pressure Systolic (8480-6) 117 mm[Hg] Blood Pressure Diastolic (8462-4) 67 mm[Hg] 03/10/2025 01:11 AM Temperature (8310-5) 93.8 [degF] Oxygen Saturation (54284-6) 95 % Respiratory Rate (9279-1) 16 /min Heart Rate (8867-4) 63 /min Blood Pressure Systolic (8480-6) 111 mm[Hg] Blood Pressure Diastolic (8462-4) 57 mm[Hg] 03/10/2025 02:14 PM Temperature (8310-5) 97.2 [degF] Oxygen Saturation (48006-7) 96 % Respiratory Rate (9279-1) 17 /min Heart Rate (8867-4) 66 /min Blood Pressure Systolic (8480-6) 119 mm[Hg] Blood Pressure Diastolic (8462-4) 63 mm[Hg] 03/10/2025 02:13 PM Body Weight (56516-2) 127 [lb_av] Body Mass Index (19991-5) 17.71 kg/m2 03/10/2025 09:55 PM Temperature (8310-5) 97.8 [degF] Oxygen Saturation (25716-9) 98 % Respiratory Rate (9279-1) 18 /min Heart Rate (8867-4) 62 /min Blood Pressure Systolic (8480-6) 116 mm[Hg] Blood Pressure Diastolic (8462-4) 68 mm[Hg] 03/11/2025 01:09 AM Temperature (8310-5) 98.2 [degF] Oxygen Saturation (93525-7) 96 % Respiratory Rate (9279-1) 17 /min Heart Rate (8867-4) 65 /min Blood Pressure Systolic (8480-6) 117 mm[Hg] Blood Pressure Diastolic (8462-4) 62 mm[Hg] 03/11/2025 10:17 AM Body Weight (14629-4) 134.6 [lb_av ] Body Mass Index (05608-3) 18.77 kg/m2 03/11/2025 01:50 PM Temperature (8310-5) 98 [degF] Oxygen Saturation (64069-3) 95 % Respiratory Rate (9279-1) 17 /min Heart Rate (8867-4) 69 /min Blood Pressure Systolic (8480-6) 121 mm[Hg] Blood Pressure Diastolic (8462-4) 68 mm[Hg] 03/12/2025 08:16 AM Temperature (8310-5) 97.8 [degF] Oxygen Saturation (98357-2) 96 % Respiratory Rate (9279-1) 17 /min Heart Rate (8867-4) 73 /min Blood Pressure Systolic (8480-6) 125 mm[Hg] Blood Pressure Diastolic (8462-4) 56 mm[Hg] 03/13/2025 08:57 AM Temperature (8310-5) 97.5 [degF] Oxygen Saturation (02790-7) 92 % Respiratory Rate (9279-1) 18 /min Heart Rate (8867-4) 71 /min Blood Pressure Systolic (8480-6) 115 mm[Hg] Blood Pressure Diastolic (8462-4) 62 mm[Hg] 03/14/2025 09:12 AM Temperature (8310-5) 97.5 [degF] Oxygen Saturation (82869-0) 95 % Respiratory Rate (9279-1) 17 /min Heart Rate (8867-4) 71 /min Blood Pressure Systolic (8480-6) 131 mm[Hg] Blood Pressure Diastolic (8462-4) 62 mm[Hg] 03/15/2025 12:17 PM Temperature (8310-5) 97.8 [degF] Oxygen Saturation (67119-1) 99 % Respiratory Rate (9279-1) 14 /min Heart Rate (8867-4) 69 /min Blood Pressure Systolic (8480-6) 105 mm[Hg] Blood Pressure Diastolic (8462-4) 62 mm[Hg] 03/16/2025 10:50 AM Temperature (8310-5) 97.8 [degF] Oxygen Saturation (80901-1) 97 % Respiratory Rate (9279-1) 15 /min Heart Rate (8867-4) 68 /min Blood Pressure Systolic (8480-6) 108 mm[Hg] Blood Pressure Diastolic (8462-4) 59 mm[Hg] 03/16/2025 01:27 PM Body Weight (82058-5) 135 [lb_av] Body Mass Index (24161-5) 18.83 kg/m2 03/17/2025 09:25 AM Temperature (8310-5) 98.4 [degF] Oxygen Saturation (35299-6) 92 % Respiratory Rate (9279-1) 17 /min Heart Rate (8867-4) 78 /min Blood Pressure Systolic (8480-6) 123 mm[Hg] Blood Pressure Diastolic (8462-4) 57 mm[Hg] 2025 09:16 AM Temperature (8310-5) 97.7 [degF] Oxygen Saturation (50030-3) 95 % Respiratory Rate (9279-1) 17 /min Heart Rate (8867-4) 72 /min Blood Pressure Systolic (8480-6) 111 mm[Hg] Blood Pressure Diastolic (8462-4) 76 mm[Hg] 03/19/2025 12:25 PM Temperature (8310-5) 97.7 [degF] Oxygen Saturation (97176-0) 97 % Respiratory Rate (9279-1) 18 /min Heart Rate (8867-4) 83 /min Blood Pressure Systolic (8480-6) 111 mm[Hg] Blood Pressure Diastolic (8462-4) 70 mm[Hg] 03/20/2025 09:44 AM Temperature (8310-5) 97.9 [degF] Oxygen Saturation (85124-9) 95 % Respiratory Rate (9279-1) 17 /min Heart Rate (8867-4) 76 /min Blood Pressure Systolic (8480-6) 108 mm[Hg] Blood Pressure Diastolic (8462-4) 57 mm[Hg] 03/21/2025 10:06 AM Temperature (8310-5) 97.8 [degF] Oxygen Saturation (20657-0) 96 % Respiratory Rate (9279-1) 16 /min Heart Rate (8867-4) 74 /min Blood Pressure Systolic (8480-6) 112 mm[Hg] Blood Pressure Diastolic (8462-4) 53 mm[Hg] 03/22/2025 08:52 AM Temperature (8310-5) 97.8 [degF] Oxygen Saturation (18896-3) 95 % Respiratory Rate (9279-1) 17 /min Heart Rate (8867-4) 82 /min Blood Pressure Systolic (8480-6) 96 mm[Hg] Blood Pressure Diastolic (8462-4) 52 mm[Hg] 03/23/2025 09:10 AM Temperature (8310-5) 97.8 [degF] Oxygen Saturation (65758-4) 95 % Respiratory Rate (9279-1) 17 /min Heart Rate (8867-4) 76 /min Blood Pressure Systolic (8480-6) 104 mm[Hg] Blood Pressure Diastolic (8462-4) 55 mm[Hg] 03/23/2025 10:43 AM Body Weight (89811-3) 154 [lb_av] Body Mass Index (88700-0) 21.48 kg/m2 03/23/2025 11:54 AM Body Weight (24827-2) 137 [lb_av] Body Mass Index (53898-0) 19.11 kg/m2 03/24/2025 09:59 AM Temperature (8310-5) 97.2 [degF] Oxygen Saturation (34418-3) 93 % Respiratory Rate (9279-1) 17 /min Heart Rate (8867-4) 81 /min Blood Pressure Systolic (8480-6) 110 mm[Hg] Blood Pressure Diastolic (8462-4) 57 mm[Hg] 03/24/2025 10:33 PM Temperature (8310-5) 97.8 [degF] Oxygen Saturation (04845-7) 96 % Respiratory Rate (9279-1) 16 /min Heart Rate (8867-4) 90 /min Blood Pressure Systolic (8480-6) 106 mm[Hg] Blood Pressure Diastolic (8462-4) 51 mm[Hg] 03/25/2025 09:33 AM Temperature (8310-5) 97.3 [degF] Oxygen Saturation (32402-2) 96 % Respiratory Rate (9279-1) 17 /min Heart Rate (8867-4) 76 /min Blood Pressure Systolic (8480-6) 119 mm[Hg] Blood Pressure Diastolic (8462-4) 58 mm[Hg] 03/26/2025 07:51 AM Temperature (8310-5) 97.6 [degF] Oxygen Saturation (71069-7) 96 % Respiratory Rate (9279-1) 16 /min Heart Rate (8867-4) 78 /min Blood Pressure Systolic (8480-6) 119 mm[Hg] Blood Pressure Diastolic (8462-4) 77 mm[Hg] 03/27/2025 09:20 AM Temperature (8310-5) 97.8 [degF] Oxygen Saturation (98664-1) 94 % Respiratory Rate (9279-1) 17 /min Heart Rate (8867-4) 82 /min Blood Pressure Systolic (8480-6) 102 mm[Hg] Blood Pressure Diastolic (8462-4) 53 mm[Hg] 03/28/2025 09:53 AM Temperature (8310-5) 97.6 [degF] Oxygen Saturation (53837-5) 94 % Respiratory Rate (9279-1) 17 /min Heart Rate (8867-4) 73 /min Blood Pressure Systolic (8480-6) 99 mm[Hg] Blood Pressure Diastolic (8462-4) 61 mm[Hg] 03/29/2025 09:11 AM Temperature (8310-5) 97.7 [degF] Oxygen Saturation (15684-2) 95 % Respiratory Rate (9279-1) 18 /min Heart Rate (8867-4) 79 /min Blood Pressure Systolic (8480-6) 109 mm[Hg] Blood Pressure Diastolic (8462-4) 62 mm[Hg] 03/30/2025 08:27 AM Temperature (8310-5) 97.4 [degF] Oxygen Saturation (23059-3) 92 % Respiratory Rate (9279-1) 18 /min Heart Rate (8867-4) 82 /min Blood Pressure Systolic (8480-6) 120 mm[Hg] Blood Pressure Diastolic (8462-4) 60 mm[Hg] 03/30/2025 08:51 AM Body Weight (93815-1) 137.6 [lb_av ] Body Mass Index (37006-4) 19.19 kg/m2 03/31/2025 09:24 AM Temperature (8310-5) 97.8 [degF] Oxygen Saturation (54801-9) 92 % Respiratory Rate (9279-1) 18 /min Heart Rate (8867-4) 83 /min Blood Pressure Systolic (8480-6) 106 mm[Hg] Blood Pressure Diastolic (8462-4) 60 mm[Hg] 04/01/2025 08:38 AM Temperature (8310-5) 97.5 [degF] Oxygen Saturation (02393-3) 94 % Respiratory Rate (9279-1) 17 /min Heart Rate (8867-4) 70 /min Blood Pressure Systolic (8480-6) 112 mm[Hg] Blood Pressure Diastolic (8462-4) 56 mm[Hg] 04/02/2025 08:41 AM Temperature (8310-5) 97.4 [degF] Oxygen Saturation (91573-5) 96 % Respiratory Rate (9279-1) 18 /min Heart Rate (8867-4) 79 /min Blood Pressure Systolic (8480-6) 112 mm[Hg] Blood Pressure Diastolic (8462-4) 73 mm[Hg] 04/03/2025 08:59 AM Temperature (8310-5) 97.7 [degF] Oxygen Saturation (16304-0) 96 % Respiratory Rate (9279-1) 17 /min Heart Rate (8867-4) 88 /min Blood Pressure Systolic (8480-6) 113 mm[Hg] Blood Pressure Diastolic (8462-4) 61 mm[Hg] 04/04/2025 10:25 AM Temperature (8310-5) 97.4 [degF] Oxygen Saturation (57467-8) 94 % Respiratory Rate (9279-1) 17 /min Heart Rate (8867-4) 67 /min Blood Pressure Systolic (8480-6) 105 mm[Hg] Blood Pressure Diastolic (8462-4) 61 mm[Hg] 04/05/2025 02:21 PM Temperature (8310-5) 97.7 [degF] Oxygen Saturation (46290-0) 97 % Respiratory Rate (9279-1) 16 /min Heart Rate (8867-4) 81 /min Blood Pressure Systolic (8480-6) 131 mm[Hg] Blood Pressure Diastolic (8462-4) 63 mm[Hg] 04/06/2025 09:24 AM Body Weight (30866-0) 133.4 [lb_av ] Body Mass Index (54578-3) 18.6 kg/m2 04/06/2025 09:21 AM Temperature (8310-5) 97.5 [degF] Oxygen Saturation (70939-5) 94 % Respiratory Rate (9279-1) 18 /min Heart Rate (8867-4) 69 /min Blood Pressure Systolic (8480-6) 105 mm[Hg] Blood Pressure Diastolic (8462-4) 65 mm[Hg] 04/07/2025 08:42 AM Temperature (8310-5) 97.6 [degF] Oxygen Saturation (62085-6) 94 % Respiratory Rate (9279-1) 18 /min Heart Rate (8867-4) 86 /min Blood Pressure Systolic (8480-6) 116 mm[Hg] Blood Pressure Diastolic (8462-4) 63 mm[Hg] 04/08/2025 08:56 AM Temperature (8310-5) 97.9 [degF] Oxygen Saturation (07849-6) 97 % Respiratory Rate (9279-1) 18 /min Heart Rate (8867-4) 97 /min Blood Pressure Systolic (8480-6) 100 mm[Hg] Blood Pressure Diastolic (8462-4) 52 mm[Hg] 04/09/2025 09:27 AM Temperature (8310-5) 98 [degF] Oxygen Saturation (16802-9) 95 % Respiratory Rate (9279-1) 17 /min Heart Rate (8867-4) 89 /min Blood Pressure Systolic (8480-6) 120 mm[Hg] Blood Pressure Diastolic (8462-4) 63 mm[Hg] 04/10/2025 09:24 AM Temperature (8310-5) 98.1 [degF] Oxygen Saturation (53554-2) 94 % Respiratory Rate (9279-1) 18 /min Heart Rate (8867-4) 70 /min Blood Pressure Systolic (8480-6) 109 mm[Hg] Blood Pressure Diastolic (8462-4) 55 mm[Hg] 04/11/2025 08:36 AM Temperature (8310-5) 97.9 [degF] Oxygen Saturation (31899-1) 92 % Respiratory Rate (9279-1) 18 /min Heart Rate (8867-4) 71 /min Blood Pressure Systolic (8480-6) 116 mm[Hg] Blood Pressure Diastolic (8462-4) 65 mm[Hg] 04/12/2025 08:50 AM Temperature (8310-5) 97.8 [degF] Respiratory Rate (9279-1) 18 /min Heart Rate (8867-4) 82 /min Blood Pressure Systolic (8480-6) 103 mm[Hg] Blood Pressure Diastolic (8462-4) 63 mm[Hg] 04/13/2025 10:59 AM Temperature (8310-5) 97.5 [degF] Oxygen Saturation (03167-3) 95 % Respiratory Rate (9279-1) 17 /min Heart Rate (8867-4) 82 /min Blood Pressure Systolic (8480-6) 123 mm[Hg] Blood Pressure Diastolic (8462-4) 70 mm[Hg] 04/13/2025 10:56 AM Body Weight (24813-5) 129.2 [lb_av ] Body Mass Index (90492-0) 18.02 kg/m2 04/14/2025 10:03 AM Body Weight (08155-3) 137.6 [lb_av ] Body Mass Index (49676-9) 19.19 kg/m2 04/14/2025 09:48 AM Temperature (8310-5) 97.6 [degF] Oxygen Saturation (22159-8) 93 % Respiratory Rate (9279-1) 18 /min Heart Rate (8867-4) 92 /min Blood Pressure Systolic (8480-6) 104 mm[Hg] Blood Pressure Diastolic (8462-4) 59 mm[Hg] 04/15/2025 09:50 AM Temperature (8310-5) 97.9 [degF] Oxygen Saturation (85188-3) 95 % Respiratory Rate (9279-1) 17 /min Heart Rate (8867-4) 70 /min Blood Pressure Systolic (8480-6) 122 mm[Hg] Blood Pressure Diastolic (8462-4) 58 mm[Hg] Social History No smoking Hx information available Encounters Type CPT Code Date Location Provider Indication s encounter report 03/07/2025 02:01 PM Mimi Shaffer MD encounter report 03/07/2025 02:01 PM Shira Suggs DO encounter report 03/07/2025 06:2 0 PM - 04/15/2025 09:50 AM Mallory Suggs DO Advance Directives Directive Description Verification Date Supporting Document(s) Resuscitation Intubation
--- OUTSIDE RECORDS SUMMARY | 2025-04-17 13:43 | XMS_ITS | Clinical Summary ---
Author Organization [facility] Address [address] [place] [id number] Care Team Providers Care Director Regulatory Affairs Name Role Phone Stephanie De Santiago MD Unavailable VoteReagan hayward MD Primary Care Provider + Allergies Active [...] Encounters Date Type Department Care Team Description 03/06/2025 Orders Only [facility] Scanner 1 scan: (1-Ord) [facility], FEMUR LT 1VIEW, 03/06/2025 03/06/2025 Orders Only [facility] Scanner 1 scan: (1-Ord) [facility], UPPER EXTREMITY RT NON VASC, 03/06/2025 03/05/2025 Orders Only [facility] Scanner 1 scan: (1-Ord) [facility], XR CHEST 1 VIEW, 03/05/2025 03/05/2025 Orders Only [facility] Scanner 1 scan: (1-Ord) 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 Gender Identity Not on file Sexual Orientation Not on file Occupation Industry Job Start Date Job End Date [place] Not on file Not on file Not on file Obstetrics History Last Filed Vital Signs Vital Sign Reading Time Taken Comments Blood Pressure 142/81 07/19/2024 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 Pulse 80 07/19/2024 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 Temperature 36.4 C (97.6 F) 07/19/2024 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 Respiratory Rate 18 07/19/2024 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 Oxygen Saturation 97% 07/19/2024 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 Inhaled Oxygen Concentration - - Weight 58.7 [...] 01/23/2025 01/23/2024, 03/08/2017, 12/31/2015, Additional history exists Influenza Vaccine (#1) 2025 , 05/14/2020, 07/02/2019, Additional history exists Pneumococcal series for age 50+ Completed 05/18/2015, 04/28/2014, 11/11/2009 Hepatitis B series for 19+ Aged Out N o longer eligible based on patient's age to complete this topic Procedures Procedure Name Priority Date/Time Associated Diagnosis Comments SCAN-RADIOLOGY REPORT 03/06/2025 12:00 AM CDT SCAN-ULTRASOUND REPORT 03/06/2025 12:00 AM CDT SCAN-RADIOLOGY REPORT 03/05/2025 12:00 AM CDT SCAN-RADIOLOGY REPORT 03/05/2025 12:00 AM CDT from Last 3 Months Results * SCAN-RADIOLOGY REPORT (03/06/2025 12:00 AM CDT) Only the most recent of3 resultswithin the time period is included. Anatomical Region Laterality Modality Other us Scanner OTHER Final Result * SCAN-ULTRASOUND REPORT (03/06/2025 12:00 AM CDT) Anatomical Region Laterality Modality Other us Scanner OTHER Final Result from Last 3 Months Insurance [employer] MR * Guarantor: CHRISSIE MIRANDA Account Type Relation to Patient Date of Phone Billing Address [employer] 1935 [address] [place] [address] [employer] Care Teams Director Regulatory Affairs Relationship Specialty Start Date End Date Votel, Reagan Page MD [address] [place] [address] PCP - General Family Practice 12/25/12 Stephanie De Santiago MD Ophthalmology Surgery 12/28/11
--- NOTE | 2025-04-17 14:07 | ED.GENADULT ---
HPI - General Adult General Date Seen: 04/17/25 Chief complaint: Unspecified Complaint, Adult Stated complaint: blood in urine Time Seen by Provider: 04/17/25 13:30 History of Present Illness HPI narrative: Patient is an 89-year-old here with his daughter and son-in-law for evaluation of possible blood in his urine. He had a hip fracture recently, was at a care facility for rehab in [place] and a couple days ago went to an assisted living. Apparently his daughter says they saw some yellowish liquid and some pinkish liquid on his underwear, they were not sure where it was coming from. He denies any blood in his urine although they note that his vision is not very good. He does say he has a sore spot in his hip which has been bothering him for ?years, but his daughter said this is the 1st she has heard about it. He has had a couple falls the past couple of days, he supposed to ask for help when getting up and he acknowledges he does not because he would prefer to do it himself. His daughter says he is not otherwise seemed confused or weak or off his baseline. Related Data Home Medications ?Medication ?Instructions ?Recorded ?Confirmed fluticasone 250 mcg-salmeterol 50 1 inh inhalation BID 02/28/22 04/07/25 mcg/dose blistr powdr for inhalation hydrochlorothiazide 25 mg tablet 25 mg PO DAILY 02/28/22 03/05/25 Held on 03/07/25. Instructions: Resume on 03/21/25. Resume after meeting with your primary care physician as your blood pressure was low during admission levocetirizine 5 mg tablet 2.5 mg PO HS 02/28/22 04/07/25 simvastatin 40 mg tablet 40 mg PO HS 02/28/22 04/07/25 albuterol sulfate 90 mcg/actuation 1 - 2 puff inhalation Q6H PRN 03/06/25 03/06/25 aerosol inhaler aspirin 81 mg tablet,delayed 81 mg PO DAILY 03/06/25 03/06/25 release ([place] Low Dose Aspirin) Held on 03/07/25. Instructions: Resume on 04/10/25. Hold aspirin while you are on Xarelto, resume after 34 days vitamins A,C,J-awdm-ddggaq 2,148 1 - 2 tab PO BID 03/06/25 04/07/25 mcg-113 mg-45 mg-17.4 mg tablet (Eye Multivitamin) metformin 750 mg tablet,extended 750 mg PO BID 04/07/25 04/07/25 release 24 hr Previous Rx's ?Medication ?Instructions ?Recorded Test Strips #1 ea 01/04/24 acetaminophen 500 mg capsule 500 - 1,000 mg (1 - 2 x 500 mg) PO 03/07/25 Q6H PRN pain #100 caps rivaroxaban 10 mg tablet (Xarelto) 10 mg PO DAILY DVT Prophylaxis #34 03/07/25 tabs sennosides 8.6 mg tablet (Senna 17.2 mg (2 x 8.6 mg) PO BID PRN 03/07/25 Lax) constipation #100 tabs Allergies Allergy/AdvReac Type Severity Reaction Status Date / Time pistachio nut Allergy Unknown Verified 04/17/25 13:34 raspberry Allergy Unknown Verified 04/17/25 13:34 [facility] Medical History (Updated 04/17/25 @ 14:00 by Merly De La Rosa MD) 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 ?M51.362 - Other intervertebral disc degeneration, lumbar region with discogenic back pain and lower extremity pain (ICD-10) 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 - Desmoid tumor of other site (ICD-10) Underweight (BMI < 18.5) ?R63.6 - Underweight (ICD-10) ?Z68.1 - Body mass index [BMI] 19.9 or less, adult (ICD-10) Macular degeneration ?H35.30 - Unspecified macular degeneration (ICD-10) Cognitive impairment ?R41.89 - Other symptoms and signs involving cognitive functions and awareness (ICD-10) Hyperlipidemia ?E78.5 - Hyperlipidemia, unspecified (ICD-10) Moderate persistent asthma ?J45.40 - Moderate persistent asthma, uncomplicated (ICD-10) Colon cancer ?C18.9 - Malignant neoplasm of colon, unspecified (ICD-10) Essential hypertension ?I10 - Essential (primary) hypertension (ICD-10) Non-insulin dependent diabetes mellitus Surgical History (Updated 04/03/25 @ 12:05 by Brijesh Downs) Status post-operative repair of closed fracture of left hip (03/06/25) ?Z98.890 - Other specified postprocedural states (ICD-10) ?Z87.81 - Personal history of (healed) traumatic fracture (ICD-10) 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/18) ?Z96.641 - Presence of right artificial hip joint (ICD-10) H/O ultrasound guided needle biopsy (03/30/17) ?Z98.890 - Other specified postprocedural states (ICD-10) History of YAG laser capsulotomy of lens of left eye (09/07/16) ?Z98.42 - Cataract extraction status, left eye (ICD-10) History of YAG laser capsulotomy of lens of right eye (08/31/16) ?Z98.41 - Cataract extraction status, right eye (ICD-10) History of nasal septoplasty (08/07/08) ?Z98.890 - Other specified postprocedural states (ICD-10) History of sinus surgery (02/21/08) ?Z98.890 - Other specified postprocedural states (ICD-10) History of left inguinal hernia repair (08/03/05) ?Z98.890 - Other specified postprocedural states (ICD-10) ?Z87.19 - Personal history of other diseases of the digestive system (ICD-10) S/P right inguinal herniorrhaphy ?Z98.890 - Other specified postprocedural states (ICD-10) ?Z87.19 - Personal history of other diseases of the digestive system (ICD-10) History of arthroscopy of right shoulder (02/08/04) ?Z98.890 - Other specified postprocedural states (ICD-10) History of excision of mass (06/02/20) ?Z98.890 - Other specified postprocedural states (ICD-10) History of open reduction and internal fixation (ORIF) procedure (03/06/25) ?Z98.890 - Other specified postprocedural states (ICD-10) History of ankle surgery ?Z98.890 - Other specified postprocedural states (ICD-10) Cataract (lens) fragments in eye following cataract surgery, unspecified eye (2009) ?H59.029 - Cataract (lens) fragments in eye following cataract surgery, unspecified eye (ICD-10) H/O ventral hernia repair (06/22/15) ?Z98.890 - Other specified postprocedural states (ICD-10) ?Z87.19 - Personal history of other diseases of the digestive system (ICD-10) H/O right hemicolectomy (09/15/14) ?Z90.49 - Acquired absence of other specified parts of digestive tract (ICD-10) History of right hip replacement ?Z96.641 - Presence of right artificial hip joint (ICD-10) Social History Narrative: Currently [place] independently [place]; family believes he could use more assistance. Nonsmoker, no concerning ETOH use. Daughter Neelam would be MDM. DNR What is your current living situation?: I presently have a place to live Problems where you live: no known problems In the past 12 months, utilities in danger of being shut off: no In past 12 months, lack of transportation kept you from medical appts, meetings, work, or getting things needed for daily living: no In the past 12 mos, have been you worried that your food would run out before you had money to buy more?: never true In the past 12 mos, the food you bought just didn't last and you didn't have money to buy more?: never true Smoking Status: Never smoker Second hand tobacco smoke exposure: No How often do you have a drink containing alcohol: never AUDIT-C Alcohol total score: 0 Non-prescribed substance use: denies use How often does anyone, including family, friends and others, physically hurt you: never How often does anyone, including family, friends and others, insult or talk down to you: never How often does anyone, including family, friends and others, threaten you with harm: never How often does anyone, including family, friends and others, scream or curse at you: never service: No Exam Narrative: Exam Narrative: Vital signs reviewed In general, alert, nontoxic elderly male. Heart: Regular rate and rhythm. Lungs: Clear. Abdomen: Soft nontender. Skin: On the left hip he has an approximately 2 cm in diameter grade 2 pressure ulcer. No surrounding erythema. Const: Vital Signs, click to edit/add: Vital Signs - 24 hr 04/17/25 13:27 Temperature 98.2 F Pulse Rate [Right Pulse Oximeter] 86 Respiratory Rate 18 Blood Pressure [Ri ght Upper Arm] 142/73 H Pulse Oximetry 98 Oxygen Delivery Me thod Room Air Course Course ED Course: There is some serous drainage and little bit of blood on his underwear right overlying this pressure ulcer, this is clearly the source of the blood on his underwear. We did obtain a urine sample, this looks clear, I am not going to sent for further testing given that we have no reason to suspect hematuria at this point. Offered further evaluation if his daughter felt he seemed off baseline or was having any other difficulties, she says she does not think he needs anything else today. We placed a Mepilex dressing, I have asked the care facility to change this once week, check the wound daily, and we talked about ways to reduce pressure on the area. Return any time if he is worse, otherwise if not improved over the next couple few weeks, should be seen again for recheck. Vital Signs Vital signs: Initial Vital Signs Temperature 98.2 F 04/17/25 13:27 Temperature Source Temporal Artery Scan 04/17/25 13:27 Pulse Rate 86 04/17/25 13:27 Pulse Rhythm Regular 04/17/25 13:27 Pulse Strength 3+ Normal 04/17/25 13:27 Respiratory Rate 18 04/17/25 13:27 Blood Pressure 142/73 H 04/17/25 13:27 Blood Pressure Mean 96 04/17/25 13:27 Blood Pressure Position Sitting 04/17/25 13:27 Pulse Oximetry 98 04/17/25 13:27 Oxygen Delivery Method Room Air 04/17/25 13:27 Vital Signs Temperature 98.2 F 04/17/25 13:27 Pulse Rate 86 04/17/25 13:27 Respiratory Rate 18 04/17/25 13:27 Blood Pressure 142/73 H 04/17/25 13:27 Pulse Oximetry 98 04/17/25 13:27 Oxygen Delivery Method Room Air 04/17/25 13:27 Temperature 98.2 F 04/17/25 13:27 Pulse Rate 86 04/17/25 13:27 Respiratory Rate 18 04/17/25 13:27 Blood Pressure 142/73 H 04/17/25 13:27 Pulse Oximetry 98 04/17/25 13:27 Oxygen Delivery Method Room Air 04/17/25 13:27 Discharge Plan Discharge Clinical Impression: Pressure ulcer Patient Disposition: er [facility] Condition: Stable Instructions: Pressure Injury (ED) Additional Instructions: The Mepilex dressing can be changed once a week, but skin should be examined daily to make sure there is not worsening erythema or drainage. Use questions or pillows to take the pressure off of that area, particularly when he is sitting in his wheelchair. Make sure skin is otherwise kept clean and dry. Return to the ER for new or worsening symptoms. Prescriptions: No Action albuterol sulfate 90 mcg/actuation HFA aerosol inhaler 1 - 2 puff inhalation Q6H PRN aspirin [[place] Low Dose Aspirin] 81 mg tablet,delayed release (DR/EC) 81 mg PO DAILY Eye Multivitamin 2,148 mcg-113 mg-45 mg-17.4mg tablet 1 - 2 tab PO BID Rx Instructions: administer with AM and PM meals 2 IN AM 1 IN PM sennosides [Senna Lax] 8.6 mg Tablet 17.2 mg PO BID PRN (Reason: constipation) Qty: 100 0RF acetaminophen 500 mg capsule 500 - 1,000 mg PO Q6H MDD 4000mg per day PRN (Reason: pain) Qty: 100 0RF Xarelto 10 mg tablet 10 mg PO DAILY Qty: 34 0RF Rx Instructions: for 34 days fluticasone propion-salmeterol 250-50 mcg/dose blister with device 1 inh INHALATION BID simvastatin 40 mg tablet 40 mg PO HS hydrochlorothiazide 25 mg tablet 25 mg PO DAILY levocetirizine 5 mg tablet 2.5 mg PO HS metformin 750 mg tablet extended release 24 hr 750 mg PO BID (DME) Test Strips Misc See Rx Instructions .Route Qty: 1 0RF Rx Instructions: As directed Stand Alone Forms: [facility] Info Instructions
== END 2025-04-17 14:28 | disposition home or self-care (01) ==
PROVIDERS: Emergency Provider Emergency Medicine; PCP Family Medicine
DX: L89.229 Pressure ulcer of left hip, unspecified stage (principal)
CPT/HCPCS: 99284